=== PATIENT | male | born 1950 | race Caucasian/White ===

== ENCOUNTER → 2016-07-12 | Outpatient (CLI) | payer OTHER, MEDICARE ==
[~2016-07-12] VITALS: Ht 180.3 cm; Wt 96.9 kg
[~2016-07-12] MED LIST: AMOX875T PO; AMPH10TA2 PO; CHOLCAP5 PO; FINA5TAB PO; GLC/500 PO; LISI-729 PO; MULT-599 PO; NAPR-1169 PO; OXYC1TAB3 PO; PRAV40TA2 PO; SERT50TA PO; SILO8CAP PO; TMPOPS15 OPR; VITA400C3 PO
[2016-07-12 14:17] VITALS: BP 151/81; PULSE 94; Ht 180.3 cm; Wt 96.9 kg
== END | disposition home or self-care (01) ==
LOC: C.NEUR 13:42
PROVIDERS: ATTEND Internal Medicine Pulmonary Disease
DX: G47.33 Obstructive sleep apnea (adult) (pediatric) (principal)

== ENCOUNTER → 2016-07-25 | Outpatient (CLI) | payer OTHER, MEDICARE ==
--- NOTE | 2016-07-28 10:42 | POLYSOMNOGRAPH REPORT ---
CLINICAL DATA: A 65-year-old male with BMI of 29.7, with a longstanding history of sleep apnea corrected with CPAP. He is currently on CPAP 8 cm of water pressure. He required redocumentation of sleep apnea for Medicare to obtain appropriate equipment. On the evening of 07/25/2016, a home sleep apnea test was performed using a Neocleus type 3 monitor. RECORDING RESULTS Total recording time was 10 hours. The patient's monitoring time and estimated sleep time was 8.2 hours. RESPIRATORY DATA: Moderate sleep apnea was documented. The ANI was 17.3. There were 32 obstructive, 1 mixed, 1 central apneic episode recorded. There were 108 hypopneic episodes. The longest respiratory event was 58 seconds. OXIMETRY DATA: Nocturnal hypoxemia was seen. Oxygen fuad was 82%. Mean saturation was 92%. Time below 89% was 27 minutes. HEART RATE DATA: Heart rates ranged from 62 to 82 beats per minute. SNORING DATA: Snoring was recorded throughout the night. IMPRESSION: Moderate obstructive sleep apnea/hypopnea with an ANI of 17.3 with nocturnal hypoxemia. RECOMMENDATIONS: The patient should continue on CPAP 8 cm of water pressure with heated humidification and nasal mask through [facility]. BETHANIE
== END | disposition home or self-care (01) ==
LOC: C.NEUR 10:00
PROVIDERS: ATTEND Internal Medicine Pulmonary Disease
DX: G47.33 Obstructive sleep apnea (adult) (pediatric) (principal); G47.36 Sleep related hypoventilation in conditions classified elsewhere

== ENCOUNTER → 2016-08-30 | Outpatient (CLI) | payer OTHER, MEDICARE ==
[~2016-08-30] VITALS: Ht 180.3 cm; Wt 98.7 kg
[2016-08-30 12:29] VITALS: BP 138/75; PULSE 83; Ht 180.3 cm; Wt 98.7 kg
== END | disposition home or self-care (01) ==
LOC: C.NEUR 12:11
PROVIDERS: ATTEND Internal Medicine Pulmonary Disease
DX: G47.33 Obstructive sleep apnea (adult) (pediatric) (principal); R53.82 Chronic fatigue, unspecified

== ENCOUNTER → 2016-11-02 | Outpatient (CLI) | payer OTHER, MEDICARE ==
[~2016-11-02] MED LIST changes: +OXYC-57 PO
== END | disposition home or self-care (01) ==
LOC: C.RDSM 12:19
PROVIDERS: ATTEND Physical Medicine & Rehabilitation Sports Medicine
DX: M25.511 Pain in right shoulder (principal)

== ENCOUNTER 2016-12-13 17:04 | Emergency (ER) | payer OTHER, MEDICARE ==
[~2016-12-13] VITALS: Ht 180.3 cm; Wt 97.3 kg
[2016-12-13 17:07] VITALS: TEMP 36.5; Ht 180.3 cm; Wt 97.3 kg
[2016-12-13] MEDS ORDERED: RABIES IMMUNE GLOBULIN (HUMAN) 150 INTER.UNIT/ML 2 ML VIAL IM. ONE (17:45)
[2016-12-13] MEDS ORDERED: RABIES VACCINE (IMOVAX) HUMAN DIPL CELL 2.5 INTER.UNIT/ML SYR IM. ONE (17:45)
[2016-12-13] MEDS ORDERED: SERT50TA PO (17:52)
--- NOTE | 2016-12-13 18:04 | EMERGENCY ROOM VISIT NOTE ---
ED Visit Note First contact with patient: 17:15 CHIEF COMPLAINT: Need for rabies prophylaxis HISTORY OF PRESENT ILLNESS: This 66-year-old male patient presents to the emergency department after getting bitten by a cat. The patient states approximately 2 months ago, he rescued a cat which he found in a barn. He states the cat had appeared to be pretty messed up, and had potentially gotten bitten by another animal prior to rescue. He did take the cat to a vet, where it is currently being quarantined. The cat has been quarantined since October 19. He was also vaccinated against rabies on that same day. The patient did see his PCP today, who started him on Augmentin, and recommended that he come to the emergency department for rabies vaccination. There is concern for rabies exposure due to unknown history of exposure to cat. Patient's tetanus vaccination is up-to-date. REVIEW OF SYSTEMS: A 6 system review of systems was completed with positives and pertinent negatives listed in the HPI. ALLERGIES: Ciprofloxacin MEDICATIONS: Please see list. PMH: Diabetes, hypertension, hyperlipidemia, BPH, sleep apnea. SOCIAL HISTORY: Was locally with his family. He denies drug, tobacco use. He admits to occasional alcohol use. PHYSICAL EXAM: Vital Signs: Reviewed Nurse's notes, vital signs stable. GENERAL : 66-year-old male, in no acute distress, well-developed, well-nourished. HEAD : Atraumatic, without temporal or scalp tenderness. EYES: PERRLA, EOMI, no discharge or injection. SKIN: [place], warm, dry. No cyanosis or diaphoresis noted. Small superficial puncture wound and superficial abrasion noted on right posterior forearm. The wounds are clean. Capillary refill less than 2 seconds. NEUROLOGICAL: Alert and oriented to person place and time. Normal sensation to light and sharp touch. MUSCULOSKELETAL: Motor functions grossly intact of the extremities. Full range of motion. There is no tenderness over the right forearm. EMERGENCY DEPARTMENT COURSE: I examined the patient. The patient was given RIG 20 Units/kg. The patient was given Imovax 1ml IM. The patient was observed for 20 minutes with no reaction. The patient was discharged home in stable condition. DIFFERENTIAL DIAGNOSIS: Infection, rabies, sepsis, and others. DIAGNOSIS: Rabies prophylaxis, cat bite DISCHARGE INSTRUCTIONS: Today is day 0. Return to the ER on days 3 (12/16/16), 7 (12/20/16), 14 (12/27/16) , and 28 (01/10/17) for subsequent vaccinations. Return sooner or follow up with your family doctor for signs of infection ( increased redness, discharge, fever) or for complications with the vaccine series. Take Augmentin as was prescribed by your PCP. Keep the cat quarantined per the vet's recommendations. Current/Historical Medications Scheduled Amphetamine-Dextroamphetamine 10MG (Adderall 10MG), 10 MG PO QAM Cholecalciferol (Vitamin D3), 5,000 INTER.UNIT PO DAILY Finasteride (Proscar), 5 MG PO HS Lisinopril (Zestril), 5 MG PO HS Metformin Hcl (Glucophage), 500 MG PO DAILY Multiple Vitamins W/ Minerals (Mens 50+ Multi Vitamin &), 1 TAB PO DAILY Pravastatin Sodium (Pravastatin Sodium), 40 MG PO HS Silodosin (Rapaflo), 8 MG PO HS Timolol Maleate (Timolol 0.5% Oph Soln 15 Ml), 1 DROP OPR DAILY Vitamin E (Vitamin E 400 Iu), 400 INTER.UNIT PO DAILY Scheduled PRN Naproxen (Naprosyn), 500 MG PO BID PRN for Pain Allergies Coded Allergies: Ciprofloxacin (Verified Allergy, Unknown, TINGLING ALL OVER, 12/13/16) Vital Signs Date Time Temp Pulse Resp B/P (MAP) Pulse Ox O2 Delivery O2 Flow Rate FiO2 12/13/16 19:00 72 16 137/72 95 Room Air 12/13/16 17:07 36.5 80 18 139/76 95 Room Air Medications Administered Medications (Trade) Dose Ordered Sig/Umesh Route Start Time Stop Time Status Last Admin Dose Admin Rabies Immune Globulin (Imogam Rabies Inj) 1,940 interunit ONCE ONCE IM. 12/13/16 17:45 12/13/16 17:46 DC 12/13/16 18:32 1,940 INTERUNIT Rabies Vaccine Human Diploid Cell (Imovax Rabies) 2.5 interunit ONCE ONCE IM. 12/13/16 17:45 12/13/16 17:46 DC 12/13/16 17:45 2.5 INTERUNIT Departure Information Impression Primary Impression: Cat bite Additional Impression: Rabies, need for prophylactic vaccination against Dispostion Home / Self-Care Condition GOOD Referrals Justin Parks M.D. (PCP) Patient Instructions ED Bite Cat, [facility], Rabies Immune Globulin human RIG solution for injection, Rabies Vaccine suspension for injection Additional Instructions Today is day 0. Return to the ER on days 3 (12/16/16), 7 (12/20/16), 14 (12/27/16) , and 28 (01/10/17) for subsequent vaccinations. Return sooner or follow up with your family doctor for signs of infection ( increased redness, discharge, fever) or for complications with the vaccine series. Take Augmentin as was prescribed by your PCP. Keep the cat quarantined per the vet's recommendations. Problem Qualifiers Primary Impression: Cat bite Encounter type: initial encounter Qualified Codes: W55.01XA - Bitten by cat , initial encounter
[2016-12-13 19:00] VITALS: BP 137/72; PULSE 72; O2SAT 95
[2017-03-16] MEDS ORDERED: OXYC-57 PO (14:14)
== END 2016-12-13 19:07 | disposition home or self-care (01) ==
LOC: C.EDB 17:06 → C.EDD 19:07
DX: Z23 Encounter for immunization (principal); Z20.3 Contact with and (suspected) exposure to rabies; I10 Essential (primary) hypertension; E11.9 Type 2 diabetes mellitus without complications; E78.5 Hyperlipidemia, unspecified; G47.30 Sleep apnea, unspecified; Z88.2 Allergy status to sulfonamides; Z79.84 Long term (current) use of oral hypoglycemic drugs; Z79.899 Other long term (current) drug therapy

== ENCOUNTER 2016-12-16 16:04 | Emergency (ER) | payer OTHER, MEDICARE ==
[~2016-12-16] VITALS: Ht 180.3 cm; Wt 97.0 kg
[2016-12-16 16:06] VITALS: TEMP 36.6; Ht 180.3 cm; Wt 97.0 kg
[2016-12-16] MEDS ORDERED: RABIES VACCINE (IMOVAX) HUMAN DIPL CELL 2.5 INTER.UNIT/ML SYR IM. ONE (16:45)
[2016-12-16 17:21] VITALS: BP 146/76; PULSE 84; O2SAT 96
[2016-12-16] MEDS ORDERED: CHOLCAP5 PO (17:52)
[2016-12-16] MEDS ORDERED: LISI-729 PO (17:52)
[2016-12-16] MEDS ORDERED: GLC/500 PO (17:52)
[2016-12-16] MEDS ORDERED: PRAV40TA2 PO (17:52)
[2016-12-16] MEDS ORDERED: FINA5TAB PO (17:52)
[2016-12-16] MEDS ORDERED: SILO8CAP PO (17:52)
[2016-12-16] MEDS ORDERED: VITA400C3 PO (17:52)
[2016-12-16] MEDS ORDERED: AMPH10TA2 PO (17:52)
[2016-12-16] MEDS ORDERED: MULT-599 PO (17:52)
[2016-12-16] MEDS ORDERED: TMPOPS15 OPR (17:57)
[2016-12-16] MEDS ORDERED: NAPR-1169 PO (17:57)
--- NOTE | 2016-12-16 21:41 | EMERGENCY ROOM VISIT NOTE ---
ED Visit Note First contact with patient: 16:12 CHIEF COMPLAINT: Rabies vaccination. HISTORY OF PRESENT ILLNESS: Mr. Banegas is a 66-year-old white male who ambulates into the ED accompanied by his requesting his second rabies vaccination. Patient reports he has not had any side effect or complications from his previous rabies vaccinations. Additionally he reports she is feeling well and denies fevers, chills, sweats, joint pains, chest pain, shortness of breath, abdominal pain, nausea/vomiting, decreased appetite. REVIEW OF SYSTEMS: As noted above in History of Present Illness. PHYSICAL EXAM: Vital Signs: Date Time Temp Pulse Resp B/P (MAP) Pulse Ox O2 Delivery O2 Flow Rate FiO2 12/16/16 17:21 84 18 146/76 96 12/16/16 16:06 36.6 89 16 144/78 94 Room Air GENERAL: 66-year-old white male in no acute distress, nontoxic-appearing, afebrile and hemodynamically stable. NEUROLOGICAL: Awake, alert and oriented to person, place and time. Answering questions appropriately and following commands. Normal gait. SKIN: Warm, dry and pink. EMERGENCY DEPARTMENT COURSE: Patient is assessed as noted above. Patient was given 2.5 interunits of rabies vaccination IM. Patient was educated about today's findings and instructed on her treatment plan ; she verbalized understanding and agreement with this plan. CLINICAL IMPRESSION: Post exposure rabies prophylaxis. DISPOSITION: Patient discharged to home in stable condition; prior to discharge he was reassessed and reported that he was pain and symptom-free. PLAN: Patient was encouraged to continue his current treatment plan from his previous immunizations and keep his current immunizations schedule. Patient was encouraged return the ED sooner for any reaction to his medications , abnormal symptoms or any new/concerning symptoms.
== END 2016-12-16 17:22 | disposition home or self-care (01) ==
LOC: C.EDB 16:07 → C.EDD 17:22
DX: Z23 Encounter for immunization (principal); Z20.3 Contact with and (suspected) exposure to rabies

== ENCOUNTER 2016-12-20 17:10 | Emergency (ER) | payer OTHER, MEDICARE ==
[~2016-12-20] VITALS: Ht 180.3 cm; Wt 98.0 kg
[~2016-12-20 17:10] MED LIST changes: -AMOX875T PO; -OXYC-57 PO; -OXYC1TAB3 PO; -SERT50TA PO
[2016-12-20 17:21] VITALS: Ht 180.3 cm; Wt 98.0 kg
[2016-12-20] MEDS ORDERED: RABIES VACCINE (IMOVAX) HUMAN DIPL CELL 2.5 INTER.UNIT/ML SYR IM. ONE (17:30)
[2016-12-20 17:44] VITALS: BP 128/81; PULSE 78; TEMP 36.7; O2SAT 95
--- NOTE | 2016-12-20 19:12 | EMERGENCY ROOM VISIT NOTE ---
History First contact with patient: 17:24 Chief Complaint: RABIES VACCINE REPEAT VISIT Stated Complaint: 3RD RABIES SHOT History of Present Illness The patient is a 66 year old male who presents to the Emergency Room for his third Imovax injection. The patient was bitten by a cat on his right forearm. The patient reports complete healing of the wound. He denies any adverse reactions to his rabies immunizations. Review of Systems 6 system review was performed and was negative except for pertinent positives and negatives as indicated in history of present illness Past Medical/Surgical History Well documented on initial visit and unchanged Social History Smoking Status: Never Smoker Alcohol Use: occasionally Marital Status: Occupation Status: retired Current/Historical Medications Scheduled Amphetamine-Dextroamphetamine 10MG (Adderall 10MG), 10 MG PO QAM Cholecalciferol (Vitamin D3), 5,000 INTER.UNIT PO DAILY Finasteride (Proscar), 5 MG PO HS Lisinopril (Zestril), 5 MG PO HS Metformin Hcl (Glucophage), 500 MG PO DAILY Multiple Vitamins W/ Minerals (Mens 50+ Multi Vitamin &), 1 TAB PO DAILY Pravastatin Sodium (Pravastatin Sodium), 40 MG PO HS Silodosin (Rapaflo), 8 MG PO HS Timolol Maleate (Timolol 0.5% Oph Soln 15 Ml), 1 DROP OPR DAILY Vitamin E (Vitamin E 400 Iu), 400 INTER.UNIT PO DAILY Scheduled PRN Naproxen (Naprosyn), 500 MG PO BID PRN for Pain Allergies Coded Allergies: Ciprofloxacin (Verified Allergy, Unknown, TINGLING ALL OVER, 12/13/16) Physical Exam Vital Signs Date Time Temp Pulse Resp B/P (MAP) Pulse Ox O2 Delivery O2 Flow Rate FiO2 12/20/16 17:44 36.7 78 18 128/81 95 12/20/16 17:43 78 18 128/81 95 Room Air 12/20/16 17:21 36.7 78 18 134/84 95 Pain Rating (0-10): 0 Physical Exam CONSTITUTIONAL: Healthy and well nourished. Alert and oriented X 3 with positive affect. MUSCULOSKELETAL: Examination shows a healed wound of the dorsal forearm. No erythema, fluctuance or drainage noted. INTEGUMENTARY: No rash or other significant dermatologic conditions noted. NEUROLOGIC: Right hand and fingers are sensory intact. Medical Decision & Procedures Medications Administered Medications (Trade) Dose Ordered Sig/Umesh Route Start Time Stop Time Status Last Admin Dose Admin Rabies Vaccine Human Diploid Cell (Imovax Rabies) 2.5 interunit ONCE ONCE IM. 12/20/16 17:30 12/20/16 17:31 DC 12/20/16 17:37 2.5 INTERUNIT ED Course Patient history and physical exam were performed. Nurse's notes were reviewed. Vital signs were reviewed and normal. The patient received Imovax without adverse reaction. The patient will return in one week for his fourth Imovax injection, sooner with any adverse reaction or wound complications. The patient denied any pain at the time of discharge. Medical Decision Impression Primary Impression: Rabies, need for prophylactic vaccination against Additional Impression: Cat bite of right upper arm Departure Information Dispostion Home / Self-Care Condition GOOD Forms HOME CARE DOCUMENTATION FORM, IMPORTANT VISIT INFORMATION Patient Instructions [facility] Additional Instructions Return next Monday for your fourth Imovax injection Problem Qualifiers Additional Impression: Cat bite of right upper arm Encounter type: subsequent encounter Qualified Codes: S41.151D - Open bite of right upper arm, subsequent encounter; W55.01XD - Bitten by cat, subsequent encounter
[2017-03-16] MEDS ORDERED: OXYC-57 PO (14:14)
== END 2016-12-20 17:45 | disposition home or self-care (01) ==
LOC: C.EDB 17:11 → C.EDD 17:45
DX: Z23 Encounter for immunization (principal); Z20.3 Contact with and (suspected) exposure to rabies

== ENCOUNTER 2016-12-27 18:27 | Emergency (ER) | payer OTHER, MEDICARE ==
[~2016-12-27] VITALS: Ht 180.3 cm; Wt 98.6 kg
[2016-12-27 18:35] VITALS: BP 154/80; PULSE 81; TEMP 36.4; O2SAT 96; Ht 180.3 cm; Wt 98.6 kg
[2016-12-27] MEDS ORDERED: RABIES VACCINE (IMOVAX) HUMAN DIPL CELL 2.5 INTER.UNIT/ML SYR IM. ONE (19:00)
--- NOTE | 2016-12-28 01:20 | EMERGENCY ROOM VISIT NOTE ---
ED Visit Note First contact with patient: 18:47 Chief Complaint: Rabies vaccination. History of Present Illness: Mr. Banegas is a 66-year-old white male who ambulates into the ED accompanied by his requesting his fourth rabies vaccination injection. Patient reports he has had no adverse affects from his previous immunization shots. He also reports he is feeling well today and has not had any fevers, chills, sweats, skin eruptions, joint pains, chest pains, shortness of breath, abdominal pains, nausea/vomiting, decreased appetite. Review of Systems: As noted above in history of present illness. Past Medical History: As previously noted. Current Medications: As previously noted. Allergies to Medications: Ciprofloxacin. Social History: As previously noted. Physical Examination: Vital Signs: Date Time Temp Pulse Resp B/P (MAP) Pulse Ox O2 Delivery O2 Flow Rate FiO2 12/27/16 18:35 36.4 81 20 154/80 96 Room Air GENERAL: 66-year-old male in no acute distress, nontoxic-appearing, afebrile and hemodynamically stable. NEUROLOGICAL: Awake, alert and oriented to person, place and time. Answering questions appropriately and following commands. Normal gait. Good hand eye coordination. SKIN: Warm, dry and pink. ED Course: Patient is assessed as noted above. Patient's medication list was reviewed. Patient was given 2.5 interunits of rabies vaccination IM. Patient was observed and had no reactions. Patient was educated about today's findings and instructed on his treatment plan ; he verbalizes understanding and agreement with this plan. Clinical Impression: Fourth rabies vaccination. Disposition: Patient discharged home in stable condition accompanied by his ; prior to departure he was reassessed and was subjectively pain and symptom- free. Plan: Patient was encouraged to continue to monitor himself for any associated side effects of the medications. Patient was encouraged to follow-up with his PCP or return to the ED as needed for any symptoms.
[2017-03-16] MEDS ORDERED: OXYC-57 PO (14:14)
== END 2016-12-27 19:17 | disposition home or self-care (01) ==
LOC: C.EDB 18:28 → C.EDD 19:17
DX: Z23 Encounter for immunization (principal); Z20.3 Contact with and (suspected) exposure to rabies

== ENCOUNTER 2017-01-10 08:48 | Emergency (ER) | payer OTHER, MEDICARE ==
[~2017-01-10] VITALS: Ht 180.3 cm; Wt 98.3 kg
[2017-01-10 08:52] VITALS: TEMP 36.4; Ht 180.3 cm; Wt 98.3 kg
--- NOTE | 2017-01-10 09:21 | EMERGENCY ROOM VISIT NOTE ---
ED Visit Note First contact with patient: 09:06 CHIEF COMPLAINT: Rabies prophylaxis HISTORY OF PRESENT ILLNESS: This 66-year-old male patient presents to the emergency department, ambulatory, with his , for his fifth rabies shot. The patient's initial bite was by a cat on December 13. Please see previous dictation for further history. The patient has not had any complications from the previous injections. They deny any other complaints. REVIEW OF SYSTEMS: A 6 system review of systems was completed with positives and pertinent negatives listed in the HPI. ALLERGIES: Ciprofloxacin MEDICATIONS: Please see list. PMH: Unchanged from previous visit. PHYSICAL EXAM: Vital Signs: Reviewed Nurse's notes, vital signs stable. GENERAL : A 66-year-old male, in no acute distress, well-developed, well-nourished. HEAD: Atraumatic, without temporal or scalp tenderness. EYES: PERRLA, EOMI, no discharge or injection. SKIN: Normal. NEUROLOGICAL: Alert and cooperative. Sensory and motor functions grossly intact. EMERGENCY DEPARTMENT COURSE: I examined the patient. The patient was given Imovax 1ml IM. The patient was observed for 20 minutes with no reaction. The patient was discharged home in stable condition. DIAGNOSIS: Rabies prophylaxis DISCHARGE INSTRUCTIONS: This was your last vaccination of the series. Return for any complications. Current/Historical Medications Scheduled Amphetamine-Dextroamphetamine 10MG (Adderall 10MG), 10 MG PO QAM Cholecalciferol (Vitamin D3), 5,000 INTER.UNIT PO DAILY Finasteride (Proscar), 5 MG PO HS Lisinopril (Zestril), 5 MG PO HS Metformin Hcl (Glucophage), 500 MG PO DAILY Multiple Vitamins W/ Minerals (Mens 50+ Multi Vitamin &), 1 TAB PO DAILY Pravastatin Sodium (Pravastatin Sodium), 40 MG PO HS Silodosin (Rapaflo), 8 MG PO HS Timolol Maleate (Timolol 0.5% Oph Soln 15 Ml), 1 DROP OPR DAILY Vitamin E (Vitamin E 400 Iu), 400 INTER.UNIT PO DAILY Scheduled PRN Naproxen (Naprosyn), 500 MG PO BID PRN for Pain Allergies Coded Allergies: Ciprofloxacin (Verified Allergy, Unknown, TINGLING ALL OVER, 12/27/16) Vital Signs Date Time Temp Pulse Resp B/P (MAP) Pulse Ox O2 Delivery O2 Flow Rate FiO2 01/10/17 09:48 82 18 143/78 93 01/10/17 08:52 36.4 84 16 131/71 94 Room Air Medications Administered Medications (Trade) Dose Ordered Sig/Umesh Route Start Time Stop Time Status Last Admin Dose Admin Rabies Vaccine Human Diploid Cell (Imovax Rabies) 2.5 interunit ONCE ONCE IM. 01/10/17 09:30 01/10/17 09:31 DC 01/10/17 09:30 2.5 INTERUNIT Departure Information Impression Primary Impression: Cat bite Additional Impression: Rabies, need for prophylactic vaccination against Dispostion Home / Self-Care Condition GOOD Referrals Justin Parks M.D. (PCP) Patient Instructions [facility], Rabies Vaccine suspension for injection Additional Instructions This was your last vaccination of the series. Return for any complications. Please continue to follow up as you regularly would with your primary care provider. Problem Qualifiers Primary Impression: Cat bite Encounter type: sequela Qualified Codes: W55.01XS - Bitten by cat, sequela
[2017-01-10] MEDS ORDERED: RABIES VACCINE (IMOVAX) HUMAN DIPL CELL 2.5 INTER.UNIT/ML SYR IM. ONE (09:30)
[2017-01-10 09:48] VITALS: BP 143/78; PULSE 82; O2SAT 93
[2017-03-16] MEDS ORDERED: OXYC-57 PO (14:14)
== END 2017-01-10 09:48 | disposition home or self-care (01) ==
LOC: C.EDB 08:49 → C.EDA 09:48
DX: Z23 Encounter for immunization (principal); Z20.3 Contact with and (suspected) exposure to rabies

== ENCOUNTER 2017-02-18 14:45 | Emergency (ER) | payer OTHER, MEDICARE ==
[~2017-02-18] VITALS: Ht 180.3 cm; Wt 96.2 kg
[2017-02-18 14:46] VITALS: TEMP 36.6; Ht 180.3 cm; Wt 96.2 kg
[2017-02-18] MEDS ORDERED: SODIUM CHLORIDE 0.9% 1000ML 1,000 ML IV STA (14:58)
[2017-02-18] MEDS ORDERED: KETOROLAC TROMETHAMINE 30 MG/ML VIAL IV STA (14:58)
[2017-02-18] MEDS ORDERED: SODIUM CHLORIDE 0.9% 1000ML 1,000 ML IV ONE (14:58)
--- NOTE | 2017-02-18 15:01 | EMERGENCY ROOM VISIT NOTE ---
History Report prepared by Park: Bernabe Smith Under the Supervision of: Dr. Dionicio Mayberry M.D. First contact with patient: 14:49 Chief Complaint: KIDNEY STONE Stated Complaint: KIDNEY PAIN History of Present Illness The patient is a 66 year old male who presents to the Emergency Room with complaints of worsening right flank pain that began a couple of days ago. He rates his pain a 10/10 in severity. The patient denies a past medical history of kidney stones or aneurisms. His pain has worsened exceptionally in the past couple of hours. He notes that his pain only feels better when he sits very still. His pain worsens when he moves or takes a deep breath. His pain radiates around to his right abdomen. He denies any fevers, chills, chest pain, nausea, vomiting, numbness, weakness, recent trauma, recent injury, burning with urination, hematuria, diarrhea, melena, or hematochezia. He notes that his urine will intermittently be very yellow or clear, and then have an odor or no odor. He has a past medical history of diabetes, hypertension, a right hip replacement, and a left shoulder surgery. He denies any history of abdominal surgeries. He is not on any blood thinners. He notes that his abdomen feels distended. Source of History: patient Onset: a couple of days ago Position: other (Right flank) Symptom Intensity: 10/10 Quality: sharp Timing: worsening Modifying Factors (Worsening): breathing, movement Modifying Factors (Relieving): rest Associated Symptoms: + abdominal pain, No fevers, No chills, No chest pain, No nausea, No vomiting, No melena, No hematochezia, No diarrhea, No weakness, No numbness Note: He states that his abdomen feels distended. Review of Systems See HPI for pertinent positives & negatives. A total of 10 systems reviewed and were otherwise negative. Past Medical & Surgical Medical Problems: (1) Diabetes (2) HTN (hypertension) Old medical records were reviewed. Nurse's notes were reviewed and I agree with. Family History Omitted secondary to the patient's age. Social History Smoking Status: Never Smoker Smokeless Tobacco Use: No Alcohol Use: occasionally Drug Use: none Marital Status: Housing Status: lives with family Occupation Status: retired Current/Historical Medications Scheduled Amoxicillin & Pot Clavulanate (Augmentin 875-125 mg), 875 MG PO BID Amphetamine-Dextroamphetamine 10MG (Adderall 10MG), 10 MG PO QAM Cholecalciferol (Vitamin D3), 5,000 INTER.UNIT PO DAILY Finasteride (Proscar), 5 MG PO HS Lisinopril (Zestril), 5 MG PO HS Metformin Hcl (Glucophage), 500 MG PO HS Multiple Vitamins W/ Minerals (Mens 50+ Multi Vitamin &), 1 TAB PO DAILY Pravastatin Sodium (Pravastatin Sodium), 40 MG PO HS Silodosin (Rapaflo), 8 MG PO HS Timolol Maleate (Timolol 0.5% Oph Soln 15 Ml), 1 DROP OPR QAM Vitamin E (Vitamin E 400 Iu), 400 INTER.UNIT PO DAILY Scheduled PRN Naproxen (Naprosyn), 500 MG PO BID PRN for Pain Oxycodone Immediate Rel Tab (Roxicodone Ir), 1-2 TAB PO Q4H PRN for Severe Pain Allergies Coded Allergies: Ciprofloxacin (Verified Allergy, Unknown, TINGLING ALL OVER, 02/18/17) Physical Exam Vital Signs Date Time Temp Pulse Resp B/P (MAP) Pulse Ox O2 Delivery O2 Flow Rate FiO2 02/18/17 17:30 76 18 122/76 98 02/18/17 14:46 36.6 83 20 138/88 99 Room Air Physical Exam General: Uncomfortable appearing older male, well developed well nourished in moderate acute distress, breathing comfortably on room air. Complaining of right flank pain that worsens with movement and palpation. Normal speech HEENT: Normal cephalic atraumatic. Pupils are equal round and reactive to light. Extraocular movements are intact. Oropharynx is pink with moist mucous membranes. No swelling of the mouth lips or tongue. Neck: Supple with a midline trachea. No meningeal signs or stiffness, no JVD or bruits. No Stridor. Chest: Clear to auscultation bilaterally. No wheezes or rhonchi. No increased work of breathing. Heart: regular rate and rhythm. Abdomen: Soft nontender, nondistended without rebound guarding or rigidity. Extremities: No cyanosis clubbing or edema. No calf tenderness or assymetry Spine/Back. Right flank is reproducibly tender with movement. No masses or lesions. No CVA tenderness Skin: Good turgor without rashes. Neurologic exam: Cranial nerves two through 12 are intact. Motor and sensation are intact and symmetrical throughout. Medical Decision & Procedures ER Provider Diagnostic Interpretation: Radiology results as stated below per my review and radiologist interpretation: CT SCAN OF THE ABDOMEN AND PELVIS WITHOUT CONTRAST CLINICAL HISTORY: Right flank pain COMPARISON STUDY: 01/15/2015 TECHNIQUE: CT scan of the abdomen and pelvis was performed from the lung bases to the proximal femurs. Images are reviewed in the axial, sagittal, and coronal planes. IV contrast was not administered for this examination. A dose lowering technique was utilized adhering to the principles of ALARA. CT DOSE: 1755.08 mGy.cm FINDINGS: Lower chest: The heart is normal in size and configuration, without pericardial effusion. The lung bases and pleural spaces are clear. Liver: The unenhanced liver is normal in size, contour, and attenuation. There is no intrahepatic biliary ductal dilatation. Gallbladder: Unremarkable. Spleen: Normal in size and attenuation. Pancreas: Unremarkable. Adrenal glands: Unremarkable. Kidneys: No renal, ureteral, or bladder calculi are visualized. Bowel: There are no transition zones indicate bowel obstruction. There is colonic wall thickening at the descending sigmoid junction with infiltration the perisigmoid fat. The findings are consistent with acute diverticulitis. The wall thickening is somewhat eccentric, and follow-up is recommended to exclude an underlying neoplasm. Peritoneum: There is no intraperitoneal free air or abdominal ascites. There is very subtle infiltration of the central mesentery. Vasculature: The abdominal aorta is normal in course and caliber. Adenopathy: There are mildly prominent para-aortic and iliac lymph nodes. Pelvic viscera: The prostate is enlarged with median lobe hypertrophy. There is bladder wall thickening likely secondary to bladder outlet obstruction. Skeletal structures: There are postsurgical changes of a total right hip arthroplasty. No destructive lesions are visualized. IMPRESSION: 1. Acute diverticulitis at the sigmoid descending colonic junction 2. Underlying eccentric bowel wall thickening. Follow-up is recommended to exclude an underlying neoplasm 3. No evidence of bowel obstruction. No evidence of free air 4. Prostamegaly. Bladder wall thickening likely secondary to bladder outlet obstruction. 5. Mildly prominent para-aortic and iliac lymph nodes. Electronically signed by: Cali Plaza M.D. 02/18/2017 3:35 PM Dictated Date/Time: 02/18/2017 3:29 PM Laboratory Results 02/18/17 15:00 Red Blood Count 5.06, Mean Corpuscular Volume 89.9, Mean Corpuscular Hemoglobin 29.1, Mean Corpuscular Hemoglobin Concent 32.3, Mean Platelet Volume 9.9, Neutrophils (%) (Auto) 61.3, Lymphocytes (%) (Auto) 28.5, Monocytes (%) (Auto) 8.1, Eosinophils (%) (Auto) 1.7, Basophils (%) (Auto) 0.2, Neutrophils # (Auto) 7.22, Lymphocytes # (Auto) 3.36, Monocytes # (Auto) 0.96, Eosinophils # (Auto) 0.20, Basophils # (Auto) 0.02 02/18/17 15:00 Test 02/18/17 15:00 02/18/17 16:35 White Blood Count 11.78 K/uL (4.8-10.8) Red Blood Count 5.06 M/uL (4.7-6.1) Hemoglobin 14.7 g/dL (14.0-18.0) Hematocrit 45.5 % (42-52) Mean Corpuscular Volume 89.9 fL (80-100) Mean Corpuscular Hemoglobin 29.1 pg (25-34) Mean Corpuscular Hemoglobin Concent 32.3 g/dl (32-36) Platelet Count 364 K/uL (130-400) Mean Platelet Volume 9.9 fL (7.4-10.4) Neutrophils (%) (Auto) 61.3 % Lymphocytes (%) (Auto) 28.5 % Monocytes (%) (Auto) 8.1 % Eosinophils (%) (Auto) 1.7 % Basophils (%) (Auto) 0.2 % Neutrophils # (Auto) 7.22 K/uL (1.4-6.5) Lymphocytes # (Auto) 3.36 K/uL (1.2-3.4) Monocytes # (Auto) 0.96 K/uL (0.11-0.59) Eosinophils # (Auto) 0.20 K/uL (0-0.5) Basophils # (Auto) 0.02 K/uL (0-0.2) RDW Standard Deviation 44.2 fL (36.4-46.3) RDW Coefficient of Variation 13.5 % (11.5-14.5) Immature Granulocyte % (Auto) 0.2 % Immature Granulocyte # (Auto) 0.02 K/uL (0.00-0.02) Anion Gap 5.0 mmol/L (3-11) Est Creatinine Clear Calc Drug Dose 99.8 ml/min Estimated GFR () 104.5 Estimated GFR (Non- 90.2 BUN/Creatinine Ratio 12.1 (10-20) Calcium Level 8.9 mg/dl (8.5-10.1) Total Bilirubin 0.4 mg/dl (0.2-1) Direct Bilirubin 0.1 mg/dl (0-0.2) Aspartate Amino Transf (AST/SGOT) 14 U/L (15-37) Alanine Aminotransferase (ALT/SGPT) 23 U/L (12-78) Alkaline Phosphatase 104 U/L (45-117) Total Protein 8.0 gm/dl (6.4-8.2) Albumin 3.9 gm/dl (3.4-5.0) Lipase 151 U/L (73-393) Urine Color YELLOW Urine Appearance CLEAR (CLEAR) Urine pH 6.5 (4.5-7.5) Urine Specific [place] 1.009 (1.000-1.030) Urine Protein NEG (NEG) Urine Glucose (UA) NEG (NEG) Urine Ketones NEG (NEG) Urine Occult Blood NEG (NEG) Urine Nitrite NEG (NEG) Urine Bilirubin NEG (NEG) Urine Urobilinogen NEG (NEG) Urine Leukocyte Esterase NEG (NEG) Laboratory studies as stated above per my review. Medications Administered Medications (Trade) Dose Ordered Sig/Umesh Route Start Time Stop Time Status Last Admin Dose Admin Sodium Chloride 1,000 ml @ 999 mls/hr Q1H1M STAT IV 02/18/17 14:58 02/18/17 15:58 DC 02/18/17 15:43 999 MLS/HR Sodium Chloride 1,000 ml @ 150 mls/hr Q6H40M ONCE IV 02/18/17 14:58 02/18/17 19:04 DC 02/18/17 16:23 150 MLS/HR Ketorolac Tromethamine (Toradol Inj) 30 mg NOW STAT IV 02/18/17 14:58 02/18/17 15:00 DC 02/18/17 15:16 30 MG Morphine Sulfate (MoRPHine SULFATE INJ) 4 mg NOW STAT IV 02/18/17 15:45 9/16/17 15:46 DC 02/18/17 16:23 4 MG Ondansetron HCl (Zofran Inj) 4 mg NOW STAT IV 02/18/17 15:45 02/18/17 15:46 DC 02/18/17 16:22 4 MG Amoxicillin/ Clavulanate Potassium (Augmentin Tab) 875 mg ONE ONCE PO 02/18/17 17:15 02/18/17 17:16 DC 02/18/17 17:31 875 MG ED Course 1449: Past medical records reviewed. The patient was evaluated in room C6, and a complete history and physical examination were performed. 1458: Ordered Toradol Inj 30 mg IV, Sodium Chloride 1000 ml @ 150 mls/hr IV, Sodium Chloride 1000 ml @ 999 mls/hr IV 1520: I tried to reevaluate the patient at this time, but he was in radiology receiving his CT scan. 1545: Ordered Zofran Inj 4 mg IV, Morphine Sulfate 4 mg IV 1610: Upon reevaluation, the patient is still having pain. I ordered him more pain medications. It is worst when he is moving. He has no abdominal tenderness. 1715: Ordered Oxycodone HCl 1 homepack PO, Augmentin Tab 875 mg PO 1730: Upon reevaluation, the patient is resting. I discussed the results and treatment plan with him. He verbalized agreement of the treatment plan. The patient was discharged home. Medical Decision Differentials include, but are not limited to; musculoskeletal pain, kidney stone, hematoma, aneurysm, infection, and electrolyte or metabolic abnormality. This patient comes in as described above. He is having is significant right flank pain that is definitely worse with movement when I had him get out of the wheelchair from triage into the bed this cause significant pain. It does not radiate. No trauma. On exam, there is no rash and he is focally tender below the rib cage posteriorly. He's had no dysuria or hematuria . IV access established and he was given IV Toradol which seemed to help resolve and pains was given Zofran 4 mg IV and morphine 4mg IV. Multiple blood testing was obtained, his white count is mildly elevated. He is not significantly anemic. He has nothing to suggest acute kidney problems. CAT scan shows that there kidney stones or renal structure. No aneurysm. He has chronic bladder and prostate issues. there is what appears to acute diverticulitis every is no symptoms to explain this. His urinalysis does not suggest a UTI. CAT scan shows what appears to be diverticulitis I will put him on antibiotics with Augmentin to cover the possibility of diverticulitis. I do not think this explains his symptoms however. I will also give him OxyIR for his pain he felt Chris better after receiving the morphine. He has nothing to suggest cauda equina syndrome. I do think this most likely is musculoskeletal. He will be discharged to he is feeling better and will be discharged home. He was warned that OxyIR could make him drowsy do not take before drinking, driving, working. Return if: Increasing pain, worsening of symptoms, fever or chills, any new problems or concerns. He should follow-up with his doctor Monday for recheck. He was happy with the plan and discharged home. Medication Reconcilliation Current Medication List: was personally reviewed by me Blood Pressure Screening Patient's blood pressure: Elevated blood pressure Blood pressure disposition: Elevated BP felt to be situational Impression Primary Impression: Right flank pain Additional Impression: Diverticulitis Scribe Attestation The scribe's documentation has been prepared under my direction and personally reviewed by me in its entirety. I confirm that the note above accurately reflects all work, treatment, procedures, and medical decision making performed by me. Departure Information Dispostion Home / Self-Care Prescriptions Amoxicillin & Pot Clavulanate (Augmentin 875-125 mg) 1 Tab Tab 875 MG PO BID for 10 Days, #20 TAB Prov: Dionicio Mayberry M.D. 02/18/17 Oxycodone Immediate Rel Tab (ROXICODONE IR) 5 Mg Tab 1-2 TAB PO Q4H Y for Severe Pain, #15 TAB Prov: Dionicio Mayberry M.D. 02/18/17 Referrals Justin Parks M.D. (PCP) Forms HOME CARE DOCUMENTATION FORM, IMPORTANT VISIT INFORMATION Patient Instructions My [facility] Additional Instructions Rest. Drink plenty of fluids. Use Augmentin 875 mg twice a day for 10 days for possible diverticulitis Use [id number] Aleve and/or acetaminophen/Tylenol Do not exceed the [id number] recommended dosages Do not take more than 2 Tylenol every 6 hours and do not take with other medications that contain acetaminophen/Tylenol For more severe pain, may use OxyIR 5 mg, one or 2 pills every 4-6 hours as needed OxyIR may make you drowsy and do not take before drinking, driving, working Return if: Increasing pain, fever or chills, worsening of symptoms, numbness or weakness, any new problems or concerns Follow-up with your doctor Monday for recheck Problem Qualifiers
[2017-02-18 15:15] LABS: BASO % 0.2 %; BASO ABS # 0.02 K/uL (0-0.2); COMPLETE YES; EOS % 1.7 %; HEMATOCRIT 45.5 % (42-52); IG% 0.2 %; LYMPH % 28.5 %; LYMPH ABS # 3.36 K/uL (1.2-3.4); MEAN CELL VOLUME 89.9 fL (80-100); MEAN CORPUSCULAR HEMOGLOBIN 29.1 pg (25-34); MEAN CORPUSCULAR HGB CONC 32.3 g/dl (32-36); MEAN PLATELET VOLUME 9.9 fL (7.4-10.4); MONO % 8.1 %; NEUT % 61.3 %; PLATELET COUNT 364 K/uL (130-400); RED BLOOD COUNT 5.06 M/uL (4.7-6.1); WHITE BLOOD COUNT 11.78 K/uL (4.8-10.8)
[2017-02-18 15:32] LABS: BUN/CREATININE RATIO 12.1 (10-20); CALCIUM 8.9 mg/dl (8.5-10.1); CREATININE 0.85 mg/dl (0.60-1.40); POTASSIUM 4.1 mmol/L (3.5-5.1)
--- NOTE | 2017-02-18 15:36 | DIAGNOSTIC IMAGING REPORT ---
CT SCAN OF THE ABDOMEN AND PELVIS WITHOUT CONTRAST CLINICAL HISTORY: Right flank pain COMPARISON STUDY: 01/15/2015 TECHNIQUE: CT scan of the abdomen and pelvis was performed from the lung bases to the proximal femurs. Images are reviewed in the axial, sagittal, and coronal planes. IV contrast was not administered for this examination. A dose lowering technique was utilized adhering to the principles of ALARA. CT DOSE: 1755.08 mGy.cm FINDINGS: Lower chest: The heart is normal in size and configuration, without pericardial effusion. The lung bases and pleural spaces are clear. Liver: The unenhanced liver is normal in size, contour, and attenuation. There is no intrahepatic biliary ductal dilatation. Gallbladder: Unremarkable. Spleen: Normal in size and attenuation. Pancreas: Unremarkable. Adrenal glands: Unremarkable. Kidneys: No renal, ureteral, or bladder calculi are visualized. Bowel: There are no transition zones indicate bowel obstruction. There is colonic wall thickening at the descending sigmoid junction with infiltration the perisigmoid fat. The findings are consistent with acute diverticulitis. The wall thickening is somewhat eccentric, and follow-up is recommended to exclude an underlying neoplasm. Peritoneum: There is no intraperitoneal free air or abdominal ascites. There is very subtle infiltration of the central mesentery. Vasculature: The abdominal aorta is normal in course and caliber. Adenopathy: There are mildly prominent para-aortic and iliac lymph nodes. Pelvic viscera: The prostate is enlarged with median lobe hypertrophy. There is bladder wall thickening likely secondary to bladder outlet obstruction. Skeletal structures: There are postsurgical changes of a total right hip arthroplasty. No destructive lesions are visualized. IMPRESSION: 1. Acute diverticulitis at the sigmoid descending colonic junction 2. Underlying eccentric bowel wall thickening. Follow-up is recommended to exclude an underlying neoplasm 3. No evidence of bowel obstruction. No evidence of free air 4. Prostamegaly. Bladder wall thickening likely secondary to bladder outlet obstruction. 5. Mildly prominent para-aortic and iliac lymph nodes. Electronically signed by: Cali Plaza M.D. 02/18/2017 3:35 PM Dictated Date/Time: 02/18/2017 3:29 PM
[2017-02-18] MEDS ORDERED: ONDANSETRON INJ 2 MG/ML 2 ML VIAL IV STA (15:45)
[2017-02-18] MEDS ORDERED: MoRPHine SULFATE 4 MG/ML 1 ML CARP\\VIAL IV STA (15:45)
[2017-02-18 16:43] LABS: URINE APPEARANCE CLEAR (CLEAR); URINE BILIRUBIN NEG (NEG); URINE COLOR YELLOW; URINE NITRITE NEG (NEG); URINE PH 6.5 (4.5-7.5); URINE SPECIFIC GRAVITY 1.009 (1.000-1.030); UROBILINOGEN NEG (NEG)
[2017-02-18 16:45] LABS: MANUAL MICROSCOPIC REQUIRED? NO; REVIEW REQ? NO
[2017-02-18] MEDS ORDERED: AMOX875T PO (17:10)
[2017-02-18] MEDS ORDERED: OXYC1TAB3 PO (17:10)
[2017-02-18] MEDS ORDERED: AMOXICILLIN/CLAVULANATE TAB 875 MG TAB PO ONE (17:15)
[2017-02-18] MEDS ORDERED: OXYCODONE IR HOME PACK PO ONE (17:15)
[2017-02-18 17:30] VITALS: BP 122/76; PULSE 76; O2SAT 98
[2017-03-16] MEDS ORDERED: OXYC-57 PO (14:14)
== END 2017-02-18 17:30 | disposition home or self-care (01) ==
LOC: C.EDB 14:45 → C.EDC 17:30
DX: R10.31 Right lower quadrant pain (principal); R10.11 Right upper quadrant pain; K57.32 Diverticulitis of large intestine without perforation or abscess without bleeding; E11.9 Type 2 diabetes mellitus without complications; I10 Essential (primary) hypertension; N40.1 Benign prostatic hyperplasia with lower urinary tract symptoms; Z79.84 Long term (current) use of oral hypoglycemic drugs

== ENCOUNTER → 2017-03-16 | Day surgery (SDC) | payer OTHER, MEDICARE ==
[2017-02-17 07:44] VITALS: Ht 180.3 cm; Wt 95.9 kg
[~2017-03-16] VITALS: Ht 180.3 cm; Wt 95.9 kg
[~2017-03-16] MED LIST changes: +ATROPINE SULFATE 0.1 MG/ML 5ML SYR IV PRN; +BUPIVACAINE/EPINEPHRINE 0.25% 1:200,000 30 ML VIAL ONE; +CEFAZOLIN 2000 MG/60 ML D5W IV SCH; +CEFAZOLIN IV 2,000 MG in DEXTROSE 5% 50ML 50 ML IV SCH; +CEFAZOLIN SOD 1 GM VIAL ONE; +DEXAMETHASONE SOD INJ 4 MG/ML VIAL ONE; +EpHEDrine SULFATE 50MG/5ML SYR ONE; +EpHEDrine SULFATE INJ 50 MG/ML AMP IV PRN; +EpINEphrine INJ 1MG/ML AMP 1 MG/ML AMP ONE; +FENTANYL CITRATE INJ 50 MCG/1 ML 2 ML VIAL IV PRN; +FENTANYL CITRATE INJ 50 MCG/1 ML 2 ML VIAL ONE; +GLYCOPYRROLATE INJ 0.2 MG/ML VIAL ONE; +LACTATED RINGER'S 1000ML 1,000 ML IV SCH; +LIDOCAINE HCL 2% 2 ML VIAL (20MG/ML) ONE; +LIDOCAINE/EPINEPHRINE 1% INJ 50 ML VIAL ONE; +MIDAZOLAM HCL 1 MG/ML 2ML VIAL ONE; +MoRPHine SULFATE 2 MG/ML CARP IV PRN; +MoRPHine SULFATE 4 MG/ML 1 ML CARP\\VIAL IV PRN; +NEOSTIGMINE METHYLSULFATE 5 MG/5 ML SYR ONE; +ONDANSETRON INJ 2 MG/ML 2 ML VIAL IV PRN; +ONDANSETRON INJ 2 MG/ML 2 ML VIAL ONE; +OXYC-57 PO; +OXYC1TAB3 PO; +OXYCODONE/ACETAMINOPHEN 5-325 TAB PO PRN; +PROMETHAZINE HCL INJ 6.25 MG in SODIUM CHLORIDE 0.9% 50ML 50 ML IV PRN; +PROPOFOL IV EMULSION 10 MG/ML 20 ML VIAL IV ONE; +SODIUM CHLORIDE 0.9% 1000ML 1,000 ML IV SCH
--- NOTE | 2017-03-16 08:46 | History & Physical Bridge Note ---
H&P Re-Evaluation Bridge Note: I have examined the patient, reviewed the History & Physical and in the interval since the performance of the History & Physical I have noted the following changes of clinical significance: No changes noted
--- NOTE | 2017-03-16 14:17 | Discharge Instructions-SurgCtr ---
Discharge Instructions Date of Service Mar 16, 2017. Visit Reason for Visit: Right Shoulder Rotator Cuff Tendonitis, Ac Joint Discharge Discharge Diagnosis / Problem: right shoulder rotator cuff tendinitis and acromioclavicular joint arthropa Discharge Goals Goal(s): Decrease discomfort, Improve function, Increase independence Medications Stopped Medications Name(s): HELD METFORMAN FOR THREE DAYS. HELD LISINOPRIL FOR TWO DAYS Restart Stopped Medication(s): Resume metformin and lisinopril today Activity Recommendations Activity Limitations: per Instructions/Follow-up section Weightbearing Status: Right non-weightbearing (upper extremity) Anesthesia . Post Anesthesia Instructions: If you have had General Anesthesia or IV Sedation: * Do not drive today. * Resume driving when surgeon permits. * Do not make important decisions or sign legal documents today. * Call surgeon for: 1. Temperature elevations greater than 101 degrees F. 2. Uncontrollable pain. 3. Excessive bleeding. 4. Persistent nausea and vomiting. 5. Medication intolerance (nausea, vomiting or rash). * For nausea and vomiting use only clear liquids such as: tea, soda, bouillon until nausea subsides, then gradually increase diet as tolerated. * If you have any concerns or questions, call your surgeon's office. If physician is unavailable and it is an emergency, call 911 or go to the nearest emergency room. . Instructions / Follow-Up Instructions / Follow-Up The following are instructions to follow after "Shoulder Surgery" including, Acromioplasty, Rotator Cuff Repair and Instability Surgery ACTIVITY RECOMMENDATIONS: * Minimize activity after surgery. * No excessive walking, jogging, sports or laboring. * Return to activity is individualized depending on the patient and type of surgery. * Driving is not permitted until at least your first post operative visit. Please ask your doctor when it is safe to resume driving. * Expect increased discomfort with increased activity. Continue to ice the shoulder as needed. SCHOOL/WORK RECOMMENDATIONS: * You may return to sedentary work or school when you are feeling more comfortable. This is usually 3-7 days after surgery. MEDICATIONS: * You will have a prescription for pain medication and an anti-inflammatory medication after surgery. * Use the pain medication for severe pain and the anti-inflammatory for less severe pain. Once the pain medication has run out, try to use the anti-inflammatory medication. If this is not effective, contact the office for assistance. * The pain medication may cause nausea, constipation and drowsiness. You should see how they affect you before driving or similar activity. * The anti-inflammatory medication may cause stomach upset and bleeding. If this occurs let your doctor know immediately . * Take a stool softener like Colace or a laxative like Senokot to prevent constipation. DIET: * Resume previous diet. SPECIAL CARE: ICE: You have the option of an ice cooler, gel packs or ice bags. * If you have an ice cooler, refer to the instructions for that device. The ice cooler may be used continuously. * If you do not have an ice cooler, you will need to use ice bags or gel packs. Do not apply ice directly to the skin. Use a thin dressing or earle shirt between the skin and ice bag. Apply ice for 20-30 minutes and repeat every 2-4 hours. This is especially important for the first 7-10 days after surgery. Once the pain improves, use ice as needed. ELEVATION: * You may be more comfortable sleeping in an upright position. Use the sling to elevate your arm. DRESSING: * Your dressing will be changed at your first therapy appointment approximately 4-5 days after surgery. Band-aids, tape strips or gauze may be applied. You may then change your dressing daily. * Reapply dressing followed by the EBIce cooling pad (if chosen) and then the sling. * Always wash your hands prior to touching the incision area. * Once the stitches are removed, you may leave the wound open to air or cover with gauze. * Expect some bloody drainage for the first few days after surgery. * Leave the tape strips, if present, in place for 5-7 days. * Band-aids and gauze may be changed daily. * There may be a gauze pad in your armpit area. This can be changed daily or replaced by a dry washcloth. SLING/BRACE: * You will need to use a sling or brace after surgery. The length of time the sling is used is dependent upon the type of surgery performed. * Arthroscopic Acromioplasty requires use of the sling for 2-4 weeks for comfort. * Labral procedures and Rotator Cuff Repairs require use of the sling for a longer period of time. Please check with your doctor prior to discontinuing the sling. BATHING: * You may shower or sponge-bathe immediately after surgery. The post operative shoulder dressing is mostly water-tight. You may shower right over this dressing, but be reasonably careful not to get the gauze or incision wet. * Once the dressing has been changed on the fourth or fifth day after surgery, you may shower and get the incision wet. * Wash with regular soap and water. * Do not bathe (submerge the incision), soak, swim or use a hot tub until the incision is completely healed over with normal skin and the doctor has given the OK to proceed. * There is no need to apply any ointments, powders or salves to your incision. * Do not apply alcohol or hydrogen peroxide directly to the incision. * Diluted peroxide (50:50 mixture with sterile saline) may be used to clean dried blood from around the incision area. THERAPY: * You will begin therapy four or five days after surgery. * Organized therapy with the therapist is important for the first 2-4 months after surgery depending on the type of procedure. During that time you will attend therapy 1-3 times per week. * You will also need to do daily exercises for range of motion and strength as instructed. * Patients who have a Capsular Shift Procedure will need to abide by temporary range of motion limitations. * Patients having Rotator Cuff Surgery are not allowed to actively lift their arms until 4-6 weeks after surgery. * Please check with your doctor regarding appropriate motion restrictions. FOLLOW UP VISIT: * If not already scheduled, please call the office at to schedule a follow-up appointment for 10 days after surgery and monthly thereafter. * You will start physical therapy on 03/20/2017 at 10:30 AM. * You have a follow-up appointment with Dr. Penny on March 29, 2017 at 2: 00 PM. Diet Recommendations Home Diet: no limitations, resume previous diet Procedures Procedures Performed: Right Shoulder Arthroscopy,Rotator Cuff Repair, Subacromial Decompression, Mini Distal Clavicle Excision and Biceps Tenotomy Pending Studies Studies pending at discharge: no Medical Emergencies . Who to Call and When: Medical Emergencies: If at any time you feel your situation is an emergency, please call 911 immediately. . Non-Emergent Contact Non-Emergency issues call your: Surgeon Call Non-Emergent contact if: temperature is above 101, your pain is not controlled, wound has increased drainage, wound has increased redness, wound has increased pain, you have any medication questions . . "Provider Documentation" section prepared by La Nena Gonzalez. . [place] Drug Monitoring Program Search Results: patient reviewed within database, no issues identified
--- NOTE | 2017-03-16 14:22 | [facility] Operative Report ---
Operative Report Operative Date Mar 16, 2017. Pre-Operative Diagnosis Right shoulder pain, AC joint arthritis and high-grade parial versus small full thickness rotator cuff tear. Post-Operative Diagnosis Same as preop Procedure(s) Performed Right Shoulder Arthroscopy,Rotator Cuff Repair, Subacromial Decompression, Mini Distal Clavicle Excision and Biceps Tenotomy Surgeon Dr. Penny Field Kiln Burner Surgeon(s) Dr. Mcpherson; La Nena Gonzalez PA-C Estimated Blood Loss 50ML Findings Right shoulder rotator cuff tear, impingement syndrome, acromioclavicular joint arthropathy Specimens None Drains none Anesthesia Gen. with peripheral nerve block Complication(s) None Disposition Recovery Room / PACU (stable) Indications Patient is a 66-year-old male with complaints of right shoulder pain times many years. He is progressively worsened over the last few months. He has failed conservative treatment which has included physical therapy, and injections. X- rays of the right shoulder showed acromioclavicular joint osteophytes and degeneration. There also showed a downward sloping acromion. MRI of the right shoulder was also obtained which showed high-grade partial-thickness versus small full-thickness rotator cuff tear. Surgical options were discussed. He wished to proceed with right shoulder surgery. Risks and complications were discussed. Informed consent was obtained. Description of Procedure Patient was taken to the operating room and placed under general anesthesia. A peripheral nerve block was placed preoperatively. He was given 2 g of IV Ancef for surgical prophylaxis. Timeout was performed. He was prepped and draped in routine sterile fashion. I was present during the entire case, please see Dr. Penny's operative report for further detail. Patient was awakened and transferred to the recovery room in stable condition. I attest to the content of the Intraoperative Record and any orders documented therein. Any exceptions are noted below.
--- NOTE | 2017-03-16 14:36 | [facility] Operative Report ---
Operative Report Operative Date Mar 16, 2017. Pre-Operative Diagnosis Right shoulder pain, AC joint arthritis and high-grade parial versus small full thickness rotator cuff tear. Post-Operative Diagnosis Right shoulder before meals joint arthritis. High-grade partial bursal sided rotator cuff tear 18 mm in size. Biceps tendinosis. Partial thickness tearing upper border subscapularis. Large anterior acromial spur and lateral acromial overhang Procedure(s) Performed Right Shoulder Arthroscopy,Rotator Cuff Repair, Subacromial Decompression, Mini Distal Clavicle Excision and Biceps Tenotomy Surgeon Dr. Penny Corporate Specialist Surgeon(s) Dr. Sebastien Mcpherson, La Nena Gonzalez physician's acute care assistant Estimated Blood Loss 50ML Findings The patient had partial fraying and tenosynovitis of the biceps tendon. There was partial tearing in a partial-thickness fashion of the upper 1 12:45 third of the subscapularis tendon. The articular sided portion of the rotator cuff looked normal with partial damage which was debrided. There was intact normal appearing tendon fibers with less than 5 mm of detachment anteriorly. There was extensive degenerative fraying of the labrum. There was a high-grade bursal sided rotator cuff tear which was approximately 18 mm in length. It was full thickness towards its posterior third and partial-thickness towards its anterior 1/2-2/3. There was a significant lateral acromial overhang. There was a very large anterior acromial spur. The before meals joint was arthritic. Specimens None Drains none Anesthesia laryngeal mask with interscalene block Complication(s) None Disposition Recovery Room / PACU Implants One Arthrex composite 5.5 mm corkscrew anchor and one 5.5 mm I'll composite swivel lock anchor Indications Patient's a 66 old gentleman status post successful contralateral rotator cuff repair. He has significant right shoulder pain. His MRI shows high-grade partial tearing versus severe tendinosis. X-ray show before meals arthritis and a large anterior acromial spur. Due to failure of nonsurgical management he elected to proceed with operative intervention. We discussed preoperatively the possibility of a biceps tenotomy versus tenodesis. Rotator cuff repair and subacromial decompression Description of Procedure Informed consent was obtained. The patient identified as Vincenzo Banegas. He identified the operative site as the right shoulder. I marked with my initials. Preoperative surgical timeout was performed. A preoperative dose of IV antibiotics was given. He was taken the operating position supine on the operative table in the anesthetic was administered. Examination under anesthesia revealed grade 1 global laxity sulcus anterior and posterior. Range of motion was 30 external rotation on the right compared to about 20 on the left. His internal rotation in mid position was about 60 bilaterally. Overhead forward elevation was about 150-160. He was then positioned beachchair neck held in neutral alignment. The Tennent body positioner and ADORono all arm holders were utilized. Heels were padded bump was placed under the knees. The torso secured to the table. Padding was placed in the retroauricular area the neck was held in neutral alignment and later adjusted to slight lateral rotation to improve surgical access. The right upper extremity was then double prepped and draped in usual sterile fashion DVT prophylaxis intraoperatively with foot pumps postoperatively with early mobility 1% lidocaine with epinephrine was injected into the subacromial space and portal sites preoperatively. A posterior soft spot viewing portal was established followed by an anterior mid glenoid working portal. Patient shoulder anatomy was not typical. The coracoid was palpated. The usual portal is 1 cm anterior and superior to the clavicle which placed the anterior portal in the region of the biceps tendon. I had to remove slightly more medial and superior to get the portal in the upper portion of the rotator interval. There was synovitis involving the biceps tendon as well as partial tearing in the biceps was tenotomized at the superior labrum and the stump was debrided. There was partial tearing and a partial thickness fashion on the upper surface of the subscapularis which was debrided. The subscapularis attachment was not compromised. The anterior capsule and ligaments look normal. There was global labral deterioration and fraying which was debrided. The articular surfaces of the humeral head and glenoid were normal except for some fibrillation about the socket and some minor irregularities of the humeral head. Scope was placed anterior to visualize posterior structures there were no loose bodies. Posterior labrum was debrided. Posterior capsule was intact. Axillary pouch unremarkable bare area normal. Tear cuff showed some fraying which was debrided. At its extreme anterior aspect there was 3-4 mm of for partial damage tapering back to nothing over the ensuing 1-1/2 cm. There were some striated normal tendon fibers present. Was placed in subacromial space there is significant subacromial bursitis was noted and this was debrided thoroughly. It was also noted that there was significant fraying in the central portion of the rotator cuff which when debrided revealed anterior cruciate ligament small bursal sided the rotator cuff tear. Area accessory anterolateral posterior lateral portals were created. A she also had significant downsloping of the lateral acromion which made positioning and placement of arthroscopic portals unique. I eventually had to create an accessory lateral portal portal much inferior to what is typically done in order to gain appropriate angle and access to the subacromial space. The tuberosity was prepared with the shaver bur and curet denuding it of soft tissue. The anterior half of the tear was intact on the articular side the posterior proximally third was not and the remainder of posteriorly appeared to be intact. The rotator cuff was debrided the tuberosity was prepared as mentioned. The size of the tear at about 15.5 mm anchor would be appropriate. Spinal needle was utilized to place the anchor at about a 45 angle which required some directional assistance with a spinal needle. The ankle was then inserted percutaneously after using the awl and tapped. Suture management was performed. Using the crescent suture passer sutures were shuttled in a full- thickness fashion through the posterior delamination to the level of the articular surface using a percutaneous technique and spinal needle guidance. He sutures were placed in a horizontal mattress fashion posteriorly. I then anteriorly I went ahead and used the scorpion bryan suture passage. Her cuff was held reduced and the sutures were tied using a modified Concordia knot backed up with reversed half hitches on alternating posts.. A 5.5 mm bio composite swivel lock anchor was then placed laterally and all 4 sutures were passed through it and secured. Was placed about a centimeter off of the greater tuberosity the arms held in some internal rotation and abduction of about 45 to get the appropriate angle. This resulted in secure repair of the rotator cuff. Small dogear was tied down with the central stitch. The rotator cuff was evaluated intra-articularly and found to be approximated to the articular cartilage margin. Latrice on through the shoulder pickup loose debris. There was significant fraying on the undersurface of the acromion which was denuded using the cold cut. Care was taken to prevent excessive use of the cold cut and alternating it with the shaving and water flow. Her was lateral overhang and the lateral 2- 3 mm of the acromion were beveled flat with the remainder of the acromion. The anterior undersurface of the acromion was then noted to have a very large spur. A modified a cutting block acromioplasty was performed making this just less than parallel to the remainder the acromion. The large anterior spur was removed. A large Tristan's performed with cold cut to achieve hemostasis. A resulted in shoulder pickup loose debris. The before meals joint was localized with spinal needle arthroscopically. Then went ahead and didn't find the distal clavicle using spinal needle made a 3 cm longitudinal incision just medial to the before meals joint. Blunt dissection through subcutaneous tissues down to the fascia which was divided in line with septic clavicle. The distal clavicle was exposed and the before meals joint was identified. The distal 7-10 mm of the clavicle was excised with an oscillating saw. It was irrigated the clavicle looked arthritic. It was not sent for specimen. The deltotrapezial fascia was then closed with interrupted 2-0 Vicryl the skin was closed with 2-0 Vicryl's and a subcuticular stitch. The portals were closed with 4-0 nylon. The arms Dewey with wet and dry sponges a soft sterile dressing was applied with an ABD in the armpit and UltraSling. The patient is awake from anesthesia without difficulty and taken occurred in stable condition. There were no specimens or complications. Counts are correct at the end of the case. Blood loss was approximate 50 mL. At the conclusion operations I informed the patient 's of my findings. Detailed postoperative instructions were given. He'll be rehabilitated according the rotator cuff repair protocol. Care was taken when doing the spur excision to correlate this with radiographs. There was no deltopectoral toyed fascia attached to the large portion of the spur that was debrided. Her surface of the acromion was smoothed from posterior to anterior and medial to lateral. I attest to the content of the Intraoperative Record and any orders documented therein. Any exceptions are noted below.
--- NOTE | 2017-03-16 15:24 | Anesthesia Progress Nt - [facility] ---
Anesthesia Post Op Note Date & Time Mar 16, 2017 at 15:24 Vital Signs Pain Intensity: 0 Vital Signs Past 12 Hours Date Time Temp Pulse Resp B/P (MAP) Pulse Ox O2 Delivery O2 Flow Rate FiO2 03/16/17 14:55 129/80 03/16/17 14:53 92 17 93 03/16/17 14:53 91 17 03/16/17 14:53 36.6 90 12 131/83 93 Room Air 03/16/17 14:50 131/83 03/16/17 14:48 94 14 92 03/16/17 14:48 95 14 03/16/17 14:45 135/81 03/16/17 14:43 88 13 98 03/16/17 14:43 87 13 03/16/17 14:40 140/82 03/16/17 14:38 87 13 03/16/17 14:38 87 13 97 03/16/17 14:35 125/83 03/16/17 14:33 89 14 92 03/16/17 14:33 92 14 03/16/17 14:32 98 17 93 03/16/17 14:32 98 17 03/16/17 14:30 128/85 03/16/17 14:27 96 14 03/16/17 14:27 94 14 96 03/16/17 14:25 150/94 03/16/17 14:22 87 14 03/16/17 14:22 86 14 97 03/16/17 14:20 142/75 03/16/17 14:17 83 14 97 03/16/17 14:17 84 14 03/16/17 14:15 134/86 03/16/17 14:13 141/83 03/16/17 14:12 88 96 03/16/17 14:12 88 03/16/17 14:12 36.9 88 12 141/83 96 Diffusion Mask 10 03/16/17 10:01 0 03/16/17 09:56 65 19 98 03/16/17 09:56 65 03/16/17 09:55 135/77 03/16/17 09:51 65 03/16/17 09:51 65 10 96 03/16/17 09:50 128/77 03/16/17 09:46 65 9 96 03/16/17 09:46 66 03/16/17 09:45 130/76 03/16/17 09:41 62 9 97 03/16/17 09:41 62 03/16/17 09:40 63 03/16/17 09:40 65 10 140/78 98 03/16/17 09:35 59 03/16/17 09:35 60 9 134/79 03/16/17 09:30 61 10 129/94 03/16/17 09:25 61 03/16/17 09:25 63 7 136/82 03/16/17 09:22 135/81 03/16/17 09:20 80 03/16/17 09:15 64 130/78 03/16/17 09:10 61 03/16/17 09:05 64 03/16/17 09:00 66 138/78 03/16/17 08:55 73 03/16/17 08:50 67 03/16/17 08:45 71 138/87 03/16/17 08:35 133/86 03/16/17 08:30 132/84 03/16/17 08:10 69 03/16/17 08:10 69 97 03/16/17 08:05 67 03/16/17 08:05 67 139/78 95 03/16/17 08:02 126/76 03/16/17 07:40 36.5 72 16 126/76 (93) 95 Room Air Notes Mental Status: alert / awake / arousable, participated in evaluation Pt Amnestic to Procedure: Yes Nausea / Vomiting: adequately controlled Pain: adequately controlled Airway Patency, RR, SpO2: stable & adequate BP & HR: stable & adequate Hydration State: stable & adequate Anesthetic Complications: no major complications apparent
[2017-03-16 16:25] VITALS: BP 135/77; PULSE 94; TEMP 36.6; O2SAT 95
== END | disposition home or self-care (01) ==
LOC: X.SURG 07:17
PROVIDERS: ATTEND Physical Medicine & Rehabilitation Sports Medicine
DX: M75.101 Unspecified rotator cuff tear or rupture of right shoulder, not specified as traumatic (principal); M19.011 Primary osteoarthritis, right shoulder; M75.21 Bicipital tendinitis, right shoulder; M75.81 Other shoulder lesions, right shoulder; E78.00 Pure hypercholesterolemia, unspecified; E11.9 Type 2 diabetes mellitus without complications; G47.33 Obstructive sleep apnea (adult) (pediatric); Z88.1 Allergy status to other antibiotic agents; Z68.30 Body mass index [BMI] 30.0-30.9, adult; Z98.890 Other specified postprocedural states

== ENCOUNTER → 2017-03-29 | Outpatient (CLI) | payer OTHER, MEDICARE ==
[~2017-03-29] MED LIST changes: -ATROPINE SULFATE 0.1 MG/ML 5ML SYR IV PRN; -BUPIVACAINE/EPINEPHRINE 0.25% 1:200,000 30 ML VIAL ONE; -CEFAZOLIN 2000 MG/60 ML D5W IV SCH; -CEFAZOLIN IV 2,000 MG in DEXTROSE 5% 50ML 50 ML IV SCH; -CEFAZOLIN SOD 1 GM VIAL ONE; -DEXAMETHASONE SOD INJ 4 MG/ML VIAL ONE; -EpHEDrine SULFATE 50MG/5ML SYR ONE; -EpHEDrine SULFATE INJ 50 MG/ML AMP IV PRN; -EpINEphrine INJ 1MG/ML AMP 1 MG/ML AMP ONE; -FENTANYL CITRATE INJ 50 MCG/1 ML 2 ML VIAL IV PRN; -FENTANYL CITRATE INJ 50 MCG/1 ML 2 ML VIAL ONE; -GLYCOPYRROLATE INJ 0.2 MG/ML VIAL ONE; -LACTATED RINGER'S 1000ML 1,000 ML IV SCH; -LIDOCAINE HCL 2% 2 ML VIAL (20MG/ML) ONE; -LIDOCAINE/EPINEPHRINE 1% INJ 50 ML VIAL ONE; -MIDAZOLAM HCL 1 MG/ML 2ML VIAL ONE; -MoRPHine SULFATE 2 MG/ML CARP IV PRN; -MoRPHine SULFATE 4 MG/ML 1 ML CARP\\VIAL IV PRN; -NEOSTIGMINE METHYLSULFATE 5 MG/5 ML SYR ONE; -ONDANSETRON INJ 2 MG/ML 2 ML VIAL IV PRN; -ONDANSETRON INJ 2 MG/ML 2 ML VIAL ONE; -OXYC1TAB3 PO; -OXYCODONE/ACETAMINOPHEN 5-325 TAB PO PRN; -PROMETHAZINE HCL INJ 6.25 MG in SODIUM CHLORIDE 0.9% 50ML 50 ML IV PRN; -PROPOFOL IV EMULSION 10 MG/ML 20 ML VIAL IV ONE; -SODIUM CHLORIDE 0.9% 1000ML 1,000 ML IV SCH
--- NOTE | 2017-03-29 13:22 | DIAGNOSTIC IMAGING REPORT ---
R SHOULDER MIN 2 VIEWS CLINICAL HISTORY: RIGHT SHOULDER PAIN HISTORY OF ROTATOR CUFF REPAIR COMPARISON: November 02, 2016 DISCUSSION: Postsurgical changes involve the distal right clavicle. There is mild inferior acromial spurring. No acute fractures or dislocations are visualized. IMPRESSION: 1. No fractures or dislocations identified 2. Postsurgical changes involve the distal right clavicle Electronically signed by: Cali Plaza M.D. 03/29/2017 1:21 PM Dictated Date/Time: 03/29/2017 1:20 PM
== END | disposition home or self-care (01) ==
LOC: C.RDSM 13:08
PROVIDERS: ATTEND Physician Assistant
DX: M25.511 Pain in right shoulder (principal)

== ENCOUNTER → 2017-04-26 | Outpatient (CLI) | payer OTHER, MEDICARE | END | disposition home or self-care (01) | LOC: C.RDSM 07:54 | PROVIDERS: ATTEND Physical Medicine & Rehabilitation Sports Medicine | DX: M25.531 Pain in right wrist (principal) ==

== ENCOUNTER → 2017-08-29 | Outpatient (CLI) | payer OTHER, MEDICARE ==
[~2017-08-29] VITALS: Ht 180.3 cm; Wt 98.5 kg
[2017-08-29 10:48] VITALS: BP 148/82; PULSE 82; Ht 180.3 cm; Wt 98.5 kg
== END | disposition home or self-care (01) ==
LOC: C.NEUR 10:25
PROVIDERS: ATTEND Internal Medicine Pulmonary Disease
DX: G47.33 Obstructive sleep apnea (adult) (pediatric) (principal)

== ENCOUNTER 2018-01-17 15:34 | Emergency (ER) | payer OTHER, MEDICARE ==
[~2018-01-17] VITALS: Ht 180.3 cm; Wt 91.0 kg
[~2018-01-17 15:34] MED LIST changes: -NAPR-1169 PO; +NAPR-22 PO; -OXYC-57 PO
[2018-01-17 15:40] VITALS: Ht 180.3 cm; Wt 91.0 kg
[2018-01-17] MEDS ORDERED: ONDANSETRON 4MG OD TAB PO STA (16:02)
[2018-01-17 17:38] VITALS: BP 136/71; PULSE 87; O2SAT 95
--- NOTE | 2018-01-17 17:51 | DIAGNOSTIC IMAGING REPORT ---
CT OF THE HEAD WITHOUT CONTRAST CLINICAL HISTORY: Fall. Loss of consciousness. COMPARISON STUDY: No previous studies for comparison. CT DOSE: 1055.63 mGy.cm TECHNIQUE: Helical axial images of the head were obtained without IV contrast. Automated exposure control was utilized for the study. A dose lowering technique was utilized adhering to the principles of ALARA. FINDINGS: No acute intracranial hemorrhage, midline shift or mass effect is present. Ventricular system is normal. Basilar cisterns are patent. There are no extra axial collections. Caraballo-white differentiation is maintained. Minimal white matter hypodensity suggests small vessel disease. There is no calvarial fracture. Visualized portions of the sinuses and mastoid air cells are clear. IMPRESSION: 1. No acute intracranial findings. 2. No calvarial fracture. Electronically signed by: Celio Amezquita M.D. 01/17/2018 5:50 PM Dictated Date/Time: 01/17/2018 5:48 PM
--- NOTE | 2018-01-17 17:57 | DIAGNOSTIC IMAGING REPORT ---
CT OF THE CERVICAL SPINE WITHOUT CONTRAST CLINICAL HISTORY: Neck pain following fall. COMPARISON STUDY: No previous studies for comparison. TECHNIQUE: Helical axial images of the cervical spine were obtained without IV contrast. Sagittal and coronal reconstructions were viewed. A dose lowering technique was utilized adhering to the principles of ALARA. FINDINGS: Craniocervical junction is intact. No acute cervical spine fracture is noted. Alignment of the cervical spine is anatomic. Vertebral body heights are maintained. There is moderate anterior osteophytosis with mild multilevel disc space narrowing. Moderate multilevel facet arthrosis is present. There is no prevertebral edema. IMPRESSION: No acute cervical spine fracture or subluxation. Electronically signed by: Celio Amezquita M.D. 01/17/2018 5:55 PM Dictated Date/Time: 01/17/2018 5:50 PM
--- NOTE | 2018-01-18 00:11 | EMERGENCY ROOM VISIT NOTE ---
ED Visit Note First contact with patient: 15:37 Chief Complaint: Fall with loss of consciousness. History of Present Illness: Mr. Banegas is a 67-year-old white male who is brought into the ED via ambulance accompanied by his and son following a fall with a loss of consciousness. Historically patient reports she is status post traumatic brain injury with residual dizziness. Patient repeat reports he tripped over a cart today and fell backwards. When he fell backwards she struck his head on a metal pipe. Family members that were present reports he had a loss of consciousness for approximately 2 minutes. EMS was activated and he was transported to the hospital without incident. Currently patient is complaining of a throbbing headache to the occipital and top of the head areas. He rates his discomfort 5/10. His pain is nonradiating. His pain worsens with head movement. He has not identified any alleviating factors related to the pain. He has not had a medication for pain prior to arrival at the hospital. Associated with his pain he reports he has been having increasing dizziness, neck pain, nausea Currently he places his neck discomfort over the proximal cervical spine. He describes the pain as a throbbing sensation. He rates his discomfort 5/10. The pain is nonradiating. The pain worsens with palpation and flexion of the neck. He has not identified any alleviating factors related to the pain. Additionally he complains of right shoulder and right knee pain; please see note below. He denies visual changes, hearing changes, difficulty speaking, difficulty swallowing, extremity weakness/numbness/tingling, thoracic back pain, lumbar back pain, chest pain, shortness of breath, abdominal pain. Review of Systems: As noted above in history of present illness. All body systems were reviewed and found to be negative as noted above. Past Medical History: As previously noted, diabetes, hypertension, diverticulitis, status post appendectomy, right hip arthroplasty and right rotator cuff repair. Current Medications: Medications Dose Route/Sig Max Daily Dose Days Date Category Dose Instructions Naprosyn (Naproxen) 500 Mg Tab 500 Mg PO BID PRN 12/13/16 Reported Timolol 0.5% Oph Soln 15 Ml (Timolol Maleate) 15 Ml Soln 1 Drop OPR QAM 12/13/16 Reported Mens 50+ Multi Vitamin & (Multiple Vitamins W/ Minerals) 1 Tab Tab 1 Tab PO DAILY 12/13/16 Reported TAKES OCCASIONALLY Vitamin E 400 Iu (Vitamin E) 400 Unit Cap 400 Inter.unit PO DAILY 12/13/16 Reported Vitamin D3 (Cholecalciferol) 5,000 Unit Cap 5,000 Inter.unit PO DAILY 12/13/16 Reported Proscar (Finasteride) 5 Mg Tab 5 Mg PO HS 12/13/16 Reported Rapaflo (Silodosin) 8 Mg Cap 8 Mg PO HS 12/13/16 Reported Pravastatin Sodium 40 Mg Tab 40 Mg PO HS 12/13/16 Reported Zestril (Lisinopril) 5 Mg Tab 5 Mg PO HS 12/13/16 Reported Glucophage (Metformin Hcl) 500 Mg Tab 500 Mg PO HS 12/13/16 Reported Adderall 10MG (Amphetamine-Dextroamphetamine 10MG) 1 Tab Tab 10 Mg PO QAM 12/13/16 Reported Allergies to Medications: Ciprofloxacin. Social History: Patient is not employed; he feels safe in his home environment; he denies tobacco use; he admits to social alcohol use. Physical Examination: Vital Signs: Date Time Temp Pulse Resp B/P (MAP) Pulse Ox O2 Delivery O2 Flow Rate FiO2 01/17/18 17:38 87 16 136/71 95 01/17/18 17:31 87 16 136/71 95 Room Air 01/17/18 15:40 96 16 171/74 94 Room Air GENERAL: 67-year-old male in mild to moderate distress due to pain and symptoms , nontoxic-appearing, afebrile and hemodynamically stable. NEUROLOGICAL: Awake, alert and oriented to person, place and time. Answering questions appropriately and following commands. Good hand eye coordination. Cranial nerves II through XII grossly intact. Good short-term and long-term recall. Able to spell backwards. SKIN: Warm, dry and pink. No open soft tissue trauma noted. HEENT: Atraumatic and normocephalic. Skull: Small scalp contusion/small hematoma to the right occipital area. No bony deformity, bony crepitus. No raccoons eyes or quarles signs. No drainage from the ears of the nostril; no hemotympanum. PERRLA. EOMI without nystagmus. Sclera white and conjunctiva pink. No malocclusion. No intraoral trauma. Airway patent. Speech is normal and clear. Trachea midline. No jugular venous distention. BACK: Moderate tenderness to the mid cervical spine in the area of C3-C6. No bony deformity, bony crepitus, step-offs or ecchymosis. ED Course: Patient is assessed as noted above. Patient's medication list was reviewed. Patient was given 4 mg of Zofran ODT for nausea. Head CT: Was reviewed by myself and read by the radiologist and shows no acute intracranial findings or fractures. Cervical Spine CT: Was reviewed by myself and read by the radiologist showing no acute cervical spine fracture or subluxations. Radiologist notes moderate anterior osteophytes with mild multilevel disc narrowing, moderate multilevel facet arthrosis. NOTE: I inadvertently put discharge instructions on another patient from a fall with neck and head pain on Mr. Banegas's chart and the patient was put up for discharge. He was discharged before I was able to reassess a complaint of shoulder and knee pain. His CTs were read by the radiologist and his head and cervical spine CTs were normal. Nursing supervisor sewer maintenance attempted to contact the patient or his and have them return for additional testing. Approximately 3 hours after the nursing supervisors call the returned the call and spoke to me. She informed me that patient already had a follow-up scheduled for his primary care tomorrow for another issue. I did inform her that we could see her at any time if any of his other complaints would become worse or any new/ concerning symptoms. Clinical Impression: Fall. Closed head injury. Neck pain. Disposition: Patient discharged home in stable condition accompanied by his ; prior to departure he was reassessed and subjectively reported he was feeling the same and rated his discomfort 5/10. Plan: Patient reports she has a follow-up appointment tomorrow with his PCP. Patient was encouraged to return as needed to the ED for any signs of abnormal neurological symptoms or any new/concerning symptoms.
== END 2018-01-17 17:39 | disposition home or self-care (01) ==
LOC: EDBD 15:34 → C.EDC 15:35
DX: S06.9X1A Unspecified intracranial injury with loss of consciousness of 30 minutes or less, initial encounter (principal); W01.198A Fall on same level from slipping, tripping and stumbling with subsequent striking against other object, initial encounter; M54.2 Cervicalgia; M25.511 Pain in right shoulder; M25.561 Pain in right knee; I10 Essential (primary) hypertension; E11.9 Type 2 diabetes mellitus without complications; Z87.820 Personal history of traumatic brain injury; Z96.641 Presence of right artificial hip joint; Z79.84 Long term (current) use of oral hypoglycemic drugs; Z79.899 Other long term (current) drug therapy; Z88.1 Allergy status to other antibiotic agents

== ENCOUNTER 2021-01-11 18:20 | Inpatient (IN) ==
--- NOTE | 2021-01-11 20:10 | Emergency Department Note ---
History of Present Illness General Chief complaint: GI Assessment Stated complaint: BLOCKAGE IN COLON Time Seen by Provider: 01/11/21 20:08 Source: patient Mode of arrival: ambulatory Limitations: no limitations History of Present Illness Provider complaint: Abdominal pain, abnormal CT scan Onset (ago): day(s) Location: abdomen Radiation: non-radiation Severity: moderate Pain Consistency: + intermittent Maximum Pain Intensity: 1 Quality: + aching Relieved By: + none Exacerbated By: + none Associated symptoms: + nausea/vomiting; no chest pain, no fever/chills or no shortness of breath Treatments prior to arrival: none Home Medications Medication Instructions Recorded Confirmed Type dextroamphetamine-amphetamine 15 15 mg PO DAILY tab 01/24/19 01/11/21 History mg tablet dextroamphetamine 10 mg tablet 10 mg PO DAILY tab 03/04/19 01/11/21 History cholecalciferol (vitamin D3) 125 5,000 units PO DAILY tab 04/09/19 01/11/21 History mcg (5,000 unit) tablet lisinopril 10 mg tablet 10 mg PO DAILY #30 tab 04/09/19 01/11/21 History metformin 500 mg tablet 500 mg PO DAILY tab 04/09/19 01/11/21 History pravastatin 40 mg tablet 40 mg PO DAILY tab 04/09/19 01/11/21 History omeprazole 40 mg capsule,delayed 40 mg PO DAILY 01/11/21 01/11/21 History release Allergies Allergy/AdvReac Type Severity Reaction Status Date / Time Cipro Allergy Unknown TINGL[place] Verified 03/16/17 08:06 ALL OVER ciprofloxacin Allergy Unknown TINGL[place] Verified 03/04/19 10:47 ALL OVER Past Med/Surg History Medical History Arthritis Benign essential tremor Benign localized hyperplasia of prostate with urinary obstruction Chronic fatigue Diabetes Enlarged prostate without lower urinary tract symptoms (luts) HTN (hypertension) Hypercholesterolemia Incomplete bladder emptying Intermittent urinary stream Nocturnal hypoxemia Slowing of urinary stream Vitamin D deficiency Surgical History S/P appendectomy S/P rotator cuff repair Family History Mother Cardiac disorder Diabetes Hypertension Father Cardiac disorder COPD (chronic obstructive pulmonary disease) Prostate cancer Brother Diabetes Son Kidney stone Social History Smoking Status: Never smoker Second Hand Exposure: No; Do You Dip or Chew Tobacco: No; Hx Alcohol Use: Yes Hx Substance Use: No Preferred Language: Guamanian Communication Ability: Effective 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 and A total of 10 systems reviewed and were otherwise negative Physical Exam Vital Signs Vital Signs - 24 hr 01/11/21 18:39 01/11/21 20:20 01/11/21 21:00 Temperature 36.7 C 37 C Temperature Source Temporal Artery Scan Oral Pulse Rate 82 Pulse Rate [Apical] 77 Pulse Rhythm Regular Pulse Rhythm [Apical] Regular Pulse Strength Normal Pulse Strength [Apical] Respiratory Rate 16 18 Respiratory Effort / Characteristics Non-Labored Respiratory Depth Normal Normal Respiratory Pattern Regular Blood Pressure 155/72 H Blood Pressure [Left Arm] 159/81 H Blood Pressure Mean 99 Blood Pressure Mean [Left Arm] 107 Blood Pressure Position Sitting Pulse Oximetry 96 96 Oxygen Delivery Method Room Air Room Air Room Air Sepsis Recent Fever Within 48 Hours No Sepsis New/Unexplained Change in Mental Status N/A Sepsis Action Taken by Nursing No Action Required 01/11/21 22:00 Temperature Temperature Source Pulse Rate Pulse Rate [Apical] 78 Pulse Rhythm Pulse Rhythm [Apical] Pulse Strength Pulse Strength [Apical] Normal Respiratory Rate 17 Respiratory Effort / Characteristics Respiratory Depth Respiratory Pattern Blood Pressure Blood Pressure [Left Arm] Blood Pressure Mean Blood Pressure Mean [Left Arm] Blood Pressure Position Pulse Oximetry 96 Oxygen Delivery Method Sepsis Recent Fever Within 48 Hours Sepsis New/Unexplained Change in Mental Status Sepsis Action Taken by Nursing GENERAL: Wearing glasses and a mask. NAD, non-toxic. EYE EXAM: Normal conjunctiva. PERRL, no anisocoria and EOM's grossly intact w/o pain. NECK: Supple, no nuchal rigidity, no adenopathy, non-tender. No signs of meningismus. LUNGS: Clear to auscultation. Normal chest wall mechanics. HEART: NSR, no MRG. ABDOMEN: Abdomen soft, mild diffuse abdominal discomfort but more prominent in the left abdomen and in left lower quadrant, normo-active bowel sounds, no masses, no rebound or guarding. BACK: No CVA TTP. SKIN: No rashes and no bruising. UPPER EXTREMITIES: Upper extremities are grossly normal. LOWER EXTREMITIES: Grossly normal, no edema. NEURO EXAM: A&O x3, cranial nerves II-XII grossly intact, normal speech, moves all 4 extremities on command w/o issue. Course Course Cardiac monitoring: An order was placed for continuous cardiac monitoring. The monitor shows a rate of 77 with sinus rhythm. Administered Medications Discontinued Medications Bisacodyl (Bisacodyl 10 Mg Supp) 10 mg NH NOW STA Stop: 01/11/21 23:46 Last Admin: 01/12/21 00:18 Dose: 10 mg Documented by: [id number] Sodium Chloride (Nss) 500 mls @ 999 mls/hr IV .Q31M ABIGAIL Stop: 01/11/21 21:15 Last Infusion: 01/11/21 23:04 Dose: 0 mls/hr Documented by: [id number] Admin: 01/11/21 20:59 Dose: 999 mls/hr Documented by: [id number] Ondansetron HCl (Ondansetron Inj 2 Mg/Ml 2 Ml Vial) 4 mg IV NOW STA Stop: 01/11/21 20:41 Last Admin: 01/11/21 20:59 Dose: 4 mg Documented by: [id number] Medical Decision Making Differential Diagnosis Appendicitis, testicular torsion, infections, diverticulitis, UTI, obstruction, mesenteric ischemia, aortic pathology, inflammatory bowel disease, renal colic, PUD, pancreatitis, biliary pathology, hernia, volvulus, constipation, as well as other pathologies. Medical Records Attestation: I reviewed the patient's medical records. Home Medications Current Medication List: was personally reviewed by me Laboratory Data Attestation: I reviewed the patient's lab results. Result diagrams: 01/11/21 20:08 01/11/21 20:08 Lab Results 01/11/21 01/11/21 01/11/21 Range/Units 20:08 20:08 20:08 WBC 8.00 (4.8-10.8) K/uL RBC 4.89 (4.7-6.1) M/uL Hgb 15.4 (14.0-18.0) g/dL Hct 45.1 (42-52) % MCV 92.2 (80-100) fL MCH 31.5 (25-34) pg MCHC 34.1 (32-36) g/dL RDW Std Deviation 45.4 (36.4-46.3) fL RDW Coeff of Stacia 13.5 (11.5-14.5) % Plt Count 323 (130-400) K/uL MPV 10.4 (7.4-10.4) fL Immature Gran % (Auto) 0.1 % Neut % (Auto) 40.1 % Lymph % (Auto) 47.4 % [place] % (Auto) 9.3 % Eos % (Auto) 2.6 % Baso % (Auto) 0.5 % Neut # (Auto) 3.21 (1.4-6.5) K/uL Lymph # (Auto) 3.79 H (1.2-3.4) K/uL [place] # (Auto) 0.74 H (0.11-0.59) K/uL Eos # (Auto) 0.21 (0-0.5) K/uL Baso # (Auto) 0.04 (0-0.2) K/uL Immature Gran # (Auto) 0.01 (0.00-0.02) K/uL Sodium 135 L (136-145) mmol/L Potassium 4.3 (3.5-5.1) mmol/L Chloride 106 (98-107) mmol/L Carbon Dioxide 29 (21-32) mmol/L Anion Gap 0 L (3-11) BUN 13 (7-18) mg/dl Creatinine 0.98 (0.6-1.4) mg/dl Est Cr Clr Drug Dosing 82.8 ml/min Est GFR ( Amer) 89.5 ml/min Est GFR (Non-Af Amer) 77.3 ml/min BUN/Creatinine Ratio 13.3 (10-20) Glucose 89 (70-99) mg/dl Calcium 8.9 (8.5-10.1) mg/dl Total Bilirubin 0.5 (0.2-1) mg/dl AST 23 (15-37) U/L ALT 44 (12-78) U/L Alkaline Phosphatase 94 (45-117) U/L Total Protein 7.4 (6.4-8.2) gm/dl Albumin 3.9 (3.4-5.0) gm/dl Globulin 3.5 (2.5-4.0) gm/dl Albumin/Globulin Ratio 1.1 (0.9-2) TSH 1.490 (0.300-4.500) uIu/ml COVID-19 Eval Order Covid19 at [facility] SARS-CoV-2 (PCR) (Negative) 01/11/21 Range/Units 20:08 WBC (4.8-10.8) K/uL RBC (4.7-6.1) M/uL Hgb (14.0-18.0) g/dL Hct (42-52) % MCV (80-100) fL MCH (25-34) pg MCHC (32-36) g/dL RDW Std Deviation (36.4-46.3) fL RDW Coeff of Stacia (11.5-14.5) % Plt Count (130-400) K/uL MPV (7.4-10.4) fL Immature Gran % (Auto) % Neut % (Auto) % Lymph % (Auto) % [place] % (Auto) % Eos % (Auto) % Baso % (Auto) % Neut # (Auto) (1.4-6.5) K/uL Lymph # (Auto) (1.2-3.4) K/uL [place] # (Auto) (0.11-0.59) K/uL Eos # (Auto) (0-0.5) K/uL Baso # (Auto) (0-0.2) K/uL Immature Gran # (Auto) (0.00-0.02) K/uL Sodium (136-145) mmol/L Potassium (3.5-5.1) mmol/L Chloride (98-107) mmol/L Carbon Dioxide (21-32) mmol/L Anion Gap (3-11) BUN (7-18) mg/dl Creatinine (0.6-1.4) mg/dl Est Cr Clr Drug Dosing ml/min Est GFR ( Amer) ml/min Est GFR (Non-Af Amer) ml/min BUN/Creatinine Ratio (10-20) Glucose (70-99) mg/dl Calcium (8.5-10.1) mg/dl Total Bilirubin (0.2-1) mg/dl AST (15-37) U/L ALT (12-78) U/L Alkaline Phosphatase (45-117) U/L Total Protein (6.4-8.2) gm/dl Albumin (3.4-5.0) gm/dl Globulin (2.5-4.0) gm/dl Albumin/Globulin Ratio (0.9-2) TSH (0.300-4.500) uIu/ml COVID-19 Eval Order SARS-CoV-2 (PCR) NEGATIVE (Negative) Imaging Data Radiologist's Impression: Obtain prior to arrival earlier on January 11 CT SCAN OF THE ABDOMEN AND PELVIS WITH IV CONTRAST CLINICAL HISTORY: Generalized abdominal pain. COMPARISON STUDY: Abdominal CT dated 02/18/2017. TECHNIQUE: Following the IV administration of 94 cc of Optiray 320, CT scan of the abdomen and pelvis is performed from the lung bases to the proximal femora. Images are reviewed in the axial, sagittal, and coronal planes. IV contrast was administered without complication. A dose lowering technique was utilized adhering to the principles of ALARA. CT DOSE: 1058.96 mGycm FINDINGS: Lung bases: The heart is normal in size and without pericardial effusion. There are scattered coronary artery calcifications. The lung bases are clear. There is a tiny hiatal hernia. Liver: The contrast-enhanced liver is normal in size and contour. The liver demonstrates diffusely diminished attenuation consistent with hepatic steatosis. Fatty sparing is seen adjacent to gallbladder fossa. There is no intrahepatic biliary ductal dilatation. The hepatic veins and portal veins are patent. Gallbladder: Unremarkable. Spleen: Normal in size and attenuation. Pancreas: Unremarkable. Adrenal glands: Unremarkable. Kidneys: The contrast enhanced kidneys are normal in size and without hydronephrosis. The kidneys enhance symmetrically. Abdominal vasculature: The abdominal aorta is normal in course and caliber noting moderate to advanced atherosclerotic calcification. Bowel: The colon is mildly distended, and filled with both gas and stool. There is an apparent transition point at the level of the distal descending/proximal sigmoid colon seen on image #325. There is mild pericolonic inflammation just above the apparent transition point. The small bowel loops are normal in caliber. There is mild diverticulosis of the sigmoid colon without CT evidence of acute diverticulitis. The appendix is not identified and reported surgically absent. Peritoneum: There is no intraperitoneal free air or abdominal ascites. Lymphadenopathy: None. Pelvic viscera: Evaluation of the pelvis is compromised by streak artifact from bilateral hip arthroplasties. The bladder wall appears mildly thickened and trabeculated suggesting chronic obstruction. The prostate gland appears enlarged and heterogeneous. Skeletal structures: The skeletal structures are osteopenic. There is moderate lumbosacral spondylosis. No lytic or blastic lesions are seen. Bilateral hip arthroplasties are in place. IMPRESSION: 1. The colon is distended, and is filled with both gas and stool. There is an apparent transition point at the level distal descending/proximal sigmoid where there is focal narrowing and wall thickening. The appearance suggests a distal colonic obstruction, which may be related to diverticular stricture given diverticular disease in this region. Underlying mass lesion would be impossible to exclude. Correlation with endoscopy is recommended for further evaluation. 2. Mild pericolonic inflammation is suggested above the transition point. 3. The small bowel loops are normal in caliber. 4. Prostatomegaly with evidence of chronic bladder outlet obstruction. 5. Hepatic steatosis. 6. Additional findings as above. ACT 112: Positive. There are findings on this exam that require communication between the performing entity and the patient following Patient Test Result Information Act ([place] Act 112) guidelines. Electronically signed by: Wolf Ortega M.D. 01/11/2021 3:51 PM Dictated: 01/11/211541Transcribed: 01/11/211541 MDM Narrative Seen due to concern for abnormal outpatient CT scan which did show the patient does have a likely distal colonic obstruction. This may be secondary to diverticular disease. The patient has had symptoms with vomiting and left lower quadrant pain. No evidence suggestive of diverticulitis. Blood works obtained along with a Covid swab. The patient declined any pain or nausea medication at this time. The patient's pain has been intermittent in nature but primarily in the left abdomen and ongoing. Blood work is grossly unremarkable. Given the patient's large bowel obstruction believe the patient would benefit from inpatient treatment and follow-up. I did speak the on-call hospitalist Dr. Ocampo and the patient was admitted to the medicine service. Impression & Plan Colonic obstruction, Abdominal pain Discharge Plan Visit Data Chief Complaint: GI Assessment Stated Complaint: BLOCKAGE IN COLON ED Provider: Jovanni Orellana Discharge Problem: Colonic obstruction, Abdominal pain Patient Disposition: Admitted As Inpatient Discharge Instructions Interventions: ED Discharge Assessment Last Done: 01/12/21 00:28 Discharge Problem: Abdominal pain Qualifiers: Abdominal location: generalized Qualified Code(s): R10.84 - Generalized abdominal pain
[2021-01-11] MEDS ORDERED: ONDANSETRON INJ 2 MG/ML 2 ML VIAL IV STA (20:40)
[2021-01-11] MEDS ORDERED: SODIUM CHLORIDE 0.9% 500 ML IV SCH (20:45)
[2021-01-11 20:49] LABS: Basophils # (auto) 0.04 K/uL (0-0.2); Basophils % (auto) 0.5 %; Eosinophils # (auto) 0.21 K/uL (0-0.5); Eosinophils % (auto) 2.6 %; Hematocrit (blood only) 45.1 % (42-52); Hemoglobin 15.4 g/dL (14.0-18.0); Immature Granulocytes # (auto) 0.01 K/uL (0.00-0.02); Immature Granulocytes % (auto) 0.1 %; Lymphocytes # (auto) 3.79 K/uL (1.2-3.4); Lymphocytes % (auto) 47.4 %; Mean Corpuscular Hemoglobin 31.5 pg (25-34); Mean Corpuscular Hgb Conc 34.1 g/dL (32-36); Mean Corpuscular Volume 92.2 fL (80-100); Mean Platelet Volume 10.4 fL (7.4-10.4); Monocytes # (auto) 0.74 K/uL (0.11-0.59); Monocytes % (auto) 9.3 %; Neutrophils # (auto) 3.21 K/uL (1.4-6.5); Neutrophils % (auto) 40.1 %; Platelet Count 323 K/uL (130-400); RDW Coefficient of Variation 13.5 % (11.5-14.5); RDW Standard Deviation 45.4 fL (36.4-46.3); Red Blood Count 4.89 M/uL (4.7-6.1)
[2021-01-11 20:57] LABS: Albumin Level 3.9 gm/dl (3.4-5.0); BUN Creatinine Ratio 13.3 (10-20); Calcium 8.9 mg/dl (8.5-10.1); Creatinine Clr Calc Pharmacy 82.8 ml/min; Est GFR (African American) 89.5 ml/min; Est GFR (Non-African American) 77.3 ml/min; Potassium 4.3 mmol/L (3.5-5.1)
[2021-01-11 21:08] LABS: Albumin Globulin Ratio 1.1 (0.9-2); Bilirubin,Total 0.5 mg/dl (0.2-1); Globulin 3.5 gm/dl (2.5-4.0); Thyroid Stimulating Hormone 1.49 uIu/ml (0.300-4.500); Total Protein 7.4 gm/dl (6.4-8.2)
[2021-01-11] MEDS ORDERED: bisacodyL 10 MG SUPP PR STA (23:45)
--- NOTE | 2021-01-11 23:46 | History & Physical Report ---
Date of Service January 11, 2021 Assessment & Plan (1) Colonic obstruction: Plan: Mr. Banegas is a 70 yo gentleman who is admitted for management of a large bowel obstruction. - CT scan of abdomen showing colonic obstruction with apparent transition point - concern is for possible functional obstruction, ie a diverticular stricture or a mass - GI consulted, as patient will likely need bowel clean out and endoscopy - NPO for bowel rest - mIVF for hydration - IV tylenol for pain prn + zofran prn for nausea - enema recommend against given possibility of perforation with distended bowel wall, however will try a Dulcolax suppository (2) Hypercholesterolemia: Plan: - hold home statin while NPO (3) Hypertension: Plan: - hold home lisinopril while NPO (4) Hx of traumatic brain injury: Plan: - fall precautions DVT ppx: Lovenox Diet: NPO Dispo: Med/surg Code: Full, I discussed with patient History of Present Illness Primary Care Provider: Justin Parks MD Mr. Banegas is a 70 yo gentleman who was referred to the [facility] ED by his outpatient provider for further management of a large bowel obstruction identified on a cat scan done earlier today. Mr. Banegas was supposed to have a routine screening colonoscopy with Dr. Graf on 12/28/20. However, after consuming the bowel prep on 12/27/20, he developed abdominal pain along with nausea and vomiting. The colonoscopy was therefore postponed. In the subsequent days, Mr. Banegas experienced ongoing lower abdominal cramping, left side worse than right, along with occasional na usea/vomiting, anorexia. He also endorsed a change in his usual bowel movements - ie his is typically very regular at baseline, but his stools now firm in consistent, he has to strain, and the can only pass a small volume at a time. He saw a INDUSTRIAL X RAY OPERATOR at [facility] on 01/08/21 for evaluation of these ongoing symptoms, who ordered a CT of the abdomen and pelvis with IV contrast, which was arranged for today, 01/11/21. He was directed to the ED when his outpatient provider was notified of the report, which described a distended colon with an apparent transition point. In October 2020 he had a barium swallow (for reports of dysphagia) which showed moderate esophageal dysmotility with delayed esophageal emptying, along with a prominent esophageal B ring (Schatzki's ring). A tiny subcentimeter filling defect of the distal esophagus was also noted on one image only, and follow up endoscopy was recommend for further investigation. Mr. Banegas had an EGD in 11/2020, which showed evidence of esophageal dysmotility; biopsies taken showed evidence of esophagitis, for which he was started on omeprazole, 40mg, daily. His most recent completed colonoscopy was in 12/2014 which was normal, although 5 year follow up was recommended due to a history of previous polyps. Surgical Hx: Appendectomy 40 years ago. Social Hx: Rarely consumes a beer. Lifetime non-smoker. Lives at home with Luis who would like updates about his care/possible procedures In the ED, his vitals were WNL. His CBC, CMP, and TSH were WNL. COVID neg. EKG showing NSR without acute ST Segment changes. He was given 1 liter of NSS and a dose of zofran. Allergies Allergy/AdvReac Type Severity Reaction Status Date / Time Cipro Allergy Unknown TINGLING Verified 03/16/17 08:06 ALL OVER ciprofloxacin Allergy Unknown TINGLING Verified 03/04/19 10:47 ALL OVER Home Medications Medication Instructions Recorded Confirmed Type dextroamphetamine-amphetamine 15 15 mg PO DAILY tab 01/24/19 01/11/21 History mg tablet dextroamphetamine 10 mg tablet 10 mg PO DAILY tab 03/04/19 01/11/21 History cholecalciferol (vitamin D3) 125 5,000 units PO DAILY tab 04/09/19 01/11/21 History mcg (5,000 unit) tablet lisinopril 10 mg tablet 10 mg PO DAILY #30 tab 04/09/19 01/11/21 History metformin 500 mg tablet 500 mg PO DAILY tab 04/09/19 01/11/21 History pravastatin 40 mg tablet 40 mg PO DAILY tab 04/09/19 01/11/21 History omeprazole 40 mg capsule,delayed 40 mg PO DAILY 01/11/21 01/11/21 History release Past Med/Surg History Medical History Arthritis Benign essential tremor Benign localized hyperplasia of prostate with urinary obstruction Chronic fatigue Diabetes Enlarged prostate without lower urinary tract symptoms (luts) HTN (hypertension) Hypercholesterolemia Incomplete bladder emptying Intermittent urinary stream Nocturnal hypoxemia Slowing of urinary stream Vitamin D deficiency Surgical History S/P appendectomy S/P rotator cuff repair Family History Mother Cardiac disorder Diabetes Hypertension Father Cardiac disorder COPD (chronic obstructive pulmonary disease) Prostate cancer Brother Diabetes Son Kidney stone Social History Smoking Status: Never smoker Second Hand Exposure: No; Do You Dip or Chew Tobacco: No; Hx Alcohol Use: Yes Hx Substance Use: No Preferred Language: [place] Communication Ability: Effective Pararescue Manager Required: No Beliefs That Will Affect Care: None marital status: Current Living Situation: Spouse Current Living Situation Comment: current occupational status: retired Other Information That Helps Us Care for You: No Feels Safe at Home: Yes Safety Concerns: Feels Safe At This Time Assistive Devices: Walker Review of Systems Constitutional: + anorexia; no fever and no chills Respiratory: no cough and no dyspnea Cardiovascular: no chest pain Gastrointestinal: + abdominal pain, + nausea and + vomiting Physical Exam Constitutional: WD/WN, vitals as above cooperative and comfortable; no acute distress Eyes: + anicteric sclerae ENMT: external ear and nose normal, oropharynx normal Neck: trachea midline Respiratory: normal respiratory effort, lungs clear to auscultation no cough Cardiovascular: RRR, no murmur, no edema Heart Sounds: normal S1 and normal S2 Extremities: no pedal edema Gastrointestinal (Abdomen): Inspection/Auscultation: abdomen normal to inspection, + abdomen distended and normal bowel sounds Percussion/Palpation: + abdomen tender (LLQ) and abdomen soft; no guarding and no hepatosplenomegaly Musculoskeletal: Head/Neck/Chest: normocephalic and head atraumatic Skin: no rashes, warm and dry Neurologic: moves all extremities Psychiatric: A+Ox3, euthymic affect Results & Data Results & Data ([facility]) Vital Signs (Past 12 Hours) Vital Signs Temp Pulse Pulse Resp BP BP Pulse Ox 01/11/21 22:00 78 17 96 01/11/21 20:20 37 C 77 18 159/81 H 96 01/11/21 18:39 36.7 C 82 16 155/72 H 96 Supervising Physician Co-Signing Physician Notes Patient seen and examined, chart reviewed, case discussed with Dr. Meier and I agree with her assessment and plan as above. In brief, patient is a 70yo male with history of DM, HTN, HLP - no prior intraabdominal surgeries - presenting with concern for large bowel obstruction. Patient was preparing for a routine colonoscopy and was unable to tolerate the prep - developed abdominal pain, nausea, vomiting as well as abdominal cramping. CT was performed which revealed a distended colon with transition point concerning for large bowel obstruction On exam he is afebrile, HD stable, nontoxic in appearance Skin - warm, dry, intact, no rashes/lesions HEENT - NC/AT, PERRL, MMM, Neck supple Heart - +S1/S2, regular, no m/r/g Lungs - CTA Abd - soft, mildly distended, mildly hypoactive bowel sounds, tenderness in LLQ without rebound/guarding Ext - well perfused Labs and images reviewed Assessment/Plan - 70yo male presenting with concern for large bowel obstruction. No prior abdominal surgeries. Last colonoscopy was 12/2014 with recommended 5 year followup. Ddx to include stricture, malignancy -GI consultation appreciated -Conservative management with IVF and electrolyte repletion -Remainder of plan as above Resident Activity Tracking Resident Involvement: Resident Care Provided Care Provided: Adult Hospital Medicine
[2021-01-12] MEDS ORDERED: ACETAMINOPHEN 1000 MG/100 ML IV IV PRN (00:44)
[2021-01-12] MEDS ORDERED: ONDANSETRON INJ 2 MG/ML 2 ML VIAL IV PRN (00:44)
[2021-01-12] MEDS ORDERED: GLUCAGON FOR INJ 1 MG VIAL SQ PRN (01:04)
[2021-01-12] MEDS ORDERED: CARBOHYDRATES FOR HYPOGLYCEMIA PO PRN (01:04)
[2021-01-12] MEDS ORDERED: GLUCOSE 40% GEL 15 GM TUBE PO PRN (01:04)
[2021-01-12] MEDS ORDERED: DEXTROSE 50% 50 ML SYRINGE IV PRN (01:04)
[2021-01-12] MEDS ORDERED: GLUCOSE 10 TABS/TUBE PO PRN (01:04)
[2021-01-12] MEDS: SODIUM CHLORIDE 0.9% 1000ML 1,000 ML IV SCH ×2 (01:15→08:30)
[2021-01-12] MEDS ORDERED: Nursing to Pharmacy Communication SCH (01:15)
[2021-01-12] MEDS: INSULIN ASPART 100 UNITS/ML 3 ML PEN SC SCH ×3 (05:50→17:36)
--- NOTE | 2021-01-12 07:34 | Gastrointestinal Consultation ---
Date of Consultation January 12, 2021 Assessment & Plan (1) Colonic obstruction: Patient admitted after 2+ weeks of abdominal pain, constant nausea, and bowel movement changes with CT of the abdomen/pelvis demonstrating large bowel obstruction with apparent transition point at the level distal descending/proximal sigmoid. Continue supportive care, IV fluids, maintain NPO. Placed surgical consult - appreciate surgical input. Will await surgical input and consider colonoscopy but unsure how patient will tolerate bowel prep at present. Please refer to supervising physician addendum for further recommendations. Supervising Physician Co-Signing Physician Notes I have seen and examined the patient. I agree with note above by INGRID Jain except as noted below. HPI Some left sided abd pain and abd distension PE Abdomen pos bs, moderate distension, subjective LLQ pain but no guarding nor rebound A/P Left colon obstuction--appreciate surgery input. Pt will need some type of resection but surgery wishing to know if malignant or benign if possible. Discussed with patient and and hospitalist team in patients room. Plan fleet enema, wait 2 hours and then have patient start sipping on miralax prep. Told patient if n/v or increased abd pain on po prep to stop it. Depending on results can then plan possible flexible sigmoidoscopy. Flex sig/colonscopy is increased risk of perforation in this setting given possible retrograde gas travel but benefit to sugeon/patient outhweighs risk to find etiology for surgical staging. I do not perform colonic stents. If that is needed post colon evaluation then would need tertiary center if remaining in [facility]. History of Present Illness Attending Physician: Omar Castillo DO History of Present Illness The patient is a pleasant 70-year-old male with past medical history to include Arthritis, Benign essential tremor, Benign localized hyperplasia of prostate with urinary obstruction, Chronic fatigue, Diabetes, Enlarged prostate without lower urinary tract symptoms, hypertension, Hypercholesterolemia, Incomplete bladder emptying, Intermittent urinary stream, Nocturnal hypoxemia, Slowing of urinary stream, Vitamin D deficiency who presented to the emergency department after CT A/P demonstrating large bowel obstruction. GI was consulted as patient will likely require colonoscopy. Prior records: 01/11/2021: CT A/P with IV contrast demonstrated 1. The colon is distended, and is filled with both gas and stool. There is an apparent transition point at the level distal descending/proximal sigmoid where there is focal narrowing and wall thickening. The appearance suggests a distal colonic obstruction, which may be related to diverticular stricture given diverticular disease in this region. Underlying mass lesion would be impossible to exclude. Correlation with endoscopy is recommended for further evaluation. 2. Mild pericolonic inflammation is suggested above the transition point. 3. The small bowel loops are normal in caliber. 4. Prostatomegaly with evidence of chronic bladder outlet obstruction. 5. Hepatic steatosis. 12/28/2020: Surveillance colonoscopy cancelled as unable to tolerate prep due to nausea and vomiting 12/22/2020: FCM office visit notes are reviewed to follow-up endoscopy. It is noted that patient has improvement on PPI. 11/17/2020: EGD notes are reviewed performed due to history of dysphagia demonstrated Z-line 40 cm from incisors; LA grade C (1 or more mucosal breaks continuous between tops of 2 or more mucosal folds, less than 75% of circumference) esophagitis is identified with biopsies obtained; midesophagus was normal with biopsies obtained; abnormal motility noted in esophagus; normal stomach, examined duodenum were normal. Pathology results demonstrated GE junction biopsy with squamous and glandular mucosa with inflammatory change and reactive change; middle third esophagus biopsy with squamous mucosa with no significant pathologic alteration and no eosinophils. Consistent with esophagitis and it is recommended the patient use chronic acid suppression medication. 10/23/2020: Barium swallow was obtained due to history of dysphagia which demonstrated 1. Moderate esophageal dysmotility with delayed esophageal emptying. 2. No hiatal hernia or esophageal reflux. 3. A prominent esophageal B ring (Schatzki's ring) is noted. 4. A tiny subcentimeter filling defect of the distal esophagus is noted on one image only which may be artifactual. This f inding could be correlated with endoscopy if of further clinical concern. 12/19/2014: Colonoscopy demonstrated normal-appearing terminal ileum with a few diverticula found in the sigmoid colon. There were no specimens collected. Repeat colonoscopy is due in 5 years for surveillance Abdominal surgical history: appendectomy 40 years ago The patient presented to the outpatient clinic 01/08/2021 for evaluation of abdominal cramping, changes in bowel movements, nausea, poor oral intake, gas, unintentional weight loss since using Sutab to prep for colonoscopy that was scheduled 2 weeks ago. The patient had nausea and vomiting after taking the second dose of Sutabs and procedure was canceled. He reports that he had 3 days of the worst abdominal cramping of his life after using the Suprep tabs. He states the pain now continues to occur after eating. Used Suprep with previous colonoscopy experiencing difficulty. CT of the abdomen/pelvis was obtained and demonstrated large bowel obstruction with apparent transition point at the level distal descending/proximal sigmoid. He was referred to the ED for further evaluation and admission. On exam/interview today, the patient reports that his symptoms are unchanged. He continues to have left sided abdominal pain that is worsened with any pressure/palpation. Feels his abdomen is bloated. He is passing gas. No bowel movement even with Dulcolax suppository yesterday. Reports constant nausea, denies vomiting. Social History: The patient is a lifetime non-smoker. He reports he rarely consumes a beer. Denies use of recreational drugs including marijuana. He is with 5 adult children. 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 Allergies Allergy/AdvReac Type Severity Reaction Status Date / Time Cipro Allergy Unknown TINGLING Verified 03/16/17 08:06 ALL OVER ciprofloxacin Allergy Unknown TINGLING Verified 03/04/19 10:47 ALL OVER Home Medications Medication Instructions Recorded Confirmed Type dextroamphetamine-amphetamine 15 15 mg PO DAILY tab 01/24/19 01/11/21 History mg tablet dextroamphetamine 10 mg tablet 10 mg PO DAILY tab 03/04/19 01/11/21 History cholecalciferol (vitamin D3) 125 5,000 units PO DAILY tab 04/09/19 01/11/21 History mcg (5,000 unit) tablet lisinopril 10 mg tablet 10 mg PO DAILY #30 tab 04/09/19 01/11/21 History metformin 500 mg tablet 500 mg PO DAILY tab 04/09/19 01/11/21 History pravastatin 40 mg tablet 40 mg PO DAILY tab 04/09/19 01/11/21 History omeprazole 40 mg capsule,delayed 40 mg PO DAILY 01/11/21 01/11/21 History release Patient History Medical History Arthritis Benign essential tremor Benign localized hyperplasia of prostate with urinary obstruction Chronic fatigue Diabetes Enlarged prostate without lower urinary tract symptoms (luts) HTN (hypertension) Hypercholesterolemia Incomplete bladder emptying Intermittent urinary stream Nocturnal hypoxemia Slowing of urinary stream Vitamin D deficiency Surgical History S/P appendectomy S/P rotator cuff repair Family History Mother Cardiac disorder Diabetes Hypertension Father Cardiac disorder COPD (chronic obstructive pulmonary disease) Prostate cancer Brother Diabetes Son Kidney stone Social History Smoking Status: Never smoker Second Hand Exposure: No; Do You Dip or Chew Tobacco: No; Hx Alcohol Use: Yes Hx Substance Use: No Preferred Language: Italian Communication Ability: Effective 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 Required: No Beliefs That Will Affect Care: None marital status: Current Living Situation: Spouse Current Living Situation Comment: current occupational status: retired Other Information That Helps Us Care for You: No Feels Safe at Home: Yes Safety Concerns: Feels Safe At This Time Assistive Devices: None Review of Systems Review of Systems: All systems reviewed & are unremarkable except as noted in Subjective Physical Exam Constitutional: WD/WN, vitals as above Neck: normal visual inspection and trachea midline Respiratory: normal respiratory effort, lungs clear to auscultation Cardiovascular: RRR, no murmur, no edema Gastrointestinal (Abdomen): Inspection/Auscultation: abdomen normal to inspection, + abdomen distended and normal bowel sounds Percussion/Palpation: + abdomen tender (LLQ) and abdomen soft; no guarding and abdomen not rigid Psychiatric: A+Ox3, euthymic affect Results & Data ([facility]) Vital Signs (Past 12 Hours) Vital Signs Temp Pulse Pulse Pulse Resp BP BP 01/12/21 00:45 36.6 C 70 16 01/12/21 00:28 72 17 159/81 H 01/12/21 00:00 72 17 129/67 01/11/21 22:00 78 17 01/11/21 20:20 37 C 77 18 159/81 H BP Pulse Ox 01/12/21 00:45 145/83 H 98 01/12/21 00:28 97 01/12/21 00:00 97 01/11/21 22:00 96 01/11/21 20:20 96 Laboratory Results - last 24 hr 08/09/21 08/09/21 08/09/21 20:08 20:08 20:08 WBC 8.00 RBC 4.89 Hgb 15.4 Hct 45.1 MCV 92.2 MCH 31.5 MCHC 34.1 RDW Std Deviation 45.4 RDW Coeff of Stacia 13.5 Plt Count 323 MPV 10.4 Immature Gran % (Auto) 0.1 Neut % (Auto) 40.1 Lymph % (Auto) 47.4 Lassen % (Auto) 9.3 Eos % (Auto) 2.6 Baso % (Auto) 0.5 Neut # (Auto) 3.21 Lymph # (Auto) 3.79 H Lassen # (Auto) 0.74 H Eos # (Auto) 0.21 Baso # (Auto) 0.04 Immature Gran # (Auto) 0.01 Sodium 135 L Potassium 4.3 Chloride 106 Carbon Dioxide 29 Anion Gap 0 L BUN 13 Creatinine 0.98 Est Cr Clr Drug Dosing 82.8 Est GFR ( Amer) 89.5 Est GFR (Non-Af Amer) 77.3 BUN/Creatinine Ratio 13.3 Glucose 89 POC Glucose Calcium 8.9 Total Bilirubin 0.5 AST 23 ALT 44 Alkaline Phosphatase 94 Total Protein 7.4 Albumin 3.9 Globulin 3.5 Albumin/Globulin Ratio 1.1 TSH 1.490 COVID-19 Eval Order Covid19 at [facility] SARS-CoV-2 (PCR) 01/11/21 01/12/21 01/12/21 20:08 00:41 05:44 WBC RBC Hgb Hct MCV MCH MCHC RDW Std Deviation RDW Coeff of Stacia Plt Count MPV Immature Gran % (Auto) Neut % (Auto) Lymph % (Auto) Lassen % (Auto) Eos % (Auto) Baso % (Auto) Neut # (Auto) Lymph # (Auto) Lassen # (Auto) Eos # (Auto) Baso # (Auto) Immature Gran # (Auto) Sodium Potassium Chloride Carbon Dioxide Anion Gap BUN Creatinine Est Cr Clr Drug Dosing Est GFR ( Amer) Est GFR (Non-Af Amer) BUN/Creatinine Ratio Glucose POC Glucose 86 90 Calcium Total Bilirubin AST ALT Alkaline Phosphatase Total Protein Albumin Globulin Albumin/Globulin Ratio TSH COVID-19 Eval Order SARS-CoV-2 (PCR) NEGATIVE
[2021-01-12] MEDS: ENOXAPARIN INJ 40 MG/0.4 ML SYR SQ SCH (08:30)
[2021-01-12 08:51] LABS: Basophils # (auto) 0.02 K/uL (0-0.2); Basophils % (auto) 0.4 %; Eosinophils # (auto) 0.13 K/uL (0-0.5); Eosinophils % (auto) 2.3 %; Hematocrit (blood only) 42.9 % (42-52); Hemoglobin 14.5 g/dL (14.0-18.0); Lymphocytes % (auto) 43.9 %; Mean Corpuscular Hemoglobin 31.7 pg (25-34); Mean Corpuscular Hgb Conc 33.8 g/dL (32-36); Mean Corpuscular Volume 93.7 fL (80-100); Monocytes # (auto) 0.56 K/uL (0.11-0.59); Monocytes % (auto) 9.8 %; Neutrophils # (auto) 2.49 K/uL (1.4-6.5); Neutrophils % (auto) 43.6 %; Platelet Count 285 K/uL (130-400); RDW Coefficient of Variation 13.5 % (11.5-14.5); RDW Standard Deviation 46.5 fL (36.4-46.3); Red Blood Count 4.58 M/uL (4.7-6.1)
[2021-01-12 09:17] LABS: BUN Creatinine Ratio 13.5 (10-20); Calcium 8.4 mg/dl (8.5-10.1); Creatinine Clr Calc Pharmacy 91.2 ml/min; Est GFR (African American) 99.7 ml/min; Potassium 4.5 mmol/L (3.5-5.1)
--- NOTE | 2021-01-12 11:17 | Surgery Consultation ---
Date of Consultation January 12, 2021 Assessment & Plan (1) Colonic obstruction: This is a 70y M with a PMH of HTN, DM, h/o concussion with TBI, who presents to the [facility] ED on 01/11/21 with complaints of abdominal pain and referral for evaluation of abnormal CT scan. CT a/p revealed "that the colon is distended, and is filled with both gas and stool. There is an apparent transition point at the level distal descending/proximal sigmoid where there is focal narrowing and wall thickening. The appearance suggests a distal colonic obstruction, which may be related to diverticular stricture given diverticular disease in this region. Underlying mass lesion would be impossible to exclude." Today labs reveal WBC 5.7, Hbg 14.5. Of note patient was recently scheduled to undergo a colonoscopy last week, but was unable to tolerate the prep due to nausea/vomiting and abdominal discomfort and it was postponed. He reports abnormal BM's for a little while now, but over the past week has had 0-1 per day when he normally goes 2-3x. -Surgery was consulted as CT scan findings are concerning for large bowel obstruction. We would prefer if patient would be able to undergo a colonoscopy prior to surgical procedure for diagnosis of etiology obstruction (? colonic mass vs diverticular stricture vs other). Concern if patient unable to tolerate a prep he would likely require an ostomy and Danielle's procedure. Could see if a temporary colonic stent is a consideration as well? We are okay with patient receiving enema's/suppository if okay with GI. We will continue to follow along and have to discuss with our GI colleagues their thoughts for colonoscopy this admission. For now keep patient NPO with IVF. Patient seen and examined with Dr. Godfrey. Supervising Physician Co-Signing Physician Notes I personally saw and evaluated the patient with Deysi Khanna PA-C and agree with the assessment and plan 70 yo male with LBO of unknown etiology -CT images and results reviewed -Would recommend GI eval for possible colonoscopy of flex sig -Ok for enemas from surgical standpoint -Would ideally like to have entire colon evaluated prior to any surgical intervention -He may require sigmoidectomy at some point but at this time there are no signs of perforation or ischemia -Will follow along History of Present Illness Attending Physician: Omar Castillo DO History of Present Illness This is a 70y M with a PMH of HTN, DM, h/o concussion with TBI, who presents to the [facility] ED on 01/11/21 with complaints of abdominal pain and referral for evaluation of abnormal CT scan. The patient notes he was scheduled to undergo a colonoscopy about 1 week ago. He started taking the bowel prep and felt some abdominal discomfort and nausea. The next day when he went to complete the remainder of the prep he ended up throwing up and never felt like he got cleaned out and the colonoscopy was postponed. Since then he reports he has not had normal BM's. He regularly goes 2-3x/day and of recent it has only been none or one. Even before the colonoscopy prep he reports his BM's have not been normal for a little while now. Due to abnormal BM's and ongoing belly discomfort he was scheduled to undergo a CT a/p for further workup. CT a/p revealed "that the colon is distended, and is filled with both gas and stool. There is an apparent transition point at the level distal descending/proximal sigmoid where there is focal narrowing and wall thickening. The appearance suggests a distal colonic obstruction, which may be related to diverticular stricture given diverticular disease in this region. Underlying mass lesion would be impossible to exclude." Patient was therefore referred to come into the ER for further evaluation. Patient says he is passing some flatus. He endorses ongoing mild abdominal discomfort and bloating along with nausea. He denies any f/c, cp/sob, or trouble with voiding. He did have a colonoscopy 5 years ago and is being evaluated every 5 years due to history of polyps. He reports an episode of diverticulitis many years ago that was managed conservatively with oral abx. His past abdominal surgical history includes an open appendectomy '76. He denies a family history of colon cancer. He denies alcohol or tobacco use. He says he was given a suppository last night and did not have success with a BM. Allergies Allergy/AdvReac Type Severity Reaction Status Date / Time Cipro Allergy Unknown TINGLING Verified 03/16/17 08:06 ALL OVER ciprofloxacin Allergy Unknown TINGLING Verified 03/04/19 10:47 ALL OVER Home Medications Medication Instructions Recorded Confirmed Type dextroamphetamine-amphetamine 15 15 mg PO DAILY tab 01/24/19 01/11/21 History mg tablet dextroamphetamine 10 mg tablet 10 mg PO DAILY tab 03/04/19 01/11/21 History cholecalciferol (vitamin D3) 125 5,000 units PO DAILY tab 04/09/19 01/11/21 History mcg (5,000 unit) tablet lisinopril 10 mg tablet 10 mg PO DAILY #30 tab 04/09/19 01/11/21 History metformin 500 mg tablet 500 mg PO DAILY tab 04/09/19 01/11/21 History pravastatin 40 mg tablet 40 mg PO DAILY tab 04/09/19 01/11/21 History omeprazole 40 mg capsule,delayed 40 mg PO DAILY 01/11/21 01/11/21 History release Patient History Medical History Arthritis Benign essential tremor Benign localized hyperplasia of prostate with urinary obstruction Chronic fatigue Diabetes Enlarged prostate without lower urinary tract symptoms (luts) HTN (hypertension) Hypercholesterolemia Incomplete bladder emptying Intermittent urinary stream Nocturnal hypoxemia Slowing of urinary stream Vitamin D deficiency Surgical History S/P appendectomy S/P rotator cuff repair Family History Mother Cardiac disorder Diabetes Hypertension Father Cardiac disorder COPD (chronic obstructive pulmonary disease) Prostate cancer Brother Diabetes Son Kidney stone Social History Smoking Status: Never smoker Second Hand Exposure: No; Do You Dip or Chew Tobacco: No; Hx Alcohol Use: Yes Hx Substance Use: No Preferred Language: Tamazight Communication Ability: Effective Field Reviewer Required: No Beliefs That Will Affect Care: None marital status: Current Living Situation: Spouse Current Living Situation Comment: current occupational status: retired Other Information That Helps Us Care for You: No Feels Safe at Home: Yes Safety Concerns: Feels Safe At This Time Assistive Devices: None Review of Systems Constitutional: no fever and no chills Respiratory: no dyspnea Cardiovascular: no chest pain Gastrointestinal: + abdominal pain, + bloating, + nausea, + vomiting and + change in bowel habits; no blood in stools Genitourinary: no dysuria or no hematuria Physical Exam Physical Exam: awake/alert Constitutional: well developed and well nourished; no acute distress Respiratory: normal respiratory effort Gastrointestinal (Abdomen): Inspection/Auscultation: + abdomen distended (softly distended) and + abdominal surgical scar (from prior open appendectomy) Percussion/Palpation: + abdomen tender (generalized discomfort to palpation ) and abdomen soft; no guarding Results & Data ([facility]) Vital Signs (Past 12 Hours) Vital Signs Temp Pulse Pulse Pulse Resp BP BP 01/12/21 08:15 36.4 C L 78 16 01/12/21 00:45 36.6 C 70 16 01/12/21 00:28 72 17 159/81 H 01/12/21 00:00 72 17 129/67 BP Pulse Ox 01/12/21 08:15 135/74 95 01/12/21 00:45 145/83 H 98 01/12/21 00:28 97 01/12/21 00:[address] SCAN OF THE ABDOMEN AND PELVIS WITH IV CONTRAST CLINICAL HISTORY: Generalized abdominal pain. COMPARISON STUDY: Abdominal CT dated 02/18/2017. TECHNIQUE: Following the IV administration of 94 cc of Optiray 320, CT scan of the abdomen and pelvis is performed from the lung bases to the proximal femora. Images are reviewed in the axial, sagittal, and coronal planes. IV contrast was administered without complication. A dose lowering technique was utilized adhering to the principles of ALARA. CT DOSE: 1058.96 mGycm FINDINGS: Lung bases: The heart is normal in size and without pericardial effusion. There are scattered coronary artery calcifications. The lung bases are clear. There is a tiny hiatal hernia. Liver: The contrast-enhanced liver is normal in size and contour. The liver demonstrates diffusely diminished attenuation consistent with hepatic steatosis. Fatty sparing is seen adjacent to gallbladder fossa. There is no intrahepatic biliary ductal dilatation. The hepatic veins and portal veins are patent. Gallbladder: Unremarkable. Spleen: Normal in size and attenuation. Pancreas: Unremarkable. Adrenal glands: Unremarkable. Kidneys: The contrast enhanced kidneys are normal in size and without hydronephrosis. The kidneys enhance symmetrically. Abdominal vasculature: The abdominal aorta is normal in course and caliber noting moderate to advanced atherosclerotic calcification. Bowel: The colon is mildly distended, and filled with both gas and stool. There is an apparent transition point at the level of the distal descending/proximal sigmoid colon seen on image #325. There is mild pericolonic inflammation just above the apparent transition point. The small bowel loops are normal in caliber. There is mild diverticulosis of the sigmoid colon without CT evidence of acute diverticulitis. The appendix is not identified and reported surgically absent. Peritoneum: There is no intraperitoneal free air or abdominal ascites. Lymphadenopathy: None. Pelvic viscera: Evaluation of the pelvis is compromised by streak artifact from bilateral hip arthroplasties. The bladder wall appears mildly thickened and trabeculated suggesting chronic obstruction. The prostate gland appears enlarged and heterogeneous. Skeletal structures: The skeletal structures are osteopenic. There is moderate lumbosacral spondylosis. No lytic or blastic lesions are seen. Bilateral hip arthroplasties are in place. IMPRESSION: 1. The colon is distended, and is filled with both gas and stool. There is an apparent transition point at the level distal descending/proximal sigmoid where there is focal narrowing and wall thickening. The appearance suggests a distal colonic obstruction, which may be related to diverticular stricture given diverticular disease in this region. Underlying mass lesion would be impossible to exclude. Correlation with endoscopy is recommended for further evaluation. 2. Mild pericolonic inflammation is suggested above the transition point. 3. The small bowel loops are normal in caliber. 4. Prostatomegaly with evidence of chronic bladder outlet obstruction. 5. Hepatic steatosis. 6. Additional findings as above. ACT 112: Positive. There are findings on this exam that require communication b etween the performing entity and the patient following Patient Test Result Information Act ([place] Act 112) guidelines. Electronically signed by: Wolf Ortega M.D. 01/11/2021 3:51 PM PG Care Time/CCT Total # of Minutes Spent Total Time Spent with Patient: Total time spent is greater than 50% in coordina tion of care (as documented) at patient's floor/unit and/or counseling patient: Coding Level of Care Code 84688 Initial Inpt Care Lvl 2 Diagnoses Colonic obstruction K56.609
[2021-01-12] MEDS ORDERED: SOD PHOSPHATE/SOD BIPHOSPHATE ENEMA 132 ML BTL PR STA (14:26)
--- NOTE | 2021-01-12 15:20 | Electrocardiogram Report ---
Test Reason : Blood Pressure : / mmHG Vent. Rate : 070 BPM Atrial Rate : 070 BPM P-R Int : 196 ms QRS Dur : 086 ms QT Int : 388 ms P-R-T Axes : 044 032 014 degrees QTc Int : 419 ms Normal sinus rhythm Normal ECG When compared with ECG of 05-MAR-2014 12:20, No significant change was found Confirmed by Roman Grubbs ([id number]) on 01/12/2021 3:20:13 PM Referred By: REFERRED SELF Confirmed By:Gustavo Grubbs
--- NOTE | 2021-01-12 17:07 | Hospitalist Progress Note ---
Date of Service January 12, 2021 Assessment & Plan (1) Colonic obstruction: Plan: Mr. Banegas is a 70 yo gentleman who is admitted for management of a large bowel obstruction. - CT scan of abdomen showing colonic obstruction with apparent transition point at the distal colon/proximal sigmoid colon. - Consulted GI for colonoscopy in order to determine etiology of obstruction since blinded on CT scan --> GI wanted to consult surgery before proceeding --> surgery consulted stating etiology unknown (colonic mass vs diverticular stricture vs other) and surgical procedure was dependent on knowing etiology, preferred colonoscopy performed first --> GI agreed, pt will begin enema treatment followed by bowel prep with miralax as tolerated --> colonoscopy to be performed tomorrow - NPO for bowel rest - mIVF for hydration - IV tylenol for pain prn + IV zofran prn for nausea (2) Hypercholesterolemia: Plan: - hold home statin while NPO (3) Hypertension: Plan: - hold home lisinopril while NPO (4) Hx of traumatic brain injury: Plan: - fall precautions DVT ppx: Lovenox Diet: NPO Dispo: Med/surg Code: Full Admission and Anticipated Discharge Date Admission Date: January 11, 2021 Supervising Physician Co-Signing Physician Notes Patient seen and examined with PGY-1 Dr. Martin. Agree with history, exam find ings, assessment and plan of care as outlined. In brief, Mr. Banegas is a 70 year old male with hx of HTN, DM, prior TBI resulting in memory difficulties and increased fall risk admitted with a large bowel obstruction. Today, some lower abdominal pain and bloating. No vomiting. at the bedside. Vital signs and nursing notes reviewed. Non-toxic. Abdomen minimally distended. No rebound. Labs and imaging reviewed. 1. Large bowel obstruction. Transition point at left distal descending colon/proximal sigmoid. Unclear etiology. Plan for clean outfleet enema followed by miralax clean out as tolerated. Appreciate GI and general surgery recommendations. 2. HTN. Blood pressures have been well controlled without home Lisinopril so far. 3. HLD. Holding home statin. 4. DM. Holding home metformin. On sliding scale insulin. Dispo: pending work up. Subjective Patient is experiencing diffuse abdominal pain more so on the left but in no acute distress. was with him in the afternoon who mentioned the patient has h/o of TBI and mild dementia. Review of Systems Review of Systems: All systems reviewed & are unremarkable except as noted in HPI & below Constitutional: no fever and no chills Respiratory: no cough and no dyspnea Cardiovascular: no chest pain Gastrointestinal: + abdominal pain and + nausea Physical Exam Physical Exam: awake/alert Constitutional: WD/WN, vitals as above well developed, well nourished, cooperative and comfortable; no acute distress Eyes: + anicteric sclerae ENMT: external ear and nose normal, oropharynx normal Neck: normal visual inspection and trachea midline Respiratory: normal respiratory effort, lungs clear to auscultation normal respiratory effort; no cough Cardiovascular: RRR, no murmur, no edema Heart Sounds: normal S1 and normal S2 Extremities: no pedal edema Gastrointestinal (Abdomen): Inspection/Auscultation: abdomen normal to inspection, + abdomen distended (softly distended), normal bowel sounds and + abdominal surgical scar (from prior open appendectomy) Percussion/Palpation: + abdomen tender (generalized discomfort to palpation) and abdomen soft; no g uarding, abdomen not rigid and no hepatosplenomegaly Musculoskeletal: Head/Neck/Chest: normocephalic and head atraumatic Skin: no rashes, warm and dry Neurologic: moves all extremities Psychiatric: A+Ox3, euthymic affect Results & Data Results & Data ([facility]) Vital Signs (Past 12 Hours) Vital Signs Temp Pulse Resp BP Pulse Ox 01/12/21 15:27 36.7 C 69 17 137/76 96 01/12/21 08:15 36.4 C L 78 16 135/74 95 Resident Activity Tracking Resident Involvement: Resident Care Provided Care Provided: Adult Hospital Medicine
[2021-01-12] MEDS: POLYETHYLENE (MIRALAX) 17 GM PACK PO SCH (17:37)
[2021-01-13] MEDS: INSULIN ASPART 100 UNITS/ML 3 ML PEN SC SCH ×5 (00:12→21:36)
--- NOTE | 2021-01-13 01:18 | Billing Data ---
Date of Service January 13, 2021 Coding Level of Care Code 94315 Initial Inpt Care Lvl 3
[2021-01-13 05:56] LABS: Basophils # (auto) 0.01 K/uL (0-0.2); Basophils % (auto) 0.1 %; Eosinophils # (auto) 0.13 K/uL (0-0.5); Eosinophils % (auto) 1.8 %; Hematocrit (blood only) 43.1 % (42-52); Hemoglobin 14.6 g/dL (14.0-18.0); Immature Granulocytes # (auto) 0.01 K/uL (0.00-0.02); Immature Granulocytes % (auto) 0.1 %; Lymphocytes # (auto) 2.65 K/uL (1.2-3.4); Lymphocytes % (auto) 37.4 %; Mean Corpuscular Hemoglobin 31.4 pg (25-34); Mean Corpuscular Hgb Conc 33.9 g/dL (32-36); Mean Corpuscular Volume 92.7 fL (80-100); Mean Platelet Volume 10.2 fL (7.4-10.4); Monocytes # (auto) 0.62 K/uL (0.11-0.59); Monocytes % (auto) 8.7 %; Neutrophils # (auto) 3.67 K/uL (1.4-6.5); Neutrophils % (auto) 51.9 %; Platelet Count 275 K/uL (130-400); RDW Coefficient of Variation 13.4 % (11.5-14.5); RDW Standard Deviation 45.1 fL (36.4-46.3); Red Blood Count 4.65 M/uL (4.7-6.1); White Blood Count 7.09 K/uL (4.8-10.8)
[2021-01-13] MEDS: POLYETHYLENE (MIRALAX) 17 GM PACK PO SCH (05:56)
[2021-01-13 06:03] LABS: INR 1.1 (0.9-1.1); Partial Thromboplastin Time 26.2 Seconds (21.0-31.0); Prothrombin Time 11.4 Seconds (9.0-12.0)
[2021-01-13 06:27] LABS: Albumin Level 3.5 gm/dl (3.4-5.0); BUN Creatinine Ratio 12.7 (10-20); Calcium 8.7 mg/dl (8.5-10.1); Creatinine Clr Calc Pharmacy 96.6 ml/min; Est GFR (African American) 102.1 ml/min; Est GFR (Non-African American) 88.1 ml/min; Potassium 4.7 mmol/L (3.5-5.1)
[2021-01-13 06:30] LABS: Albumin Globulin Ratio 1.1 (0.9-2); Bilirubin,Total 0.8 mg/dl (0.2-1); Globulin 3.2 gm/dl (2.5-4.0); Total Protein 6.7 gm/dl (6.4-8.2)
[2021-01-13] MEDS: ENOXAPARIN INJ 40 MG/0.4 ML SYR SQ SCH (07:18)
--- NOTE | 2021-01-13 08:19 | Gastroenterology Progress Note ---
Date of Service January 13, 2021 Assessment & Plan (1) Colonic obstruction: Plan: Appreciate surgery input. Tolerated Miralax prep, brown liquid stools now. Plan is flexible sigmoidoscopy today. Risks were reviewed including perforation with patient and spouse yesterday by Dr. Graf. If colonic stent is required, patient will require transfer if remaining with [facility] system as Dr. Graf does not perform them. Please maintain NPO status. Fleets enema now and repeat 1 hour prior to procedure. Please refer to supervising physician addendum for further recommendations. Admission and Anticipated Discharge Date Admission Date: January 11, 2021 Supervising Physician Co-Signing Physician Notes I have seen and examined the patient. I agree with note above by INGRID Jain except as noted below. HPI Pt had some results with miralax prep--solid and then liquid stool. Some improvement in symptoms. Still has abdomen distension and some left sided abd pain, though. PE Abdomen pos bs, mild distension and tympany, no guarding nor rebound A/P colon obstruction---colonoscopy today to attempt to identify cause of obstruction. Discussed increasd risk secondary to limited ability to clean out colon and obstruction with possible trapped gas. Risks discussed include but not limited to med reaction, bleeding, perforation, aspiration and missed lesions. Subjective Patient is awake and alert lying in bed this morning. States he tolerated Miralax well. Initially one soft formed bowel movement followed by brown liquid stools. Left side abdominal pain continues but not as severe as it has been. Worsens with palpation. Some persistent nausea but improved, no vomiting. Denies blood or melena with bowel movements. No fever or chills through the night. Remains NPO. Review of Systems Review of Systems: All systems reviewed & are unremarkable except as noted in HPI & below Physical Exam Gastrointestinal (Abdomen): Inspection/Auscultation: abdomen normal to inspection and normal bowel sounds Percussion/Palpation: + abdomen tender (left mid to lower abdomen) and abdomen soft; no guarding and abdomen not rigid Results & Data ([facility]) Vital Signs (Past 12 Hours) Vital Signs Temp Pulse Resp BP Pulse Ox 01/13/21 07:36 36.5 C 73 17 150/79 H 96 01/12/21 22:45 36.6 C 69 16 134/81 95 Laboratory Results Laboratory Results - last 24 hr 01/12/21 01/12/2101/12/21 08:42 08:42 11:40 WBC 5.70 RBC 4.58 L Hgb 14.5 Hct 42.9 MCV 93.7 MCH 31.7 MCHC 33.8 RDW Std Deviation 46.5 H RDW Coeff of Stacia 13.5 Plt Count 285 MPV 10.0 Immature Gran % (Auto) 0.0 Neut % (Auto) 43.6 Lymph % (Auto) 43.9 Karnes % (Auto) 9.8 Eos % (Auto) 2.3 Baso % (Auto) 0.4 Neut # (Auto) 2.49 Lymph # (Auto) 2.50 Karnes # (Auto) 0.56 Eos # (Auto) 0.13 Baso # (Auto) 0.02 Immature Gran # (Auto) 0.00 PT INR APTT PTT Ratio Sodium 141 Potassium 4.5 Chloride 109 H Carbon Dioxide 28 Anion Gap 4.0 BUN 12 Creatinine 0.89 Est Cr Clr Drug Dosing 91.2 Est GFR ( Amer) 99.7 Est GFR (Non-Af Amer) 86.0 BUN/Creatinine Ratio 13.5 Glucose 101 H POC Glucose 81 Calcium 8.4 L Total Bilirubin AST ALT Alkaline Phosphatase Total Protein Albumin Globulin Albumin/Globulin Ratio 01/12/21 01/12/21 01/13/21 17:34 23:48 00:10 WBC RBC Hgb Hct MCV MCH MCHC RDW Std Deviation RDW Coeff of Stacia Plt Count MPV Immature Gran % (Auto) Neut % (Auto) Lymph % (Auto) Karnes % (Auto) Eos % (Auto) Baso % (Auto) Neut # (Auto) Lymph # (Auto) Karnes # (Auto) Eos # (Auto) Baso # (Auto) Immature Gran # (Auto) PT INR APTT PTT Ratio Sodium Potassium Chloride Carbon Dioxide Anion Gap BUN Creatinine Est Cr Clr Drug Dosing Est GFR ( Amer) Est GFR (Non-Af Amer) BUN/Creatinine Ratio Glucose POC Glucose 81 66 L* 133 H Calcium Total Bilirubin AST ALT Alkaline Phosphatase Total Protein Albumin Globulin Albumin/Globulin Ratio 01/13/21 01/13/21 01/13/21 05:38 05:38 05:38 WBC 7.09 RBC 4.65 L Hgb 14.6 Hct 43.1 MCV 92.7 MCH 31.4 MCHC 33.9 RDW Std Deviation 45.1 RDW Coeff of Stacia 13.4 Plt Count 275 MPV 10.2 Immature Gran % (Auto) 0.1 Neut % (Auto) 51.9 Lymph % (Auto) 37.4 Karnes % (Auto) 8.7 Eos % (Auto) 1.8 Baso % (Auto) 0.1 Neut # (Auto) 3.67 Lymph # (Auto) 2.65 Karnes # (Auto) 0.62 H Eos # (Auto) 0.13 Baso # (Auto) 0.01 Immature Gran # (Auto) 0.01 PT 11.4 INR 1.1 APTT 26.2 PTT Ratio 1.0 Sodium 139 Potassium 4.7 Chloride 108 H Carbon Dioxide 28 Anion Gap 3.0 BUN 11 Creatinine 0.84 Est Cr Clr Drug Dosing 96.6 Est GFR ( Amer) 102.1 Est GFR (Non-Af Amer) 88.1 BUN/Creatinine Ratio 12.7 Glucose 77 POC Glucose Calcium 8.7 Total Bilirubin 0.8 AST 26 ALT 44 Alkaline Phosphatase 79 Total Protein 6.7 Albumin 3.5 Globulin 3.2 Albumin/Globulin Ratio 1.1 01/13/21 05:59 WBC RBC Hgb Hct MCV MCH MCHC RDW Std Deviation RDW Coeff of Stacia Plt Count MPV Immature Gran % (Auto) Neut % (Auto) Lymph % (Auto) Karnes % (Auto) Eos % (Auto) Baso % (Auto) Neut # (Auto) Lymph # (Auto) Karnes # (Auto) Eos # (Auto) Baso # (Auto) Immature Gran # (Auto) PT INR APTT PTT Ratio Sodium Potassium Chloride Carbon Dioxide Anion Gap BUN Creatinine Est Cr Clr Drug Dosing Est GFR ( Amer) Est GFR (Non-Af Amer) BUN/Creatinine Ratio Glucose POC Glucose 77 Calcium Total Bilirubin AST ALT Alkaline Phosphatase Total Protein Albumin Globulin Albumin/Globulin Ratio
[2021-01-13] MEDS ORDERED: SOD PHOSPHATE/SOD BIPHOSPHATE ENEMA 132 ML BTL PR STA (09:03)
--- NOTE | 2021-01-13 12:24 | Surgery Progress Note ---
Date of Service January 13, 2021 Assessment & Plan (1) Colonic obstruction: Plan: seen with Dr. Godfrey will make further recs after scope Admission and Anticipated Discharge Date Admission Date: January 11, 2021 Supervising Physician Co-Signing Physician Notes I personally saw and evaluated the patient with Garcia Butler PA-C and agree with the assessment and plan 70 yo male with LBO of unknown etiology -Will await flex sig/colonoscopy results -He may require sigmoidectomy at some point but at this time there are no signs of perforation or ischemia -Will follow along Subjective having loose BMs after prep, no complaints Review of Systems Constitutional: no fever and no chills Physical Exam Gastrointestinal (Abdomen): Inspection/Auscultation: + abdomen distended Percussion/Palpation: abdomen soft; abdomen nontender Results & Data ([facility]) Vital Signs (Past 12 Hours) Vital Signs Temp Pulse Resp BP Pulse Ox 01/13/21 07:36 36.5 C 73 17 150/79 H 96 PG Care Time/CCT Total # of Minutes Spent Total Time Spent with Patient: Total time spent is greater than 50% in coordination of care (as documented) at patient's floor/unit and/or counseling patient: Coding Level of Care Code 30304 Subseq Hosp Care Lvl 1 Diagnoses Colonic obstruction K56.609
--- NOTE | 2021-01-13 12:39 | Anesthesiology Consultation ---
Date of Service January 13, 2021 Assessment & Plan ASA ASA3 Proposed Anesthesia Anesthesia Type: MAC Risk / Benefits Reviewed With: PT / POA / Parent / Guardian, Accepts Plan and Informed Consent Obtained History Surgery Operation Date: 01/13/21 16:00 Proposed Procedures p Flexible Sigmoidoscopy Dr Graf - Dionicio Graf Height/Weight Height: 5 ft 11 in Weight: 98.7 kg Allergies Allergy/AdvReac Type Severity Reaction Status Date / Time Cipro Allergy Unknown TINGLING Verified 03/16/17 08:06 ALL OVER ciprofloxacin Allergy Unknown TINGLING Verified 01/13/21 12:32 ALL OVER Medications Home Medications Medication Instructions Recorded Confirmed Last Taken dextroamphetamine-amphetamine 15 15 mg PO DAILY tab 01/24/19 01/11/21 Unknown mg tablet dextroamphetamine 10 mg tablet 10 mg PO DAILY tab 03/04/19 01/11/21 Unknown cholecalciferol (vitamin D3) 125 5,000 units PO DAILY tab 04/09/19 01/11/21 Unknown mcg (5,000 unit) tablet lisinopril 10 mg tablet 10 mg PO DAILY #30 tab 04/09/19 01/11/21 Unknown metformin 500 mg tablet 500 mg PO DAILY tab 04/09/19 01/11/21 Unknown pravastatin 40 mg tablet 40 mg PO DAILY tab 04/09/19 01/11/21 Unknown omeprazole 40 mg capsule,delayed 40 mg PO DAILY 01/11/21 01/11/21 Unknown release Active Medications Generic Name Dose Route Start Last Admin Trade Name Freq PRN Reason Stop Dose Admin Dextrose 25 - 50 ml 01/12/21 01:04 01/12/21 23:55 Dextrose 50% 50 Ml Syringe IV 02/11/21 01:03 25 ml UD PRN Administration Hypoglycemia Protocol Protocol Enoxaparin Sodium 40 mg 01/12/21 09:00 01/13/21 07:18 Enoxaparin Inj 40 Mg/0.4 Ml Syr SQ 02/11/21 08:59 Not Given QAM ABIGAIL Insulin Aspart 0 units 01/12/21 06:00 01/13/21 12:08 Insulin Aspart 100 Units/Ml 3 Ml Pen SC 02/11/21 05:59 Not Given Q6 ABIGAIL NPO Date Last Intake of Fluids: 01/13/21 Time Last Intake of Fluids: 06:00 Date Last Intake of Solids: 01/10/21 Past Medical History Medical History Arthritis Benign essential tremor Benign localized hyperplasia of prostate with urinary obstruction Chronic fatigue Diabetes Enlarged prostate without lower urinary tract symptoms (luts) HTN (hypertension) Hypercholesterolemia Incomplete bladder emptying Intermittent urinary stream Nocturnal hypoxemia Slowing of urinary stream Vitamin D deficiency Exercise / Class Metabolic Activity II 4-5 Yardwork/Stairs/Walk up hill Past Family History Family History Mother Cardiac disorder Diabetes Hypertension Father Cardiac disorder COPD (chronic obstructive pulmonary disease) Prostate cancer Brother Diabetes Son Kidney stone Past Surgical History Surgical History S/P appendectomy S/P rotator cuff repair Past Anesthesia History No Hx of Anesthesia Complications and No Family Hx of Anesthesia Complications History of PONV No Hx of PONV and No Hx of Motion Sickness Social History Smoking Status: Never smoker Do You Dip or Chew Tobacco: No Hx Alcohol Use: Yes alcohol intake frequency: holidays/special occasions only Hx Substance Use: No substance use type: does not use Review of Systems denies fever/cough/ colds/ chest pain/ SOB/ pt with ANJEL denies ANJEL Physical Exam Vital Signs Last Vital Signs Temp 36.8 C 01/13/21 12:20 Pulse 73 01/13/21 12:20 Resp 16 01/13/21 12:20 BP 159/90 H 01/13/21 12:20 Pulse Ox 98 01/13/21 12:20 ENMT Mouth: no TMJ abnormality and no dentition abnormality Thyromental Distance: > or= 3.5 Finger Breadths Mallampati Class: II Neck neck extension not limited Respiratory normal respiratory effort; no respiratory distress Auscultation: lungs clear to auscultation bilaterally Cardiovascular Rate/Rhythm: regular rate and regular rhythm Neurologic moves all extremities Psychiatric Orientation: alert and oriented x 3 Testing Laboratory Results 01/13/21 05:38 01/13/21 05:38 PT 11.4 Seconds (9.0-12.0) 01/13/21 05:38 INR 1.1 (0.9-1.1) 01/13/21 05:38 APTT 26.2 Seconds (21.0-31.0) 01/13/21 05:38 01/13/21 05:59 POC Glucose 77
[2021-01-13] MEDS ORDERED: PROPOFOL IV EMULSION 10 MG/ML 20 ML VIAL IV ONE ×4 (12:54→13:48)
[2021-01-13] MEDS ORDERED: LIDOCAINE 2% 2 ML VIAL/AMP(20MG/ML) INFIL ONE (12:54)
--- NOTE | 2021-01-13 13:51 | Hospitalist Progress Note ---
Date of Service January 13, 2021 Assessment & Plan (1) Colonic obstruction: Plan: Mr. Banegas is a 70 yo gentleman who is admitted for management of a large bowel obstruction. - CT scan of abdomen showing colonic obstruction with apparent transition point - Consulted GI for colonoscopy in order to determine etiology of obstruction since blinded on CT scan --> GI wanted to consult surgery before proceeding --> surgery consulted stating etiology unknown (colonic mass vs diverticular stricture vs other) and surgical procedure was dependent on knowing etiology, preferred colonoscopy performed first --> GI agreed, pt had enema treatment followed by bowel prep which he tolerated well --> underwent flexible sigmoidoscopy (results showed colonic stricture) --> was in more pain s/p colonoscopy, STAT CT showed sigmoid colon thickening/inflammation however no evidence of perforation or free air --> general surgery said no emergent surgery necessary, placed on liquid diet, will consult with Dr. Godfrey for definitive care. - abx started for inflamed/thickened sigmoid colon - clear liquid (carb consistent) diet to see how he tolerates it - IV tylenol for pain prn + IV zofran prn for nausea (2) Hypercholesterolemia: Plan: - hold home statin while NPO (3) Hypertension: Plan: - hold home lisinopril while NPO (4) Hx of traumatic brain injury: Plan: - Fall precautions removed today after speaking with and wanting more ambulating freedom. DVT ppx: Lovenox Diet: clear liquid + carb consistent Dispo: Med/surg Code: Full Admission and Anticipated Discharge Date Admission Date: January 11, 2021 Supervising Physician Co-Signing Physician Notes Patient seen and examined with PGY-1 Dr. Martin. Agree with history, exam findings, assessment and plan of care as outlined. In brief, Mr. Banegas is a 70 year old male with hx of HTN, DM, prior TBI resulting in memory difficulties and increased fall risk admitted with a large bowel obstruction. He was able to tolerate the prep for the flex sig later last night. Did have some liquid stool. Vital signs and nursing notes reviewed. Non-toxic. Abdomen minimally distended. Labs and imaging reviewed. 1. Large bowel obstruction. Transition point at left distal descending colon/proximal sigmoid. Had flex sig with GInarrowing associated with diverticular obstruction, diverticular spasm. No mass seen. Did have significant pain after flex sig. Stat CT showing inflammation of the colon. Appreciate GI and general surgery recommendations. 2. HTN. Blood pressures have been well controlled without home Lisinopril so far. 3. HLD. Holding home statin. 4. DM. Holding home metformin. On sliding scale insulin. Dispo: pending surgical plans. Subjective Patient tolerated miralex bowel prep well. Had some brown solid and then liquid stool this morning. Colonoscopy was performed in the afternoon and he was in more pain after procedure but now stable. Review of Systems Review of Systems: All systems reviewed & are unremarkable except as noted in HPI & below Constitutional: no fever and no chills Respiratory: no cough and no dyspnea Cardiovascular: no chest pain Gastrointestinal: + abdominal pain and + nausea Physical Exam Physical Exam: awake/alert Constitutional: WD/WN, vitals as above well developed, well nourished, cooperative and comfortable; no acute distress Eyes: + anicteric sclerae ENMT: external ear and nose normal, oropharynx normal Neck: normal visual inspection and trachea midline Respiratory: normal respiratory effort, lungs clear to auscultation normal respiratory effort; no cough Cardiovascular: RRR, no murmur, no edema Heart Sounds: normal S1 and normal S2 Gastrointestinal (Abdomen): Inspection/Auscultation: abdomen normal to inspection, + abdomen distended (softly distended), normal bowel sounds and + abdominal surgical scar (from prior open appendectomy) Percussion/Palpation: + abdomen tender (generalized discomfort to palpation) and abdomen soft; no guarding, abdomen not rigid and no hepatosplenomegaly Musculoskeletal: Head/Neck/Chest: normocephalic and head atraumatic Skin: no rashes, warm and dry Neurologic: moves all extremities Psychiatric: A+Ox3, euthymic affect Results & Data Results & Data ([facility]) Vital Signs (Past 12 Hours) Vital Signs Temp Pulse Resp BP BP Pulse Ox 01/13/21 12:20 36.8 C 73 16 159/90 H 98 01/13/21 07:36 36.5 C 73 17 150/79 H 96 Resident Activity Tracking Resident Involvement: Resident Care Provided Care Provided: Adult Hospital Medicine
--- NOTE | 2021-01-13 14:16 | GI REPORT ---
Patient Name: Vincenzo Banegas Procedure Date: 01/13/2021 1:14 PM Date of : 1950 Admit Type: Inpatient Age: 70 Gender: Male Attending MD: Dionicio Graf MD Procedure: Flexible Sigmoidoscopy Providers: Dionicio Graf MD Referring MD: Omar Castillo Indications: Abnormal CT of the GI tract---colon obstruction at level of proximal sigmoid/descending colon Medicines: Monitored Anesthesia Care Complications: No immediate complications. Estimated blood loss: None. Estimated Blood Loss: Estimated blood loss: none. Procedure: Pre-Anesthesia Assessment: - The risks and benefits of the procedure and the sedation options and risks were discussed with the patient. All questions were answered and informed consent was obtained. After obtaining informed consent, the endoscope was passed under direct vision. Throughout the procedure, the patient's blood pressure, pulse, and oxygen saturations were monitored continuously. The Colonoscope was introduced through the anus and advanced to the left transverse colon. The flexible sigmoidoscopy was technically difficult and complex due to multiple diverticula in the colon and poor bowel prep. Forward progress was aided by straightening and shortening the scope to obtain bowel loop reduction and lavage. The quality of the bowel preparation was poor. Procedure and risks explained to patient which include but not limited to med reaction, bleeding, perforation, aspiration and missed lesions. Judicious gas insufflation and gas removal done on the way out. The lumen always well visualized when advancing the scope. Washes and suctioning used as needed to improve visuzlization of mucosa. Retroflexion in the rectum not done secondary to prep. Findings: Exam terminated in left transverse colon secondary to prep, passing proximal to stricture and trying to minimize gas insufflation Multiple large-mouthed diverticula were found from sigmoid to transverse colon. There was narrowing of the colon in association with the diverticulosis. There was evidence of diverticular spasm. Extensive amounts of stool was found in the entire colon, interfering with visualization. Lavage of the area was performed using copious amounts, resulting in incomplete clearance with continued poor visualization. It appeared there was narrowing of the proximal sigmoid from diverticula then passed proximal into area of dilated colon suggesting diverticula area is obstructing. Mass not seen but prep poor. The exam was otherwise without abnormality. Impression: - Preparation of the colon was poor. - Exam terminated in left transverse colon secondary to prep, passing proximal to stricture and trying to minimize gas insufflation - Severe diverticulosis from sigmoid to transverse colon. There was narrowing of the colon in association with the diverticulosis. There was evidence of diverticular spasm. - Stool in the entire examined colon. It appeared there was narrowing of the proximal sigmoid from diverticula then passed proximal into area of dilated colon suggesting diverticula area is obstructing. Mass not seen but prep poor. - The examination was otherwise normal. - No specimens collected. Recommendation: - [facility]. - My impression is diverticular narrowing causing bowel obstruction. Further per surgery. Dionicio Graf M.D. Dionicio Graf MD 01/13/2021 2:16:30 PM This report has been signed electronically. Note Initiated On: 01/13/2021 1:14 PM Number of Addenda: 0 I attest to the content of the Intraoperative Record and orders documented therein, exceptions below {[id number]}
--- NOTE | 2021-01-13 14:18 | Anesthesiology Progress Note ---
Date of Service January 13, 2021 Anesthesia Post Procedure Vital Signs Vital Signs: Temp Pulse Resp BP BP Pulse Ox 01/13/21 12:20 36.8 C 73 16 159/90 H 98 01/13/21 07:36 36.5 C 73 17 150/79 H 96 01/12/21 22:45 36.6 C 69 16 134/81 95 01/12/21 15:27 36.7 C 69 17 137/76 96 Pain Intensity Abdomen: Pain Intensity: 0 Transfer of Care Handoff Completed per policy Notes Mental Status: alert / awake / arousable and participated in evaluation Patient Amnestic to Procedure: Yes Nausea / Vomiting: adequately controlled Pain: adequately controlled Airway Patency, RR, SpO2: stable & adequate BP & HR: stable & adequate Hydration State: stable & adequate Anesthetic Complications: no major complications apparent and Pt Satisfied with anesthetic care
--- NOTE | 2021-01-13 14:49 | Gastroenterology Progress Note ---
Date of Service January 13, 2021 Assessment & Plan (1) Abdominal pain: Plan: Discussed with patient and (who is present at bedside) will do CT a/p to rule out perforation. Admission and Anticipated Discharge Date Admission Date: January 11, 2021 Subjective Left sided abd pain worse post colonoscopy Physical Exam Gastrointestinal (Abdomen): pos bs, moderate distension, left mid abd pain with guarding, no rebound Results & Data ([facility]) Vital Signs (Past 12 Hours) Vital Signs Temp Pulse Resp BP BP Pulse Ox 01/13/21 14:40 65 18 162/84 H 98 01/13/21 14:25 67 18 138/90 97 01/13/21 14:15 78 18 142/95 H 94 01/13/21 12:20 36.8 C 73 16 159/90 H 98 01/13/21 07:36 36.5 C 73 17 150/79 H 96
--- NOTE | 2021-01-13 15:33 | CT Scan Report ---
CT SCAN OF THE ABDOMEN AND PELVIS WITHOUT CONTRAST CLINICAL HISTORY: no IV/oral contrast, r/o perf post colonoscopy COMPARISON STUDY: January 11, 2021 TECHNIQUE: CT scan of the abdomen and pelvis was performed from the lung bases to the proximal femurs . Images are reviewed in the axial, sagittal, and coronal planes. IV contrast was not administered fo r this examination. A dose lowering technique was utilized adhering to the principles of ALARA. CT DOSE: 839.32 mGy.cm FINDINGS: Lower chest: Minimal atelectasis is seen at dependent portions of bilateral lower lobes. Liver: Liver is normal in size with diffuse decrease in attenuation of its parenchyma and no evidence of focal lesions or intrahepatic biliary dilatation. Gallbladder: Unremarkable. Spleen: Normal in size and attenuation. Pancreas: Unremarkable. Adrenal glands: Unremarkable. Kidneys: The unenhanced kidneys are normal in size without hydronephrosis. There is no contour deform ing renal mass lesion. No renal calculi are identified. Bowel: The small bowel and colon are normal in course and caliber. Loops of large bowel are fluid and gas filled and within upper limits of normal for size. Wall irregularity and mild decrease in size at the distal descending-sigmoid colon with irregular thi ckening of the wall might represent colonic mass associated with partial large bowel obstruction. Diastases of abdominis rectus muscle is seen with adjacent nondilated loop of small bowel. Peritoneum: There is no intraperitoneal free air or abdominal ascites. Vasculature: The abdominal aorta is normal in course and caliber. Scattered calcifications of aortic wall are seen. Adenopathy: None. Pelvic viscera: Normal appearance of the urinary bladder and prostate however evaluation is limited d ue to beam hardening artifact from orthopedic hardware within the right and left hip joints. Skeletal structures: Mild osteopenia and multilevel degenerative changes of the spine, most prominent at the L2-L3 level and stable since prior. IMPRESSION: 1. No free intra-abdominal gas seen to suggest bowel perforation. 2. Redemonstration of the mass lesion within left lower quadrant with wall irregularity and partial bowel obstruction. 3. Hepatic steatosis. 4. The rest of findings as above. ACT 112: Negative or not required by law. The above report was generated using voice recognition software. It may contain grammatical, syntax o r spelling errors. Electronically signed by: Betsy Bacon DO 01/13/2021 3:32 PM
[2021-01-13] MEDS ORDERED: PIPERACILL/TAZOBAC CONSULT ACTIVE PRN ×2 (15:46→16:03)
[2021-01-13] MEDS ORDERED: PIPERACILLIN/TAZOBACTAM 3.375 GM in DEXTROSE 5% 100 ML IV STA (15:55)
[2021-01-13] MEDS ORDERED: MoRPHine SULFATE 2 MG/ML CARP IV PRN (16:03)
[2021-01-13] MEDS ORDERED: Nursing to Pharmacy Communication SCH (16:15)
[2021-01-13] MEDS ORDERED: PIPERACILLIN/TAZOBACTAM 3.375 GM in DEXTROSE 5% 100 ML IV SCH (16:15)
[2021-01-13] MEDS ORDERED: HYDROmorphone INJ 0.5 MG/0.5 ML SYR IV PRN (16:48)
--- NOTE | 2021-01-13 16:48 | Surgery Progress Note ---
Date of Service January 13, 2021 Assessment & Plan (1) Colonic stricture: Plan: No indication for urgent or emergent surgical intervention at this time. We will monitor him closely. Because of the inflamed/thickened sigmoid colon we will initiate antibiotics. I will discuss with Dr. Godfrey regarding definitive care in the future for the stricture. We discussed all this with his . We will also institute a clear liquid diet to see if he can tolerate this. Admission and Anticipated Discharge Date Admission Date: January 11, 2021 Subjective We were called by GI following his colonoscopy. Patient was in considerable discomfort following the procedure. A stat CT scan was performed which did show sigmoid colon thickening however no evidence of perforation or free air. Patient examined in the postoperative area outside of endoscopy. He is having moderate left sided pain. His is at bedside. Physical Exam Physical Exam: Alert. In moderate distress secondary to abdominal discomfort. Gastrointestinal (Abdomen): Soft. Mild distention. Diffuse tenderness. Guarding. Results & Data ([facility]) Vital Signs (Past 12 Hours) Vital Signs Temp Pulse Resp BP BP Pulse Ox 01/13/21 15:41 66 18 161/91 H 97 01/13/21 15:12 64 18 141/99 H 99 01/13/21 14:40 65 18 162/84 H 98 01/13/21 14:25 67 18 138/90 97 01/13/21 14:15 78 18 142/95 H 94 01/13/21 12:20 36.8 C 73 16 159/90 H 98 01/13/21 07:36 36.5 C 73 17 150/79 H 96 PG Care Time/CCT Total # of Minutes Spent Total Time Spent with Patient: Total time spent is greater than 50% in c oordination of care (as documented) at patient's floor/unit and/or counseling patient: Coding Level of Care Code None Diagnoses Colonic stricture K56.699
[2021-01-13] MEDS: PIPERACILLIN/TAZOBACTAM 3.375 GM in DEXTROSE 5% 100 ML IV SCH (22:30)
[2021-01-14] MEDS: PIPERACILLIN/TAZOBACTAM 3.375 GM in DEXTROSE 5% 100 ML IV SCH ×3 (05:39→21:09)
[2021-01-14 06:12] LABS: Basophils # (auto) 0.02 K/uL (0-0.2); Basophils % (auto) 0.3 %; Eosinophils # (auto) 0.16 K/uL (0-0.5); Eosinophils % (auto) 2.4 %; Hemoglobin 15.1 g/dL (14.0-18.0); Immature Granulocytes # (auto) 0.02 K/uL (0.00-0.02); Immature Granulocytes % (auto) 0.3 %; Lymphocytes # (auto) 2.02 K/uL (1.2-3.4); Lymphocytes % (auto) 30.8 %; Mean Corpuscular Hemoglobin 31.4 pg (25-34); Mean Corpuscular Hgb Conc 34.3 g/dL (32-36); Mean Corpuscular Volume 91.5 fL (80-100); Mean Platelet Volume 10.5 fL (7.4-10.4); Monocytes # (auto) 0.68 K/uL (0.11-0.59); Monocytes % (auto) 10.4 %; Neutrophils # (auto) 3.66 K/uL (1.4-6.5); Neutrophils % (auto) 55.8 %; Platelet Count 296 K/uL (130-400); RDW Coefficient of Variation 13.2 % (11.5-14.5); RDW Standard Deviation 44.4 fL (36.4-46.3); Red Blood Count 4.81 M/uL (4.7-6.1); White Blood Count 6.56 K/uL (4.8-10.8)
[2021-01-14 06:32] LABS: Albumin Level 3.5 gm/dl (3.4-5.0); BUN Creatinine Ratio 9.6 (10-20); Calcium 8.5 mg/dl (8.5-10.1); Creatinine Clr Calc Pharmacy 84.5 ml/min; Est GFR (African American) 91.8 ml/min; Est GFR (Non-African American) 79.2 ml/min
[2021-01-14 06:55] LABS: Bilirubin,Total 0.9 mg/dl (0.2-1); Globulin 3.4 gm/dl (2.5-4.0); Potassium 3.7 mmol/L (3.5-5.1); Total Protein 6.9 gm/dl (6.4-8.2)
--- NOTE | 2021-01-14 08:26 | Gastroenterology Progress Note ---
Date of Service January 14, 2021 Assessment & Plan (1) Colonic stricture: Plan: Diverticular stricture on flexible sigmoidoscopy yesterday. CT A/P after procedure due to severe abdominal pain demonstrating sigmoid colon thickening however no evidence of perforation or free air. Patient is feeling much better this morning. Antibiotics continue. Tolerating clear liquids. Will continue to follow along with surgery. Please refer to supervising physician addendum for further recommendations. Admission and Anticipated Discharge Date Admission Date: January 11, 2021 Supervising Physician Co-Signing Physician Notes I interviewed and examined the patient and reviewed the medical record, with the following observations: Subjective: The patient is substantially improved since admission, abdominal pain and distension have subsided but not resolved completely, he is tolerating clear liquids and passing gas and stool. Physical Examination: Moderate abdominal distension, with hyperactive abnormal bowel sounds present. Tympanitic and tender to percussion with mild localized rebound tenderness in the LLQ. No guarding Chart Review: Noncontrast CT yesterday revealed fluid filled and distended colon on the left side, with irregular bowel wall thickening at descending/sigmoid junction, presumably due to diverticulitis. No free air, no fluid collection, no abcess. This case was reviewed with the advanced practice provider I agree with the assessment as outlined in this consultation, with the following observations: Improving incomplete colon obstruction with conservative management. I agree with the plan of care as outlined in this consultation, with the following changes and/or additions: I agree completely with management and have no additional recommendations at this time. We will continue to follow and assist as requested by the surgery team. Subjective Patient reports he is feeling well this morning. Feels that abdomen is firm. LLQ pain improved. Clear liquid diet. Mild nausea. No vomiting. No fever last night but was cold at times. Passing small amounts of stool, last bowel movement was this morning. Review of Systems Review of Systems: All systems reviewed & are unremarkable except as noted in HPI & below Physical Exam Gastrointestinal (Abdomen): Inspection/Auscultation: abdomen normal to inspection and normal bowel sounds Percussion/Palpation: + abdomen tender (left mid to lower abdomen); abdomen not rigid Results & Data ([facility]) Vital Signs (Past 12 Hours) Vital Signs Temp Pulse Resp BP Pulse Ox 01/14/21 06:31 36.7 C 79 16 143/85 H 99 01/13/21 22:39 36.6 C 70 16 129/81 97 01/13/21 20:42 36.6 C 71 18 157/80 H 95 Laboratory Results Laboratory Results - last 24 hr 01/13/21 01/13/21 01/13/21 12:44 14:28 17:39 WBC RBC Hgb Hct MCV MCH MCHC RDW Std Deviation RDW Coeff of Stacia Plt Count MPV Immature Gran % (Auto) Neut % (Auto) Lymph % (Auto) Cecil % (Auto) Eos % (Auto) Baso % (Auto) Neut # (Auto) Lymph # (Auto) Cecil # (Auto) Eos # (Auto) Baso # (Auto) Immature Gran # (Auto) Sodium Potassium Chloride Carbon Dioxide Anion Gap BUN Creatinine Est Cr Clr Drug Dosing Est GFR ( Amer) Est GFR (Non-Af Amer) BUN/Creatinine Ratio Glucose POC Glucose 74 76 74 Calcium Total Bilirubin AST ALT Alkaline Phosphatase Total Protein Albumin Globulin Albumin/Globulin Ratio 01/13/21 01/14/21 01/14/21 20:40 05:36 05:36 WBC 6.56 RBC 4.81 Hgb 15.1 Hct 44.0 MCV 91.5 MCH 31.4 MCHC 34.3 RDW Std Deviation 44.4 RDW Coeff of Stacia 13.2 Plt Count 296 MPV 10.5 H Immature Gran % (Auto) 0.3 Neut % (Auto) 55.8 Lymph % (Auto) 30.8 Cecil % (Auto) 10.4 Eos % (Auto) 2.4 Baso % (Auto) 0.3 Neut # (Auto) 3.66 Lymph # (Auto) 2.02 Cecil # (Auto) 0.68 H Eos # (Auto) 0.16 Baso # (Auto) 0.02 Immature Gran # (Auto) 0.02 Sodium 138 Potassium 3.7 D Chloride 106 Carbon Dioxide 26 Anion Gap 5.0 BUN 9 Creatinine 0.96 Est Cr Clr Drug Dosing 84.5 Est GFR ( Amer) 91.8 Est GFR (Non-Af Amer) 79.2 BUN/Creatinine Ratio 9.6 L Glucose 116 H POC Glucose 71 Calcium 8.5 Total Bilirubin 0.9 AST 32 ALT 47 Alkaline Phosphatase 82 Total Protein 6.9 Albumin 3.5 Globulin 3.4 Albumin/Globulin Ratio 1.0 01/14/21 07:49 WBC RBC Hgb Hct MCV MCH MCHC RDW Std Deviation RDW Coeff of Stacia Plt Count MPV Immature Gran % (Auto) Neut % (Auto) Lymph % (Auto) Cecil % (Auto) Eos % (Auto) Baso % (Auto) Neut # (Auto) Lymph # (Auto) Cecil # (Auto) Eos # (Auto) Baso # (Auto) Immature Gran # (Auto) Sodium Potassium Chloride Carbon Dioxide Anion Gap BUN Creatinine Est Cr Clr Drug Dosing Est GFR ( Amer) Est GFR (Non-Af Amer) BUN/Creatinine Ratio Glucose POC Glucose 108 H Calcium Total Bilirubin AST ALT Alkaline Phosphatase Total Protein Albumin Globulin Albumin/Globulin Ratio
[2021-01-14] MEDS: ENOXAPARIN INJ 40 MG/0.4 ML SYR SQ SCH (08:36)
[2021-01-14] MEDS: INSULIN ASPART 100 UNITS/ML 3 ML PEN SC SCH ×4 (08:37→21:08)
--- NOTE | 2021-01-14 13:53 | Hospitalist Progress Note ---
Date of Service January 14, 2021 Assessment & Plan (1) Colonic obstruction: Plan: Mr. Banegas is a 70 yo gentleman who is admitted for management of a large bowel obstruction. - CT scan of abdomen showing colonic obstruction with apparent transition point - Consulted GI for colonoscopy in order to determine etiology of obstruction since blinded on CT scan --> GI wanted to consult surgery before proceeding --> surgery consulted stating etiology unknown (colonic mass vs diverticular stricture vs other) and surgical procedure was dependent on knowing etiology, preferred colonoscopy performed first --> GI agreed, pt had enema treatment followed by bowel prep which he tolerated well --> underwent flexible sigmoidoscopy (results showed colonic stricture) --> was in more pain s/p colonoscopy, STAT CT showed sigmoid colon thickening/inflammation however no evidence of perforation or free air --> general surgery said no emergent surgery necessary, placed on clear liquid diet, consulted with general surgery Dr. Godfrey today - continue Zosyn started for inflamed/thickened sigmoid colon - continue clear liquid (carb consistent) diet, tolerating well --> will try to advance to full liquid diet tomorrow; plan is to try to discharge him on PO ABX and full liquid diet. - He will require a colon resection at some point per general surgery, BUT if he fails a liquid diet, he will need surgery this admission. - IV tylenol for pain prn + IV zofran prn for nausea (2) Hypercholesterolemia: Plan: - hold home statin while NPO (3) Hypertension: Plan: - hold home lisinopril while NPO (4) Hx of traumatic brain injury: Plan: - Fall precautions removed yesterday after speaking with and wanting more ambulating freedom; ambulating without complaints DVT ppx: Lovenox Diet: clear liquid + carb consistent Dispo: Med/surg Code: Full Admission and Anticipated Discharge Date Admission Date: January 11, 2021 Supervising Physician Co-Signing Physician Notes Patient seen and examined with PGY-1 Dr. Martin. Agree with history, exam findings, assessment and plan of care as outlined. In brief, Mr. Banegas is a 70 year old male with hx of HTN, DM, prior TBI resulting in memory difficulties and increased fall risk admitted with a large bowel obstruction. Abdomen is feeling a bit more comfortable. Feels less tight. Still having liquid stool. Vital signs and nursing notes reviewed. Non-toxic. Abdomen minimally distended, soft. Labs and imaging reviewed. 1. Large bowel obstruction. Transition point at left distal descending colon/proximal sigmoid. Had flex sig with GInarrowing associated with diverticular obstruction, diverticular spasm. No mass seen. Appreciate GI and general surgery recommendations. Continue zosyn for inflammation seen on post- flex sig CT scan. Advance to full liquids. If he tolerates this, can potentially dc home with full liquid diet, PO abx and have surgery done as an outpatient. If not, surgery this admission. 2. HTN. Blood pressures have been well controlled without home Lisinopril so far. 3. HLD. Holding home statin. 4. DM. Holding home metformin. On sliding scale insulin. Dispo: pending surgical plans. Subjective Patient reports he is feeling well this morning. Feels that his upper abdomen is still firm but less so than yesterday. LLQ pain improving. Clear liquid diet which he is tolerating well. Denies vomiting and fever. Passing small amounts of stool. Review of Systems Respiratory: no cough and no dyspnea Cardiovascular: no chest pain Gastrointestinal: + abdominal pain and + nausea Physical Exam Physical Exam: awake/alert Constitutional: WD/WN, vitals as above well developed, well nourished, cooperative and comfortable; no acute distress Eyes: + anicteric sclerae ENMT: external ear and nose normal, oropharynx normal Neck: normal visual inspection and trachea midline Respiratory: normal respiratory effort, lungs clear to auscultation normal respiratory effort; no cough Cardiovascular: RRR, no murmur, no edema Heart Sounds: normal S1 and normal S2 Extremities: no pedal edema Gastrointestinal (Abdomen): Inspection/Auscultation: abdomen normal to in spection, + abdomen distended (softly distended), normal bowel sounds and + abdominal surgical scar (from prior open appendectomy) Percussion/Palpation: + abdomen tender (generalized discomfort to palpation) and abdomen soft; no guarding, abdomen not rigid and no hepatosplenomegaly Musculoskeletal: Head/Neck/Chest: normocephalic and head atraumatic Skin: no rashes, warm and dry Neurologic: moves all extremities Psychiatric: A+Ox3, euthymic affect Results & Data Results & Data ([facility]) Vital Signs (Past 12 Hours) Vital Signs Temp Pulse Resp BP Pulse Ox 01/14/21 06:31 36.7 C 79 16 143/85 H 99 Resident Activity Tracking Resident Involvement: Resident Care Provided Care Provided: Adult Hospital Medicine
--- NOTE | 2021-01-14 15:00 | Surgery Progress Note ---
Date of Service January 14, 2021 Assessment & Plan (1) Colonic stricture: Plan: -Keep on clear liquids today, tolerated fairly well -Continue Zosyn for inflammation seen on CT yesterday -If he is tolerating clears tomorrow, will likely advance to fulls -Plan would be to try to get him out of the hospital on PO ABX and full liquid diet -He will require a colon resection at some point and if he fails a liquid diet, he will need surgery this admission -I discussed the plan with him and his at bedside Admission and Anticipated Discharge Date Admission Date: January 11, 2021 Subjective Pt seen and examined. He has less pain today. Having liquid BM's and passing some flatus. States he had a small amount of nausea, but no emesis. Afebrile. Review of Systems Constitutional: no fever and no chills Gastrointestinal: + abdominal pain and + nausea; no vomiting Physical Exam Gastrointestinal (Abdomen): Inspection/Auscultation: + abdomen distended Percussion/Palpation: + abdomen tender (minimal left sided) and abdomen soft Results & Data ([facility]) Vital Signs (Past 12 Hours) Vital Signs Temp Pulse Resp BP Pulse Ox 01/14/21 06:31 36.7 C 79 16 143/85 H 99 PG Care Time/CCT Total # of Minutes Spent Total Time Spent with Patient: Total time spent is greater than 50% in coordination of care (as documented) at patient's floor/unit and/or counseling patient: Coding Level of Care Code 04579 Subseq Hosp Care Lvl 2 Diagnoses Colonic stricture K56.699
[2021-01-15] MEDS: PIPERACILLIN/TAZOBACTAM 3.375 GM in DEXTROSE 5% 100 ML IV SCH ×3 (05:49→21:14)
[2021-01-15 07:50] LABS: Basophils # (auto) 0.02 K/uL (0-0.2); Basophils % (auto) 0.3 %; Eosinophils # (auto) 0.18 K/uL (0-0.5); Eosinophils % (auto) 2.9 %; Hematocrit (blood only) 44.2 % (42-52); Hemoglobin 15.3 g/dL (14.0-18.0); Lymphocytes # (auto) 2.56 K/uL (1.2-3.4); Lymphocytes % (auto) 41.6 %; Mean Corpuscular Hemoglobin 31.5 pg (25-34); Mean Corpuscular Hgb Conc 34.6 g/dL (32-36); Mean Corpuscular Volume 90.9 fL (80-100); Mean Platelet Volume 10.4 fL (7.4-10.4); Monocytes # (auto) 0.68 K/uL (0.11-0.59); Monocytes % (auto) 11.1 %; Neutrophils # (auto) 2.71 K/uL (1.4-6.5); Neutrophils % (auto) 44.1 %; Platelet Count 288 K/uL (130-400); RDW Coefficient of Variation 12.9 % (11.5-14.5); RDW Standard Deviation 43.2 fL (36.4-46.3); Red Blood Count 4.86 M/uL (4.7-6.1); White Blood Count 6.15 K/uL (4.8-10.8)
[2021-01-15] MEDS: ENOXAPARIN INJ 40 MG/0.4 ML SYR SQ SCH (08:02)
[2021-01-15 08:22] LABS: Albumin Level 3.3 gm/dl (3.4-5.0); BUN Creatinine Ratio 7.5 (10-20); Calcium 8.6 mg/dl (8.5-10.1); Creatinine Clr Calc Pharmacy 84.5 ml/min; Est GFR (African American) 91.8 ml/min; Est GFR (Non-African American) 79.2 ml/min; Potassium 3.7 mmol/L (3.5-5.1)
[2021-01-15 08:24] LABS: Albumin Globulin Ratio 0.9 (0.9-2); Bilirubin,Total 0.8 mg/dl (0.2-1); Globulin 3.5 gm/dl (2.5-4.0); Total Protein 6.8 gm/dl (6.4-8.2)
--- NOTE | 2021-01-15 08:27 | Hospitalist Progress Note ---
Date of Service January 15, 2021 Assessment & Plan (1) Colonic obstruction: Plan: Mr. Banegas is a 70 yo gentleman who is admitted for management of a large bowel obstruction. - CT scan of abdomen showing colonic obstruction with apparent transition point - Consulted GI for colonoscopy in order to determine etiology of obstruction since blinded on CT scan --> GI wanted to consult surgery before proceeding --> surgery consulted stating etiology unknown (colonic mass vs diverticular stricture vs other) and surgical procedure was dependent on knowing etiology, preferred colonoscopy performed first --> GI agreed, pt had enema treatment followed by bowel prep which he tolerated well --> underwent flexible sigmoidoscopy (results showed colonic stricture) --> was in more pain s/p colonoscopy, STAT CT showed sigmoid colon thickening/inflammation however no evidence of perforation or free air --> general surgery said no emergent surgery necessary, placed on clear liquid diet, consulted with general surgery Dr. Godfrey today - continue Zosyn started for inflamed/thickened sigmoid colon - advanced to full liquid diet today; plan is to try and discharge him on PO ABX and full liquid diet. - He will require a colon resection at some point per general surgery, BUT if he fails a liquid diet, he will need surgery this admission. - IV tylenol for pain prn + IV zofran prn for nausea (2) Hypercholesterolemia: Plan: - hold home statin while NPO (3) Hypertension: Plan: - hold home lisinopril while NPO (4) Hx of traumatic brain injury: Plan: - Fall precautions removed after speaking with and wanting more ambulating freedom; ambulating without complaints DVT ppx: Lovenox Diet: full liquid + carb consistent Dispo: Med/surg Code: Full Admission and Anticipated Discharge Date Admission Date: January 11, 2021 Supervising Physician Co-Signing Physician Notes Attending attestation Pt seen and examined in concert with Dr. Martin. In agreement with the documented findings as noted in the resident documentation with any exceptions or additions as noted here. Resting in bed following 2 large BM with improved sensation of fullness/distention with mild aching abdominal pain. On examination, S1/S2 nl RRR no MCG. CTAB. Abd minimally tender, mildly distended, BS+ve Large bowel obstruction - tolerating full liquid diet following lunch with good BM. Surgery recommendations appreciated with potential for transition to PO abx and dispo over the weekend depending on sx response. Else see resident documentation as noted. Subjective Patient is no worse and remains stable. Tolerated clears. Trying full liquid diet for lunch. No bowel movement since yesterday. Review of Systems Review of Systems: All systems reviewed & are unremarkable except as noted in HPI & below Constitutional: no fever and no chills Respiratory: no cough and no dyspnea Cardiovascular: no chest pain Gastrointestinal: + abdominal pain and + nausea Physical Exam Physical Exam: awake/alert Constitutional: WD/WN, vitals as above well developed, well nourished, cooperative and comfortable; no acute distress Eyes: + anicteric sclerae ENMT: external ear and nose normal, oropharynx normal Neck: normal visual inspection and trachea midline Respiratory: normal respiratory effort, lungs clear to auscultation normal respiratory effort; no cough Cardiovascular: RRR, no murmur, no edema Heart Sounds: normal S1 and normal S2 Extremities: no pedal edema Gastrointestinal (Abdomen): Inspection/Auscultation: abdomen normal to inspection, + abdomen distended (softly distended), normal bowel sounds and + abdominal surgical scar (from prior open appendectomy) Percussion/Palpation: + abdomen tender (generalized discomfort to palpation) and abdomen soft; no guarding, abdomen not rigid and no hepatosplenomegaly Musculoskeletal: Head/Neck/Chest: normocephalic and head atraumatic Skin: no rashes, warm and dry Neurologic: moves all extremities Psychiatric: A+Ox3, euthymic affect Results & Data Results & Data ([facility]) Vital Signs (Past 12 Hours) Vital Signs Temp Pulse Resp BP Pulse Ox Pulse Ox 01/15/21 06:05 36.7 C 70 16 128/75 95 01/14/21 22:33 36.4 C L 69 16 128/79 96 01/14/21 21:10 96 Resident Activity Tracking Resident Involvement: Resident Care Provided Care Provided: Adult [facility]
--- NOTE | 2021-01-15 08:50 | Surgery Progress Note ---
Date of Service January 15, 2021 Assessment & Plan (1) Colonic stricture: Plan: -Advance to fulls for lunch -Continue Zosyn for inflammation, if continues to improve over the weekend can transition to Augmentin BID -Plan would be to try to get him out of the hospital on PO ABX and full liquid diet -He will require a colon resection at some point and if he fails a liquid diet, he will need surgery this admission -Will continue to follow Admission and Anticipated Discharge Date Admission Date: January 11, 2021 Subjective Pt seen and examined. Tolerating clears. Has some nausea, no worse. Afebrile. Still with mild left sided abdominal pain. +Flatus. No BM since yesterday. Review of Systems Constitutional: no fever and no chills Gastrointestinal: + abdominal pain and + nausea; no vomiting Physical Exam Gastrointestinal (Abdomen): Inspection/Auscultation: abdomen not distended Percussion/Palpation: + abdomen tender (minimal left sided) and abdomen soft Results & Data ([facility]) Vital Signs (Past 12 Hours) Vital Signs Temp Pulse Resp BP Pulse Ox Pulse Ox 01/15/21 06:05 36.7 C 70 16 128/75 95 01/14/21 22:33 36.4 C L 69 16 128/79 96 01/14/21 21:10 96 PG Care Time/CCT Total # of Minutes Spent Total Time Spent with Patient: Total time spent is greater than 50% in coordination of care (as documented) at patient's floor/unit and/or counseling patient: Coding Level of Care Code 34898 Subseq Hosp Care Lvl 1 Diagnoses Colonic stricture K56.699
--- NOTE | 2021-01-15 09:24 | Gastroenterology Progress Note ---
Date of Service January 15, 2021 Assessment & Plan (1) Colonic stricture: Plan: Diverticular stricture on flexible sigmoidoscopy. Patient is feeling well this morning. Antibiotics continue. Tolerating clear liquids. Will continue to follow along with surgery. Please refer to supervising physician addendum for further recommendations. Admission and Anticipated Discharge Date Admission Date: January 11, 2021 Supervising Physician Co-Signing Physician Notes I interviewed and examined the patient and reviewed the medical record, with the following observations: Subjective: Patient reevaluated in the late afterrnoon. He has been advanced to a full liquid diet which he is tolerating without increased pain, nausea, or vomiting. He continues to have some mild LLQ discomfort. He is passing flatus and stools Physical Examination: Minimal distension with slightly hyperactive abnormal bowel sounds and mild LLQ tenderness to palpation, no peritoneal signs. Chart Review: No significant new findings. Normal vital signs, CBC and chemistries. This case was reviewed with the advanced practice provider I agree with the assessment as outlined in this consultation, with the following observations: Continued gradual improvement in diverticulitis with sigmoid colon obstructive symptoms and findings. I agree with the plan of care as outlined by the general surgery team, with the following changes and/or additions: No new recommendations at this time, continue supportive care and cautious advancement of diet as per the general surgery team. GI service to follow and assist as needed. Subjective Patient reports he is feeling well this morning. Feeling pretty well rested this morning. Nausea is present but mild. No vomiting. No blood or melena stools. Small bowel movements. + flatus. Some continued LLQ abdominal pain, rates 1/10. Review of Systems Review of Systems: All systems reviewed & are unremarkable except as noted in HPI & below Physical Exam Gastrointestinal (Abdomen): Inspection/Auscultation: abdomen normal to inspection and normal bowel sounds Percussion/Palpation: + abdomen tender (left mid to lower abdomen); abdomen not rigid Results & Data ([facility]) Vital Signs (Past 12 Hours) Vital Signs Temp Pulse Resp BP Pulse Ox 01/15/21 06:05 36.7 C 70 16 128/75 95 01/14/21 22:33 36.4 C L 69 16 128/79 96 Laboratory Results Laboratory Results - last 24 hr 01/14/21 01/14/21 01/14/21 12:21 16:59 21:02 WBC RBC Hgb Hct MCV MCH MCHC RDW Std Deviation RDW Coeff of Stacia Plt Count MPV Immature Gran % (Auto) Neut % (Auto) Lymph % (Auto) Logan % (Auto) Eos % (Auto) Baso % (Auto) Neut # (Auto) Lymph # (Auto) Logan # (Auto) Eos # (Auto) Baso # (Auto) Immature Gran # (Auto) Sodium Potassium Chloride Carbon Dioxide Anion Gap BUN Creatinine Est Cr Clr Drug Dosing Est GFR ( Amer) Est GFR (Non-Af Amer) BUN/Creatinine Ratio Glucose POC Glucose 105 H 96 75 Calcium Total Bilirubin AST ALT Alkaline Phosphatase Total Protein Albumin Globulin Albumin/Globulin Ratio 01/15/21 01/15/21 01/15/21 07:24 07:24 07:59 WBC 6.15 RBC 4.86 Hgb 15.3 Hct 44.2 MCV 90.9 MCH 31.5 MCHC 34.6 RDW Std Deviation 43.2 RDW Coeff of Stacia 12.9 Plt Count 288 MPV 10.4 Immature Gran % (Auto) 0.0 Neut % (Auto) 44.1 Lymph % (Auto) 41.6 Logan % (Auto) 11.1 Eos % (Auto) 2.9 Baso % (Auto) 0.3 Neut # (Auto) 2.71 Lymph # (Auto) 2.56 Logan # (Auto) 0.68 H Eos # (Auto) 0.18 Baso # (Auto) 0.02 Immature Gran # (Auto) 0.00 Sodium 139 Potassium 3.7 Chloride 107 Carbon Dioxide 28 Anion Gap 5.0 BUN 7 Creatinine 0.96 Est Cr Clr Drug Dosing 84.5 Est GFR ( Amer) 91.8 Est GFR (Non-Af Amer) 79.2 BUN/Creatinine Ratio 7.5 L Glucose 87 POC Glucose 89 Calcium 8.6 Total Bilirubin 0.8 AST 31 ALT 53 Alkaline Phosphatase 82 Total Protein 6.8 Albumin 3.3 L Globulin 3.5 Albumin/Globulin Ratio 0.9 Addendum (Blank) Addendum January 15, 2021 17:20
[2021-01-15] MEDS: INSULIN ASPART 100 UNITS/ML 3 ML PEN SC SCH ×4 (09:42→20:39)
[2021-01-16] MEDS: PIPERACILLIN/TAZOBACTAM 3.375 GM in DEXTROSE 5% 100 ML IV SCH ×3 (05:58→21:12)
[2021-01-16 06:07] LABS: Basophils # (auto) 0.02 K/uL (0-0.2); Basophils % (auto) 0.3 %; Eosinophils # (auto) 0.24 K/uL (0-0.5); Eosinophils % (auto) 3.8 %; Immature Granulocytes # (auto) 0.01 K/uL (0.00-0.02); Immature Granulocytes % (auto) 0.2 %; Lymphocytes # (auto) 3.02 K/uL (1.2-3.4); Lymphocytes % (auto) 47.7 %; Mean Corpuscular Hemoglobin 31.5 pg (25-34); Mean Corpuscular Hgb Conc 34.9 g/dL (32-36); Mean Corpuscular Volume 90.3 fL (80-100); Mean Platelet Volume 10.8 fL (7.4-10.4); Monocytes # (auto) 0.81 K/uL (0.11-0.59); Monocytes % (auto) 12.8 %; Neutrophils # (auto) 2.23 K/uL (1.4-6.5); Neutrophils % (auto) 35.2 %; Platelet Count 266 K/uL (130-400); RDW Coefficient of Variation 12.9 % (11.5-14.5); RDW Standard Deviation 42.6 fL (36.4-46.3); Red Blood Count 4.76 M/uL (4.7-6.1); White Blood Count 6.33 K/uL (4.8-10.8)
[2021-01-16 06:47] LABS: Albumin Level 3.3 gm/dl (3.4-5.0); BUN Creatinine Ratio 5.9 (10-20); Bilirubin,Total 0.7 mg/dl (0.2-1); Calcium 8.6 mg/dl (8.5-10.1); Creatinine Clr Calc Pharmacy 89.2 ml/min; Est GFR (African American) 97.9 ml/min; Est GFR (Non-African American) 84.5 ml/min; Globulin 3.4 gm/dl (2.5-4.0); Potassium 3.8 mmol/L (3.5-5.1); Total Protein 6.7 gm/dl (6.4-8.2)
[2021-01-16] MEDS: ENOXAPARIN INJ 40 MG/0.4 ML SYR SQ SCH (09:40)
[2021-01-16] MEDS: INSULIN ASPART 100 UNITS/ML 3 ML PEN SC SCH ×4 (10:05→20:33)
--- NOTE | 2021-01-16 10:21 | Gastroenterology Progress Note ---
Date of Service January 16, 2021 Assessment & Plan (1) Colonic stricture: (2) Abdominal pain: (3) Colonic obstruction: (4) Diverticulitis large intestine w/o perforation or abscess w/o bleeding: Plan: He is improving slowly with conservative management. GI service agrees with current management by the surgery team and we have no new recommendations. We will discontinue daily coverage at this time, and we are available to consult as requested. Admission and Anticipated Discharge Date Admission Date: January 11, 2021 Subjective Mr. Banegas had no problems with full liquid dinner last night, had no sensation of distension or abdominal pain, and he moved bowels without difficulty. This morning, he feels bloated after full liquid breakfast. Denies nausea and vomiting Review of Systems Review of Systems: Additional review of systems is unremarkable Physical Exam Eyes: PERRL, conjunctivae normal, anicteric sclerae Respiratory: normal respiratory effort, lungs clear to auscultation Cardiovascular: RRR, no murmur, no edema Gastrointestinal (Abdomen): Inspection/Auscultation: + abdomen distended and + hyperactive bowel sounds Percussion/Palpation: abdomen soft and + tympanic to percussion Tenderness in LLQ, and slight rebound tenderness referred to and localized to LLQ Musculoskeletal: no cyanosis or clubbing, extremities motor strength 5/5 Neurologic: No focal neurologic signs Results & Data ([facility]) Vital Signs (Past 12 Hours) Vital Signs Temp Pulse Resp BP Pulse Ox 01/16/21 06:14 36.6 C 68 16 133/84 95 01/16/21 00:08 36.8 C 69 22 148/81 H 97 Laboratory Results No new lab findings
--- NOTE | 2021-01-16 11:49 | Surgery Progress Note ---
Date of Service January 16, 2021 Assessment & Plan (1) Colonic stricture: Plan: Patient is overall feeling better, but this AM he is feeling a little more abdominal discomfort/bloating He does continue to tolerate full liquids without n/v and have + bowel function Would recommend ongoing monitoring today. Can continue on fulls as tolerates unless develops worsening symptoms/n/v Hopefully he does well and can plan on home tomorrow vs monday on full liquids and po abx Will plan to evaluate patient as an outpatient for surgical intervention unless he does not continue to make progress Admission and Anticipated Discharge Date Admission Date: January 11, 2021 Supervising Physician Co-Signing Physician Notes pnt S&E, agree with above. colonic stricture, tolerated full liquids and had 2 large bm's, a little epigastric bloating this am. exam with mild left sided ttp. continue full liquids, abx, outpatient elective colectomy for stricture. possible d/c tomorrow. Subjective Patient says overall he feels better. He is tolerating fulls, but this AM felt like they are getting stuck in his upper abdomen and has a little more abdominal discomfort than yesterday. He does continue to pass flatus and BM's. Physical Exam Physical Exam: awake/alert Respiratory: normal respiratory effort Gastrointestinal (Abdomen): Inspection/Auscultation: + abdomen distended (mild) Percussion/Palpation: + abdomen tender (some generalized discomfort to palpation) and abdomen soft Results & Data ([facility]) Vital Signs (Past 12 Hours) Vital Signs Temp Pulse Resp BP Pulse Ox 01/16/21 06:14 36.6 C 68 16 133/84 95 01/16/21 00:08 36.8 C 69 22 148/81 H 97 PG Care Time/CCT Total # of Minutes Spent Total Time Spent with Patient: Total time spent is greater than 50% in coordination of care (as documented) at patient's floor/unit and/or counseling patient: Coding Level of Care Code 63555 Subseq Hosp Care Lvl 1 Diagnoses Colonic stricture K56.699
--- NOTE | 2021-01-16 14:19 | Hospitalist Progress Note ---
Date of Service January 16, 2021 Assessment & Plan (1) Colonic obstruction: Plan: Mr. Banegas is a 70 yo gentleman who is admitted for management of a large bowel obstruction. - CT scan of abdomen showing colonic obstruction with apparent transition point - Consulted GI for colonoscopy in order to determine etiology of obstruction since blinded on CT scan --> GI wanted to consult surgery before proceeding --> surgery consulted stating etiology unknown (colonic mass vs diverticular stricture vs other) and surgical procedure was dependent on knowing etiology, preferred colonoscopy performed first --> GI agreed, pt had enema treatment followed by bowel prep which he tolerated well --> underwent flexible sigmoidoscopy (results showed colonic stricture) --> was in more pain s/p colonoscopy, STAT CT showed sigmoid colon thickening/inflammation however no evidence of perforation or free air --> general surgery said no emergent surgery necessary, placed on clear liquid diet, continues to follow up with gen surgery--> - continue Zosyn started for inflamed/thickened sigmoid colon - tolerating full liquid diet; plan is to try and discharge him on PO ABX and full liquid diet. Will continue monitoring per surgery request with possible discharge tomorrow or monday. - He will require a colon resection at some point per general surgery, BUT if he fails a liquid diet, he will need surgery this admission. - IV tylenol for pain prn + IV zofran prn for nausea -Consulted nutrition to discuss full liquid diet with patient and -Discussed home medications with patient and ; explained need to hold Adderall and metformin until surgery. (2) Hypercholesterolemia: Plan: - Home statin restarted today. Pravastatin 40mg PO daily. (3) Hypertension: Plan: - hold home lisinopril; BP stable. - can continue once at home. (4) Hx of traumatic brain injury: Plan: - Fall precautions removed after speaking with and wanting more ambulating freedom; ambulating without complaints DVT ppx: Lovenox Diet: full liquid + carb consistent Dispo: Med/surg Code: Full Admission and Anticipated Discharge Date Admission Date: January 11, 2021 Supervising Physician Co-Signing Physician Notes Attending attestation Pt seen and examined in concert with Dr. Martin. In agreement with the documented findings as noted in the resident documentation with any exceptions or additions as noted here. Continued improvement and tolerating fulls for Dinner, Brk and Lunch today with progressively worsening fullness and discomfort without return to original presenting sx. On examination, S1/S2 nl RRR no MCG. CTAB. Abd LLQ tender, stable/increased distention, BS+ve Large bowel obstruction - general surgery consult - counseled re: portion size mitigation for upcoming meals. Transition to PO abx at time of surgery recommendation. Hyperlipidemia - restart statin therapy HTN - holding lisinopril DMII - ISS Else see resident documentation as noted. Subjective Tolerating full liquids well. Had a runny but voluminous BM last night. Followed by smaller BMs including this morning. Continues to improve. No acute complaints. Review of Systems Constitutional: no fever and no chills Respiratory: no cough and no dyspnea Cardiovascular: no chest pain Gastrointestinal: + abdominal pain and + nausea Physical Exam Physical Exam: awake/alert Constitutional: WD/WN, vitals as above well developed, well nourished, cooperative and comfortable; no acute distress Eyes: + anicteric sclerae ENMT: external ear and nose normal, oropharynx normal Neck: normal visual inspection and trachea midline Respiratory: normal respiratory effort, lungs clear to auscultation normal respiratory effort; no cough Cardiovascular: RRR, no murmur, no edema Heart Sounds: normal S1 and normal S2 Extremities: no pedal edema Gastrointestinal (Abdomen): Inspection/Auscultation: abdomen normal to inspection, + abdomen distended (softly distended), normal bowel sounds and + abdominal surgical scar (from prior open appendectomy) Percussion/Palpation: + abdomen tender (generalized discomfort to palpation) and abdomen soft; no guarding, abdomen not rigid and no hepatosplenomegaly Musculoskeletal: Head/Neck/Chest: normocephalic and head atraumatic Skin: no rashes, warm and dry Neurologic: moves all extremities Psychiatric: A+Ox3, euthymic affect Results & Data Results & Data ([facility]) Vital Signs (Past 12 Hours) Vital Signs Temp Pulse Resp BP Pulse Ox 01/16/21 06:14 36.6 C 68 16 133/84 95 Resident Activity Tracking Resident Involvement: Resident Care Provided Care Provided: Adult Hospital Medicine
[2021-01-16] MEDS: PRAVASTATIN SOD 40 MG TAB PO SCH (18:16)
[2021-01-17] MEDS: PIPERACILLIN/TAZOBACTAM 3.375 GM in DEXTROSE 5% 100 ML IV SCH (06:09)
[2021-01-17 07:26] LABS: Basophils # (auto) 0.03 K/uL (0-0.2); Basophils % (auto) 0.5 %; Eosinophils # (auto) 0.17 K/uL (0-0.5); Eosinophils % (auto) 2.6 %; Hematocrit (blood only) 44.9 % (42-52); Hemoglobin 15.3 g/dL (14.0-18.0); Immature Granulocytes # (auto) 0.01 K/uL (0.00-0.02); Immature Granulocytes % (auto) 0.2 %; Lymphocytes # (auto) 2.54 K/uL (1.2-3.4); Lymphocytes % (auto) 38.6 %; Mean Corpuscular Hemoglobin 31.3 pg (25-34); Mean Corpuscular Hgb Conc 34.1 g/dL (32-36); Mean Corpuscular Volume 91.8 fL (80-100); Mean Platelet Volume 10.6 fL (7.4-10.4); Monocytes # (auto) 0.72 K/uL (0.11-0.59); Monocytes % (auto) 10.9 %; Neutrophils # (auto) 3.11 K/uL (1.4-6.5); Neutrophils % (auto) 47.2 %; Platelet Count 327 K/uL (130-400); RDW Coefficient of Variation 13.1 % (11.5-14.5); RDW Standard Deviation 43.6 fL (36.4-46.3); Red Blood Count 4.89 M/uL (4.7-6.1); White Blood Count 6.58 K/uL (4.8-10.8)
[2021-01-17] MEDS: ENOXAPARIN INJ 40 MG/0.4 ML SYR SQ SCH (07:57)
[2021-01-17 08:03] LABS: Albumin Level 3.6 gm/dl (3.4-5.0); BUN Creatinine Ratio 4.9 (10-20); Creatinine Clr Calc Pharmacy 83.6 ml/min; Est GFR (African American) 90.7 ml/min; Est GFR (Non-African American) 78.2 ml/min; Potassium 3.7 mmol/L (3.5-5.1)
[2021-01-17 08:06] LABS: Bilirubin,Total 0.8 mg/dl (0.2-1); Globulin 3.5 gm/dl (2.5-4.0); Total Protein 7.1 gm/dl (6.4-8.2)
[2021-01-17] MEDS ORDERED: POLYETHYLENE (MIRALAX) 17 GM PACK PO PRN (08:06)
[2021-01-17] MEDS ORDERED: POLYETHYLENE (MIRALAX) 17 GM PACK PO ONE (08:07)
--- NOTE | 2021-01-17 08:10 | Surgery Progress Note ---
Date of Service January 17, 2021 Assessment & Plan (1) Colonic stricture: Plan: stable prn miralax change to Augmentin after AM Zosyn d/c in next day or so Admission and Anticipated Discharge Date Admission Date: January 11, 2021 Supervising Physician Co-Signing Physician Notes pnt S&E, agree with above. colonic stricture, tolerating full liquids. abd soft. transition to oral abx, okay for d/c today or tomorrow, f/u with Dr. Godfrey as outpatient Subjective last BM yesterday morning, tolerating full liquids Physical Exam Gastrointestinal (Abdomen): Inspection/Auscultation: + abdomen distended (minimal) Percussion/Palpation: abdomen soft; abdomen nontender Results & Data ([facility]) Vital Signs (Past 12 Hours) Vital Signs Temp Pulse Resp BP BP Pulse Ox 01/17/21 07:52 69 18 156/77 H 100 01/16/21 22:07 36.6 C 75 16 129/74 96 PG Care Time/CCT Total # of Minutes Spent Total Time Spent with Patient: Total time spent is greater than 50% in coordination of care (as documented) at patient's floor/unit and/or counseling patient: Coding Level of Care Code 04275 Subseq Hosp Care Lvl 1 Diagnoses Colonic stricture K56.699
[2021-01-17] MEDS: INSULIN ASPART 100 UNITS/ML 3 ML PEN SC SCH ×2 (09:56→12:56)
--- NOTE | 2021-01-17 13:22 | Discharge Summary ---
Date of Service January 17, 2021 Admission HPI Per Admitting Provider Mr. Banegas is a 70 yo gentleman who was referred to the [facility] ED by his outpatient provider for further management of a large bowel obstruction identified on a cat scan done earlier today. Mr. Banegas was supposed to have a routine screening colonoscopy with Dr. Graf on 12/28/20. However, after consuming the bowel prep on 12/27/20, he developed abdominal pain along with nausea and vomiting. The colonoscopy was therefore postponed. In the subsequent days, Mr. Banegas experienced ongoing lower abdominal cramping, left side worse than right, along with occasional nausea/vomiting, anorexia. He also endorsed a change in his usual bowel movements - ie his is typically very regular at baseline, but his stools now firm in consistent, he has to strain, and the can only pass a small volume at a time. He saw a [employer]MENT [employer]INEER at [facility] on 01/08/21 for evaluation of these ongoing symptoms, who ordered a CT of the abdomen and pelvis with IV contrast, which was arranged for today, 01/11/21. He was directed to the ED when his outpatient provider was notified of the report, which described a distended colon with an apparent transition point. In October 2020 he had a barium swallow (for reports of dysphagia) which showed moderate esophageal dysmotility with delayed esophageal emptying, along with a prominent esophageal B ring (Schatzki's ring). A tiny subcentimeter filling defect of the distal esophagus was also noted on one image only, and follow up endoscopy was recommend for further investigation. Mr. Banegas had an EGD in 11/2020, which showed evidence of esophageal dysmotility; biopsies taken showed evidence of esophagitis, for which he was started on omeprazole, 40mg, daily. His most recent completed colonoscopy was in 12/2014 which was normal, although 5 year follow up was recommended due to a history of previous polyps. Surgical Hx: Appendectomy 40 years ago. Social Hx: Rarely consumes a beer. Lifetime non-smoker. Lives at home with Luis who would like updates about his care/possible procedures In the ED, his vitals were WNL. His CBC, CMP, and TSH were WNL. COVID neg. EKG showing NSR without acute ST Segment changes. He was given 1 liter of NSS and a dose of zofran. Admission Exam Per Admitting Provider Constitutional: WD/WN, vitals as above cooperative and comfortable; no acute distress Eyes: + anicteric sclerae ENMT: external ear and nose normal, oropharynx normal Neck: trachea midline Respiratory: normal respiratory effort, lungs clear to auscultation no cough Cardiovascular: RRR, no murmur, no edema Heart Sounds: normal S1 and normal S2 Extremities: no pedal edema Gastrointestinal (Abdomen): Inspection/Auscultation: abdomen normal to inspection, + abdomen distended and normal bowel sounds Percussion/Palpation: + abdomen tender (LLQ) and abdomen soft; no guarding and no hepatosplenomegaly Musculoskeletal: Head/Neck/Chest: normocephalic and head atraumatic Skin: no rashes, warm and dry Neurologic: moves all extremities Psychiatric: A+Ox3, euthymic affect Principal Diagnosis Large Bowel Obstruction Discharge Exam Constitutional WD/WN, vitals as above well developed, well nourished, cooperative and comfortable; no acute distress Eyes + anicteric sclerae ENMT external ear and nose normal, oropharynx normal Neck normal visual inspection and trachea midline Respiratory normal respiratory effort, lungs clear to auscultation normal respiratory effort; no cough Cardiovascular RRR, no murmur, no edema Heart Sounds: normal S1 and normal S2 Extremities: no pedal edema Gastrointestinal (Abdomen) Inspection/Auscultation: abdomen normal to inspection, + abdomen distended (softly distended), normal bowel sounds and + abdominal surgical scar (from prior open appendectomy) Percussion/Palpation: + abdomen tender (generalized discomfort to palpation) and abdomen soft; no guarding, abdomen not rigid and no hepatosplenomegaly Musculoskeletal Head/Neck/Chest: normocephalic and head atraumatic Skin no rashes, warm and dry Neurologic moves all extremities Psychiatric A+Ox3, euthymic affect Discharge Data Allergies Allergy/AdvReac Type Severity Reaction Status Date / Time Cipro Allergy Unknown TINGLING Verified 03/16/17 08:06 ALL OVER ciprofloxacin Allergy Unknown TINGLING Verified 01/13/21 12:32 ALL OVER Consultations 01/12/21 00:44 Consult Gastroenterology Routine 01/12/21 07:36 Consult General Surgery Routine Procedures Performed Operation Date: 01/13/21 16:00 Actual Procedures p Colonoscopy - Dionicio Graf Ordered Studies 01/13/21 14:45 CT abd pelvis wo con Stat Laboratory Results WBC 6.58 K/uL (4.8-10.8) 01/17/21 06:58 RBC 4.89 M/uL (4.7-6.1) 01/17/21 06:58 Hgb 15.3 g/dL (14.0-18.0) 01/17/21 06:58 Hct 44.9 % (42-52) 01/17/21 06:58 MCV 91.8 fL (80-100) 01/17/21 06:58 MCH 31.3 pg (25-34) 01/17/21 06:58 MCHC 34.1 g/dL (32-36) 01/17/21 06:58 RDW Std Deviation 43.6 fL (36.4-46.3) 01/17/21 06:58 RDW Coeff of Stacia 13.1 % (11.5-14.5) 01/17/21 06:58 Plt Count 327 K/uL (130-400) 01/17/21 06:58 MPV 10.6 fL (7.4-10.4) H 01/17/21 06:58 Immature Gran % (Auto) 0.2 % 01/17/21 06:58 Neut % (Auto) 47.2 % 01/17/21 06:58 Lymph % (Auto) 38.6 % 01/17/21 06:58 [place] % (Auto) 10.9 % 01/17/21 06:58 Eos % (Auto) 2.6 % 01/17/21 06:58 Baso % (Auto) 0.5 % 01/17/21 06:58 Neut # (Auto) 3.11 K/uL (1.4-6.5) 01/17/21 06:58 Lymph # (Auto) 2.54 K/uL (1.2-3.4) 01/17/21 06:58 [place] # (Auto) 0.72 K/uL (0.11-0.59) H 01/17/21 06:58 Eos # (Auto) 0.17 K/uL (0-0.5) 01/17/21 06:58 Baso # (Auto) 0.03 K/uL (0-0.2) 01/17/21 06:58 Immature Gran # (Auto) 0.01 K/uL (0.00-0.02) 01/17/21 06:58 PT 11.4 Seconds (9.0-12.0) 01/13/21 05:38 INR 1.1 (0.9-1.1) 01/13/21 05:38 APTT 26.2 Seconds (21.0-31.0) 01/13/21 05:38 PTT Ratio 1.0 01/13/21 05:38 Sodium 141 mmol/L (136-145) 01/17/21 06:58 Potassium 3.7 mmol/L (3.5-5.1) 01/17/21 06:58 Chloride 107 mmol/L (98-107) 01/17/21 06:58 Carbon Dioxide 28 mmol/L (21-32) 01/17/21 06:58 Anion Gap 6.0 (3-11) 01/17/21 06:58 BUN 5 mg/dl (7-18) L 01/17/21 06:58 Creatinine 0.97 mg/dl (0.6-1.4) 01/17/21 06:58 Est Cr Clr Drug Dosing 83.6 ml/min 01/17/21 06:58 Est GFR ( Amer) 90.7 ml/min 01/17/21 06:58 Est GFR (Non-Af Amer) 78.2 ml/min 01/17/21 06:58 BUN/Creatinine Ratio 4.9 (10-20) L 01/17/21 06:58 Glucose 89 mg/dl (70-99) 01/17/21 06:58 POC Glucose 125 mg/dl (70-99) H 01/17/21 17:19 Calcium 9.0 mg/dl (8.5-10.1) 01/17/21 06:58 Total Bilirubin 0.8 mg/dl (0.2-1) 01/17/21 06:58 AST 33 U/L (15-37) 01/17/21 06:58 ALT 61 U/L (12-78) 01/17/21 06:58 Alkaline Phosphatase 89 U/L (45-117) 01/17/21 06:58 Total Protein 7.1 gm/dl (6.4-8.2) 01/17/21 06:58 Albumin 3.6 gm/dl (3.4-5.0) 01/17/21 06:58 Globulin 3.5 gm/dl (2.5-4.0) 01/17/21 06:58 Albumin/Globulin Ratio 1.0 (0.9-2) 01/17/21 06:58 TSH 1.490 uIu/ml (0.300-4.500) 01/11/21 20:08 COVID-19 Eval Order Covid19 at [facility] 01/11/21 20:08 SARS-CoV-2 (PCR) NEGATIVE (Negative) 01/11/21 20:08 Impressions Abdomen/Pelvis CT 01/13/21 14:45 CT SCAN OF THE ABDOMEN AND PELVIS WITHOUT CONTRAST CLINICAL HISTORY: no IV/oral contrast, r/o perf post colonoscopy COMPARISON STUDY: January 11, 2021 TECHNIQUE: CT scan of the abdomen and pelvis was performed from the lung bases to the proximal femurs. Images are reviewed in the axial, sagittal, and coronal planes. IV contrast was not administered for this examination. A dose lowering technique was utilized adhering to the principles of ALARA. CT DOSE: 839.32 mGy.cm FINDINGS: Lower chest: Minimal atelectasis is seen at dependent portions of bilateral lower lobes. Liver: Liver is normal in size with diffuse decrease in attenuation of its parenchyma and no evidence of focal lesions or intrahepatic biliary dilatation. Gallbladder: Unremarkable. Spleen: Normal in size and attenuation. Pancreas: Unremarkable. Adrenal glands: Unremarkable. Kidneys: The unenhanced kidneys are normal in size without hydronephrosis. There is no contour deforming renal mass lesion. No renal calculi are identified. Bowel: The small bowel and colon are normal in course and caliber. Loops of large bowel are fluid and gas filled and within upper limits of normal for size. Wall irregularity and mild decrease in size at the distal descending-sigmoid colon with irregular thickening of the wall might represent colonic mass associated with partial large bowel obstruction. Diastases of abdominis rectus muscle is seen with adjacent nondilated loop of small bowel. Peritoneum: There is no intraperitoneal free air or abdominal ascites. Vasculature: The abdominal aorta is normal in course and caliber. Scattered calcifications of aortic wall are seen. Adenopathy: None. Pelvic viscera: Normal appearance of the urinary bladder and prostate however evaluation is limited due to beam hardening artifact from orthopedic hardware within the right and left hip joints. Skeletal structures: Mild osteopenia and multilevel degenerative changes of the spine, most prominent at the L2-L3 level and stable since prior. IMPRESSION: 1. No free intra-abdominal gas seen to suggest bowel perforation. 2. Redemonstration of the mass lesion within left lower quadrant with wall irregularity and partial bowel obstruction. 3. Hepatic steatosis. 4. The rest of findings as above. ACT 112: Negative or not required by law. The above report was generated using voice recognition software. It may contain grammatical, syntax or spelling errors. Electronically signed by: Betsy Bacon DO 01/13/2021 3:32 PM Hospital Course (1) Colonic obstruction: Mr. Banegas is a 70 yo gentleman who is admitted for management of a large bowel obstruction. - CT scan of abdomen showing colonic obstruction with apparent transition point - Consulted GI for colonoscopy in order to determine etiology of obstruction since blinded on CT scan --> GI wanted to consult surgery before proceeding --> surgery consulted stating etiology unknown (colonic mass vs diverticular stricture vs other) and surgical procedure was dependent on knowing etiology, preferred colonoscopy performed first --> GI agreed, pt had enema treatment followed by bowel prep which he tolerated well --> underwent flexible sigmoidoscopy (results showed colonic stricture) --> was in more pain s/p colonoscopy, STAT CT showed sigmoid colon thickening/inflammation however no evidence of perforation or free air --> general surgery said no emergent surgery necessary, placed on clear liquid diet then advanced to full liquid which has been tolerated well. - Began IV Zosyn in hospital for inflamed/thickened sigmoid colon --> switched to Augmentin PO which will be finished at home. - He will require a colon resection at some point per general surgery (about in 2 weeks) -Discussed not taking his home Adderall and Metformin until after he is recovered from surgery as these can directly affect the gut. (2) Hypercholesterolemia: - Continue Pravastatin 40mg PO daily. (3) Hypertension: - Continue home lisinopril (4) Hx of traumatic brain injury: Total Time Total Time Spent Total Time Spent (In Minutes): 45 Discharge Plan Discharge Items Patient Disposition: Home - Self-Care Reason For Visit: BOWEL OBSTRUCTION Discharge Diagnosis: Large Bowel Obstruction Activity: Per Instructions section Non-emergency contact: Primary Care Provider and Surgeon Call non-emergency contact if: you have any medication questions, your symptoms worsen, your pain is not controlled, your pain is worsening and you have a fever Follow-up/Referrals: Evan Godfrey, [Physician] - (Please call the office to be seen in 5-7 days) Justin Parks MD [Primary Care Provider] - Diet: Full liquid Addtl Attending Provider Instructions: You were admitted to the hospital for a large bowel obstruction. After an endoscopic evaluation, it was determined that surgery will be necessary to relieve your symptoms. Thus far you have tolerated a full liquid diet and should continue this diet going forward until your surgery is performed in the near future. Follow up with your surgeon Dr. Godfrey if you have any questions about your diet, worsening symptoms, or upcoming surgery. You can take miralax as needed for symptomatic relief as it may also aid in clearing up your bowels. You can continue all of your home medications EXCEPT I recommend stopping your Adderall and Metformin until after you surgery. Speak with your PCP about metformin after surgery as you may not even need to take it at all as your glucose levels were very well controlled in the hospital without any anti- glycemic medications. Continue taking your antibiotic Augmentin as prescribed to aid in clearing the inflammation in your colon. IF AT ANY TIMES you have severe abdominal pain or high fever contact your surgeon or present to the ER immediately as this may suggest the possibility of immediate surgery. Pending Studies at Discharge: No Stand-Alone Forms: My [facility] Medications and DC Order Prescriptions: New amoxicillin-pot clavulanate [Augmentin] 875-125 mg tablet 1 tab PO BID Qty: 20 RF: 0 Continued dextroamphetamine-amphetamine 15 mg tablet 15 mg PO DAILY RF: 0 dextroamphetamine 10 mg tablet 10 mg PO DAILY RF: 0 cholecalciferol (vitamin D3) 5,000 unit tablet 5,000 units PO DAILY RF: 0 lisinopril 10 mg tablet 10 mg PO DAILY Qty: 30 RF: 0 metformin 500 mg tablet 500 mg PO DAILY RF: 0 pravastatin 40 mg tablet 40 mg PO DAILY RF: 0 omeprazole 40 mg capsule,delayed release(DR/EC) 40 mg PO DAILY RF: 0 Discharge Orders: Discharge Order (Routine); Ordered 01/17/21 Ordered By: Cyril Martin Admission Data Admit Date/Time: 01/11/21 23:41 Attending Provider: Moody Martinez Admit Provider: Cori Meier Primary Care Provider: Justin Parks Other Providers: Dionicio Graf ; Osiel Grissom ; Jak Roth ; Kevon Lowery ; Garcia Butler Jr ; Aramis Zambrano ; Collin Ryan ; Deysi Khanna ; Evan Godfrey ; Cruz Guerra Supervising Physician Co-Signing Physician Notes Attending attestation Pt seen and examined in concert with Dr. Martin. In agreement with the documented findings as noted in the resident documentation with any exceptions or additions as noted here. Tolerating POI well with gradual improvements in lower abdominal pain, bloating and with essential resolution of nausea. On examination, S1/S2 nl RRR no MCG. CTAB. Abd LLQ mildly tender, improved distention, BS+ve Large bowel obstruction - general surgery consult - counseled re: miralax use, complete course with augmentin. Follow up with surgery. Hyperlipidemia - continue statin therapy HTN - holding lisinopril with stable BP - consider restart with PCP Elevated glucose - holding metformin 500mg right now, consider restart based on abdominal response Else see resident documentation as noted. Total attending time spent on this case on the day of discharge: 35 minutes. Resident Activity Tracking Resident Involvement: Resident Care Provided Care Provided: Adult Hospital Medicine
[2021-01-17] MEDS ORDERED: AMOXICILLIN/CLAVULANATE 875 MG TAB PO SCH (17:00)
[2021-01-17] MEDS: PRAVASTATIN SOD 40 MG TAB PO SCH (17:35)
== END 2021-01-17 18:24 | disposition home or self-care (01) | DRG 390 ==
LOC: ED 18:20 → 3E 23:41 → SUATTDRO 23:41 → 3E 01-12 00:28

== ENCOUNTER 2021-02-11 05:23 | Inpatient (IN) ==
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
[2021-02-11] MEDS ORDERED: HEPARIN SOD 5,000 UNIT/0.5 ML VIAL SC SCH (06:00)
[2021-02-11] MEDS ORDERED: LR 15ML/HR IV SCH ×2 (06:00)
[2021-02-11] MEDS ORDERED: ERTAPENEM SODIUM 1,000 MG in SODIUM CHLORIDE 0.9% 50 ML IV SCH (06:00)
[2021-02-11] MEDS ORDERED: MIDAZOLAM HCL 1 MG/ML 2ML VIAL ONE (06:38)
[2021-02-11] MEDS ORDERED: fentaNYL citrate 100 MCG/2 ML VIAL ONE (06:38)
[2021-02-11] MEDS ORDERED: HYDROmorphone INJ 2 MG/ML SYR/VIAL ONE (06:38)
[2021-02-11] MEDS ORDERED: ACETAMINOPHEN 1000 MG/100 ML IV IV ONE (06:42)
[2021-02-11] MEDS ORDERED: SUGAMMADEX SODIUM 200 MG/2 ML VIAL IV ONE (06:43)
[2021-02-11] MEDS ORDERED: LIDOCAINE HCL/D5W 2000 MG/500 ML BAG IV ONE (06:44)
[2021-02-11] MEDS ORDERED: ePHEDrine sulfate 50 MG/ML AMP IV PRN (06:52)
[2021-02-11] MEDS ORDERED: fentaNYL citrate 100 MCG/2 ML VIAL IV PRN (06:52)
[2021-02-11] MEDS ORDERED: HYDROmorphone INJ 2 MG/ML SYR/VIAL IV PRN (06:52)
[2021-02-11] MEDS ORDERED: ATROPINE SULFATE 0.1 MG/ML 10ML SYR IV PRN (06:52)
[2021-02-11] MEDS ORDERED: ONDANSETRON INJ 2 MG/ML 2 ML VIAL IV PRN (06:52)
--- NOTE | 2021-02-11 07:05 | History & Physical Bridge Note ---
Date of Service February 11, 2021 History & Physical Bridge Note I have examined the patient, reviewed the History & Physical and in the interval since the performance of the History & Physical I have noted the following changes of clinical significance: no changes noted
[2021-02-11] MEDS ORDERED: BUPIVACAINE LIPOSOME 1.3% 266 MG/20 ML VIAL ONE (07:16)
[2021-02-11] MEDS ORDERED: SODIUM CHLORIDE 0.9% PF 50 ML VIAL ONE (07:17)
[2021-02-11] MEDS ORDERED: DEXAMETHASONE SOD INJ 4 MG/ML VIAL ONE (07:42)
[2021-02-11] MEDS ORDERED: ROCURONIUM BROMIDE 10 MG/ML 5 ML VIAL IV ONE ×2 (07:42→08:15)
[2021-02-11] MEDS ORDERED: ONDANSETRON INJ 2 MG/ML 2 ML VIAL ONE (07:42)
[2021-02-11] MEDS ORDERED: PROPOFOL IV EMULSION 10 MG/ML 20 ML VIAL IV ONE (07:42)
[2021-02-11] MEDS ORDERED: LIDOCAINE 2% 2 ML VIAL/AMP(20MG/ML) INFIL ONE (07:42)
[2021-02-11] MEDS ORDERED: KETAMINE 50 MG/5 ML SYRINGE ONE (08:01)
--- NOTE | 2021-02-11 10:40 | Post Operative Brief Note ---
PG Immediate Post Op with CF Date of Surgery February 11, 2021 Pre & Post Diagnosis Operation Date: 02/11/21 07:15 Pre-Op Diagnosis: Diverticular Stricture Post-Op Diagnosis: Diverticular Stricture I identified the patient and participated in the time-out.: Yes Procedure Operation Date: 02/11/21 07:15 Actual Procedures p Open Sigmoid Colectomy, with Bilateral Tap Block by Surgeon(Right) - Evan Godfrey DO Surgeon Evan Godfrey DO Exotic Dancer Steven Zambrano DO Estimated Blood Loss 50 Findings Consistent with Post-Op Diagnosis Specimens Specimen Description: A: Sigmoid Colon (Fresh) Drains Abernathy Catheter and Abram-Bettencourt Drain (10mm flat) Anesthesia Type General Complications none Disposition Disposition: Recovery Room
--- NOTE | 2021-02-11 10:52 | Operative Report ---
PG Post Operative Report Pre & Post Diagnosis Operation Date: 02/11/21 07:15 Pre-Op Diagnosis: Diverticular Stricture Post-Op Diagnosis: Diverticular Stricture I identified the patient and participated in the time-out.: Yes Procedure Operation Date: 02/11/21 07:15 Actual Procedures p Open Sigmoid Colectomy, with Bilateral TAP Block by Surgeon(Right) - Evan Godfrey DO Surgeon Evan Godfrey DO Nutrition Partner Steven Zambrano DO Estimated Blood Loss 50 Findings Consistent with Post-Op Diagnosis Specimens Sigmoid Colon to pathology Drains 10 Fr BALDO drain in pelvis Anesthesia Type General Complications none Disposition Disposition: Recovery Room Indications 70 yo male with diverticular stricture causing LBO Description of Procedure The patient was brought to the OR and placed in the supine position with both arms abducted. At this time he underwent general endotracheal anesthesia without any problems. He was given appropriate pre-operative antibiotics. His abdomen was prepped and draped in the usual sterile fashion. Timeout was called. The procedure was verified as Open Sigmoid Colectomy, possible ostomy. Surgical, anesthesia and nursing teams agreed and the procedure was begun. A standard lower midline incision was made using a #10 blade scalpel. This was carried down to the fascia using electrocautery. The midline fascia was then incised with electrocautery. The peritoneum was then entered sharply after elevating it with hemostats. The incision was then opened up through its entirety. At this point the small bowel was packed into the RUQ and Bookwalter retractor placed. The sigmoid colon was visualized and a an area of about 5cm of length was thickened and densely adhesed to the pelvic sidewall. This was carefully freed using sharp and blunt dissection. The rest of the sigmoid and left colon were then mobilized along the white line of Toldt. We then mobilized the distal colon to the level of the sacral promontory. The left ureter was visualized and protected throughout the dissection. At this time we used a 60mm purple load SHANIQUA stapler to transect the colon distally. Using the Ligasure device, the mesentery of the colon was then taken until we reached a healthy area proximally that was nice healthy appearing colon. This proximal colon was then transected using a 60mm purple load SHANIQUA stapler. The specimen was passed off as sigmoid colon. At this point the proximal colon was mobilized further so that there would be no tension on our anastomosis. We then opened the proximal colon and placed a 28mm EEA anvil which was sutured into place using a 2-0 Silk purse string suture. My architectural administrative assistant Dr. Zambrano then broke scrub and placed the 28mm EEA stapler through rectum the the distal rectal stump. Tello was opened and the anvil attached to this. The stapler was then closed and fired. EEA stapler was removed and both donuts found to be intact. There was no ischemia or tension noted at the anastomosis. At this point the small bowel was eviscerated and ran from Ligament of Treitz to the cecum and one area of minor cauterization was oversewn using 3-0 Silk in a Lembert fashion. There was no ischemic changes noted. The bowel was of normal caliber. At this point the abdomen was then irrigated until clear. Hemostasis was achieved using electrocautery. Hemostasis was complete. A 10Fr BALDO drain was placed in the pelvis adjacent to the anastomosis and brought out through the left abdomen and secured with a 2-0 Nylon. At this point a bilateral TAP block was performed using a mixture of Exparel and saline. Using the landmarks of the right costal margin and ASIS, 10ml of the mixture was injected into the plane between the internal oblique and transversus abdominus at the midpoint between those landmarks. Then 10ml's were injected superior and inferior to this. This was then repeated on the left abdomen. The fascia was then closed in a running fashion using 2 #1 looped PDS suture starting superiorly and inferiorly and meeting in the middle. Skin was closed with carola. Sterile dressing was applied. All needle and sponge counts were correct x 2. At this point the patient was awakened from anesthesia, and transported to PACU in stable condition. Dr. Zambrano was present and scrubbed for the entirety of the case and was a necessary architectural administrative assistant due to the complexity of the case. I attest to the content of the Intraoperative Record and any orders documented therein. Any exceptions are noted below.
[2021-02-11 11:53] LABS: Base Excess ABG -1.3 mEq/L (-9-1.8); HCO3 ABG 24 mmol/L (19-24); Oxygen Saturation ABG 97.9 % (90-95); PCO2 ABG 44 mmHg (35-46); PO2 ABG 111 mmHg (80-95); pH ABG 7.36 (7.35-7.45)
[2021-02-11 11:54] LABS: Allen Test Pos (Pos)
--- NOTE | 2021-02-11 12:57 | Anesthesiology Progress Note ---
Date of Service February 11, 2021 Anesthesia Post Procedure Vital Signs Vital Signs: Temp Pulse Pulse Pulse Resp BP Pulse Ox 02/11/21 12:30 83 10 L 128/86 96 02/11/21 12:20 89 16 124/92 96 02/11/21 12:10 82 10 L 133/81 96 02/11/21 12:00 84 86 11 L 133/81 95 02/11/21 11:50 85 8 L 110/78 95 02/11/21 11:40 83 8 L 114/74 93 02/11/21 11:30 80 8 L 108/75 96 02/11/21 11:20 83 12 107/78 96 02/11/21 11:10 80 11 L 116/77 97 02/11/21 11:00 81 12 111/74 96 02/11/21 10:50 79 18 107/74 97 02/11/21 10:41 36.6 C 84 14 116/79 99 02/11/21 05:35 37 C 81 18 139/76 95 Transfer of Care Handoff Completed per policy Notes Mental Status: alert / awake / arousable and participated in evaluation Patient Amnestic to Procedure: Yes Nausea / Vomiting: adequately controlled Pain: adequately controlled Airway Patency, RR, SpO2: stable & adequate BP & HR: stable & adequate Hydration State: stable & adequate Anesthetic Complications: no major complications apparent and Pt Satisfied with anesthetic care
[2021-02-11] MEDS ORDERED: HYDROmorphone INJ 0.5 MG/0.5 ML SYR IV PRN (14:04)
[2021-02-11] MEDS: HYDROmorphone INJ 0.5 MG/0.5 ML SYR IV PRN ×2 (14:27→16:04)
[2021-02-11] MEDS: LACTATED RINGER'S 1,000 ML IV SCH ×2 (14:27→21:17)
[2021-02-12] MEDS: HYDROmorphone INJ 0.5 MG/0.5 ML SYR IV PRN ×4 (02:26→19:48)
[2021-02-12] MEDS: LACTATED RINGER'S 1,000 ML IV SCH ×3 (04:06→23:51)
[2021-02-12 08:09] LABS: Basophils # (auto) 0.02 K/uL (0-0.2); Basophils % (auto) 0.1 %; Eosinophils # (auto) 0.02 K/uL (0-0.5); Eosinophils % (auto) 0.1 %; Hematocrit (blood only) 42.5 % (42-52); Hemoglobin 14.6 g/dL (14.0-18.0); Immature Granulocytes # (auto) 0.03 K/uL (0.00-0.02); Immature Granulocytes % (auto) 0.2 %; Lymphocytes # (auto) 3.01 K/uL (1.2-3.4); Lymphocytes % (auto) 20.3 %; Mean Corpuscular Hemoglobin 31.8 pg (25-34); Mean Corpuscular Hgb Conc 34.4 g/dL (32-36); Mean Corpuscular Volume 92.6 fL (80-100); Mean Platelet Volume 10.1 fL (7.4-10.4); Monocytes # (auto) 1.68 K/uL (0.11-0.59); Monocytes % (auto) 11.3 %; Neutrophils # (auto) 10.08 K/uL (1.4-6.5); Platelet Count 245 K/uL (130-400); RDW Coefficient of Variation 14.2 % (11.5-14.5); Red Blood Count 4.59 M/uL (4.7-6.1); White Blood Count 14.84 K/uL (4.8-10.8)
[2021-02-12 08:45] LABS: BUN Creatinine Ratio 8.5 (10-20); Creatinine Clr Calc Pharmacy 82.4 ml/min; Est GFR (African American) 91.8 ml/min; Est GFR (Non-African American) 79.2 ml/min; Potassium 3.8 mmol/L (3.5-5.1)
[2021-02-12] MEDS: TIMOLOL MALEATE 0.5% OP SOLN 5 ML BTL OPR SCH (08:49)
--- NOTE | 2021-02-12 08:56 | Surgery Progress Note ---
Date of Service February 12, 2021 Assessment & Plan (1) Colonic obstruction: Plan: POD 1 sigmoid resection h/o urinary retention, cont martinez for now start subQ heparin ambulate maybe clears later, he is ok with ice for now Admission and Anticipated Discharge Date Admission Date: February 11, 2021 Supervising Physician Co-Signing Physician Notes I personally saw and evaluated the patient with Garcia Butler PA-C and agree with the assessment and plan 70 yo POD#1 open sigmoidectomy, B/L TAP block -Start clears, go slow -Remove Martinez -Pain control PRN -Encourage ambulation/IS -Trend labs -Start SQ Heparin Subjective pain control adequate, bloated but no nausea, not OOB Physical Exam Gastrointestinal (Abdomen): Inspection/Auscultation: + abdomen distended (mild), + abdominal surgical incision (dressing dry) and + abdominal surgical drain present (25 cc overnight) Percussion/Palpation: abdomen soft UOP 325 cc overnight Results & Data ([facility]) Vital Signs (Past 12 Hours) Vital Signs Temp Pulse Pulse Resp BP Pulse Ox 02/12/21 07:52 37.3 C 103 H 14 138/68 92 02/12/21 02:51 99 H 14 94 02/12/21 02:19 36.9 C 102 H 18 153/85 H 94 02/11/21 23:04 99 H 13 94 02/11/21 22:05 37.1 C 99 H 16 136/81 94 PG Care Time/CCT Total # of Minutes Spent Total Time Spent with Patient: Total time spent is greater than 50% in coordination of care (as documented) at patient's floor/unit and/or counseling patient: Coding Level of Care Code None Diagnoses Colonic obstruction K56.609
[2021-02-12] MEDS: PANTOprazole 40 MG TAB PO SCH (09:51)
[2021-02-12] MEDS: HEPARIN SOD 5,000 UNIT/0.5 ML VIAL SQ SCH ×2 (10:08→21:08)
--- NOTE | 2021-02-13 05:42 | Surgery Progress Note ---
Date of Service February 13, 2021 Assessment & Plan (1) Diverticular stricture: Plan: Postoperative day #2 sigmoid colectomy Surgical pathology is pending A.m. labs are pending We will maintain patient on clear liquids until he has improved bowel function Continue IV fluids until oral intake can be advanced Continue analgesics Continue antiemetics as needed Increase ambulation as able Encourage use of incentive spirometry Subcutaneous heparin is in place for DVT prevention Admission and Anticipated Discharge Date Admission Date: February 11, 2021 Supervising Physician Co-Signing Physician Notes I personally saw and evaluated the patient with Jak Roth PA-C and agree with the assessment and plan 70 yo POD#2 open sigmoidectomy, B/L TAP block -Continue clears until meaningful flatus -Pain control PRN -Encourage ambulation/IS -Trend labs, WBC trending down -Heparin SQ for DVT prophylaxis Subjective Patient is resting comfortably in bed. He does note pain at his surgical incision with movement and with palpation of his abdomen. He says he is passing flatus since surgery but is not had a bowel movement. He is tolerating a small amount of clear liquids without any nausea vomiting or exacerbation of his abdominal pain. He denies any shortness of breath or cough. He denies any fevers, shakes, chills. He admits that he has not ambulated very much since his surgery. Physical Exam Respiratory: normal respiratory effort; no respiratory distress and no labored breathing Gastrointestinal (Abdomen): Patient's abdomen is slightly distended with absent bowel sounds. There is pain noted with palpation near her surgical incision. His incision is clean, dry, and intact. BALDO drain is in place draining serosanguineous fluid. It is drained 135 cc over the past 24 hours Musculoskeletal: No calf tenderness Results & Data ([facility]) Vital Signs (Past 12 Hours) Vital Signs Temp Pulse Resp BP Pulse Ox 02/12/21 22:57 36.8 C 106 H 18 128/75 92 PG Care Time/CCT Total # of Minutes Spent Total Time Spent with Patient: Total time spent is greater than 50% in coordination of care (as documented) at patient's floor/unit and/or counseling patient: Coding Level of Care Code None Diagnoses Diverticular stricture K56.699
[2021-02-13] MEDS: HYDROmorphone INJ 0.5 MG/0.5 ML SYR IV PRN ×3 (06:03→21:21)
[2021-02-13 08:25] LABS: Basophils # (auto) 0.02 K/uL (0-0.2); Basophils % (auto) 0.2 %; Eosinophils # (auto) 0.08 K/uL (0-0.5); Eosinophils % (auto) 0.7 %; Hematocrit (blood only) 39.1 % (42-52); Hemoglobin 13.3 g/dL (14.0-18.0); Immature Granulocytes # (auto) 0.02 K/uL (0.00-0.02); Immature Granulocytes % (auto) 0.2 %; Lymphocytes # (auto) 2.04 K/uL (1.2-3.4); Lymphocytes % (auto) 17.5 %; Mean Corpuscular Volume 94.2 fL (80-100); Mean Platelet Volume 10.4 fL (7.4-10.4); Monocytes # (auto) 1.32 K/uL (0.11-0.59); Monocytes % (auto) 11.3 %; Neutrophils # (auto) 8.18 K/uL (1.4-6.5); Neutrophils % (auto) 70.1 %; Platelet Count 231 K/uL (130-400); RDW Coefficient of Variation 14.1 % (11.5-14.5); RDW Standard Deviation 48.6 fL (36.4-46.3); Red Blood Count 4.15 M/uL (4.7-6.1); White Blood Count 11.66 K/uL (4.8-10.8)
[2021-02-13 08:53] LABS: BUN Creatinine Ratio 11.2 (10-20); Calcium 7.9 mg/dl (8.5-10.1); Creatinine Clr Calc Pharmacy 102.7 ml/min; Est GFR (African American) 105.8 ml/min; Est GFR (Non-African American) 91.3 ml/min; Potassium 3.6 mmol/L (3.5-5.1)
[2021-02-13] MEDS: HEPARIN SOD 5,000 UNIT/0.5 ML VIAL SQ SCH ×2 (10:06→20:41)
[2021-02-13] MEDS: TIMOLOL MALEATE 0.5% OP SOLN 5 ML BTL OPR SCH (10:06)
[2021-02-13] MEDS: PANTOprazole 40 MG TAB PO SCH (10:06)
[2021-02-13] MEDS: LACTATED RINGER'S 1,000 ML IV SCH (18:48)
[2021-02-14] MEDS: LACTATED RINGER'S 1,000 ML IV SCH (02:51)
--- NOTE | 2021-02-14 05:42 | Surgery Progress Note ---
Date of Service February 14, 2021 Assessment & Plan (1) Diverticular stricture: Plan: Postoperative day #3 sigmoid colectomy Surgical pathology remains pending The patient wishes to remain on a clear liquid diet for the present time due to his poor appetite Continue IV fluids until certain oral intake is adequate Continue analgesics Continue antiemetics as needed Continue ambulation as able To new use of incentive spirometry Subcutaneous heparin is in place for DVT prevention Admission and Anticipated Discharge Date Admission Date: February 11, 2021 Supervising Physician Co-Signing Physician Notes I personally saw and evaluated the patient with Jak Roth PA-C and agree with the assessment and plan 70 yo POD#3 open sigmoidectomy, B/L TAP block -Advance to fulls for lunch -Pain control PRN -Encourage ambulation/IS -Trend labs, WBC has normalized -Switch MIVF, replace K+ -Heparin SQ for DVT prophylaxis Subjective Patient is resting comfortably in bed. He continues to have abdominal pain but is slightly improved from yesterday. Patient says that he did have a small bowel movement yesterday. He tolerated clear liquids without any nausea or vomiting but notes his appetite is not very good at this time. He says he did ambulate in the hallway yesterday. He denies any shortness of breath. He denies any fevers, shakes, chills Physical Exam Gastrointestinal (Abdomen): Patient's abdomen is minimally distended and much softer than what was noted yesterday. His bowel sounds are still hypoactive to absent. He continues to have pain with palpation near his surgical incision. Patient's incision is clean dry and intact. BALDO drain is in place draining serosanguineous fluid. It drained 105 cc last 24 hours. Results & Data ([facility]) Vital Signs (Past 12 Hours) Vital Signs Temp Pulse Resp BP Pulse Ox 02/13/21 22:11 37.5 C 91 H 18 146/78 H 92 PG Care Time/CCT Total # of Minutes Spent Total Time Spent with Patient: Total time spent is greater than 50% in coordination of care (as documented) at patient's floor/unit and/or counseling patient: Coding Level of Care Code None Diagnoses Diverticular stricture K56.699
[2021-02-14 06:32] LABS: Basophils # (auto) 0.02 K/uL (0-0.2); Basophils % (auto) 0.2 %; Eosinophils % (auto) 3.1 %; Hematocrit (blood only) 37.7 % (42-52); Hemoglobin 12.5 g/dL (14.0-18.0); Immature Granulocytes # (auto) 0.02 K/uL (0.00-0.02); Immature Granulocytes % (auto) 0.2 %; Lymphocytes # (auto) 2.41 K/uL (1.2-3.4); Lymphocytes % (auto) 24.7 %; Mean Corpuscular Hemoglobin 31.2 pg (25-34); Mean Corpuscular Hgb Conc 33.2 g/dL (32-36); Mean Platelet Volume 10.5 fL (7.4-10.4); Monocytes # (auto) 0.99 K/uL (0.11-0.59); Monocytes % (auto) 10.1 %; Neutrophils # (auto) 6.03 K/uL (1.4-6.5); Neutrophils % (auto) 61.7 %; Platelet Count 232 K/uL (130-400); RDW Coefficient of Variation 13.7 % (11.5-14.5); RDW Standard Deviation 47.2 fL (36.4-46.3); Red Blood Count 4.01 M/uL (4.7-6.1); White Blood Count 9.77 K/uL (4.8-10.8)
[2021-02-14 07:04] LABS: BUN Creatinine Ratio 8.4 (10-20); Calcium 8.1 mg/dl (8.5-10.1); Creatinine Clr Calc Pharmacy 105.5 ml/min; Est GFR (Non-African American) 92.3 ml/min; Potassium 3.6 mmol/L (3.5-5.1)
[2021-02-14] MEDS: D5W AND 1/2NSS + 20MEQ KCL 20 MEQ/1,000 ML BAG IV SCH ×2 (09:22→19:38)
[2021-02-14] MEDS: PANTOprazole 40 MG TAB PO SCH (09:22)
[2021-02-14] MEDS: HEPARIN SOD 5,000 UNIT/0.5 ML VIAL SQ SCH ×2 (09:23→20:30)
[2021-02-14] MEDS: HYDROmorphone INJ 0.5 MG/0.5 ML SYR IV PRN ×2 (09:24→19:31)
[2021-02-14] MEDS: TIMOLOL MALEATE 0.5% OP SOLN 5 ML BTL OPR SCH (09:24)
[2021-02-15] MEDS: PANTOprazole 40 MG TAB PO SCH (07:31)
[2021-02-15] MEDS: TIMOLOL MALEATE 0.5% OP SOLN 5 ML BTL OPR SCH (07:31)
[2021-02-15] MEDS: HEPARIN SOD 5,000 UNIT/0.5 ML VIAL SQ SCH ×2 (07:32→19:41)
[2021-02-15 08:04] LABS: Basophils # (auto) 0.02 K/uL (0-0.2); Basophils % (auto) 0.3 %; Eosinophils # (auto) 0.26 K/uL (0-0.5); Eosinophils % (auto) 3.7 %; Hematocrit (blood only) 37.3 % (42-52); Hemoglobin 12.6 g/dL (14.0-18.0); Immature Granulocytes # (auto) 0.01 K/uL (0.00-0.02); Immature Granulocytes % (auto) 0.1 %; Lymphocytes # (auto) 2.08 K/uL (1.2-3.4); Mean Corpuscular Hemoglobin 31.5 pg (25-34); Mean Corpuscular Hgb Conc 33.8 g/dL (32-36); Mean Corpuscular Volume 93.3 fL (80-100); Mean Platelet Volume 10.3 fL (7.4-10.4); Monocytes # (auto) 0.78 K/uL (0.11-0.59); Monocytes % (auto) 11.2 %; Neutrophils # (auto) 3.79 K/uL (1.4-6.5); Neutrophils % (auto) 54.7 %; Platelet Count 269 K/uL (130-400); RDW Coefficient of Variation 13.5 % (11.5-14.5); RDW Standard Deviation 46.4 fL (36.4-46.3); White Blood Count 6.94 K/uL (4.8-10.8)
[2021-02-15 08:41] LABS: BUN Creatinine Ratio 5.9 (10-20); Calcium 8.5 mg/dl (8.5-10.1); Creatinine Clr Calc Pharmacy 108.4 ml/min; Est GFR (African American) 108.2 ml/min; Est GFR (Non-African American) 93.3 ml/min; Potassium 3.6 mmol/L (3.5-5.1)
[2021-02-15] MEDS: D5W AND 1/2NSS + 20MEQ KCL 20 MEQ/1,000 ML BAG IV SCH (09:21)
--- NOTE | 2021-02-15 10:13 | Surgery Progress Note ---
Date of Service February 15, 2021 Assessment & Plan (1) Diverticular stricture: Plan: POD#4 open sigmoidectomy, b/l TAP block -Continue fulls for now, will check on him later to see if he can be advanced for dinner -Pain control PRN -Encourage ambulation/IS -Replace K+ -WBC normalized Admission and Anticipated Discharge Date Admission Date: February 11, 2021 Subjective Pt seen and examined. Pain controlled. Tolerating full liquids. AFebrile. Passing flatus. Physical Exam Gastrointestinal (Abdomen): Soft/minimally tender to palpation, non-distended. Incision with carola without erythema or drainage BALDO drain with serosanguinous fluid present Results & Data ([facility]) Vital Signs (Past 12 Hours) Vital Signs Temp Pulse Pulse Resp BP BP Pulse Ox 02/15/21 07:52 36.8 C 78 16 158/86 H 96 02/14/21 22:35 37 C 81 18 151/79 H 94 PG Care Time/CCT Total # of Minutes Spent Total Time Spent with Patient: Total time spent is greater than 50% in coordination of care (as documented) at patient's floor/unit and/or counseling patient: Coding Level of Care Code None Diagnoses Diverticular stricture K56.699
[2021-02-15] MEDS ORDERED: POTASSIUM CHLORIDE CRTAB 20 MEQ TABCR PO ONE (10:14)
[2021-02-15] MEDS: HYDROmorphone INJ 0.5 MG/0.5 ML SYR IV PRN (20:58)
[2021-02-16] MEDS: ONDANSETRON INJ 2 MG/ML 2 ML VIAL IV PRN ×2 (04:44→19:48)
[2021-02-16] MEDS: HYDROmorphone INJ 0.5 MG/0.5 ML SYR IV PRN ×2 (07:58→19:48)
--- NOTE | 2021-02-16 09:14 | Surgery Progress Note ---
Date of Service February 16, 2021 Assessment & Plan (1) Diverticular stricture: Plan: POD#5 open sigmoidectomy diet as talita recheck later today, home when tolerating diet Admission and Anticipated Discharge Date Admission Date: February 11, 2021 Supervising Physician Co-Signing Physician Notes I personally saw and evaluated the patient with Jak Roth PA-C and agree with the assessment and plan 70 yo POD#5 open sigmoidectomy, B/L TAP block -Continue low fiber diet, he does have some dilation on his x-ray -Back down diet if he becomes nauseated -Pain control PRN -Encourage ambulation/IS -Repeat labs in AM -Heparin SQ for DVT prophylaxis Subjective some N/V last night- feels like he ate too much, better this AM Physical Exam Gastrointestinal (Abdomen): Inspection/Auscultation: abdomen not distended Percussion/Palpation: abdomen soft Results & Data ([facility]) Vital Signs (Past 12 Hours) Vital Signs Temp Pulse Pulse Resp BP Pulse Ox 02/16/21 08:34 36.9 C 83 18 143/84 H 97 02/15/21 23:56 36.8 C 88 20 159/87 H 93 PG Care Time/CCT Total # of Minutes Spent Total Time Spent with Patient: Total time spent is greater than 50% in coordination of care (as documented) at patient's floor/unit and/or counseling patient: Coding Level of Care Code None Diagnoses Diverticular stricture K56.699
--- NOTE | 2021-02-16 09:19 | XRay Report ---
XR KUB/Abdomen 1 view INDICATION: MN ^Vomiting. TECHNIQUE: 1 view of the abdomen were obtained. Comparison: None available at the time of this dictation. FINDINGS: Bilateral femoral acetabular arthroplasties noted and there are midline surgical carola. The lung ba ses are clear. The osseous structures are grossly unremarkable. Dilated bowel loops in the right uppe r quadrant, favored to represent small bowel, measuring up to 87 mm in diameter. Curved radiodensity over the left lower quadrant may be outside the patient. IMPRESSION: Dilated loops of bowel, favored to represent small bowel, concerning for obstruction versus ileus in this postsurgical patient. ACT 112: Negative or not required by law. Electronically signed by: Juancarlos Montes M.D. 02/16/2021 9:18 AM
[2021-02-16] MEDS: TIMOLOL MALEATE 0.5% OP SOLN 5 ML BTL OPR SCH (09:57)
[2021-02-16] MEDS: PANTOprazole 40 MG TAB PO SCH (09:58)
[2021-02-16] MEDS: HEPARIN SOD 5,000 UNIT/0.5 ML VIAL SQ SCH ×2 (10:00→19:51)
[2021-02-17 06:24] LABS: Basophils # (auto) 0.02 K/uL (0-0.2); Basophils % (auto) 0.2 %; Eosinophils # (auto) 0.27 K/uL (0-0.5); Eosinophils % (auto) 3.2 %; Hematocrit (blood only) 41.7 % (42-52); Hemoglobin 13.9 g/dL (14.0-18.0); Immature Granulocytes # (auto) 0.03 K/uL (0.00-0.02); Immature Granulocytes % (auto) 0.4 %; Lymphocytes # (auto) 2.02 K/uL (1.2-3.4); Mean Corpuscular Hemoglobin 31.2 pg (25-34); Mean Corpuscular Hgb Conc 33.3 g/dL (32-36); Mean Corpuscular Volume 93.7 fL (80-100); Monocytes # (auto) 1.15 K/uL (0.11-0.59); Monocytes % (auto) 13.7 %; Neutrophils # (auto) 4.92 K/uL (1.4-6.5); Neutrophils % (auto) 58.5 %; Platelet Count 346 K/uL (130-400); RDW Coefficient of Variation 13.6 % (11.5-14.5); RDW Standard Deviation 46.7 fL (36.4-46.3); Red Blood Count 4.45 M/uL (4.7-6.1); White Blood Count 8.41 K/uL (4.8-10.8)
[2021-02-17 07:03] LABS: BUN Creatinine Ratio 10.9 (10-20); Est GFR (African American) 96.6 ml/min; Est GFR (Non-African American) 83.4 ml/min; Potassium 3.6 mmol/L (3.5-5.1)
[2021-02-17] MEDS: HEPARIN SOD 5,000 UNIT/0.5 ML VIAL SQ SCH (09:39)
[2021-02-17] MEDS: PANTOprazole 40 MG TAB PO SCH (09:39)
[2021-02-17] MEDS: TIMOLOL MALEATE 0.5% OP SOLN 5 ML BTL OPR SCH (09:39)
--- NOTE | 2021-02-17 10:07 | Surgery Progress Note ---
Date of Service February 17, 2021 Assessment & Plan (1) Diverticular stricture: Plan: POD6 open sigmoidectomy, b/l TAP block -Low fiber diet -Pain control PRN -Encourage ambulation/IS -Home today with drain in place Admission and Anticipated Discharge Date Admission Date: February 11, 2021 Subjective Pt seen and examined. Feeling better. Having BM's. Abdominal pain controlled. Review of Systems Review of Systems: Additional review of systems is unremarkable Physical Exam Gastrointestinal (Abdomen): Soft/minimally tender to palpation, non-distended. Incision with carola without erythema or drainage BALDO drain with serosanguinous fluid present Results & Data ([facility]) Vital Signs (Past 12 Hours) Vital Signs Temp Pulse Pulse Resp BP Pulse Ox 02/17/21 07:47 36.6 C 98 H 16 138/79 95 02/16/21 23:00 36.6 C 91 H 20 137/83 94 PG Care Time/CCT Total # of Minutes Spent Total Time Spent with Patient: Total time spent is greater than 50% in coordination of care (as documented) at patient's floor/unit and/or counseling patient: Coding Level of Care Code None Diagnoses Diverticular stricture K56.699
--- NOTE | 2021-02-19 11:41 | Discharge Summary ---
Date of Service February 19, 2021 Principal Diagnosis Diverticular stricture Discharge Exam Constitutional WD/WN, vitals as above Gastrointestinal (Abdomen) Inspection/Auscultation: + abdominal surgical incision (clean, dry); abdomen not distended Percussion/Palpation: + abdomen not soft Discharge Data Allergies Allergy/AdvReac Type Severity Reaction Status Date / Time Cipro Allergy Unknown TINGLING Verified 03/16/17 08:06 ALL OVER ciprofloxacin Allergy Unknown TINGLING Verified 02/11/21 05:48 ALL OVER adhesive AdvReac Unknown SKIN Verified 02/11/21 05:48 SENSITIVE TO TAPE/BANDAIDS Procedures Performed Operation Date: 02/11/21 07:15 Actual Procedures p Open Left Sigmoid Colectomy, with Bilateral Tap Block by Surgeon(Right) - Evan Godfrey DO Ordered Studies 02/11/21 06:52 US - OR guided needle placemen Routine Hospital Course (1) Diverticular stricture: 70 y/o male with diverticular stricture was taken to the OR for sigmoid colectomy with primary anastomosis. He was transferred to the surgical floor. He was started on clears on POD 1. Subcutaneous heparin was initiated for DVT prophylaxis. Diet was advanced to full liquids on day 3. He did have some bloating when advanced to regular diet on 5. By day 6 he was tolerating diet and was having bowel movements. He was stable for discharge home at that time. Total Time Total Time Spent Total Time Spent (In Minutes): 15 Discharge Plan Discharge Items Patient Disposition: Home - Self-Care Reason For Visit: Diverticulitis, Colon Obstruction Discharge Diagnosis: sigmoid colon resection Activity: As commented below Lifting: No more than 10 pounds Bathing Comment: can shower with the drain, remove bandage to shower Driving/Machine Use: when pain free Non-emergency contact: Surgeon Call non-emergency contact if: you have any medication questions, your pain is not controlled, you have a fever, your temperature is above 101.5 and your wound has increased redness Follow-up/Referrals: Evan Godfrey DO [Physician] - (Office will call patient with follow up appointment) Justin Parks MD [Primary Care Provider] - Diet: Regular and Low Fiber Addtl Attending Provider Instructions: You can take Tylenol or ibuprofen as needed for pain instead of or between oxycodone Empty drain 2-3 times daily as needed, record total daily drainage Pending Studies at Discharge: No Stand-Alone Forms: My [facility] [employer], Opioid Pain Management, Smoking Cessation Medications and DC Order Prescriptions: New oxycodone 5 mg tablet 5 - 10 mg PO Q4H MDD 6 tabs Qty: 15 RF: 0 Continued cholecalciferol (vitamin D3) 5,000 unit tablet 5,000 units PO QAM RF: 0 lisinopril 10 mg tablet 10 mg PO QPM Qty: 30 RF: 0 pravastatin 40 mg tablet 40 mg PO HS RF: 0 omeprazole 40 mg capsule,delayed release(DR/EC) 40 mg PO QAM RF: 0 timolol maleate (PF) 0.5 % Dropperette 1 drp OPHTHALMIC (EYE) QAM RF: 0 Discontinued amoxicillin-pot clavulanate [Augmentin] 875-125 mg tablet 1 tab PO BID Qty: 30 RF: 0 Discharge Orders: Discharge Order (Routine); Ordered 02/17/21 Ordered By: Garcia Larson/Other Patient Handouts: DVT Post Op Prevention Admission Data Admit Date/Time: 02/11/21 10:24 Attending Provider: Evan Godfrey Admit Provider: Evan Godfrey Primary Care Provider: Justin Parks Other Interventions: Discharge Summary Assessment (RN) Last Done: 02/17/21 10:14 Coding Level of Care Code D/C DAY MANAGEMENT <30 MINS Diagnoses Diverticular stricture K56.699
== END 2021-02-17 14:53 | disposition home or self-care (01) | DRG 330 ==
LOC: ASU 05:23 → 3W 10:24

== ENCOUNTER 2021-02-25 19:46 | Inpatient (IN) ==
[2021-02-25 20:48] LABS: Basophils # (auto) 0.03 K/uL (0-0.2); Basophils % (auto) 0.2 %; Eosinophils # (auto) 0.05 K/uL (0-0.5); Eosinophils % (auto) 0.3 %; Hematocrit (blood only) 44.3 % (42-52); Hemoglobin 14.7 g/dL (14.0-18.0); Immature Granulocytes # (auto) 0.04 K/uL (0.00-0.02); Immature Granulocytes % (auto) 0.2 %; Lymphocytes # (auto) 2.58 K/uL (1.2-3.4); Lymphocytes % (auto) 14.4 %; Mean Corpuscular Hemoglobin 31.1 pg (25-34); Mean Corpuscular Hgb Conc 33.2 g/dL (32-36); Mean Corpuscular Volume 93.9 fL (80-100); Mean Platelet Volume 10.4 fL (7.4-10.4); Monocytes # (auto) 1.93 K/uL (0.11-0.59); Monocytes % (auto) 10.8 %; Neutrophils # (auto) 13.27 K/uL (1.4-6.5); Neutrophils % (auto) 74.1 %; Platelet Count 573 K/uL (130-400); RDW Coefficient of Variation 13.6 % (11.5-14.5); RDW Standard Deviation 46.7 fL (36.4-46.3); Red Blood Count 4.72 M/uL (4.7-6.1)
[2021-02-25 21:08] LABS: Alanine Aminotransferase 29 U/L (12-78); Albumin Level 3.2 gm/dl (3.4-5.0); Aspartate Aminotransferase 17 U/L (15-37); BUN Creatinine Ratio 8.2 (10-20); Blood Urea Nitrogen 7 mg/dl (7-18); Calcium 9.4 mg/dl (8.5-10.1); Carbon Dioxide 25 mmol/L (21-32); Chloride 101 mmol/L (98-107); Est GFR (African American) 100.6 ml/min; Est GFR (Non-African American) 86.8 ml/min; Glucose 131 mg/dl (70-99); INR 1.2 (0.9-1.1); Magnesium 2.5 mg/dl (1.8-2.4); Partial Thromboplastin Ratio 1.1; Partial Thromboplastin Time 27.7 Seconds (21.0-31.0); Potassium 3.9 mmol/L (3.5-5.1); Sodium 134 mmol/L (136-145)
[2021-02-25 21:13] LABS: Albumin Globulin Ratio 0.6 (0.9-2); Alkaline Phosphatase 99 U/L (45-117); Bilirubin,Total 0.5 mg/dl (0.2-1); Globulin 5.2 gm/dl (2.5-4.0); Total Protein 8.4 gm/dl (6.4-8.2); Troponin I < 0.015 ng/ml (0-0.045)
[2021-02-25] MEDS ORDERED: SODIUM CHLORIDE 0.9% 1000ML 1,000 ML IV ONE (21:13)
[2021-02-25] MEDS ORDERED: fentaNYL citrate 100 MCG/2 ML VIAL IV STA (21:13)
[2021-02-25 21:14] LABS: D Dimer 3860 ug/L FEU (0-500)
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
[2021-02-25] MEDS ORDERED: OPTIRAY 320 125ml IV ONE (21:48)
[2021-02-25] MEDS ORDERED: PIPERACILL/TAZOBAC CONSULT ACTIVE PRN (22:30)
[2021-02-25] MEDS ORDERED: PIPERACILLIN/TAZOBACTAM 4.5 GM/120 ML BAG IV ONE (22:30)
[2021-02-25] MEDS ORDERED: MoRPHine SULFATE 4 MG/ML 1 ML CARP\\VIAL IV STA (22:37)
[2021-02-25] MEDS ORDERED: ONDANSETRON INJ 2 MG/ML 2 ML VIAL IV STA (22:37)
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
[2021-02-26] MEDS ORDERED: PIPERACILL/TAZOBAC CONSULT ACTIVE PRN (02:19)
[2021-02-26] MEDS ORDERED: VANCOMYCIN CONSULT ACTIVE PRN (02:19)
[2021-02-26] MEDS ORDERED: ONDANSETRON INJ 2 MG/ML 2 ML VIAL IV PRN (02:19)
[2021-02-26] MEDS ORDERED: VANCOMYCIN HCL 2,000 MG in SODIUM CHLORIDE 0.9% 500 ML IV ONE (02:45)
[2021-02-26] MEDS: NSS + 20MEQ KCL 20 MEQ/1,000 ML BAG IV SCH ×2 (03:11→11:57)
[2021-02-26] MEDS ORDERED: oxyCODONE HCL IR 5 MG TAB (IMMEDIATE RELEASE) PO STA ×2 (05:05→12:19)
[2021-02-26] MEDS: PIPERACILLIN/TAZOBACTAM 3.375 GM in DEXTROSE 5% 100 ML IV SCH ×3 (05:33→20:20)
--- NOTE | 2021-02-26 06:57 | XRay Report ---
XR chest 1V portable CLINICAL HISTORY: Shortness of breath. COMPARISON STUDY: Chest radiograph February 01, 2021. FINDINGS: Lung volumes are diminished. There are bibasilar opacities, greater on the right. No pneumo thorax or pleural effusion is identified. No evidence for pulmonary edema. Borderline cardiomegaly. IMPRESSION: Low lung volumes with bibasilar opacities, greater on the right. ACT 112: Negative or not required by law. Electronically signed by: Celio Amezquita M.D. 02/26/2021 6:55 AM
[2021-02-26] MEDS: ALBUT/IPRATROP 3MG/0.5MG NEB 3 ML VIAL NEB SCH ×4 (07:12→19:17)
[2021-02-26 07:49] LABS: Basophils # (auto) 0.02 K/uL (0-0.2); Basophils % (auto) 0.1 %; Eosinophils # (auto) 0.07 K/uL (0-0.5); Eosinophils % (auto) 0.4 %; Hematocrit (blood only) 37.7 % (42-52); Hemoglobin 12.5 g/dL (14.0-18.0); Immature Granulocytes # (auto) 0.03 K/uL (0.00-0.02); Immature Granulocytes % (auto) 0.2 %; Lymphocytes # (auto) 1.61 K/uL (1.2-3.4); Lymphocytes % (auto) 10.3 %; Mean Corpuscular Hemoglobin 30.9 pg (25-34); Mean Corpuscular Hgb Conc 33.2 g/dL (32-36); Mean Corpuscular Volume 93.1 fL (80-100); Mean Platelet Volume 9.9 fL (7.4-10.4); Monocytes # (auto) 1.98 K/uL (0.11-0.59); Monocytes % (auto) 12.7 %; Neutrophils % (auto) 76.3 %; Platelet Count 441 K/uL (130-400); RDW Coefficient of Variation 13.7 % (11.5-14.5); Red Blood Count 4.05 M/uL (4.7-6.1); White Blood Count 15.61 K/uL (4.8-10.8)
--- NOTE | 2021-02-26 07:50 | CT Scan Report ---
CT ANGIOGRAPHY OF THE CHEST, PULMONARY EMBOLUS PROTOCOL CLINICAL HISTORY: PE, flank pain, recent surgery COMPARISON STUDY: Chest CT February 01, 2021. TECHNIQUE: Following IV administration of 119 mL of Optiray, helical axial images of the chest were o btained utilizing the pulmonary embolus protocol. Maximal intensity projections and sagittal and cor onal reformats were viewed on an independent 3D workstation. IV contrast was administered without co mplication. Automated exposure control was utilized for the study. A dose lowering technique was ut ilized adhering to the principles of ALARA. FINDINGS: Note is made of a segmental pulmonary embolus within the posterior basal segment of the ri ght lower lobe shown on axial image 98 of 241. There is associated right lower lobe groundglass opaci ty which reflects a pulmonary infarct. There is a small right pleural effusion. Adjacent right lower lobe airspace opacity is present. There are possible subsegmental left lower lobe pulmonary emboli sage boptimally assessed due to respiratory motion. No thoracic aortic dissection is noted. A few prominen t right hilar lymph nodes are noted. These are probably benign. There is no pericardial effusion. The re is no pneumothorax. Abdomen and pelvis will be reported separately. IMPRESSION: Segmental pulmonary embolus within the right lower lobe with associated pulmonary infarc t and a small right pleural effusion. Possible subsegmental left lower lobe pulmonary emboli. Finding s discussed with Dr. Pablo at time of dictation. ACT 112: Negative or not required by law. Electronically signed by: Celio Amezquita M.D. 02/26/2021 7:49 AM
[2021-02-26] MEDS: guaiFENesin 600 MG TABCR PO SCH ×2 (07:57→20:20)
[2021-02-26] MEDS: TIMOLOL MALEATE 0.5% OP SOLN 5 ML BTL OP SCH (07:57)
[2021-02-26] MEDS ORDERED: Heparin IV Adult Wt-Based Standard *NO* Bolus Protocol IV ONE (07:58)
[2021-02-26] MEDS ORDERED: ENOXAPARIN INJ 40 MG/0.4 ML SYR SQ SCH (08:00)
[2021-02-26 08:23] LABS: Albumin Level 2.5 gm/dl (3.4-5.0); BUN Creatinine Ratio 9.1 (10-20); Calcium 8.5 mg/dl (8.5-10.1); Creatinine Clr Calc Pharmacy 96.2 ml/min; Est GFR (Non-African American) 92.3 ml/min; Magnesium 2.1 mg/dl (1.8-2.4)
--- NOTE | 2021-02-26 08:26 | CT Scan Report ---
CT OF THE ABDOMEN AND PELVIS WITH CONTRAST CLINICAL HISTORY: R lower back and abd pain. Recent surgery. COMPARISON STUDY: CT of the abdomen and pelvis January 13, 2021. TECHNIQUE: Following IV administration of 119 mL of Optiray, axial images of the abdomen and pelvis w ere obtained from the lung bases to the proximal femurs. Images were reviewed in the axial, sagittal, and coronal planes. IV contrast was administered without complication. Automated exposure control w as utilized for the study. A dose lowering technique was utilized adhering to the principles of ALAR Miguel. CT DOSE: 1830.62 mGy.cm FINDINGS: A right lower lobe segmental pulmonary embolus with associated pulmonary infarct is better depicted on the chest CT which will be reported separately. There is a small right pleural effusion. There is adjacent right lower lobe airspace opacity. Hepatic steatosis is noted. No hepatic lesions a re present. Gallbladder is mildly distended. No pericholecystic or peripancreatic infiltration. The s pleen, adrenal glands, kidneys and pancreas are unremarkable. Postoperative findings consistent with recent sigmoid resection are noted. Mild stranding within the operative bed is likely postsurgical. T here is no bowel obstruction. There is no fluid collection. Trace gas within the subcutaneous tissues at the site of laparotomy is postsurgical. Bilateral hip arthroplasties are noted. There is no lymph adenopathy. Major vasculature is patent. IMPRESSION: 1. Status post sigmoid resection. Mild stranding within the operative bed is within normal limits in the early postoperative setting. No bowel obstruction. No abscess. 2. Right lower lobe segmental pulmonary embolus with an associated pulmonary infarct better depicted on the chest CT which will be reported separately. 3. Gallbladder distention. No adjacent infiltration. ACT 112: Negative or not required by law. Electronically signed by: Celio Amezquita M.D. 02/26/2021 8:25 AM
[2021-02-26 08:29] LABS: Albumin Globulin Ratio 0.6 (0.9-2); Bilirubin,Total 0.6 mg/dl (0.2-1); Globulin 4.3 gm/dl (2.5-4.0); Total Protein 6.8 gm/dl (6.4-8.2)
[2021-02-26 08:59] LABS: INR 1.2 (0.9-1.1); Partial Thromboplastin Ratio 1.1; Partial Thromboplastin Time 29.9 Seconds (21.0-31.0); Prothrombin Time 12.2 Seconds (9.0-12.0)
--- NOTE | 2021-02-26 09:02 | Electrocardiogram Report ---
Test Reason : Blood Pressure : / mmHG Vent. Rate : 114 BPM Atrial Rate : 114 BPM P-R Int : 172 ms QRS Dur : 074 ms QT Int : 318 ms P-R-T Axes : 045 028 036 degrees QTc Int : 438 ms Sinus tachycardia Otherwise normal ECG When compared with ECG of 11-JAN-2021 21:07, Vent. rate has increased BY 44 BPM Confirmed by Cleve Guerra ([id number]) on 02/26/2021 9:01:57 AM Referred By: REFERRED SELF Confirmed By:Cleve Guerra
[2021-02-26] MEDS: HEPARIN SODIUM/DEXTROSE 25,000 UNITS/500 ML BAG IV SCH (09:07)
[2021-02-26 15:26] LABS: Partial Thromboplastin Ratio 1.6
[2021-02-26] MEDS: traMADol HCL 50 MG TABLET PO PRN (20:35)
--- NOTE | 2021-02-26 20:41 | Hospitalist Progress Note ---
Date of Service February 26, 2021 Assessment & Plan (1) RLL pneumonia: Plan: Possible Hospital associated- On admission: placed on vancomycin IV and Zosyn IV per pharmacokinetic monitoring will stop vanco as MRSA swab is negative. Had phone call with radiologist: CT scan is showing elvidece of pulmonary infarction As patient remained afebrile and procal is negative. will hold zosyn and monitor for 24 hours. ordered heparin drip and oxycodone/tramadol for pain. Duonebs every 4 hours while awake and every 2 hours when necessary. (2) S/P colectomy: Plan: Status post colectomy, with normal postop imaging, no suggestion of abscess or other infection (3) Obstructive sleep apnea: Plan: CPAP at bedtime as needed (4) Hypertension: Plan: Hold lisinopril while n.p.o. (5) Hypercholesterolemia: Plan: Hold pravastatin while n.p.o. (6) Enlarged prostate without lower urinary tract symptoms (luts): Plan: On no specific treatment. Monitor for urinary retention while on IV fluids (7) Diabetes: Plan: Hold Metformin Placed on Accu-Cheks before meals and at bedtime with NovoLog coverage per scale Admission and Anticipated Discharge Date Admission Date: February 25, 2021 Subjective Patient reports that he continues to have pain on his chest Review of Systems Review of Systems: All systems reviewed & are unremarkable except as noted in HPI & below Physical Exam Physical Exam: The patient is lethargic and unresponsive, appears mildly diaphoretic, normocephalic and atraumatic, lying in bed and in no acute distress. HEENT--PERRL, EOMI, mucous membranes and oropharynx dry. Neck--supple. No JVD. No bruits. Thyroid normal, trachea midline, no adenopathy. Heart--normal S1 and S2. No murmurs, rubs or gallops. Lungs--decreased breath sounds at bases bilaterally. No respiratory distress, no accessory muscle use. Abdomen--normal bowel sounds and soft. Nontender. Nondistended, no hernias or masses, no organomegaly. Extremities--no cyanosis or clubbing. No edema. Dermatologic--normal skin turgor, normal color, no abnormal lymph nodes, no rash. Neurologic--cranial nerves II through XII grossly intact. Rheumatologic--limited exam Psychiatric--lethargic and unresponsive Results & Data Results & Data ([facility]) Vital Signs (Past 12 Hours) Vital Signs Temp Pulse Pulse Resp BP BP Pulse Ox 02/26/21 19:18 100 H 16 93 02/26/21 19:11 37.3 C 103 H 18 147/73 H 94 02/26/21 16:19 36.8 C 75 18 135/63 96 02/26/21 16:12 85 02/26/21 15:43 91 H 16 93 02/26/21 12:08 36.7 C 82 18 133/74 93 02/26/21 11:21 80 16 92 PG Care Time/CCT Total # of Minutes Spent Total Time Spent with Patient: Total time spent is greater than 50% in coordination of care (as documented) at patient's floor/unit and/or counseling patient: Coding Level of Care Code 93422 Subseq Hosp Care Lvl 2 Diagnoses RLL pneumonia J18.9 Pneumonia type: due to unspecified organism S/P colectomy Z90.49 Obstructive sleep apnea G47.33 Hypertension I10 Hypercholesterolemia E78.00 Enlarged prostate without lower urinary tract symptoms (luts) N40.0 Diabetes E11.9 Time Spent (min) 25 (1) RLL pneumonia Pneumonia type: due to unspecified organism Qualified Code(s): J18.9 - Pneumonia, unspecified organism
[2021-02-26 22:18] LABS: Partial Thromboplastin Ratio 1.5; Partial Thromboplastin Time 40.2 Seconds (21.0-31.0)
[2021-02-27] MEDS: HEPARIN SODIUM/DEXTROSE 25,000 UNITS/500 ML BAG IV SCH ×4 (01:42→17:21)
[2021-02-27 06:36] LABS: Basophils # (auto) 0.03 K/uL (0-0.2); Basophils % (auto) 0.2 %; Eosinophils # (auto) 0.25 K/uL (0-0.5); Eosinophils % (auto) 2.1 %; Hematocrit (blood only) 36.7 % (42-52); Hemoglobin 11.8 g/dL (14.0-18.0); Immature Granulocytes # (auto) 0.04 K/uL (0.00-0.02); Immature Granulocytes % (auto) 0.3 %; Lymphocytes # (auto) 2.27 K/uL (1.2-3.4); Lymphocytes % (auto) 18.8 %; Mean Corpuscular Hemoglobin 30.8 pg (25-34); Mean Corpuscular Hgb Conc 32.2 g/dL (32-36); Mean Corpuscular Volume 95.8 fL (80-100); Mean Platelet Volume 10.4 fL (7.4-10.4); Monocytes # (auto) 1.61 K/uL (0.11-0.59); Monocytes % (auto) 13.3 %; Neutrophils # (auto) 7.88 K/uL (1.4-6.5); Neutrophils % (auto) 65.3 %; Platelet Count 467 K/uL (130-400); RDW Coefficient of Variation 13.8 % (11.5-14.5); RDW Standard Deviation 47.8 fL (36.4-46.3); Red Blood Count 3.83 M/uL (4.7-6.1); White Blood Count 12.08 K/uL (4.8-10.8)
[2021-02-27] MEDS: traMADol HCL 50 MG TABLET PO PRN ×3 (06:48→19:39)
[2021-02-27 06:53] LABS: Partial Thromboplastin Ratio 1.6; Partial Thromboplastin Time 41.9 Seconds (21.0-31.0)
[2021-02-27 07:16] LABS: Albumin Level 2.3 gm/dl (3.4-5.0); BUN Creatinine Ratio 11.1 (10-20); Calcium 8.6 mg/dl (8.5-10.1); Creatinine Clr Calc Pharmacy 103.1 ml/min; Est GFR (Non-African American) 94.9 ml/min; Magnesium 2.2 mg/dl (1.8-2.4); Potassium 3.6 mmol/L (3.5-5.1)
[2021-02-27 07:18] LABS: Albumin Globulin Ratio 0.5 (0.9-2); Bilirubin,Total 0.5 mg/dl (0.2-1); Globulin 4.4 gm/dl (2.5-4.0); Total Protein 6.7 gm/dl (6.4-8.2)
[2021-02-27] MEDS: ALBUT/IPRATROP 3MG/0.5MG NEB 3 ML VIAL NEB SCH ×2 (07:21→10:51)
[2021-02-27] MEDS: TIMOLOL MALEATE 0.5% OP SOLN 5 ML BTL OP SCH (08:40)
[2021-02-27] MEDS: guaiFENesin 600 MG TABCR PO SCH ×2 (08:40→20:20)
[2021-02-27] MEDS ORDERED: ALBUT/IPRATROP 3MG/0.5MG NEB 3 ML VIAL NEB PRN (11:24)
[2021-02-27] MEDS ORDERED: DOCUSATE SODIUM/SENNA 50/8.6MG TAB PO SCH (12:00)
[2021-02-27] MEDS: POLYETHYLENE (MIRALAX) 17 GM PACK PO SCH ×2 (13:23→19:37)
[2021-02-27 15:11] LABS: Partial Thromboplastin Ratio 1.6; Partial Thromboplastin Time 43.3 Seconds (21.0-31.0)
--- NOTE | 2021-02-27 20:07 | Hospitalist Progress Note ---
Date of Service February 27, 2021 Assessment & Plan (1) Pulmonary infarct: Plan: Patient found to have an acute pulmonary infarct secondary to pulmonary emboli in the RLL. Continue heparin drip. (2) Pulmonary emboli: Plan: Heparin drip as above. (3) RLL pneumonia: Plan: This appears to have been ruled out. Initally concern over above diagnosis:Possible Hospital associated- On admission: placed on vancomycin IV and Zosyn IV per pharmacokinetic monitoring will stop vanco as MRSA swab is negative. Had phone call with radiologist: CT scan is showing elvidece of pulmonary infarction As patient remained afebrile and procal is negative. will hold zosyn and monitor for 24 hours. ordered heparin drip and oxycodone/tramadol for pain. Duonebs every 4 hours while awake and every 2 hours when necessary. (4) S/P colectomy: Plan: Status post colectomy, with normal postop imaging, no suggestion of abscess or other infection No BM yet. Will discuss with Gen surgery. Increased miralax (5) Obstructive sleep apnea: Plan: CPAP at bedtime as needed (6) Hypertension: Plan: Hold lisinopril while n.p.o. (7) Hypercholesterolemia: Plan: Hold pravastatin while n.p.o. (8) Enlarged prostate without lower urinary tract symptoms (luts): Plan: On no specific treatment. Monitor for urinary retention while on IV fluids (9) Diabetes: Plan: Hold Metformin Placed on Accu-Cheks before meals and at bedtime with NovoLog coverage per scale Admission and Anticipated Discharge Date Admission Date: February 25, 2021 Subjective Patient reports he is feeling better. His pain is better controlled, however he has not had a BM. Review of Systems Review of Systems: All systems reviewed & are unremarkable except as noted in HPI & below Physical Exam Physical Exam: The patient is awake, sitting up and in no distress, normocephalic and atraumatic, lying in bed and in no acute distress. HEENT--PERRL, EOMI Neck--supple. No JVD. No bruits. Thyroid normal, trachea midline, no adenopathy. Heart--normal S1 and S2. No murmurs, rubs or gallops. Lungs--decreased breath sounds at bases bilaterally. No respiratory distress, no accessory muscle use. Abdomen--normal bowel sounds and soft. Nontender. Nondistended, no hernias or masses, no organomegaly. Extremities--no cyanosis or clubbing. No edema. Dermatologic--normal skin turgor, normal color, no abnormal lymph nodes, no rash. Neurologic--cranial nerves II through XII grossly intact. Results & Data Results & Data ([facility]) Vital Signs (Past 12 Hours) Vital Signs Temp Pulse Pulse Resp BP Pulse Ox Pulse Ox 02/27/21 19:59 94 02/27/21 19:00 36.5 C 81 20 128/79 94 02/27/21 16:01 36.8 C 87 22 123/71 94 02/27/21 15:00 81 02/27/21 11:52 36.5 C 778 H 20 132/75 96 02/27/21 10:52 79 16 98 02/27/21 09:00 90 PG Care Time/CCT Total # of Minutes Spent Total Time Spent with Patient: Total time spent is greater than 50% in coordination of care (as documented) at patient's floor/unit and/or counseling patient: Coding Level of Care Code 13553 Subseq Hosp Care Lvl 2 Diagnoses RLL pneumonia J18.9 Pneumonia type: due to unspecified organism S/P colectomy Z90.49 Obstructive sleep apnea G47.33 Hypertension I10 Hypercholesterolemia E78.00 Enlarged prostate without lower urinary tract symptoms (luts) N40.0 Diabetes E11.9 Pulmonary infarct I26.99 Pulmonary emboli I26.99 Time Spent (min) 25 (1) RLL pneumonia Pneumonia type: due to unspecified organism Qualified Code(s): J18.9 - Pneumonia, unspecified organism
[2021-02-27 23:20] LABS: Partial Thromboplastin Ratio 1.7; Partial Thromboplastin Time 44.9 Seconds (21.0-31.0)
[2021-02-28] MEDS: traMADol HCL 50 MG TABLET PO PRN ×2 (04:02→21:18)
[2021-02-28 06:16] LABS: Basophils # (auto) 0.03 K/uL (0-0.2); Basophils % (auto) 0.3 %; Eosinophils # (auto) 0.22 K/uL (0-0.5); Eosinophils % (auto) 2.3 %; Hematocrit (blood only) 35.5 % (42-52); Hemoglobin 11.9 g/dL (14.0-18.0); Immature Granulocytes # (auto) 0.01 K/uL (0.00-0.02); Immature Granulocytes % (auto) 0.1 %; Lymphocytes # (auto) 1.87 K/uL (1.2-3.4); Lymphocytes % (auto) 19.3 %; Mean Corpuscular Hemoglobin 30.9 pg (25-34); Mean Corpuscular Hgb Conc 33.5 g/dL (32-36); Mean Corpuscular Volume 92.2 fL (80-100); Mean Platelet Volume 9.8 fL (7.4-10.4); Monocytes # (auto) 1.17 K/uL (0.11-0.59); Monocytes % (auto) 12.1 %; Neutrophils # (auto) 6.37 K/uL (1.4-6.5); Neutrophils % (auto) 65.9 %; Platelet Count 472 K/uL (130-400); RDW Coefficient of Variation 13.7 % (11.5-14.5); RDW Standard Deviation 46.5 fL (36.4-46.3); Red Blood Count 3.85 M/uL (4.7-6.1); White Blood Count 9.67 K/uL (4.8-10.8)
[2021-02-28] MEDS: HEPARIN SODIUM/DEXTROSE 25,000 UNITS/500 ML BAG IV SCH ×2 (06:29→20:54)
[2021-02-28 06:47] LABS: Albumin Level 2.4 gm/dl (3.4-5.0); BUN Creatinine Ratio 12.8 (10-20); Calcium 8.8 mg/dl (8.5-10.1); Creatinine Clr Calc Pharmacy 101.6 ml/min; Est GFR (African American) 109.4 ml/min; Est GFR (Non-African American) 94.4 ml/min; Magnesium 2.1 mg/dl (1.8-2.4); Potassium 3.7 mmol/L (3.5-5.1)
[2021-02-28 06:49] LABS: Albumin Globulin Ratio 0.5 (0.9-2); Bilirubin,Total 0.4 mg/dl (0.2-1); Globulin 4.5 gm/dl (2.5-4.0); Total Protein 6.9 gm/dl (6.4-8.2)
[2021-02-28 06:56] LABS: Partial Thromboplastin Ratio 1.8
[2021-02-28 07:04] LABS: Partial Thromboplastin Time 47.9 Seconds (21.0-31.0)
[2021-02-28] MEDS: guaiFENesin 600 MG TABCR PO SCH ×2 (08:11→20:05)
[2021-02-28] MEDS: TIMOLOL MALEATE 0.5% OP SOLN 5 ML BTL OP SCH (08:11)
[2021-02-28] MEDS: POLYETHYLENE (MIRALAX) 17 GM PACK PO SCH ×2 (08:11→20:05)
--- NOTE | 2021-02-28 14:37 | XRay Report ---
KUB CLINICAL HISTORY: History of colon resection. Lack of bowel movement. FINDINGS: 2 AP supine abdominal radiographs are compared to study dated 02/16/2021 and correlated with abdominal CT dated 02/25/2021. There is a nonobstructed abdominal bowel gas pattern. No evidence of i ntraperitoneal free air is seen on these supine views. Mild fecal retention is noted in the colon. Th ere are no abnormal abdominal calcifications. Suture material is noted in the upper pelvis. The skele gaurang structures are osteopenic and appear intact. There is lumbosacral spondylosis. Bilateral hip arth roplasties are in place. IMPRESSION: Nonobstructed bowel gas pattern. Electronically signed by: Wolf Ortega M.D. 02/28/2021 2:35 PM
--- NOTE | 2021-02-28 16:53 | Hospitalist Progress Note ---
Date of Service February 28, 2021 Assessment & Plan (1) Pulmonary infarct: Plan: Patient found to have an acute pulmonary infarct secondary to pulmonary emboli in the RLL. Continue heparin drip. Labs likely reactive to infarct. Patient has been off antibitocis for over 48 hours. will likely require DOAC. Updated . (2) Pulmonary emboli: Plan: Heparin drip as above. (3) RLL pneumonia: Plan: This appears to have been ruled out. Initally concern over above diagnosis:Possible Hospital associated- On admission: placed on vancomycin IV and Zosyn IV per pharmacokinetic monitoring will stop vanco as MRSA swab is negative. Had phone call with radiologist: CT scan is showing elvidece of pulmonary infarction As patient remained afebrile and procal is negative. held zosyn and monitor ordered heparin drip andtramadol for pain. Duonebs every 4 hours while awake and every 2 hours when necessary. (4) S/P colectomy: Plan: Status post colectomy, with normal postop imaging, no suggestion of abscess or other infection No BM yet. Passing gas, tolerating Miralax BID. KUB shows non obstructive pattern. recommend discussiing with [facility] surgery on Monday for any recommendations at discharge. . Increased miralax (5) Obstructive sleep apnea: Plan: CPAP at bedtime as needed (6) Hypertension: Plan: holding lisinopril. BP at goal. (7) Hypercholesterolemia: Plan: resumed pravastatin. (8) Enlarged prostate without lower urinary tract symptoms (luts): Plan: On no specific treatment. Monitor for urinary retention. (9) Diabetes: Plan: Hold Metformin Placed on Accu-Cheks before meals and at bedtime with NovoLog coverage per scale Dispo Needs to have BM prior to discharge. Transition to DOAC. Admission and Anticipated Discharge Date Admission Date: February 25, 2021 Subjective Patient reports that he is passing gas. He does not have significant pain at the moment. He reports that he did take a tramadol earlier this morning. He reports that he tried to have a BM but was unssuccessful. Review of Systems Review of Systems: All systems reviewed & are unremarkable except as noted in HPI & below Physical Exam Physical Exam: The patient is awake, sitting up and in no distress, normocephalic and atraumatic, lying in bed and in no acute distress. HEENT--PERRL, EOMI Neck--supple. No JVD. No bruits. Thyroid normal, trachea midline, no adenopathy. Heart--normal S1 and S2. No murmurs, rubs or gallops. Lungs--decreased breath sounds at bases bilaterally. No respiratory distress, no accessory muscle use. Abdomen--normal bowel sounds and soft. Nontender. Nondistended, no hernias or masses, no organomegaly. Extremities--no cyanosis or clubbing. No edema. Dermatologic--normal skin turgor, normal color, no abnormal lymph nodes, no rash. Neurologic--cranial nerves II through XII grossly intact. Results & Data Results & Data ([facility]) Vital Signs (Past 12 Hours) Vital Signs Temp Pulse Pulse Resp BP Pulse Ox 02/28/21 11:00 37.1 C 69 20 128/59 L 97 02/28/21 08:00 79 02/28/21 06:54 36.8 C 75 18 125/85 94 PG Care Time/CCT Total # of Minutes Spent Total Time Spent with Patient: Total time spent is greater than 50% in coordination of care (as documented) at patient's floor/unit and/or counseling patient: Coding Level of Care Code 98116 Subseq Hosp Care Lvl 3 Diagnoses Pulmonary infarct I26.99 Pulmonary emboli I26.99 RLL pneumonia J18.9 Pneumonia type: due to unspecified organism S/P colectomy Z90.49 Obstructive sleep apnea G47.33 Hypertension I10 Hypercholesterolemia E78.00 Enlarged prostate without lower urinary tract symptoms (luts) N40.0 Diabetes E11.9 Time Spent (min) 35 (1) RLL pneumonia Pneumonia type: due to unspecified organism Qualified Code(s): J18.9 - Pneumonia, unspecified organism
[2021-02-28] MEDS ORDERED: ACETAMINOPHEN 325 MG TAB PO PRN (18:12)
[2021-03-01] MEDS: traMADol HCL 50 MG TABLET PO PRN ×2 (02:46→20:29)
[2021-03-01 06:12] LABS: Partial Thromboplastin Ratio 2.1
[2021-03-01] MEDS: POLYETHYLENE (MIRALAX) 17 GM PACK PO SCH ×2 (08:10→20:25)
[2021-03-01] MEDS: guaiFENesin 600 MG TABCR PO SCH ×2 (08:10→20:25)
[2021-03-01] MEDS: TIMOLOL MALEATE 0.5% OP SOLN 5 ML BTL OP SCH (08:10)
[2021-03-01] MEDS: RIVAROXABAN 15 MG TAB PO SCH ×2 (10:06→16:58)
[2021-03-01] MEDS: HEPARIN SODIUM/DEXTROSE 25,000 UNITS/500 ML BAG IV SCH (10:35)
--- NOTE | 2021-03-01 18:20 | Hospitalist Progress Note ---
Date of Service March 01, 2021 Assessment & Plan (1) Pulmonary infarct: Plan: Vincenzo is a 70-year-old male with a past medical history of TBI/poor memory, hypertension, enlarged prostate, and essential tremor who presented with fatigue/shortness of breath and who was found to have a pulmonary embolism with infarct during admission. CTA: Segmental pulmonary embolus within the right lower lobe with associated pulmonary infarct and a small right pleural effusion. Possible subsegmental left lower lobe pulmonary emboli. Patient initially treated with heparin GTT Transition to rivaroxaban 15 mg p.o. twice daily x21 days, then decrease to 10 mg daily Case discussed with , updated via phone Patient is at increased risk for bleeding and fall risk due to his history of tremor and some balance difficulty PT/OT consulted, Suspect patient would benefit from some balance therapy at minimum given his history of balance difficulties and TBI (2) Pulmonary emboli: Plan: No hemodynamic instability Heparin GTT transition to DOAC as above (3) RLL pneumonia: Plan: Initial concern for infection and was placed on Vanco/Zosyn Cordero stopped when MRSA swab negative CT scan consistent with pulmonary infarction, not infection. Antibiotics discontinued Patient remains afebrile with negative pro-Tamir No antibiotics indicated at this time (4) S/P colectomy: Plan: -Status post colectomy, with normal postop imaging, no suggestion of abscess or other infection Patient with large bowel movement today KUB during mission showed nonobstructive pattern Continue MiraLAX daily May consider discussing recommendations for general surgery if ileus/consti pation occurs, although patient doing well at this time (5) Obstructive sleep apnea: Plan: CPAP at bedtime as needed (6) Hypertension: Plan: BP at goal Lisinopril held, creatinine normal May resume tomorrow (7) Hypercholesterolemia: Plan: resumed pravastatin. (8) Enlarged prostate without lower urinary tract symptoms (luts): Plan: On no specific treatment. Monitor for urinary retention. (9) Diabetes: Plan: -Hold Metformin -Placed on Accu-Cheks before meals and at bedtime with NovoLog coverage per scale Admission and Anticipated Discharge Date Admission Date: February 25, 2021 Subjective Area seen at the bedside this morning. He reports he feels improved from prior, has some fatigue but overall is doing well and is breathing comfortably on room air. He denies shortness of breath while sitting in bed, has not been up and ambulating much at time of morning visit. Denies any bleeding, no bloody/black bowel movements.Was previously constipated, had a large bowel movement today.No cough this morning, denies fever/chills/sweats. Discussed his case, also updated his via telephone. Patient feels slightly weaker than normal overall due to fatigue, without focal weakness. Has not yet seen PT/OT Review of Systems Review of Systems: Constitutional: Denies fever, chills, endorses fatigue Eyes: Denies vision change ENT: Denies ear pain, sore throat, sinus pain Cardiovascular: Denies Chest pain, chest pressure, palpitations, extremity swelling Respiratory: Denies shortness of breath, cough, sputum production, difficulty breathing at time of assessment Gastrointestinal: Denies abdominal pain, nausea, vomiting, constipation, diarrhea Genitourinary: Denies dysuria, urinary frequency Musculoskeletal: Denies acute focal weakness, muscle aches/pain, joint aches/pain Integumentary:Denies acute rash, lesions, bruising Neurological: Denies headache, numbness, tingling, focal weakness Physical Exam Physical Exam: General: A&Ox3. NAD. Cooperative. HEENT: Atraumatic, normocephalic.Visual acuity and hearing grossly intact Pulm: CTAB A&P. -wheezes, -rales, -rhonchi. Symmetrical chest rise. No increase work of breathing. No respiratory distress. Cardiac: RRR, -mrg. Radial pulses intact and symmetrical. Abdominal: Nontender, nondistended, soft. BS present. 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, hip flexion intact against gravity while sitting Results & Data Results & Data ([place]) Vital Signs (Past 12 Hours) Vital Signs Temp Pulse Pulse Resp BP Pulse Ox 03/01/21 17:00 87 03/01/21 15:57 37.0 C 82 18 124/74 94 03/01/21 10:28 36.5 C 86 17 116/68 95 03/01/21 08:00 77 03/01/21 07:30 36.6 C 87 18 130/80 94 PG Care Time/CCT Total # of Minutes Spent Total Time Spent with Patient: Total time spent is greater than 50% in coordination of care (as documented) at patient's floor/unit and/or counseling patient: Coding Level of Care Code 61025 Subseq Hosp Care Lvl 3 Diagnoses Pulmonary infarct I26.99 Pulmonary emboli I26.99 RLL pneumonia J18.9 Pneumonia type: due to unspecified organism S/P colectomy Z90.49 Obstructive sleep apnea G47.33 Hypertension I10 Hypercholesterolemia E78.00 Enlarged prostate without lower urinary tract symptoms (luts) N40.0 Diabetes E11.9 (1) RLL pneumonia Pneumonia type: due to unspecified organism Qualified Code(s): J18.9 - Pneumonia, unspecified organism
[2021-03-02 07:00] LABS: Basophils # (auto) 0.03 K/uL (0-0.2); Basophils % (auto) 0.4 %; Eosinophils % (auto) 3.7 %; Hematocrit (blood only) 37.1 % (42-52); Hemoglobin 12.5 g/dL (14.0-18.0); Immature Granulocytes # (auto) 0.02 K/uL (0.00-0.02); Immature Granulocytes % (auto) 0.2 %; Lymphocytes # (auto) 2.07 K/uL (1.2-3.4); Lymphocytes % (auto) 25.4 %; Mean Corpuscular Hemoglobin 30.9 pg (25-34); Mean Corpuscular Hgb Conc 33.7 g/dL (32-36); Mean Corpuscular Volume 91.6 fL (80-100); Mean Platelet Volume 9.8 fL (7.4-10.4); Monocytes # (auto) 1.25 K/uL (0.11-0.59); Monocytes % (auto) 15.4 %; Neutrophils # (auto) 4.47 K/uL (1.4-6.5); Neutrophils % (auto) 54.9 %; Platelet Count 543 K/uL (130-400); RDW Coefficient of Variation 13.4 % (11.5-14.5); RDW Standard Deviation 44.8 fL (36.4-46.3); Red Blood Count 4.05 M/uL (4.7-6.1); White Blood Count 8.14 K/uL (4.8-10.8)
[2021-03-02] MEDS: RIVAROXABAN 15 MG TAB PO SCH (08:44)
[2021-03-02] MEDS: TIMOLOL MALEATE 0.5% OP SOLN 5 ML BTL OP SCH (08:44)
[2021-03-02] MEDS: guaiFENesin 600 MG TABCR PO SCH (08:44)
[2021-03-02] MEDS: POLYETHYLENE (MIRALAX) 17 GM PACK PO SCH (08:44)
[2021-03-02 11:54] VITALS: BP 114/71; TEMP 98.4; O2SAT 99
[2021-03-02 12:05] VITALS: PULSE 85
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
== END 2021-03-02 12:25 | disposition home or self-care (01) | DRG 176 ==
LOC: ED 19:46 → SUATTDRO 23:14 → 2S 23:14
DX: G31.84 Mild cognitive impairment of uncertain or unknown etiology; N40.0 Benign prostatic hyperplasia without lower urinary tract symptoms; Z98.890 Other specified postprocedural states; J90 Pleural effusion, not elsewhere classified; Z83.3 Family history of diabetes mellitus; X58.XXXS Exposure to other specified factors, sequela; S06.9X9S Unspecified intracranial injury with loss of consciousness of unspecified duration, sequela; E11.9 Type 2 diabetes mellitus without complications; I10 Essential (primary) hypertension; I26.93 Single subsegmental thrombotic pulmonary embolism without acute cor pulmonale; G47.33 Obstructive sleep apnea (adult) (pediatric); Z79.84 Long term (current) use of oral hypoglycemic drugs; E78.00 Pure hypercholesterolemia, unspecified; Z88.1 Allergy status to other antibiotic agents

== ENCOUNTER 2023-02-09 12:22 | Observation (INO) ==
[2023-02-09] MEDS ORDERED: fentaNYL citrate PF 100 MCG/2 ML VIAL IV STA ×2 (12:55→16:20)
--- NOTE | 2023-02-09 13:00 | Emergency Department Note ---
Impression & Plan Accidental fall from ladder, Closed C7 fracture, Back pain ED Provider Note HISTORY OF PRESENT ILLNESS: Patient is a 72-year-old male presenting with diffuse back pain and abdominal pain after a fall. Patient reports he was on a ladder when he lost his footing and accidentally kicked a ladder out from under him. He fell 5 feet in the air onto the ground, landing flat on his back. He is unsure if he lost consciousness or not. He is not on any anticoagulation. He reports that he fell 2 days ago and has had progressively worsening pain in his abdomen and his diffuse back. Denies any numbness or tingling down his extremities. He reports diffuse abdominal pain and he reportedly has not had a bowel movement in the last 3 days since the fall. ROS: as above PHYSICAL EXAM: Constitutional: Patient appears in no acute distress. HENT: Head: Normocephalic and atraumatic. Eyes: EOMI, PERRL Mouth/Throat: Mucous membranes moist. Neck: Trachea midline. Neck supple. Lower cervical spine tenderness to palpation Cardiovascular: RRR, No murmurs, rubs or gallops. Intact distal pulses. Pulmonary/Chest: No respiratory distress. Breath sounds clear and equal bilaterally. No wheezes or rales. Left side of chest is tender to palpation. No obvious ecchymosis. Abdominal: Abdomen soft, no rebound or guarding. Generalized tenderness to palpation. No obvious ecchymosis to the abdomen Back: Diffuse midline tenderness to palpation. No step-offs or deformities Musculoskeletal: No edema, tenderness or deformity noted. Skin: Warm and dry. No rash, erythema, pallor or cyanosis Psychiatric: Appropriate mood and affect for situation. Neurological: Alert and keenly responsive. CN II-XII grossly intact, moving all extremities equally and fully. MDM: - Vitals signs stable. - History obtained via patient. Patient presents with diffuse back pain and abdominal pain after fall. Patient reports he was on a ladder about 5 feet off the ground 2 days ago when the ladder went out from under him and he fell landing on his back. He is unsure if he lost consciousness. He is not on any anticoagulation. Reports that he has had progressively worsening pain in his abdomen and diffusely throughout his spine. Denies any numbness or tingling in his extremities. Denies any chest pain or shortness of breath. Reports he has not had a bowel movement since his injury. - Chronic conditions affecting care: HTN; HLD; DM-2 - Differential diagnoses include, but are not limited to: Spinal fracture; intracranial hemorrhage; liver laceration; splenic laceration; small bowel obstruction - Order placed for continuous cardiac monitoring. At this time, monitor showed rate of 83 bpm with normal sinus rhythm, per my interpretation. - External medical records reviewed. - EKG reviewed by myself showed normal sinus rhythm. Rate 87 bpm. QTc 447. No acute ischemic changes - Laboratory workup interpreted by myself showed normal WBC; stable hemoglobin; normal lactate; normal troponin; normal CK - CT head wo contrast negative for acute intracranial pathology. CT cervical spine showed a subtle fracture to the anterior and superior endplate of C7. - CT chest/abdomen/pelvis with IV contrast negative for acute traumatic injury - CT thoracic/lumbar spines showed anterior and superior endplate fracture of C7. Noted to have age-indeterminate fractures of the T10/T11 intervertebral disc space with trace adjacent paravertebral edema - Patient initially given 50 mcg of IV fentanyl. On reassessment, he still complaining of significant pain. He was given 4 mg of IV Zofran - Discussed case with spinal surgeon, Dr. Diaz. He recommended patient not lift anything heavier than a coffee cup. Recommended admission if pain cannot be well controlled. Injuries are nonsurgical. -On reassessment, the patient is still complaining of significant pain and muscle spasms diffusely across his back. He would like to be admitted for pain control. Family also expresses concern about his lack of a bowel movement at this time. Was suggested by spinal surgery for patient to have a bowel regimen ordered - Discussion was had with director of social work about patient's case and need for admission - Hospitalist consulted for admission - Patient admitted to [facility] for further evaluation and management. 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 Chronic fatigue Colonic obstruction Diabetes Dysphagia Enlarged prostate without lower urinary tract symptoms (luts) HTN (hypertension) Hypercholesterolemia Incomplete bladder emptying Intermittent urinary stream Mild cognitive impairment Nocturnal hypoxemia RLL pneumonia Sleep apnea Slowing of urinary stream TBI (traumatic brain injury) Vertigo Vitamin D deficiency Surgical History History of colonoscopy History of esophagogastroduodenoscopy (EGD) History of hip surgery History of prostate surgery S/P appendectomy S/P rotator cuff repair Family History Mother Cardiac disorder Diabetes Hypertension Father Cardiac disorder COPD (chronic obstructive pulmonary disease) Prostate cancer Brother Diabetes Son Kidney stone Social History Smoking Status: Never smoker Second Hand Exposure: Yes (PARENTS SIBLINGS SMOKED); Do You Dip or Chew Tobacco: No; Hx Alcohol Use: Yes Alcohol type: beer Hx Substance Use: No Preferred Language: Maltese Communication Ability: Effective 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: No Beliefs That Will Affect Care: None marital status: Current Living Situation: Spouse Current Living Situation Comment: current occupational status: retired How many Children do You have: 3 Feels Safe at Home: Yes Assistive Devices: Cane and Glasses Allergies Allergies Allergy/AdvReac Type Severity Reaction Status Date / Time Cipro Allergy Unknown TINGLING Verified 03/16/17 08:06 ALL OVER ciprofloxacin Allergy Unknown TINGLING Verified 02/09/23 14:58 ALL OVER Home Meds Home Medications Medication Instructions Recorded Confirmed cholecalciferol (vitamin D3) 125 5,000 units PO QAM 04/09/19 02/09/23 mcg (5,000 unit) tablet lisinopril 10 mg tablet 10 mg PO QPM #30 tabs 04/09/19 02/09/23 omeprazole 40 mg capsule,delayed 40 mg PO QAM 01/11/21 02/09/23 release dextroamphetamine-amphetamine 10 10 mg PO 1300 02/25/21 02/09/23 mg tablet dextroamphetamine-amphetamine ER 15 mg PO QAM 02/25/21 02/09/23 15 mg 24hr capsule,extend release rosuvastatin 10 mg tablet (Crestor) 10 mg PO HS 07/11/22 02/09/23 timolol maleate (PF) 0.5 % eye 1 drp ophthalmic (eye) BID 07/11/22 02/09/23 drops in a dropperette acetic acid 2 % ear solution 4 drp otic (ear) BID PRN Itching 02/09/23 02/09/23 betamethasone, augmented 0.05 % 1 applic topical DAILY PRN flare 02/09/23 02/09/23 lotion calcium carbonate 300 mg (750 mg) 300 mg PO HS 02/09/23 02/09/23 chewable tablet (Tums) desonide 0.05 % lotion 1 applic topical DAILY PRN flare 02/09/23 02/09/23 ketoconazole 2 % topical cream 1 applic topical DAILY 02/09/23 02/09/23 Results & Data (ED) Vital Signs Vital Signs - 24 hr 02/09/23 12:24 02/09/23 12:48 02/09/23 13:11 Temperature 36.5 C Temperature Source Temporal Artery Scan Pulse Rate 99 H 87 81 Pulse Rate [Apical] Pulse Rhythm Regular Respiratory Rate 18 16 Respiratory Depth Normal Blood Pressure 125/78 Blood Pressure [Right Arm] Blood Pressure Mean 93 Blood Pressure Mean [Right Arm] Blood Pressure Position Sitting Pulse Oximetry 96 96 Oxygen Delivery Method Room Air Room Air Sepsis Recent Fever Within 48 Hours No Sepsis New/Unexplained Change in Mental Status No Sepsis Action Taken by Nursing No Action Required 02/09/23 13:20 02/09/23 15:00 02/09/23 16:49 Temperature Temperature Source Pulse Rate 72 Pulse Rate [Apical] 83 Pulse Rhythm Respiratory Rate 16 16 Respiratory Depth Blood Pressure Blood Pressure [Right Arm] 130/88 150/92 H Blood Pressure Mean Blood Pressure Mean [Right Arm] 102 111 Blood Pressure Position Pulse Oximetry 92 96 Oxygen Delivery Method Room Air Sepsis Recent Fever Within 48 Hours Sepsis New/Unexplained Change in Mental Status Sepsis Action Taken by Nursing Laboratory Data 02/09/23 12:47 02/09/23 12:47 Lab Results 02/09/23 02/09/23 02/09/23 Range/Units 12:47 12:47 12:47 WBC 10.05 (4.8-10.8) K/ul RBC 4.99 (4.70-6.10) M/uL Hgb 14.8 (14.0-18.0) g/dl Hct 44.2 (42.0-52.0) % MCV 88.6 (80.0-100.0) fL MCH 29.7 (25.0-34.0) pg MCHC 33.5 (32.0-36.0) g/dL RDW Std Deviation 44.0 (36.4-46.3) fL RDW Coeff of Stacia 13.6 (11.5-14.5) % Plt Count 266 (130-400) K/uL MPV 10.7 (9.4-12.4) fL Immature Gran % (Auto) 0.2 % Neut % (Auto) 58.7 % Lymph % (Auto) 29.5 % Hampton % (Auto) 10.3 % Eos % (Auto) 1.0 % Baso % (Auto) 0.3 % Neut # (Auto) 5.90 (1.40-6.50) K/uL Lymph # (Auto) 2.96 (1.20-3.40) K/uL Hampton # (Auto) 1.04 H (0.11-0.59) K/uL Eos # (Auto) 0.10 (0.00-0.50) K/uL Baso # (Auto) 0.03 (0.00-0.20) K/uL Immature Gran # (Auto) 0.02 (0.01-0.20) K/uL PT 11.8 (9.0-12.0) Seconds INR 1.1 (0.9-1.1) Sodium 139 (136-145) mmol/L Potassium 4.3 (3.5-5.1) mmol/L Chloride 104 (98-107) mmol/L Carbon Dioxide 28 (21-32) mmol/L Anion Gap 7 (3-11) BUN 11 (6-23) mg/dl Creatinine 1.01 (0.6-1.4) mg/dl Est Cr Clr Drug Dosing 77.4 ml/min Est GFR ( Amer) 85.1 ml/min Est GFR (Non-Af Amer) 73.4 ml/min BUN/Creatinine Ratio 10.9 (10-20) Glucose 114 H (70-99(Fasting)) mg/dl Lactate (0.4-2.0) mmol/L Calcium 9.1 (8.6-10.3) mg/dl Total Bilirubin 1.0 (0.2-1.0) mg/dl AST 26 (13-39) U/L ALT 35 (7-52) U/L Alkaline Phosphatase 84 (34-104) U/L Total Creatine Kinase 182 (30-223) U/L Troponin I High Sens 5.6 (0-20) pg/ml Total Protein 7.3 (6.0-8.3) gm/dl Albumin 4.3 (3.4-5.0) gm/dl Globulin 3.0 (2.5-4.0) gm/dl Albumin/Globulin Ratio 1.4 (0.9-2) 02/09/23 Range/Units 13:09 WBC (4.8-10.8) K/ul RBC (4.70-6.10) M/uL Hgb (14.0-18.0) g/dl Hct (42.0-52.0) % MCV (80.0-100.0) fL MCH (25.0-34.0) pg MCHC (32.0-36.0) g/dL RDW Std Deviation (36.4-46.3) fL RDW Coeff of Stacia (11.5-14.5) % Plt Count (130-400) K/uL MPV (9.4-12.4) fL Immature Gran % (Auto) % Neut % (Auto) % Lymph % (Auto) % [place] % (Auto) % Eos % (Auto) % Baso % (Auto) % Neut # (Auto) (1.40-6.50) K/uL Lymph # (Auto) (1.20-3.40) K/uL [place] # (Auto) (0.11-0.59) K/uL Eos # (Auto) (0.00-0.50) K/uL Baso # (Auto) (0.00-0.20) K/uL Immature Gran # (Auto) (0.01-0.20) K/uL PT (9.0-12.0) Seconds INR (0.9-1.1) Sodium (136-145) mmol/L Potassium (3.5-5.1) mmol/L Chloride (98-107) mmol/L Carbon Dioxide (21-32) mmol/L Anion Gap (3-11) BUN (6-23) mg/dl Creatinine (0.6-1.4) mg/dl Est Cr Clr Drug Dosing ml/min Est GFR ( Amer) ml/min Est GFR (Non-Af Amer) ml/min BUN/Creatinine Ratio (10-20) Glucose (70-99(Fasting)) mg/dl Lactate 0.9 (0.4-2.0) mmol/L Calcium (8.6-10.3) mg/dl Total Bilirubin (0.2-1.0) mg/dl AST (13-39) U/L ALT (7-52) U/L Alkaline Phosphatase (34-104) U/L Total Creatine Kinase (30-223) U/L Troponin I High Sens (0-20) pg/ml Total Protein (6.0-8.3) gm/dl Albumin (3.4-5.0) gm/dl Globulin (2.5-4.0) gm/dl Albumin/Globulin Ratio (0.9-2) Administered Medications Discontinued Medications Fentanyl Citrate (Fentanyl Citrate Pf 100 Mcg/2 Ml Vial) 50 mcg IV NOW STA Stop: 02/09/23 12:56 Last Admin: 02/09/23 13:00 Dose: 50 mcg Documented By: EMILY Fentanyl Citrate (Fentanyl Citrate Pf 100 Mcg/2 Ml Vial) 50 mcg IV NOW STA Stop: 02/09/23 16:21 Last Admin: 02/09/23 16:39 Dose: 50 mcg Documented By: ACC Ioversol (Optiray 320 100ml) 94 ml IV ONCE ONE Stop: 02/09/23 13:57 Last Admin: 02/09/23 13:56 Dose: 94 ml Documented By: KATHIA Methocarbamol (Methocarbamol 750 Mg Tablet) 750 mg PO NOW STA Stop: 02/09/23 16:21 Last Admin: 02/09/23 16:39 Dose: 750 mg Documented By: ACC Morphine Sulfate (Morphine Sulfate 4 Mg/Ml 1 Ml Carp\Vial) 4 mg IV NOW STA Stop: 02/09/23 14:08 Last Admin: 02/09/23 14:12 Dose: 4 mg Documented By: ACC Imaging Data Radiologist's Impression: Abdomen/Pelvis CT 02/09/23 12:56 CT abd pelvis IV con only, CT lumbar spine wo con CLINICAL HISTORY: Trauma TECHNIQUE: Helical axial images of the abdomen and pelvis were obtained and displayed. Automated dose lowering techniques and/or adjustment according to patient size were utilized for this exam. Dedicated images of the lumbar spine were obtained. This exam was performed with intravenous contrast. CT DOSE: 4023.25 mGy.cm COMPARISON: Comparison is made to CT abdomen pelvis 02/25/2021 FINDINGS: Lower chest: Bibasilar atelectasis versus scarring is seen. Liver: Hepatic steatosis is noted. Gallbladder and biliary tree: No calcified gallstones. Normal caliber wall. No intra- or extrahepatic biliary ductal dilation. Pancreas: Unremarkable, no focal lesions. Spleen: Unremarkable. Adrenals: Unremarkable. Kidneys and ureters: Unremarkable. Bladder: Unremarkable. Reproductive organs: Unremarkable. Bowel: Diverticulosis is seen without evidence of diverticulitis. Postsurgical changes of right colonic resection are seen. Lymph nodes Retroperitoneal: Unremarkable. Pelvic: Unremarkable. Mesenteric: Unremarkable. Peritoneum: Normal. Vessels: Atherosclerotic calcifications are seen. Abdominal wall: Eventration of the abdominal musculature is seen. Bones: Bilateral total hip arthroplasties are seen. IMPRESSION: 1. No acute abnormalities and in particular no evidence of acute fracture. 2. Hepatic steatosis is seen. ACT 112: Negative or not required by law. Electronically signed by: Juancarlos Montes M.D. 02/09/2023 2:[address] 02/09/23 12:[address] DOSE: HISTORY: Trauma TECHNIQUE: Multiaxial CT images of the cervical spine were performed and reformatted in the sagittal and coronal plane without the use of contrast. A dose lowering technique was utilized adhering to the principles of ALARA. COMPARISON: Cervical spine CT 01/17/2018. FINDINGS: No fractures. No subluxation. Prevertebral soft tissues and the C1-C2 interval are intact. No pneumothorax. IMPRESSION: No fractures within the cervical spine. ACT 112: Negative or not required by law. Electronically signed by: Cristo Casey M.D. 02/09/2023 2:[address] 02/09/23 12:[address] WITH CONTRAST; CT THORACIC SPINE WITH IV CONTRAST HISTORY: Acute chest and back trauma status post fall Trauma TECHNIQUE: Multiaxial CT images of the chest and thoracic spine were performed following the IV administration of 94 cc of Optiray. A dose lowering technique was utilized adhering to the principles of ALARA. COMPARISON: Chest CT of same day FINDINGS: CT CHEST: Unremarkable thyroid. No lymphadenopathy. Mild cardiomegaly with moderate coronary artery calcifications. No thoracic aortic aneurysm. Unremarkable pulmonary artery. No pneumothorax, pleural effusion, airspace consolidation, overt pulmonary edema or suspicious pulmonary nodule. Central airways are patent. Hepatomegaly with hepatic steatosis. Distended gallbladder. Moderate fecal retention. Diastases recti. CT THORACIC SPINE: Bridging osteophytic spurring. There is an acute fracture extending through the anterior and superior endplates at C7. No significant vertebral body height loss. Air within the disc space at T10-T11 is noted with lucencies extending through the bridging osteophytes. Minimal paravertebral edema. No acute compression deformity or retropulsion. IMPRESSION: 1. No acute posttraumatic intrathoracic abnormality. 2. Subtle acute fracture of the anterior and superior endplates of C7. 3. Equivocal age-indeterminate fracture through the T10-T11 intervertebral disc space with trace adjacent paravertebral edema. 4. No thoracic compression deformities or retropulsion. ACT 112: Negative or not required by law. Electronically signed by: Titi Bull M.D. 02/09/2023 2:[address] 02/09/23 12:56 CT head/brain wo con CLINICAL HISTORY: Trauma Technique: Contiguous axial CT images of the head were acquired from the base of the skull to the vertex without intravenous contrast administration. Images were viewed in brain, subdural and bone windows. Automated dose lowering techniques and/or adjustment according to patient size were utilized for this exam. Comparison: Comparison is made to CT head 01/17/2018 Findings: The ventricles, basal cisterns, and cerebral sulci are normal. There is no acute intracranial hemorrhage or evidence of acute territorial infarction. Neither mass effect, shift of the midline structures, nor abnormal extra-axial fluid collections are shown. Imaged portions of the paranasal sinuses and mastoid air cells are clear. The orbits appear normal. There are no acute fractures of the calvaria or scalp swelling. Impression: No acute intracranial hemorrhage, no evidence of acute territorial infarction or other acute intracranial disease process. ACT 112: Negative or not required by law. Electronically signed by: Juancarlos Montes M.D. 02/09/2023 2:[address] 02/09/23 12:56 CT abd pelvis IV con only, CT lumbar spine wo con CLINICAL HISTORY: Trauma TECHNIQUE: Helical axial images of the abdomen and pelvis were obtained and displayed. Automated dose lowering techniques and/or adjustment according to patient size were utilized for this exam. Dedicated images of the lumbar spine were obtained. This exam was performed with intravenous contrast. CT DOSE: 4023.25 mGy.cm COMPARISON: Comparison is made to CT abdomen pelvis 02/25/2021 FINDINGS: Lower chest: Bibasilar atelectasis versus scarring is seen. Liver: Hepatic steatosis is noted. Gallbladder and biliary tree: No calcified gallstones. Normal caliber wall. No intra- or extrahepatic biliary ductal dilation. Pancreas: Unremarkable, no focal lesions. Spleen: Unremarkable. Adrenals: Unremarkable. Kidneys and ureters: Unremarkable. Bladder: Unremarkable. Reproductive organs: Unremarkable. Bowel: Diverticulosis is seen without evidence of diverticulitis. Postsurgical changes of right colonic resection are seen. Lymph nodes Retroperitoneal: Unremarkable. Pelvic: Unremarkable. Mesenteric: Unremarkable. Peritoneum: Normal. Vessels: Atherosclerotic calcifications are seen. Abdominal wall: Eventration of the abdominal musculature is seen. Bones: Bilateral total hip arthroplasties are seen. IMPRESSION: 1. No acute abnormalities and in particular no evidence of acute fracture. 2. Hepatic steatosis is seen. ACT 112: Negative or not required by law. Electronically signed by: Juancarlos Montes M.D. 02/09/2023 2:[address] 02/09/23 12:[address] WITH CONTRAST; CT THORACIC SPINE WITH IV CONTRAST HISTORY: Acute chest and back trauma status post fall Trauma TECHNIQUE: Multiaxial CT images of the chest and thoracic spine were performed following the IV administration of 94 cc of Optiray. A dose lowering technique was utilized adhering to the principles of ALARA. COMPARISON: Chest CT of same day FINDINGS: CT CHEST: Unremarkable thyroid. No lymphadenopathy. Mild cardiomegaly with moderate nat nary artery calcifications. No thoracic aortic aneurysm. Unremarkable pulmonary artery. No pneumothorax, pleural effusion, airspace consolidation, overt pulmonary edema or suspicious pulmonary nodule. Central airways are patent. Hepatomegaly with hepatic steatosis. Distended gallbladder. Moderate fecal retention. Diastases recti. CT THORACIC SPINE: Bridging osteophytic spurring. There is an acute fracture extending through the anterior and superior endplates at C7. No significant vertebral body height loss. Air within the disc space at T10-T11 is noted with lucencies extending through the bridging osteophytes. Minimal paravertebral edema. No acute compression deformity or retropulsion. IMPRESSION: 1. No acute posttraumatic intrathoracic abnormality. 2. Subtle acute fracture of the anterior and superior endplates of C7. 3. Equivocal age-indeterminate fracture through the T10-T11 intervertebral disc space with trace adjacent paravertebral edema. 4. No thoracic compression deformities or retropulsion. ACT 112: Negative or not required by law. Electronically signed by: Titi Bull M.D. 02/09/2023 2:54 PM Discharge Plan Visit Data Chief Complaint: Fall Stated Complaint: FELL ED Provider: Shoshana Daniels Discharge Problem: Accidental fall from ladder, Closed C7 fracture, Back pain Forms Stand Alone Forms: [facility] [employer] Prescriptions Prescriptions: No Action cholecalciferol (vitamin D3) 5,000 unit tablet 5,000 units PO QAM lisinopril 10 mg tablet 10 mg PO QPM Qty: 30 rosuvastatin [Crestor] 10 mg tablet 10 mg PO HS omeprazole 40 mg capsule,delayed release(DR/EC) 40 mg PO QAM timolol maleate (PF) 0.5 % dropperette 1 drp OPHTHALMIC (EYE) BID Rx Instructions: Right Eye Only dextroamphetamine-amphetamine 10 mg tablet 10 mg PO 1300 Rx Instructions: take 1300 dextroamphetamine-amphetamine 15 mg capsule,extended release 24hr 15 mg PO QAM calcium carbonate [Tums] 300 mg (750 mg) Tablet,Chewable 300 mg PO HS betamethasone, augmented 0.05 % lotion 1 applic TOPICAL DAILY PRN (Reason: flare) Rx Instructions: Scalp desonide 0.05 % lotion 1 applic TOPICAL DAILY PRN (Reason: flare) ketoconazole 2 % cream 1 applic TOPICAL DAILY Rx Instructions: Apply to face acetic acid 2 % solution 4 drp otic (ear) BID PRN (Reason: Itching) Rx Instructions: Apply 4 drops to left ear twice daily for 7 days, then as needed for itching Referrals Referrals: Justin Parks MD [Primary Care Provider] -
[2023-02-09 13:14] LABS: Basophils # (auto) 0.03 K/uL (0.00-0.20); Basophils % (auto) 0.3 %; Hematocrit (blood only) 44.2 % (42.0-52.0); Hemoglobin 14.8 g/dl (14.0-18.0); Immature Granulocytes # (auto) 0.02 K/uL (0.01-0.20); Immature Granulocytes % (auto) 0.2 %; Lymphocytes # (auto) 2.96 K/uL (1.20-3.40); Lymphocytes % (auto) 29.5 %; Mean Corpuscular Hemoglobin 29.7 pg (25.0-34.0); Mean Corpuscular Hgb Conc 33.5 g/dL (32.0-36.0); Mean Corpuscular Volume 88.6 fL (80.0-100.0); Mean Platelet Volume 10.7 fL (9.4-12.4); Monocytes # (auto) 1.04 K/uL (0.11-0.59); Monocytes % (auto) 10.3 %; Neutrophils % (auto) 58.7 %; Platelet Count 266 K/uL (130-400); RDW Coefficient of Variation 13.6 % (11.5-14.5); Red Blood Count 4.99 M/uL (4.70-6.10); White Blood Count 10.05 K/ul (4.8-10.8)
[2023-02-09 13:35] LABS: Albumin Globulin Ratio 1.4 (0.9-2); Albumin Level 4.3 gm/dl (3.4-5.0); BUN Creatinine Ratio 10.9 (10-20); Calcium 9.1 mg/dl (8.6-10.3); Creatinine Clr Calc Pharmacy 77.4 ml/min; Est GFR (African American) 85.1 ml/min; Est GFR (Non-African American) 73.4 ml/min; Potassium 4.3 mmol/L (3.5-5.1); Total Protein 7.3 gm/dl (6.0-8.3)
[2023-02-09 13:38] LABS: Troponin I High Sensitivity 5.6 pg/ml (0-20)
[2023-02-09 13:41] LABS: INR 1.1 (0.9-1.1); Prothrombin Time 11.8 Seconds (9.0-12.0)
[2023-02-09] MEDS ORDERED: OPTIRAY 320 100ml IV ONE (13:56)
[2023-02-09] MEDS ORDERED: MoRPHine SULFATE 4 MG/ML 1 ML CARP\\VIAL IV STA (14:07)
--- NOTE | 2023-02-09 14:21 | CT Scan Report ---
CT head/brain wo con CLINICAL HISTORY: Trauma Technique: Contiguous axial CT images of the head were acquired from the base of the skull to the denny william without intravenous contrast administration. Images were viewed in brain, subdural and bone [facility]. Automated dose lowering techniques and/or adjustment according to patient size were utilized for this exam. Comparison: Comparison is made to CT head 01/17/2018 Findings: The ventricles, basal cisterns, and cerebral sulci are normal. There is no acute intracranial hemorrh age or evidence of acute territorial infarction. Neither mass effect, shift of the midline structures , nor abnormal extra-axial fluid collections are shown. Imaged portions of the paranasal sinuses and mastoid air cells are clear. The orbits appear normal. There are no acute fractures of the calvaria or scalp swelling. Impression: No acute intracranial hemorrhage, no evidence of acute territorial infarction or other acute intracra nial disease process. ACT 112: Negative or not required by law. Electronically signed by: Juancarlos Montes M.D. 02/09/2023 2:20 PM
--- NOTE | 2023-02-09 14:31 | CT Scan Report ---
CERVICAL SPINE CT CT DOSE: HISTORY: Trauma TECHNIQUE: Multiaxial CT images of the cervical spine were performed and reformatted in the sagittal and coronal plane without the use of contrast. A dose lowering technique was utilized adhering to th e principles of ALARA. COMPARISON: Cervical spine CT 01/17/2018. FINDINGS: No fractures. No subluxation. Prevertebral soft tissues and the C1-C2 interval are intact. No pneumothorax. IMPRESSION: No fractures within the cervical spine. ACT 112: Negative or not required by law. Electronically signed by: Cristo Casey M.D. 02/09/2023 2:30 PM
--- NOTE | 2023-02-09 14:32 | CT Scan Report ---
CT abd pelvis IV con only, CT lumbar spine wo con CLINICAL HISTORY: Trauma TECHNIQUE: Helical axial images of the abdomen and pelvis were obtained and displayed. Automated dose lowering techniques and/or adjustment according to patient size were utilized for this exam. Dedicat ed images of the lumbar spine were obtained. This exam was performed with intravenous contrast. CT DOSE: 4023.25 mGy.cm COMPARISON: Comparison is made to CT abdomen pelvis 02/25/2021 FINDINGS: Lower chest: Bibasilar atelectasis versus scarring is seen. Liver: Hepatic steatosis is noted. Gallbladder and biliary tree: No calcified gallstones. Normal caliber wall. No intra- or extrahepatic biliary ductal dilation. Pancreas: Unremarkable, no focal lesions. Spleen: Unremarkable. Adrenals: Unremarkable. Kidneys and ureters: Unremarkable. Bladder: Unremarkable. Reproductive organs: Unremarkable. Bowel: Diverticulosis is seen without evidence of diverticulitis. Postsurgical changes of right colon ic resection are seen. Lymph nodes Retroperitoneal: Unremarkable. Pelvic: Unremarkable. Mesenteric: Unremarkable. Peritoneum: Normal. Vessels: Atherosclerotic calcifications are seen. Abdominal wall: Eventration of the abdominal musculature is seen. Bones: Bilateral total hip arthroplasties are seen. IMPRESSION: 1. No acute abnormalities and in particular no evidence of acute fracture. 2. Hepatic steatosis is seen. ACT 112: Negative or not required by law. Electronically signed by: Juancarlos Montes M.D. 02/09/2023 2:31 PM
--- NOTE | 2023-02-09 14:55 | CT Scan Report ---
CHEST CT WITH CONTRAST; CT THORACIC SPINE WITH IV CONTRAST HISTORY: Acute chest and back trauma status post fall Trauma TECHNIQUE: Multiaxial CT images of the chest and thoracic spine were performed following the IV admin istration of 94 cc of Optiray. A dose lowering technique was utilized adhering to the principles of ALARA. COMPARISON: Chest CT of same day FINDINGS: CT CHEST: Unremarkable thyroid. No lymphadenopathy. Mild cardiomegaly with moderate coronary artery calcificat ions. No thoracic aortic aneurysm. Unremarkable pulmonary artery. No pneumothorax, pleural effusion, airspace consolidation, overt pulmonary edema or suspicious pulmonary nodule. Central airways are pat ent. Hepatomegaly with hepatic steatosis. Distended gallbladder. Moderate fecal retention. Diastases recti . CT THORACIC SPINE: Bridging osteophytic spurring. There is an acute fracture extending through the anterior and superior endplates at C7. No significant vertebral body height loss. Air within the disc space at T10-T11 is noted with lucencies extending through the bridging osteophytes. Minimal paravertebral edema. No acut e compression deformity or retropulsion. IMPRESSION: 1. No acute posttraumatic intrathoracic abnormality. 2. Subtle acute fracture of the anterior and superior endplates of C7. 3. Equivocal age-indeterminate fracture through the T10-T11 intervertebral disc space with trace ani cent paravertebral edema. 4. No thoracic compression deformities or retropulsion. ACT 112: Negative or not required by law. Electronically signed by: Titi Bull M.D. 02/09/2023 2:54 PM
[2023-02-09] MEDS ORDERED: METHOCARBAMOL 750 MG TABLET PO STA (16:20)
--- NOTE | 2023-02-09 17:33 | History & Physical Report ---
Date of Service February 09, 2023 Assessment & Plan (1) Closed C7 fracture: Plan: -Admit to med/surge -Currently stable -Fell approximately 5 feet off a ladder after trying to turn around, does believe he lost consciousness -Extensive trauma evaluation in the ED shows nondisplaced fracture through the anterior superior endplate of C7 which extends to the adjacent osteophyte." -Ortho-spine was consulted, continue C-collar, recommended patient not lift anything heavier than a coffee cup at this time, comment placed in activity order -Patient has been uncontrolled, continue with the following regimen >1gm IV tylenol now then 650 mg PO q6h scheduled >Flexeril, 5 mg PO TID scheduled >3 mg IV morphine, q3h prn for pain 5+ -Could consider PT/OT consults if activity is still severely limited tomorrow -[facility] for DVT PPX -DMII diet -AM CBC, BMP (2) Diabetes: Plan: -Diet controlled -Monitor BSG ACHS, goal is 110-140 -CF of 50 ACHS -DMII -Adjust regimen as needed (3) Accidental fall from ladder: Plan: -Confirmed he slipped while trying to turn on the ladder -Patient is unsure how long he was down for, will hold off on CK level as his labs are stable and he is 2 plus days out from fall (4) Mild cognitive disorder: Plan: -Continue Adderall; patient confirms he was prescribed for cognitive decline (5) Hypertension: Plan: -Stable -Continue Lisinopril (6) Hypercholesterolemia: Plan: -Continue statin Plan The patient was discussed with Dr. Colunga at the time of the admission History of Present Illness Chief Complaint: Fall from ladder, back pain Primary Care Provider: Justin Parks MD Vincenzo is a 72 year old male with a PMH significant for vertigo, HTN, hyperlipi demia, GERD, bowel obstruction S/P partial colectomy, and previous PE S/P completion of anticoagulation who presented to the [facility] ED on 02/09 after sustaining an approximately 5 foot fall off a ladder on 02/07. In the ED, vitals were stable. Labs including CBC and CMP were unremarkable. CT head wo con, CT of the chest with con and thoracic spine showed an age-indeterminate fracture through T10-T11, CT of the lumbar spine was negative, CT of the abd/pelvis with IV con was negative. CT of the cervical spine has an addendum showing "nondisplaced fracture through the anterior superior endplate of C7 without loss of height of the vertebral body. Ortho-Spine was consulted and recommended pain control and that the patient not lift anything heavier than a coffee cup. Recommended admission if pain cannot be well controlled. Injuries are nonsurgical. We were asked to admit the patient for pain control. Prior to admission the patient was given 4mg IV morphine, 750 mg PO methocarbamol, and 2 doses of 50 mcg IV fentanyl. At the time of the exam the patient patient was lying in bed in no acute distress. He states that he had been in his normal state of health, doing work on his barn. He was standing on a 5th ladder when he tried to turn, accidentally kicking the ladder out from under him. He fell to the ground, landing on his back/right side. He does believe that he lost consciousness but is unsure how long he was on the ground for as the fall was unwitnessed. Since the fall he has had ongoing neck, back, and abdominal pain. He denies recent changes in vision, hearing, taste, and smell, chest pain, SOB, cough, nausea, vomiting, diarrhea, dysuria, hematuria, melena, LE swelling, new paresthesias/numbness, saddle anesthesia, or loss of bowel/bladder function. His pain is currently a 5/10 after receiving his latest doses of fentanyl and methocarbamol but feels as though they are starting to dorsey off. His is a full code and wishes for his to make medical decisions for him if he cannot make them himself. Please refer to Dr. Colunga's attestation for any changes to the treatment plan Allergies Allergy/AdvReac Type Severity Reaction Status Date / Time Cipro Allergy Unknown TINGLING Verified 03/16/17 08:06 ALL OVER ciprofloxacin Allergy Unknown TINGLING Verified 02/09/23 14:58 ALL OVER Home Medications Medication Instructions Recorded Confirmed Type cholecalciferol (vitamin D3) 125 5,000 units PO QAM 04/09/19 02/09/23 History mcg (5,000 unit) tablet lisinopril 10 mg tablet 10 mg PO QPM #30 tabs 04/09/19 02/09/23 History omeprazole 40 mg capsule,delayed 40 mg PO QAM 01/11/21 02/09/23 History release dextroamphetamine-amphetamine 10 10 mg PO 1300 02/25/21 02/09/23 History mg tablet dextroamphetamine-amphetamine ER 15 mg PO QAM 02/25/21 02/09/23 History 15 mg 24hr capsule,extend release rosuvastatin 10 mg tablet (Crestor) 10 mg PO HS 07/11/22 02/09/23 History timolol maleate (PF) 0.5 % eye 1 drp ophthalmic (eye) BID 07/11/22 02/09/23 History drops in a dropperette acetic acid 2 % ear solution 4 drp otic (ear) BID PRN Itching 02/09/23 02/09/23 History betamethasone, augmented 0.05 % 1 applic topical DAILY PRN flare 02/09/23 02/09/23 History lotion calcium carbonate 300 mg (750 mg) 300 mg PO HS 02/09/23 02/09/23 History chewable tablet (Tums) desonide 0.05 % lotion 1 applic topical DAILY PRN flare 02/09/23 02/09/23 History ketoconazole 2 % topical cream 1 applic topical DAILY 02/09/23 02/09/23 History Past Med/Surg History Medical History Acute right flank pain Arthritis Benign essential tremor Benign localized hyperplasia of prostate with urinary obstruction Chronic fatigue Colonic obstruction Diabetes Dysphagia Enlarged prostate without lower urinary tract symptoms (luts) HTN (hypertension) Hypercholesterolemia Incomplete bladder emptying Intermittent urinary stream Mild cognitive impairment Nocturnal hypoxemia RLL pneumonia Sleep apnea Slowing of urinary stream TBI (traumatic brain injury) Vertigo Vitamin D deficiency Surgical History History of colonoscopy History of esophagogastroduodenoscopy (EGD) History of hip surgery History of prostate surgery S/P appendectomy S/P rotator cuff repair Family History Mother Cardiac disorder Diabetes Hypertension Father Cardiac disorder COPD (chronic obstructive pulmonary disease) Prostate cancer Brother Diabetes Son Kidney stone Social History Smoking Status: Never smoker Second Hand Exposure: Yes (PARENTS SIBLINGS SMOKED); Do You Dip or Chew Tobacco: No; Hx Alcohol Use: Yes Alcohol type: beer Hx Substance Use: No Preferred Language: Greek Communication Ability: Effective Business Center Attendant Required: No Beliefs That Will Affect Care: None marital status: Current Living Situation: Spouse Current Living Situation Comment: current occupational status: retired How many Children do You have: 3 Other Information That Helps Us Care for You: No Feels Safe at Home: Yes Safety Concerns: Feels Safe At This Time Assistive Devices: CPAP, Glasses and Hearing Aid - Bilateral Physical Exam Physical Exam: Physical Exam: General: In no acute distress, stated age, well-nourished, good hygiene HEENT: Normocephalic, currently with Stebbins-J collar in place, no scleral icterus, pupils around round, symmetrical, and reactive to light, moist mucus membranes, trachea midline, no thyromegaly Chest/Pulm: No respiratory distress, symmetrical chest expansion, clear breath sounds throughout Cardiac: RRR, no murmurs noted Abdomen: Negative for ascites and bruising, normoactive bowel sounds, soft, non-tender to palpation throughout Musculoskeletal: Patient without acute trauma during inspection and palpation of the chest, BL upper/lower extremities, head/face, abdomen/pelvis Extremities: Radial, dorsalis pedis, and posterior tibial pulses are intact and symmetrical, no edema noted in the BL LE's Skin: Warm, dry, no rashes , lesions, or scars noted Neuro: Alert and oriented to person, place, month, year, and president, no focal defects, no tremors noted Psych: No acute distress, calm and cooperative during the exam Results & Data Results & Data Vital Signs (Past 12 Hours) Vital Signs Temp Pulse Pulse Resp BP BP Pulse Ox 02/09/23 16:49 72 02/09/23 15:00 83 16 150/92 H 96 02/09/23 13:20 16 130/88 92 02/09/23 13:11 81 16 96 02/09/23 12:48 87 02/09/23 12:24 36.5 C 99 H 18 125/78 96 O2 Del Method 02/09/23 16:49 02/09/23 15:00 Room Air 02/09/23 13:20 02/09/23 13:11 Room Air 02/09/23 12:48 02/09/23 12:24 Room Air Laboratory Results Abnormal lab results 02/09/23 02/09/23 Range/Units 12:47 12:47 [place] # (Auto) 1.04 H (0.11-0.59) K/uL Glucose 114 H (70-99(Fasting)) mg/dl Diagnostic Findings Abdomen/Pelvis CT 02/09/23 12:56 CT abd pelvis IV con only, CT lumbar spine wo con CLINICAL HISTORY: Trauma TECHNIQUE: Helical axial images of the abdomen and pelvis were obtained and displayed. Automated dose lowering techniques and/or adjustment according to patient size were utilized for this exam. Dedicated images of the lumbar spine were obtained. This exam was performed with intravenous contrast. CT DOSE: 4023.25 mGy.cm COMPARISON: Comparison is made to CT abdomen pelvis 02/25/2021 FINDINGS: Lower chest: Bibasilar atelectasis versus scarring is seen. Liver: Hepatic steatosis is noted. Gallbladder and biliary tree: No calcified gallstones. Normal caliber wall. No intra- or extrahepatic biliary ductal dilation. Pancreas: Unremarkable, no focal lesions. Spleen: Unremarkable. Adrenals: Unremarkable. Kidneys and ureters: Unremarkable. Bladder: Unremarkable. Reproductive organs: Unremarkable. Bowel: Diverticulosis is seen without evidence of diverticulitis. Postsurgical changes of right colonic resection are seen. Lymph nodes Retroperitoneal: Unremarkable. Pelvic: Unremarkable. Mesenteric: Unremarkable. Peritoneum: Normal. Vessels: Atherosclerotic calcifications are seen. Abdominal wall: Eventration of the abdominal musculature is seen. Bones: Bilateral total hip arthroplasties are seen. IMPRESSION: 1. No acute abnormalities and in particular no evidence of acute fracture. 2. Hepatic steatosis is seen. ACT 112: Negative or not required by law. Electronically signed by: Juancarlos Montes M.D. 02/09/2023 2:[address] 02/09/23 12:[address] DOSE: HISTORY: Trauma TECHNIQUE: Multiaxial CT images of the cervical spine were performed and reformatted in the sagittal and coronal plane without the use of contrast. A dose lowering technique was utilized adhering to the principles of ALARA. COMPARISON: Cervical spine CT 01/17/2018. FINDINGS: No fractures. No subluxation. Prevertebral soft tissues and the C1-C2 interval are intact. No pneumothorax. IMPRESSION: No fractures within the cervical spine. ACT 112: Negative or not required by law. Electronically signed by: Cristo Casey M.D. 02/09/2023 2:[address] 02/09/23 12:[address] WITH CONTRAST; CT THORACIC SPINE WITH IV CONTRAST HISTORY: Acute chest and back trauma status post fall Trauma TECHNIQUE: Multiaxial CT images of the chest and thoracic spine were performed following the IV administration of 94 cc of Optiray. A dose lowering technique was utilized adhering to the principles of ALARA. COMPARISON: Chest CT of same day FINDINGS: CT CHEST: Unremarkable thyroid. No lymphadenopathy. Mild cardiomegaly with moderate coronary artery calcifications. No thoracic aortic aneurysm. Unremarkable pulmonary artery. No pneumothorax, pleural effusion, airspace consolidation, overt pulmonary edema or suspicious pulmonary nodule. Central airways are patent. Hepatomegaly with hepatic steatosis. Distended gallbladder. Moderate fecal retention. Diastases recti. CT THORACIC SPINE: Bridging osteophytic spurring. There is an acute fracture extending through the anterior and superior endplates at C7. No significant vertebral body height loss. Air within the disc space at T10-T11 is noted with lucencies extending through the bridging osteophytes. Minimal paravertebral edema. No acute compression deformity or retropulsion. IMPRESSION: 1. No acute posttraumatic intrathoracic abnormality. 2. Subtle acute fracture of the anterior and superior endplates of C7. 3. Equivocal age-indeterminate fracture through the T10-T11 intervertebral disc space with trace adjacent paravertebral edema. 4. No thoracic compression deformities or retropulsion. ACT 112: Negative or not required by law. Electronically signed by: Titi Bull M.D. 02/09/2023 2:[address] 02/09/23 12:56 CT head/brain wo con CLINICAL HISTORY: Trauma Technique: Contiguous axial CT images of the head were acquired from the base of the skull to the vertex without intravenous contrast administration. Images were viewed in brain, subdural and bone windows. Automated dose lowering techniques and/or adjustment according to patient size were utilized for this exam. Comparison: Comparison is made to CT head 01/17/2018 Findings: The ventricles, basal cisterns, and cerebral sulci are normal. There is no acute intracranial hemorrhage or evidence of acute territorial infarction. Neither mass effect, shift of the midline structures, nor abnormal extra-axial fluid collections are shown. Imaged portions of the paranasal sinuses and mastoid air cells are clear. The orbits appear normal. There are no acute fractures of the calvaria or scalp swelling. Impression: No acute intracranial hemorrhage, no evidence of acute territorial infarction or other acute intracranial disease process. ACT 112: Negative or not required by law. Electronically signed by: Juancarlos Montes M.D. 02/09/2023 2:[address] 02/09/23 12:56 CT abd pelvis IV con only, CT lumbar spine wo con CLINICAL HISTORY: Trauma TECHNIQUE: Helical axial images of the abdomen and pelvis were obtained and displayed. Automated dose lowering techniques and/or adjustment according to patient size were utilized for this exam. Dedicated images of the lumbar spine were obtained. This exam was performed with intravenous contrast. CT DOSE: 4023.25 mGy.cm COMPARISON: Comparison is made to CT abdomen pelvis 02/25/2021 FINDINGS: Lower chest: Bibasilar atelectasis versus scarring is seen. Liver: Hepatic steatosis is noted. Gallbladder and biliary tree: No calcified gallstones. Normal caliber wall. No intra- or extrahepatic biliary ductal dilation. Pancreas: Unremarkable, no focal lesions. Spleen: Unremarkable. Adrenals: Unremarkable. Kidneys and ureters: Unremarkable. Bladder: Unremarkable. Reproductive organs: Unremarkable. Bowel: Diverticulosis is seen without evidence of diverticulitis. Postsurgical changes of right colonic resection are seen. Lymph nodes Retroperitoneal: Unremarkable. Pelvic: Unremarkable. Mesenteric: Unremarkable. Peritoneum: Normal. Vessels: Atherosclerotic calcifications are seen. Abdominal wall: Eventration of the abdominal musculature is seen. Bones: Bilateral total hip arthroplasties are seen. IMPRESSION: 1. No acute abnormalities and in particular no evidence of acute fracture. 2. Hepatic steatosis is seen. ACT 112: Negative or not required by law. Electronically signed by: Juancarlos Montes M.D. 02/09/2023 2:[address] 02/09/23 12:[address] WITH CONTRAST; CT THORACIC SPINE WITH IV CONTRAST HISTORY: Acute chest and back trauma status post fall Trauma TECHNIQUE: Multiaxial CT images of the chest and thoracic spine were performed following the IV administration of 94 cc of Optiray. A dose lowering technique was utilized adhering to the principles of ALARA. COMPARISON: Chest CT of same day FINDINGS: CT CHEST: Unremarkable thyroid. No lymphadenopathy. Mild cardiomegaly with moderate coronary artery calcifications. No thoracic aortic aneurysm. Unremarkable pulmonary artery. No pneumothorax, pleural effusion, airspace consolidation, overt pulmonary edema or suspicious pulmonary nodule. Central airways are patent. Hepatomegaly with hepatic steatosis. Distended gallbladder. Moderate fecal retention. Diastases recti. CT THORACIC SPINE: Bridging osteophytic spurring. There is an acute fracture extending through the anterior and superior endplates at C7. No significant vertebral body height loss. Air within the disc space at T10-T11 is noted with lucencies extending through the bridging osteophytes. Minimal paravertebral edema. No acute compression deformity or retropulsion. IMPRESSION: 1. No acute posttraumatic intrathoracic abnormality. 2. Subtle acute fracture of the anterior and superior endplates of C7. 3. Equivocal age-indeterminate fracture through the T10-T11 intervertebral disc space with trace adjacent paravertebral edema. 4. No thoracic compression deformities or retropulsion. ACT 112: Negative or not required by law. Electronically signed by: Titi Bull M.D. 02/09/2023 2:54 PM ECG Additional Comments: Normal sinus rhythm Normal ECG When compared with ECG of 25-FEB-2021 20:32, No significant change was found Code Status & VTE Plan Code Status Full code VTE Prophylaxis Plan VTE Prophylaxis will be ordered: Yes Supervising Physician Co-Signing Physician Notes I personally saw and examined the patient. I verified all talley points and agree with Amado Borges PA-C with the following exceptions and/or additions: 72 year old male presents to the ER following a fall 2 days ago with worsening pain in neck and back. No radicular symptoms and extremity strength and sensation intact O/E HS RRR, no murmurs, Chest CTAB, Abdo SNT, b/l UE/LE strength 5/5 limited by pain in neck with muscle spasms during testing, extremity/face sensation intact, no facial droop A/P C7 fracture - pain management as above. Stebbins J collar, consult ortho spine T10-11 fracture - suspect his is also acute given pain here. Pain management as above Otherwise chronic medical condition amangement as above PG Care Time/CCT Total # of Minutes Spent Total Time Spent with Patient: Total time spent is greater than 50% in coordination of care (as documented) at patient's floor/unit and/or counseling patient: [place] [address] INT INP/OBS CARE 2/55MIN Patient Type New Medical Decision Making Moderate Complexity Diagnoses Closed C7 fracture S12.600A Diabetes E11.9 Accidental fall from ladder W11.XXXA Mild cognitive disorder F09 Hypertension I10 Hypercholesterolemia E78.00
[2023-02-09] MEDS ORDERED: ACETAMINOPHEN 1,000 MG/100 ML VIAL IV STA (17:53)
[2023-02-09] MEDS ORDERED: CYCLOBENZAPRINE HCL 5 MG TAB PO STA (17:54)
[2023-02-09] MEDS ORDERED: DEXTROSE 50% 50 ML SYRINGE IV PRN (18:01)
[2023-02-09] MEDS ORDERED: GLUCOSE 40% GEL 15 GM TUBE PO PRN (18:01)
[2023-02-09] MEDS ORDERED: GLUCOSE 10 TAB/TUBE PO PRN (18:01)
[2023-02-09] MEDS ORDERED: GLUCAGON FOR INJ 1 MG VIAL SQ PRN (18:01)
[2023-02-09] MEDS ORDERED: CARBOHYDRATES FOR HYPOGLYCEMIA PO PRN (18:01)
[2023-02-09] MEDS ORDERED: NALOXONE HCL 0.4 MG/1 ML VIAL/CARP IV PRN (18:24)
[2023-02-09] MEDS: lisinopril 10 MG TAB PO SCH (21:50)
[2023-02-09] MEDS: POLYETHYLENE (MIRALAX) 17 GM PACK PO SCH (21:50)
[2023-02-09] MEDS: TIMOLOL MALEATE 0.5% OP SOLN 5 ML BTL OPR SCH (21:51)
[2023-02-09] MEDS: ROSUVASTATIN CALCIUM 10 MG TAB PO SCH (21:51)
[2023-02-09] MEDS: MoRPHine SULFATE 4 MG/ML 1 ML CARP\\VIAL IV PRN (21:54)
[2023-02-09] MEDS ORDERED: DOCUSATE SODIUM/SENNA 50/8.6MG TAB PO SCH (22:00)
[2023-02-09] MEDS: INSULIN ASPART PER UNIT CHARGE SC SCH (22:08)
[2023-02-09] MEDS: ACETAMINOPHEN 325 MG TAB PO SCH (23:52)
[2023-02-10] MEDS: ACETAMINOPHEN 325 MG TAB PO SCH ×3 (06:30→17:24)
[2023-02-10] MEDS: MoRPHine SULFATE 4 MG/ML 1 ML CARP\\VIAL IV PRN ×3 (07:43→20:58)
[2023-02-10] MEDS: INSULIN ASPART PER UNIT CHARGE SC SCH ×4 (08:43→20:32)
[2023-02-10] MEDS: TIMOLOL MALEATE 0.5% OP SOLN 5 ML BTL OPR SCH ×2 (08:47→20:52)
[2023-02-10] MEDS: PANTOprazole 40 MG TAB PO SCH (08:47)
[2023-02-10] MEDS: POLYETHYLENE (MIRALAX) 17 GM PACK PO SCH ×3 (08:48→20:52)
[2023-02-10] MEDS: DEXTROAMPHETAMINE/AMPHETAMINE ER 5 MG CAP PO SCH (09:29)
[2023-02-10 09:40] LABS: Appearance Urine Clear (Clear); Bilirubin Urine Negative (Negative); Blood Urine Negative (Negative); Color Urine Yellow; Glucose Urine UA Negative (Negative); Ketones Urine Negative (Negative); Leukocyte Esterase Urine Negative (Negative); Nitrite Urine Negative (Negative); Protein Urine Negative (Negative); Specific Gravity Urine 1.021 (1.000-1.030); Urobilinogen Urine Negative (Negative); pH Urine 7.5 (4.5-7.5)
--- NOTE | 2023-02-10 09:53 | Hospitalist Progress Note ---
Date of Service February 10, 2023 Assessment & Plan (1) Thoracic compression fracture: (2) Closed C7 fracture: (3) Back pain: (4) Acute constipation: (5) Accidental fall from ladder: Plan Patient is a 72 yo M, PMHx of HTN, T2DM, chronic vertigo, S/P colectomy, mild cognitive d/o who presented yesterday 2 days after a fall with back pain and acute constipation. CT of thoracolumbar spine revealed non-displaced C7 facture, and age-indeterminate T10-11 fracture. Patient normally has 3 BM's a day and has not had one in 3 days since the fall. Thoracic compression fracture/closed C7 fracture/back pain - the patient's TLSO brace has arrived and he is currently using cervical collar and TLSO brace for ambulation - patient's pain is being managed with 3 mg morphine sulfate, IV, Q4h, PRN acute constipation - patient has been prescribed a bowel regimen of BID Colace/Senna combo, TID Miralax - patient has been encouraged to ambulate, as able, to increase bowel motility Admission and Anticipated Discharge Date Admission Date: February 09, 2023 Supervising Physician Co-Signing Physician Notes Attending attestation Pt seen and examined in concert with Dr. Trevino. In agreement with the documented findings as noted in the resident documentation with any exceptions or additions as noted here. Intermittent significant grabbing pain of the upper back/lower neck with deep inspriation and minor movements which is overall improved w/ the hard collar but not fully controlled. Current regimen is helpful but inadequate. Abdomen is mildly distended and full/bloated feeling, patient has passed gas today but no BM in the last 3 days, normally TID. On examination, S1/S2 nl RRR no MCG. CTAB. Abd ND, mildly TTP diffusely BS+ve Cervical and thoracic spine injury s/p fall from ladder - orthospine consult - ongoing pain control as noted with activity modification reinforced. Concern for atelectasis w/ splinting discussed and patient will endeavor to mitigate and use pain medication to avoid that. Pending brace and PT/OT as noted Constipation, acute - miralax and colace/senna with some improvement w/ flatus but without BM in AM. Recheck in PM and consider BID senna/colace and TID + miralax escalation Else see resident documentation as noted. Subjective Patient is a 72 yo M seen today after admission following a fall that showed an acute, non-displaced fracture at C7 of the spine and age-indeterminate T10-T11 fracture. Patient is wearing a cervical ([place] type) collar, endorses intermittent muscle spasms of the back, paraspinal and spinal tenderness of the thoracolumbar region. Patient does not endorse any radiculopathic pain in the cervical, thoracic, or lumbar regions. No urinary symptoms--changes in frequency, urgency, blood in urine, incontinence--but patient does endorse bowel symptoms--constipation--since fall 3 days ago. At baseline, patient has 3 BM's a day. Patient's abdomen moderately firm with palpable r. and l. lateral tightness of the abdominal muscles. Review of Systems Constitutional: + body aches and + anorexia (secondary to increased fullness, bloating from constipation) Gastrointestinal: + abdominal pain, + bloating and + constipation Genitourinary: no difficulty urinating, no urinary frequency, no urinary hesitancy, no urinary incontinence or no hematuria Musculoskeletal: + back pain and + neck pain; no radicular pain Neurologic: no loss of sensation, no tingling, no numbness, no radiating pain, no confusion and no memory loss Physical Exam Constitutional: WD/WN, vitals as above cooperative and + in distress Neck: + limited neck extension (patient in cervical collar) Gastrointestinal (Abdomen): Percussion/Palpation: + abdomen tender and + abdomen firm Musculoskeletal: Spine: + limited thoraco-lumbar ROM, + cervical spinal tenderness, + cervical collar present, + pain with thoraco-lumbar ROM, + thoracic spinal tenderness and + lumbar spinal tenderness Extremities: + limited ROM of lower extremity Neurologic: awake; not confused and not obtunded Psychiatric: Orientation: alert and oriented x 3 Eye Contact: good eye contact Speech: normal rate/rhythm/volume of speech Results & Data Results & Data Vital Signs (Past 12 Hours) Vital Signs Temp Pulse Resp BP Pulse Ox O2 Del Method 02/10/23 07:19 36.7 C 81 18 136/84 94 Room Air
--- NOTE | 2023-02-10 10:20 | Orthopedic Consultation ---
Date of Consultation February 10, 2023 Assessment & Plan (1) Closed C7 fracture: Dr. Diaz and I have reviewed the CT scans and findings. Her to maintain his hard collar at this point as he is more comfortable. He may ambulate with physical therapy once his TLSO brace arrives. Continue with GI DVT prophylaxis as well as pain control measures. We will see him in the office approximately 2 weeks out from discharge. Please contact us if there are any other neurologic changes. (2) Thoracic compression fracture: History of Present Illness Attending Physician: Moody Martinez MD History of Present Illness Patient is a pleasant 72-year-old male who taken a fall from a ladder on Monday of this week. He states the ladder just kicked out from him causing him to fall backwards. He had immediate pain in his neck and mid back. He was brought to the emergency room he had CT scans of his head, neck, thoracic spine, abdomen pelvis. He is not having any radicular complaints no pain or numbness going down his arms or legs. He has pain specifically in the neck and in the mid back radiating into his ribs. He denies any other numbness, tingling, or paresthesias. Allergies Allergy/AdvReac Type Severity Reaction Status Date / Time Cipro Allergy Unknown TINGLING Verified 03/16/17 08:06 ALL OVER ciprofloxacin Allergy Unknown TINGL[place] Verified 02/09/23 14:58 ALL OVER Home Medications Medication Instructions Recorded Confirmed Type cholecalciferol (vitamin D3) 125 5,000 units PO QAM 04/09/19 02/09/23 History mcg (5,000 unit) tablet lisinopril 10 mg tablet 10 mg PO QPM #30 tabs 04/09/19 02/09/23 History omeprazole 40 mg capsule,delayed 40 mg PO QAM 01/11/21 02/09/23 History release dextroamphetamine-amphetamine 10 10 mg PO 1300 02/25/21 02/09/23 History mg tablet dextroamphetamine-amphetamine ER 15 mg PO QAM 02/25/21 02/09/23 History 15 mg 24hr capsule,extend release rosuvastatin 10 mg tablet (Crestor) 10 mg PO HS 07/11/22 02/09/23 History timolol maleate (PF) 0.5 % eye 1 drp ophthalmic (eye) BID 07/11/22 02/09/23 History drops in a dropperette acetic acid 2 % ear solution 4 drp otic (ear) BID PRN Itching 02/09/23 02/09/23 History betamethasone, augmented 0.05 % 1 applic topical DAILY PRN flare 02/09/23 02/09/23 History lotion calcium carbonate 300 mg (750 mg) 300 mg PO HS 02/09/23 02/09/23 History chewable tablet (Tums) desonide 0.05 % lotion 1 applic topical DAILY PRN flare 02/09/23 02/09/23 History ketoconazole 2 % topical cream 1 applic topical DAILY 02/09/23 02/09/23 History Patient History Medical History Acute right flank pain Arthritis Benign essential tremor Benign localized hyperplasia of prostate with urinary obstruction Chronic fatigue Colonic obstruction Diabetes Dysphagia Enlarged prostate without lower urinary tract symptoms (luts) HTN (hypertension) Hypercholesterolemia Incomplete bladder emptying Intermittent urinary stream Mild cognitive impairment Nocturnal hypoxemia RLL pneumonia Sleep apnea Slowing of urinary stream TBI (traumatic brain injury) Vertigo Vitamin D deficiency Surgical History History of colonoscopy History of esophagogastroduodenoscopy (EGD) History of hip surgery History of prostate surgery S/P appendectomy S/P rotator cuff repair Family History Mother Cardiac disorder Diabetes Hypertension Father Cardiac disorder COPD (chronic obstructive pulmonary disease) Prostate cancer Brother Diabetes Son Kidney stone Social History Smoking Status: Never smoker Second Hand Exposure: Yes (PARENTS SIBLINGS SMOKED); Do You Dip or Chew Tobacco: No; Hx Alcohol Use: Yes Alcohol type: beer Hx Substance Use: No Preferred Language: Japanese Communication Ability: Effective 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 There is hard collar in place. His upper and lower motor exams reveal no focal atrophy his strength 5 out of 5 to detailed muscle testing. Sensations intact to light touch proprioception is also intact his visual roberts are grossly intact his abdomen soft nontender his calves are supple nontender. Cardiovascular exam reveals no gross abnormalities. Results & Data Vital Signs (Past 12 Hours) Vital Signs Temp Pulse Resp BP Pulse Ox O2 Del Method 02/10/23 07:19 36.7 C 81 18 136/84 94 Room Air Diagnostic Findings CT scan of the cervical thoracic lumbar abdomen pelvis were reviewed. She has a vacuum disc phenomenon at the T10-11 region. Appears to be mild endplate deformity at this level. There is multilevel ankylosing and there appears to be a small disruption to the anterior osteophyte of C7. No extension into the middle or posterior columns.
[2023-02-10] MEDS: AMPHETAMINE ASP/SULF/DEXTRAMPH 10 MG TAB PO SCH ×2 (13:15→13:19)
--- NOTE | 2023-02-10 17:45 | Electrocardiogram Report ---
Test Reason : Blood Pressure : / mmHG Vent. Rate : 087 BPM Atrial Rate : 087 BPM P-R Int : 194 ms QRS Dur : 078 ms QT Int : 372 ms P-R-T Axes : 052 035 034 degrees QTc Int : 447 ms Normal sinus rhythm Normal ECG When compared with ECG of 25-FEB-2021 20:32, No significant change was found Confirmed by Roman Grubbs ([id number]) on 02/10/2023 5:44:59 PM Referred By: REFERRED SELF Confirmed By:Gustavo Grubbs
[2023-02-10] MEDS: ROSUVASTATIN CALCIUM 10 MG TAB PO SCH (20:52)
[2023-02-10] MEDS: lisinopril 10 MG TAB PO SCH (20:52)
[2023-02-10] MEDS: DOCUSATE SODIUM/SENNA 50/8.6MG TAB PO SCH (20:52)
[2023-02-11] MEDS: ACETAMINOPHEN 325 MG TAB PO SCH ×5 (00:01→23:29)
--- NOTE | 2023-02-11 07:30 | Hospitalist Progress Note ---
Date of Service February 11, 2023 Assessment & Plan (1) Thoracic compression fracture: (2) Closed C7 fracture: (3) Back pain: (4) Acute constipation: (5) Accidental fall from ladder: Plan Patient is a 72 yo M, PMHx of HTN, T2DM, chronic vertigo, S/P colectomy, mild cognitive d/o, post-concussive syndrome, BPH who presented yesterday 2 days after a fall with back pain and acute constipation. CT of thoracolumbar spine revealed non-displaced C7 facture, and age-indeterminate T10-11 fracture. Patient normally has 3 BM's a day; had not had one since the fall, until this morning Thoracic compression fracture/closed C7 fracture/back pain - the patient's TLSO brace has arrived and he is currently using cervical collar and TLSO brace for ambulation - patient's pain is being managed with 3 mg morphine sulfate, IV, Q4h, PRN acute constipation - patient has been prescribed a bowel regimen of nightly Colace/Senna combo, BID Miralax; bowel regimen escalated to bisacodyl, RI, one-time suppository --> patient had BM this morning - patient has been encouraged to ambulate, as able, to increase bowel motility PT/OT has been consulted Admission and Anticipated Discharge Date Admission Date: February 09, 2023 Supervising Physician Co-Signing Physician Notes Attending attestation Pt seen and examined in concert with Dr. Trevino. In agreement with the documented findings as noted in the resident documentation with any exceptions or additions as noted here. Significant improvement in neck and upper back pain while in collar and brace. Feeling of bloating ongoing but improved w/ BM today. On examination, S1/S2 nl RRR no MCG. CTAB. Abd ND, mildly TTP diffusely BS+ve Cervical and thoracic spine injury s/p fall from ladder - orthospine consult - ongoing pain control as noted with activity modification reinforced. Concern for atelectasis w/ splinting discussed and patient will endeavor to mitigate and use pain medication to avoid that. Pending PT/OT as noted Constipation, acute - added dulcolax suppository w/ improvement. Continue m iralax and colace/senna. Can repeat suppository if needed. Else see resident documentation as noted. Subjective Patient is a 72 yo M seen again today after admission late 02/09/23 following a fall that showed an acute, non-displaced fracture at C7 of the spine and age- indeterminate T10-T11 fracture. Patient is wearing a cervical collar, endorses paraspinal and spinal tenderness of the thoracolumbar region. Intermittent muscle spasms are much less frequent. Patient does not endorse any radiculopathic pain in the cervical, thoracic, or lumbar regions. No urinary symptoms--changes in frequency, urgency, blood in urine, incontinence. Patient diagnosed with acute constipation yesterday after 3 days without BM (patient has 3 BM's a day at baseline). With aid of suppository patient had BM today. Review of Systems Constitutional: + body aches and + anorexia (secondary to increased fullness, bloating from constipation) Gastrointestinal: + abdominal pain, + bloating and + constipation Genitourinary: no difficulty urinating, no urinary frequency, no urinary hesitancy, no urinary incontinence or no hematuria Musculoskeletal: + back pain and + neck pain; no radicular pain Neurologic: no loss of sensation, no tingling, no numbness, no radiating pain, no confusion and no memory loss Physical Exam Constitutional: WD/WN, vitals as above cooperative and + in distress Neck: + limited neck extension (patient in cervical collar) Gastrointestinal (Abdomen): Percussion/Palpation: + abdomen tender and + abdomen firm Musculoskeletal: Spine: + limited thoraco-lumbar ROM, + cervical spinal tenderness, + cervical collar present, + pain with thoraco-lumbar ROM, + thoracic spinal tenderness and + lumbar spinal tenderness Extremities: + limited ROM of lower extremity Neurologic: awake; not confused and not obtunded Psychiatric: Orientation: alert and oriented x 3 Eye Contact: good eye contact Speech: normal rate/rhythm/volume of speech Results & Data Results & Data Vital Signs (Past 12 Hours) Vital Signs Temp Pulse Resp BP Pulse Ox O2 Del Method 02/10/23 20:50 36.5 C 81 18 129/78 97 Room Air
[2023-02-11] MEDS ORDERED: bisacodyL 10 MG SUPP PR STA (08:08)
[2023-02-11] MEDS: POLYETHYLENE (MIRALAX) 17 GM PACK PO SCH ×3 (08:37→20:59)
[2023-02-11] MEDS: PANTOprazole 40 MG TAB PO SCH (08:38)
[2023-02-11] MEDS: TIMOLOL MALEATE 0.5% OP SOLN 5 ML BTL OPR SCH ×2 (08:38→21:01)
[2023-02-11] MEDS: DOCUSATE SODIUM/SENNA 50/8.6MG TAB PO SCH ×2 (08:38→21:00)
[2023-02-11] MEDS: INSULIN ASPART PER UNIT CHARGE SC SCH ×4 (08:56→21:00)
[2023-02-11] MEDS: DEXTROAMPHETAMINE/AMPHETAMINE ER 5 MG CAP PO SCH (09:05)
[2023-02-11] MEDS: AMPHETAMINE ASP/SULF/DEXTRAMPH 10 MG TAB PO SCH (12:31)
[2023-02-11] MEDS: MoRPHine SULFATE 4 MG/ML 1 ML CARP\\VIAL IV PRN (17:58)
[2023-02-11] MEDS: ROSUVASTATIN CALCIUM 10 MG TAB PO SCH (21:00)
[2023-02-11] MEDS: lisinopril 10 MG TAB PO SCH (21:00)
[2023-02-12] MEDS: MoRPHine SULFATE 4 MG/ML 1 ML CARP\\VIAL IV PRN ×4 (03:51→22:42)
[2023-02-12] MEDS: ACETAMINOPHEN 325 MG TAB PO SCH ×4 (05:31→23:52)
[2023-02-12] MEDS: POLYETHYLENE (MIRALAX) 17 GM PACK PO SCH ×3 (08:29→20:32)
[2023-02-12] MEDS: PANTOprazole 40 MG TAB PO SCH (08:29)
[2023-02-12] MEDS: DOCUSATE SODIUM/SENNA 50/8.6MG TAB PO SCH ×2 (08:30→20:31)
[2023-02-12] MEDS: TIMOLOL MALEATE 0.5% OP SOLN 5 ML BTL OPR SCH ×2 (08:30→20:32)
[2023-02-12] MEDS: DEXTROAMPHETAMINE/AMPHETAMINE ER 5 MG CAP PO SCH (09:28)
[2023-02-12] MEDS: INSULIN ASPART PER UNIT CHARGE SC SCH ×4 (09:56→20:31)
--- NOTE | 2023-02-12 10:31 | Discharge Summary ---
Date of Service February 12, 2023 Admission HPI Per Admitting Provider Vincenzo is a 72 year old male with a PMH significant for vertigo, HTN, hyperlipidemia, GERD, bowel obstruction S/P partial colectomy, and previous PE S/P completion of anticoagulation who presented to the [facility] ED on 02/09 after sustaining an approximately 5 foot fall off a ladder on 02/07. In the ED, vitals were stable. Labs including CBC and CMP were unremarkable. CT head wo con, CT of the chest with con and thoracic spine showed an age-indeterminate fracture through T10-T11, CT of the lumbar spine was negative, CT of the abd/pelvis with IV con was negative. CT of the cervical spine has an addendum showing "nondisplaced fracture through the anterior superior endplate of C7 without loss of height of the vertebral body. Ortho-Spine was consulted and recommended pain control and that the patient not lift anything heavier than a coffee cup. Recommended admission if pain cannot be well controlled. Injuries are nonsurgical. We were asked to admit the patient for pain control. Prior to admission the patient was given 4mg IV morphine, 750 mg PO methocarbamol, and 2 doses of 50 mcg IV fentanyl. At the time of the exam the patient patient was lying in bed in no acute distress. He states that he had been in his normal state of health, doing work on his barn. He was standing on a 5th ladder when he tried to turn, accidentally kicking the ladder out from under him. He fell to the ground, landing on his back/right side. He does believe that he lost consciousness but is unsure how long he was on the ground for as the fall was unwitnessed. Since the fall he has had ongoing neck, back, and abdominal pain. He denies recent changes in vision, hearing, taste, and smell, chest pain, SOB, cough, nausea, vomiting, diarrhea, dysuria, hematuria, melena, LE swelling, new paresthesias/numbness, saddle anesthesia, or loss of bowel/bladder function. His pain is currently a 5/10 after receiving his latest doses of fentanyl and methocarbamol but feels as though they are starting to dorsey off. His is a full code and wishes for his to make medical decisions for him if he cannot make them himself. Please refer to Dr. Colunga's attestation for any changes to the treatment plan Admission Exam Per Admitting Provider Physical Exam Constitutional: Patient appears in no acute distress. HENT: Head: Normocephalic and atraumatic. Eyes: EOMI, PERRL Mouth/Throat: Mucous membranes moist. Neck: Trachea midline. Neck supple. Lower cervical spine tenderness to palpation Cardiovascular: RRR, No murmurs, rubs or gallops. Intact distal pulses. Pulmonary/Chest: No respiratory distress. Breath sounds clear and equal bilaterally. No wheezes or rales.Left side of chest is tender to palpation. No obvious ecchymosis. Abdominal: Abdomen soft, no rebound or guarding.Generalized tenderness to palpation. No obvious ecchymosis to the abdomen Back:Diffuse midline tenderness to palpation. No step-offs or deformities Musculoskeletal: No edema, tenderness or deformity noted. Skin: Warm and dry. No rash, erythema, pallor or cyanosis Psychiatric: Appropriate mood and affect for situation. Neurological: Alert and keenly responsive. CN II-XII grossly intact, moving all extremities equally and fully. Principal Diagnosis Non-displaced C7 fracture Age indeterminant fracture at T10-11 Discharge Exam Constitutional WD/WN, vitals as above cooperative and comfortable (pain well controlled) Neck + limited neck extension (patient in cervical collar) Gastrointestinal (Abdomen) Inspection/Auscultation: normal bowel sounds Percussion/Palpation: + abdomen tender (mildly tender, much improved) Musculoskeletal Spine: + limited thoraco-lumbar ROM, + cervical spinal tenderness, + cervical collar present, + pain with thoraco-lumbar ROM, + thoracic spinal tenderness and + lumbar spinal tenderness Neurologic awake; not confused and not obtunded Psychiatric Orientation: alert and oriented x 3 Eye Contact: good eye contact Speech: normal rate/rhythm/volume of speech Discharge Data Allergies Allergy/AdvReac Type Severity Reaction Status Date / Time ciprofloxacin Allergy Unknown TINGLING Verified 02/09/23 14:58 ALL OVER Consultations 02/09/23 16:31 Consult Orthopedic Spine Surgery Stat 02/09/23 16:52 ED Decision to Admit Stat Ordered Studies 02/09/23 12:56 CT abd pelvis IV con only Stat CT cervical spine wo con Stat CT chest diagnostic w con Stat CT head/brain wo con Stat CT lumbar spine wo con Stat CT thoracic spine w con Stat Hospital Course (1) Thoracic compression fracture: (2) Closed C7 fracture: (3) Back pain: (4) Acute constipation: (5) Accidental fall from ladder: Plan Patient is a 72 yo M, PMHx of HTN, T2DM, chronic vertigo, S/P colectomy, mild cognitive d/o who presented on 02/10/23, 2 days after a fall, with back pain and acute constipation. CT of thoracolumbar spine revealed non-displaced C7 facture, and age-indeterminate T10-11 fracture. Patient normally has 3 BM's a day and had not had one in 3 days since the fall. Yesterday, 02/11/23, patient finally had several bowel movements following escalation of his bowel regimen to include Senna/Docusate BID, Miralax, 17, TID. Today patient feels much better, less bloated/full. His back pain is improving with increased ROM for his legs and better able to ambulate, especially when wearing his cervical collar and back brace. Thoracic compression fracture/closed C7 fracture/back pain - the patient's TLSO brace has arrived and he is currently using cervical collar and TLSO brace for ambulation - patient's pain once discharged can be managed with 5mg oxycodone, PO, TID, PRN/ Tylenol 1000 mg, PO, Q6h, heating pad therapy as needed --> prescription provided for [address] Diaz's PA will provide specific instructions regarding cervial collar removal for shaving, bathing, etc. -F/U appt scheduled with Dr. Diaz in 10 days acute constipation - patient has been prescribed a bowel regimen of BID Colace/Senna (50/8.6 mg) combo, Miralax, 17 g, PO, TID - patient has been encouraged to ambulate, as able, to increase bowel motility - Total Time Total Time Spent Total Time Spent (In Minutes): See attending attestation Discharge Plan Discharge Items Patient Disposition: Home - Self-Care Reason For Visit: FALL, C7 FRACTURE, UNCONTROLLED PAIN Discharge Diagnosis: Cervical fracture, non-displaced, C7 T10-T11 fracture, age-indeterminant Activity: Per Instructions section Non-emergency contact: Primary Care Provider and Specialist Call non-emergency contact if: your pain is not controlled and your pain is worsening Follow-up/Referrals: Justin Parks MD [Primary Care Provider] - Diet: Regular Addtl Attending Provider Instructions: You were admitted to the hospital for back pain. You were treated with morphine, provided with cervical collar and a back brace A discharge summary will be sent to your primary care physician to ensure continuity of care. Please bring this discharge summary with you to your next office appointment so that your provider can review it at that time. Follow-up appointments: Keep all your follow-up appointments as already scheduled with Dr. Diaz. If you cannot make an appointment, notify your provider. Medications: Your medication list has been reviewed and reconciled upon discharge to ensure accuracy and continuity of care. An updated list of all your medications is included with your hospital discharge paperwork. Please review this list closely, and make note of any changes. We sent a new medication called oxycodone to your pharmacy. Take Oxycodone 5 mg-1 tablet up to three times a day for 10 days. Take your medications as instructed; do not skip a dose of your medicines. Make sure all of your doctors know every medicine you are taking (including ysur-vfg-ilqdwio medicines, vitamins, and supplements). Call your primary care provider before taking any new medicines (including aolw-zim-spsmifh medicines, vitamins, and supplements), because some of these may interact with your current medications, or may make your symptoms worse. Tell your primary care provider if you cannot afford your medications. CONTACT YOUR PRIMARY CARE PROVIDER if you experience any of the following: [worsening back pain, prolonged constipation Difficulty following your treatment plan, or difficulty taking medications CALL 911 OR GO TO THE EMERGENCY DEPARTMENT if you experience any of the following: Sudden, severe abdominal pain or nausea/vomiting Severe chest pain, or chest pain that radiates (moves) to your jaw or arm Sudden, severe shortness of breath or difficulty breathing Thank you for allowing us to participate in your care Pending Studies at Discharge: No Stand-Alone Forms: My [employer], Smoking Cessation Medications and DC Order Prescriptions: New oxycodone 5 mg tablet 5 mg PO TID PRN (Reason: pain) 14 Days Qty: 42 0RF Continued cholecalciferol (vitamin D3) 5,000 unit tablet 5,000 units PO QAM lisinopril 10 mg tablet 10 mg PO QPM Qty: 30 rosuvastatin [Crestor] 10 mg tablet 10 mg PO HS omeprazole 40 mg capsule,delayed release(DR/EC) 40 mg PO QAM timolol maleate (PF) 0.5 % dropperette 1 drp OPHTHALMIC (EYE) BID Rx Instructions: Right Eye Only dextroamphetamine-amphetamine 10 mg tablet 10 mg PO 1300 Rx Instructions: take 1300 dextroamphetamine-amphetamine 15 mg capsule,extended release 24hr 15 mg PO QAM calcium carbonate [Tums] 300 mg (750 mg) Tablet,Chewable 300 mg PO HS betamethasone, augmented 0.05 % lotion 1 applic TOPICAL DAILY PRN (Reason: flare) Rx Instructions: Scalp desonide 0.05 % lotion 1 applic TOPICAL DAILY PRN (Reason: flare) ketoconazole 2 % cream 1 applic TOPICAL DAILY Rx Instructions: Apply to face acetic acid 2 % solution 4 drp otic (ear) BID PRN (Reason: Itching) Rx Instructions: Apply 4 drops to left ear twice daily for 7 days, then as needed for itching Admission Data Admit Date/Time: 02/09/23 17:37 Attending Provider: Roman Martinez Admit Provider: Thierry Colunga Primary Care Provider: Justin Parks Other Providers: Nathan Diaz ; Thierry Colunga. Other Interventions: Discharge Summary Assessment (RN) Last Done: 02/12/23 15:03 Supervising Physician Co-Signing Physician Notes Attending attestation Pt seen and examined in concert with Dr. Trevino. In agreement with the documented findings as noted in the resident documentation with any exceptions or additions as noted here. Significant improvement in neck and upper back pain while in collar and brace. Feeling of bloating ongoing but improved w/ BM today. On examination, S1/S2 nl RRR no MCG. CTAB. Abd ND, mildly TTP diffusely BS+ve Cervical and thoracic spine injury s/p fall from ladder - orthospine consult - ongoing pain control as noted with activity modification reinforced. Concern for atelectasis w/ splinting discussed and patient will endeavor to mitigate and use pain medication to avoid that. Pending PT/OT as noted Constipation, acute - added dulcolax suppository w/ improvement. Continue miralax and colace/senna. Can repeat suppository if needed. Else see resident documentation as noted. Resident Activity Tracking Resident Involvement: Resident Care Provided Care Provided: Adult [facility]
[2023-02-12] MEDS: AMPHETAMINE ASP/SULF/DEXTRAMPH 10 MG TAB PO SCH (12:55)
--- NOTE | 2023-02-12 16:15 | Hospitalist Progress Note ---
Date of Service February 12, 2023 Assessment & Plan (1) Thoracic compression fracture: (2) Closed C7 fracture: (3) Back pain: (4) Acute constipation: (5) Accidental fall from ladder: Plan Plan Patient is a 72 yo M, PMHx of HTN, T2DM, chronic vertigo, S/P colectomy, mild cognitive d/o, post-concussive syndrome, BPH who presented yesterday 2 days after a fall with back pain and acute constipation. CT of thoracolumbar spine revealed non-displaced C7 facture, and age-indeterminate T10-11 fracture. Patient normally has 3 BM's a day; had not had one since the fall, but had several bowel movements yesterday. Thoracic compression fracture/closed C7 fracture/back pain - the patient's TLSO brace has arrived and he is currently using cervical collar and TLSO brace for ambulation - patient's pain is being managed with 3 mg morphine sulfate, IV, Q4h, PRN -patient planned to be discharged on oxycodone, 5 mg, PO, TID/ Tylenol, 1000 mg, PO, QID acute constipation - patient has been prescribed a bowel regimen of nightly Colace/Senna combo, BID Miralax; bowel regimen escalated to bisacodyl, [place], - one-time suppository --> 02/11/23 --> patient had several bowel movements --> feels less bloated/full - patient has been encouraged to ambulate, as able, to increase bowel motility PT/OT has been consulted and recommended discharge Admission and Anticipated Discharge Date Admission Date: February 09, 2023 Subjective Patient is a 72 yo M seen today after admission following a fall that showed an acute, non-displaced fracture at C7 of the spine and age-indeterminate T10-T11 fracture. Patient is wearing a cervical ([place] type) collar, endorses intermittent muscle spasms of the back, paraspinal and spinal tenderness of the thoracolumbar region. Patient does not endorse any radiculopathic pain in the cervical, thoracic, or lumbar regions. No urinary symptoms--changes in frequency, urgency, blood in urine, incontinence--but patient does endorse bowel symptoms--constipation--since fall 3 days ago. At baseline, patient has 3 BM's a day. Patient's abdomen moderately firm with palpable r. and l. lateral tightness of the abdominal muscles. Review of Systems Constitutional: + body aches and + anorexia (secondary to increased fullness, bloating from constipation) Gastrointestinal: + abdominal pain (mild AP) Genitourinary: no difficulty urinating, no urinary frequency, no urinary hesitancy, no urinary incontinence or no hematuria Musculoskeletal: + back pain and + neck pain; no radicular pain Neurologic: no loss of sensation, no tingling, no numbness, no radiating pain, no confusion and no memory loss Physical Exam Constitutional: WD/WN, vitals as above well nourished, cooperative and comfortable (pain is comfortably managed) Respiratory: normal respiratory effort, lungs clear to auscultation Cardiovascular: RRR, no murmur, no edema Gastrointestinal (Abdomen): Inspection/Auscultation: abdomen normal to inspection and normal bowel sounds Percussion/Palpation: + abdomen tender (mildly tender, improved over yesterday) Musculoskeletal: Spine: + limited cervical ROM, + limited thoraco-lumbar ROM, + cervical spinal tenderness, + thoracic spinal tenderness and + lumbar spinal tenderness Results & Data Results & Data Vital Signs (Past 12 Hours) Vital Signs Temp Pulse Pulse Resp BP Pulse Ox O2 Del Method 02/12/23 15:03 36.4 C L 83 75 18 133/81 96 02/12/23 07:53 36.4 C L 75 18 133/81 96 Room Air
[2023-02-12] MEDS: lisinopril 10 MG TAB PO SCH (20:31)
[2023-02-12] MEDS: ROSUVASTATIN CALCIUM 10 MG TAB PO SCH (20:31)
[2023-02-13] MEDS: ACETAMINOPHEN 325 MG TAB PO SCH (05:43)
--- NOTE | 2023-02-13 07:21 | Discharge Summary ---
Date of Service February 13, 2023 Admission HPI Per Admitting Provider HISTORY OF PRESENT ILLNESS: Patient is a 72-year-old male presenting with diffuse back pain and abdominal pain after a fall. Patient reports he was on a ladder when he lost his footing and accidentally kicked a ladder out from under him. He fell 5 feet in the air onto the ground, landing flat on his back. He is unsure if he lost consciousness or not. He is not on any anticoagulation. He reports that he fell 2 days ago and has had progressively worsening pain in his abdomen and his diffuse back. Denies any numbness or tingling down his extremities. He reports diffuse abdominal pain and he reportedly has not had a bowel movement in the last 3 days since the fall. Admission Exam Per Admitting Provider PHYSICAL EXAM: Constitutional: Patient appears in no acute distress. HENT: Head: Normocephalic and atraumatic. Eyes: EOMI, PERRL Mouth/Throat: Mucous membranes moist. Neck: Trachea midline. Neck supple. Lower cervical spine tenderness to palpation Cardiovascular: RRR, No murmurs, rubs or gallops. Intact distal pulses. Pulmonary/Chest: No respiratory distress. Breath sounds clear and equal bilaterally. No wheezes or rales.Left side of chest is tender to palpation. No obvious ecchymosis. Abdominal: Abdomen soft, no rebound or guarding.Generalized tenderness to palpation. No obvious ecchymosis to the abdomen Back:Diffuse midline tenderness to palpation. No step-offs or deformities Musculoskeletal: No edema, tenderness or deformity noted. Skin: Warm and dry. No rash, erythema, pallor or cyanosis Psychiatric: Appropriate mood and affect for situation. Neurological: Alert and keenly responsive. CN II-XII grossly intact, moving all extremities equally and fully. Principal Diagnosis Non-displaced stress fracture, C7 Age-indeterminant stress fracture, T10-T11 Discharge Exam Constitutional WD/WN, vitals as above well nourished, cooperative and comfortable (pain is comfortably managed) Respiratory normal respiratory effort, lungs clear to auscultation Cardiovascular RRR, no murmur, no edema Gastrointestinal (Abdomen) Inspection/Auscultation: abdomen normal to inspection and normal bowel sounds Percussion/Palpation: + abdomen tender (mildly tender, improved over yesterday) Musculoskeletal Spine: + limited cervical ROM, + limited thoraco-lumbar ROM, + cervical spinal tenderness, + thoracic spinal tenderness and + lumbar spinal tenderness Discharge Data Allergies Allergy/AdvReac Type Severity Reaction Status Date / Time ciprofloxacin Allergy Unknown TINGLING Verified 02/09/23 14:58 ALL OVER Consultations 02/09/23 16:31 Consult Orthopedic Spine Surgery Stat 02/09/23 16:52 ED Decision to Admit Stat Ordered Studies 02/09/23 12:56 CT abd pelvis IV con only Stat CT cervical spine wo con Stat CT chest diagnostic w con Stat CT head/brain wo con Stat CT lumbar spine wo con Stat CT thoracic spine w con Stat Hospital Course (1) Thoracic compression fracture: (2) Closed C7 fracture: (3) Back pain: (4) Acute constipation: (5) Accidental fall from ladder: Plan Plan Patient is a 72 yo M, PMHx of HTN, T2DM, chronic vertigo, S/P colectomy, mild cognitive d/o, post-concussive syndrome, BPH who presented yesterday 2 days after a fall with back pain and acute constipation. CT of thoracolumbar spine revealed non-displaced C7 facture, and age-indeterminate T10-11 fracture. Patient normally has 3 BM's a day; had not had one since the fall, but had several bowel movements yesterday and becoming more regular on 02/11 - 02/13/23. Thoracic compression fracture/closed C7 fracture/back pain - the patient's TLSO brace has arrived and he is currently using cervical collar and TLSO brace for ambulation - patient's pain managed with 3 mg morphine sulfate, IV, Q4h, PRN in hospital -patient discharged on oxycodone, 5 mg, PO, TID/ Tylenol, 1000 mg, PO, QID acute constipation - patient has been prescribed a bowel regimen of nightly Colace/Senna combo, BID Miralax; bowel regimen escalated to bisacodyl, [place], - one-time suppository --> 02/11/23 --> patient had several bowel movements and again on 02/12/23 --> feels less bloated/full - patient has been encouraged to ambulate, as able, to increase bowel motility PT/OT has been consulted and recommended discharge Total Time Total Time Spent Total Time Spent (In Minutes): <30 Discharge Plan Discharge Items Patient Disposition: Home - Self-Care Reason For Visit: FALL, C7 FRACTURE, UNCONTROLLED PAIN Discharge Diagnosis: Cervical fracture, non-displaced, C7 T10-T11 fracture, age-indeterminant Activity: Per Instructions section Non-emergency contact: Primary Care Provider and Specialist Call non-emergency contact if: your pain is not controlled and your pain is worsening Follow-up/Referrals: Justin Parks MD [Primary Care Provider] - 02/21/23 2:25 pm Diet: Regular Addtl Attending Provider Instructions: You were admitted to the hospital for back pain. You were treated with morphine, provided with cervical collar and a back brace A discharge summary will be sent to your primary care physician to ensure continuity of care. Please bring this discharge summary with you to your next office appointment so that your provider can review it at that time. Follow-up appointments: Keep all your follow-up appointments as already scheduled with Dr. Diaz. If you cannot make an appointment, notify your provider. Medications: Your medication list has been reviewed and reconciled upon discharge to ensure accuracy and continuity of care. An updated list of all your medications is included with your hospital discharge paperwork. Please review this list closely, and make note of any changes. We sent a new medication called oxycodone to your pharmacy. Take Oxycodone 5 mg-1 tablet up to three times a day for 10 days. Take your medications as instructed; do not skip a dose of your medicines. Make sure all of your doctors know every medicine you are taking (including ov le-hty-kbegyay medicines, vitamins, and supplements). Call your primary care provider before taking any new medicines (including gkth-aui-hpnllgi medicines, vitamins, and supplements), because some of these may interact with your current medications, or may make your symptoms worse. Tell your primary care provider if you cannot afford your medications. CONTACT YOUR PRIMARY CARE PROVIDER if you experience any of the following: [worsening back pain, prolonged constipation Difficulty following your treatment plan, or difficulty taking medications CALL 911 OR GO TO THE EMERGENCY DEPARTMENT if you experience any of the following: Sudden, severe abdominal pain or nausea/vomiting Severe chest pain, or chest pain that radiates (moves) to your jaw or arm Sudden, severe shortness of breath or difficulty breathing Thank you for allowing us to participate in your care Pending Studies at Discharge: No Stand-Alone Forms: My [facility] Team My Mobile, Smoking Cessation Medications and DC Order Prescriptions: New oxycodone 5 mg tablet 5 mg PO TID PRN (Reason: pain) 14 Days Qty: 42 0RF Continued cholecalciferol (vitamin D3) 5,000 unit tablet 5,000 units PO QAM lisinopril 10 mg tablet 10 mg PO QPM Qty: 30 rosuvastatin [Crestor] 10 mg tablet 10 mg PO HS omeprazole 40 mg capsule,delayed release(DR/EC) 40 mg PO QAM timolol maleate (PF) 0.5 % dropperette 1 drp OPHTHALMIC (EYE) BID Rx Instructions: Right Eye Only dextroamphetamine-amphetamine 10 mg tablet 10 mg PO 1300 Rx Instructions: take 1300 dextroamphetamine-amphetamine 15 mg capsule,extended release 24hr 15 mg PO QAM calcium carbonate [Tums] 300 mg (750 mg) Tablet,Chewable 300 mg PO HS betamethasone, augmented 0.05 % lotion 1 applic TOPICAL DAILY PRN (Reason: flare) Rx Instructions: Scalp desonide 0.05 % lotion 1 applic TOPICAL DAILY PRN (Reason: flare) ketoconazole 2 % cream 1 applic TOPICAL DAILY Rx Instructions: Apply to face acetic acid 2 % solution 4 drp otic (ear) BID PRN (Reason: Itching) Rx Instructions: Apply 4 drops to left ear twice daily for 7 days, then as needed for itching Discharge Orders: Discharge Order (Routine); Ordered 02/13/23 Ordered By: Roman Trevino Admission Data Admit Date/Time: 02/09/23 17:37 Attending Provider: Gen Mckay Admit Provider: Thierry Colunga Primary Care Provider: Justin Parks Other Providers: Nathan Diaz ; Thierry Colunga ; Roman Martinez Other Interventions: Discharge Summary Assessment (RN) Last Done: 02/13/23 08:56 Supervising Physician Co-Signing Physician Notes Chart reviewed, case discussed with Dr Trevino, as well as Dr. Martinez Who was his attending physician yesterday. Patient was stable for home, I was informed that the had to take him home and she had to leave and 45 minutes or he was not able to leave today. I was up in his room about 20 minutes after that, and they had already left. Was not able to directly see the patient today because of that, although fortunately appears he was stable for discharge in all respects. Otherwise as above.
[2023-02-13] MEDS: INSULIN ASPART PER UNIT CHARGE SC SCH (07:54)
[2023-02-13] MEDS: TIMOLOL MALEATE 0.5% OP SOLN 5 ML BTL OPR SCH (07:59)
[2023-02-13] MEDS: DOCUSATE SODIUM/SENNA 50/8.6MG TAB PO SCH (07:59)
[2023-02-13] MEDS: POLYETHYLENE (MIRALAX) 17 GM PACK PO SCH (07:59)
[2023-02-13] MEDS: DEXTROAMPHETAMINE/AMPHETAMINE ER 5 MG CAP PO SCH (07:59)
[2023-02-13] MEDS: PANTOprazole 40 MG TAB PO SCH (07:59)
== END 2023-02-13 10:01 | disposition home or self-care (01) ==
LOC: ED 12:22 → 3W 12:22 → SUATTDRO 17:37 → 3W 20:34

== ENCOUNTER 2025-04-20 11:57 | Inpatient (IN) ==
[2025-04-20] MEDS: KETOROLAC TROMETHAMINE 15 MG/ML VIAL IM PRN (12:38)
[2025-04-20 12:47] LABS: Hematocrit (blood only) 41.7 % (42.0-52.0); Hemoglobin 14.1 g/dL (14.0-18.0); Immature Granulocytes # (auto) 0.02 K/uL (0.01-0.20); Immature Granulocytes % (auto) 0.2 %; Mean Corpuscular Hemoglobin 27.4 pg (25.0-34.0); Mean Corpuscular Volume 81.0 fL (80.0-100.0); Platelet Count 353 K/uL (130-400); RDW Standard Deviation 43.1 fL (36.4-46.3); Red Blood Count 5.15 M/uL (4.70-6.10); White Blood Count 8.69 K/ul (4.8-10.8)
[2025-04-20 13:03] LABS: Alanine Aminotransferase 27 U/L (7-52); Albumin Globulin Ratio 1.2 (0.9-2); Albumin Level 4.2 gm/dl (3.4-5.0); Alkaline Phosphatase 85 U/L (34-104); Anion Gap 8 (3-11); Bilirubin,Total 0.6 mg/dl (0.2-1.0); Blood Urea Nitrogen 15 mg/dl (6-23); Calcium 9.1 mg/dl (8.6-10.3); Carbon Dioxide 25 mmol/L (21-32); Chloride 105 mmol/L (98-107); Globulin 3.4 gm/dl (2.5-4.0); Glucose 127 mg/dl (70-99(Fasting)); Potassium 4.2 mmol/L (3.5-5.1); Sodium 138 mmol/L (136-145); Total Protein 7.6 gm/dl (6.0-8.3)
--- NOTE | 2025-04-20 13:34 | XRay Report ---
SINGLE VIEW PELVIS; 2 VIEWS LEFT HIP CLINICAL HISTORY: Left hip pain. FINDINGS: An AP view of the pelvis is obtained with AP and frog leg views of the left hip. Comparison is made to study dated 11/07/2023. The skeletal structures are osteopenic. There is no radiographic ev idence of fracture involving the hips or bony pelvis. Bilateral hip arthroplasties are in near anatom ic alignment. No periprosthetic lucency is seen. Mild degenerative sclerosis is noted in the sacroili ac joints. There is a calcified osteophyte at the origin of the right hamstrings tendon. Lumbosacral spondylosis is partially imaged. The overlying soft tissues are within normal limits. IMPRESSION: 1. No acute bony abnormality is identified. 2. Bilateral hip arthroplasties are in near anatomic alignment. Electronically signed by: Wolf Ortega M.D. 04/20/2025 1:33 PM
--- NOTE | 2025-04-20 14:12 | XRay Report ---
LUMBAR SPINE 3 VIEWS CLINICAL HISTORY: Low back pain. FINDINGS: 3 views of the lumbar spine are correlated with lumbar spine CT dated 02/09/2023. The skelet al structures are osteopenic. There is no radiographic evidence of fracture or malalignment. Vertebra l body height and alignment are maintained. The transverse and spinous processes are intact. Large an terior and lateral marginal osteophytes are seen throughout. There is severe disc space narrowing at L2-L3 with endplate sclerosis. Mild disc space narrowing seen at the remaining lumbar levels. Posteri or discussion the complexes are seen at several levels, greatest at L2-L3 and L4-L5. Facet arthropath y is noted in the lower lumbar region. The visualized bony pelvis appears intact. Bilateral arthropla sties are partially imaged. Degenerative sclerosis is seen in the sacroiliac joints. There is a nonob structed abdominal bowel gas pattern. There is moderate constipation. Atherosclerotic calcification i s seen in the abdominal aorta. IMPRESSION: 1. No acute bony abnormality is seen involving the lumbar spine. 2. Osteopenia and spondylotic change as above. ACT 112: Negative or not required by law. Electronically signed by: Wolf Ortega M.D. 04/20/2025 2:11 PM
[2025-04-20] MEDS: LIDOCAINE 5% 1 PATCH TD STA (15:31)
[2025-04-20] MEDS: MoRPHine SULFATE 10 MG/ML CARP/VIAL IV STA ×2 (15:31→17:41)
--- NOTE | 2025-04-20 16:54 | Magnetic Resonance Report ---
Exam: MR lumbar spine without contrast. History: Low back and left hip pain. Left leg numbness. Comparison: None. Technique: Routine multiplanar multisequence MR images of the lumbar spine without intravenous contrast were obtained and reviewed. Findings: There is made that the lowest fully formed intervertebral disc will be labeled L5-S1 for purposes of this dictation. Male signal demonstrates increased T1 and T2 and decreased STIR signal changes along the anterior opposed vertebral body endplates of L1 and L2 consistent with type II Modic endplate changes. Similar findings to lesser extent involving the superior and plates of L3 and L4. No discrete fracture or marrow edema. Lumbar spine alignment demonstrates mild stepwise retrolisthesis upper lumbar spine. Intervertebral disc demonstrate multilevel disc desiccation height loss. This is most marked L2-L3. Conus demonstrates normal signal and caliber and terminates at the T12 level. Axial series demonstrates [id number]: L1-L2 level demonstrates circumferential disc osteophyte complex. No significant spinal canal or foraminal narrowing. L2-L3 level demonstrates ligamentum flavum thickening and facet arthropathy changes. Circumferential disc osteophyte complex with moderate spinal canal narrowing. Impressions upon the extraforaminal nerve roots bilaterally right greater than left noted. Mild bilateral foraminal stenoses. L3-L4 level demonstrates ligamentum flavum thickening and facet arthropathy changes. Circumferential disc bulge yielding moderate to marked spinal canal narrowing. Mild to moderate bilateral foraminal stenoses. L4-L5 level demonstrates mild ligamentum flavum thickening. Mild circumferential disc bulge. Slight asymmetric central and right subarticular disc protrusions are noted. Mild spinal canal narrowing. Mild foraminal stenoses. L5-S1 level demonstrates small central disc protrusion with increased fluid-sensitive signal consistent with fissuring. No significant spinal canal or foraminal narrowing. Included retroperitoneal structures are within normal limits. Paraspinous musculature demonstrates mild fatty infiltration lumbosacral region. Impression: Multilevel degenerative changes with moderate to marked spinal canal and mild to moderate foraminal stenoses as described above. Type II Modic endplate changes are noted. No discrete acute process. Please see above for details. Electronically signed by Chang Morrell 04-20-2025 4:54 PM
--- NOTE | 2025-04-20 17:29 | Emergency Department Note ---
Impression & Plan Intractable low back pain, Acute lumbar radiculopathy, Ambulatory dysfunction ED Provider Note NAME: FRANCES FERNANDO AGE: 74 SEX: M : 1950 ARRIVES VIA: Walk-In INFORMANT: Patient, ED PROVIDER(S): Miguel Angel Nicole DO CHIEF COMPLAINT: back pain HPI: This is a 74-year-old male with the PMHx of essential tremor, hyperlipidemia, BPH, ANJEL, TBI and multiple spinal fractures in the past presenting to [facility] for further evaluation of back pain. Patient is accompanied by his who provide additional history. Patient is reporting severe lower back and left hip pain. Patient states that he has bilateral total hip replacements. He states that he had been working physical therapy a few days ago when he believes he may have stretched wrong. He states he developed some pain that has progressively worsened. His pain has become severe today. Describes significant left hip pain that radiated down the posterior left lower extremity. He denies any bowel or bladder incontinence. No IV drug use. He denies any saddle anesthesia. No recent falls or trauma. They deny fever or chills. No cough or congestion. Denies chest pain or palpitations. No shortness of breath. They deny abdominal pain, nausea and vomiting. No urinary complaints. No recent changes in bowel movements. Patient denies recent changes in medications or OTC supplements. Patient offers no other complaints, today. ADDITIONAL HISTORY OBTAINED: Per HPI Chronic Medical/Social Conditions Affecting Care: Per HPI PAST MEDICAL HISTORY: See Below PAST SURGICAL HISTORY: See Below FAMILY HISTORY: See Below SOCIAL HISTORY: See Below HOME MEDICATIONS: See Below ALLERGIES: See Below VITALS: See Below PHYSICAL EXAMINATION: GENERAL: Sitting up in bed, alert, some distress 2/2 severe pain, well appearing, well nourished, non-toxic EYE EXAM: normal conjunctiva. OROPHARYNX: no exudate, no erythema, lips, buccal mucosa, and tongue normal and mucous membranes are moist NECK: supple, no nuchal rigidity, no adenopathy, non-tender LUNGS: Clear to auscultation. Normal chest wall mechanics HEART: no murmurs, regular rate, regular rhythm ABDOMEN: abdomen soft, non-tender, no masses, no rebound or guarding. BACK: Back is symmetrical on inspection and there is no deformity, no midline tenderness, no CVA tenderness. SKIN: no rashes and no bruising UPPER EXTREMITIES: upper extremities are grossly normal. LOWER EXTREMITIES: No pitting edema. NEURO EXAM: Normal sensorium, GCS 15, normal speech, no gross weakness of arms, no gross weakness of legs. MEDICAL DECISION MAKING: Differential diagnoses includes but not limited to LBP, DDD, sciatica, UTI, AAA, pyelonephritis, nephrolithiasis, pancreatitis, musculoskeletal strain, muscle spasm, cord compression, spinal stenosis In summary, this is a 74 year old male who presented with back pain. Differential as above. Nursing notes and pertinent past medical records reviewed. Vital signs reviewed and the patient is afebrile and HDS. History and presentation revealed patient is having acute on chronic back pain without traumatic injury. He is neurovascularly intact. All the patient relates that his pain is more hip, I do believe this is more likely to be the back and consistent with lumbar radiculopathy rather than the patient's hip. Difficult to exclude nondisplaced pelvic fracture. He could also have a nondisplaced periprosthetic fracture. Given his hip replacement, will be difficult to visualize the pelvis and femur. Will proceed with MRI of the pelvis/hip as well as MRI L-spine. Multimodal pain control was ordered for the patient and an IV was established. Diagnostics interpreted by me include cardiac monitoring as listed below: -Cardiac Monitoring: An order was placed for continuous cardiac monitoring. The monitor shows a rate of 70-90s with regular rhythm. Patient completed laboratory studies and imaging. Results independently interpreted by me are no leukocytosis or anemia. There is no significant electrolyte derangements or significant kidney dysfunction from baseline. No changes in LFTs. The patient was managed with IV opiates as well as other analgesia medications with failure of improvement. There is significant concern for the patient's safety and ambulatory status. His pain is also been intractable. While the patient does have a reassuring exam, the patient can barely walk. He has known spinal disease including degenerative disc disease as well as multiple compression fractures. Does seem that this was sudden after working with physical therapy. Do believe he likely has a significant musculoskeletal strain with muscle spasm. Do believe the sciatic nerve is involved given the patient's description of the pain and physical examination. Will order MRI as he has bilateral hip replacements and unclear if he could have a possible pelvic fracture or spinal pathology. Patient's plain films were largely unremarkable for acute pathology. Patient has received multiple doses of pain medications. We utilized multimodal pain control without improvement in his symptoms. The patient can barely walk and he has a high fall risk. The patient's MRI shows multiple areas of degenerative changes but no significant cord compression. Patient's lab work is largely unremarkable. The patient at this point has intractable back pain and I am concerned for his safety at home given ambulatory dysfunction. Patient and his are agreeable to admission with consultations with spine surgery tomorrow. They prefer to see a different spine surgery team that is covering today. Ultimately, the decision was made to admit the patient for intractable back pain. I discussed the case with the hospitalist service via telephone/TigerText and they are agreeable to admit the patient to their services. Based on the above, including the patient's age, coexisting illnesses, labs, imaging, and exam findings the decision to treat as an inpatient. I discussed the patient with the hospitalist team who recommended admission to their services. They received the medications, treatments, interventions indicated above and their condition remained guarded. I discussed my findings with the patient and their family and they understand and agree with the treatment plan. All patient / family questions were answered to their satisfaction. Consults/Care Managements Discussions: Per MDM ER treatment provided: See above Procedures: None Critical Care: None The chart was completed utilizing [employer] Speech voice recognition software. Grammatical errors, random word insertions, pronoun errors, and incomplete sentences are an occasional consequence of this system due to software limitations, ambient noise, and hardware issues. Any formal questions or concerns about the content, text, or information contained within the body of this dictation should be directly addressed to the physician for clarification. Past Med/Surg History Problem List (Updated 04/23/25 @ 20:27 by Miguel Angel Nicole DO) Ambulatory dysfunction (Acute) Acute lumbar radiculopathy (Acute) Intractable low back pain (Acute) Myofascial low back pain Lumbar spondylosis Lumbar stenosis without neurogenic claudication Lumbar radiculopathy Carpal tunnel syndrome Thoracic compression fracture Back pain (Acute) Closed C7 fracture (Acute) Otitis externa of left ear Imbalance Sensorineural hearing loss (SNHL) of both ears Poorer in right ear Pulmonary emboli Pulmonary infarct S/P colectomy Diverticular stricture Diverticulitis large intestine w/o perforation or abscess w/o bleeding Colonic stricture Abdominal pain Hx of traumatic brain injury Hypertension Enlarged prostate without lower urinary tract symptoms (luts) resolved Benign localized hyperplasia of prostate with urinary obstruction resolved Convergence insufficiency Post concussion syndrome Obstructive sleep apnea Mild cognitive disorder (Acute) Diabetic sensory polyneuropathy (Acute) Chronic vertigo (Acute) Diabetes under control w/diet Vitamin D deficiency Slowing of urinary stream HX Intermittent urinary stream HX Incomplete bladder emptying HX Hypercholesterolemia Chronic fatigue Benign essential tremor f/u dr. maguire Arthritis Medical History Hx pulmonary embolism History of prostate cancer Glaucoma Accidental fall from ladder RLL pneumonia Dysphagia Mild cognitive impairment Vertigo TBI (traumatic brain injury) Sleep apnea HTN (hypertension) Surgical History Bearden teeth extracted History of total right hip arthroplasty History of total left hip arthroplasty History of partial colectomy History of prostate surgery History of esophagogastroduodenoscopy (EGD) History of colonoscopy S/P appendectomy S/P rotator cuff repair Family History Mother Cardiac disorder Diabetes Hypertension Father Cardiac disorder COPD (chronic obstructive pulmonary disease) Prostate cancer Brother Diabetes Son Kidney stone Social History Smoking Status: Never smoker Second Hand Exposure: No; Do You Dip or Chew Tobacco: No; Tobacco Cessation Education Requested by Patient: No Hx Alcohol Use: Yes Alcohol type: beer Hx Substance Use: No Preferred Language: Telugu Communication Ability: Effective 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 Beliefs That Will Affect Care: None marital status: Current Living Situation: Spouse Current Living Situation Comment: current occupational status: retired How many Children do You have: 3 Other Information That Helps Us Care for You: No Feels Safe at Home: Yes Safety Concerns: Feels Safe At This Time Assistive Devices: Cane and Stair Lift Allergies Allergies Allergy/AdvReac Type Severity Reaction Status Date / Time ciprofloxacin Allergy Intermediate TINGLING Verified 04/20/25 17:51 ALL OVER Home Meds Home Medications Medication Instructions Recorded Confirmed cholecalciferol (vitamin D3) 125 5,000 units PO QAM 04/09/19 04/20/25 mcg (5,000 unit) tablet lisinopril 10 mg tablet 10 mg PO QPM #30 tabs 04/09/19 04/20/25 omeprazole 40 mg capsule,delayed 40 mg PO QAM 01/11/21 04/20/25 release dextroamphetamine-amphetamine 10 10 mg PO DAILY@1300 02/25/21 04/20/25 mg tablet dextroamphetamine-amphetamine ER 15 mg PO QAM 02/25/21 04/20/25 15 mg 24hr capsule,extend release rosuvastatin 10 mg tablet (Crestor) 10 mg PO HS 07/11/22 04/20/25 desonide 0.05 % lotion 1 applic topical DAILY PRN flare 02/09/23 04/20/25 ketoconazole 2 % topical cream 1 applic topical DAILY 02/09/23 04/20/25 brimonidine 0.2 %-timolol 0.5 % 1 drp ophthalmic (eye) BID 04/20/25 04/20/25 eye drops (Combigan) calcium carbonate 500 mg PO DAILY 04/20/25 04/20/25 celecoxib 200 mg capsule 200 mg PO QAM 04/20/25 04/20/25 metformin 500 mg tablet 500 mg PO QPM 04/20/25 04/20/25 [id number] 3.5 1 drp otic (ear) DAILY PRN 04/20/25 04/20/25 mg-10,000 unit/mL-1 % ear NEEDED drops,susp Results & Data (ED) Vital Signs Vital Signs - 24 hr 04/20/25 11:58 04/20/25 14:10 04/20/25 17:00 Temperature 36.6 C Temperature Source Temporal Artery Scan Pulse Rate 94 H Pulse Rate [Left Finger] 94 H 83 Respiratory Rate 18 20 20 Respiratory Effort / Characteristics Non-Labored Spontaneous Respiratory Depth Normal Respiratory Pattern Regular Blood Pressure 136/99 Blood Pressure [Left Arm] 157/86 H 142/80 H Blood Pressure Mean 111 Blood Pressure Mean [Left Arm] 109 100 Pulse Oximetry 97 99 94 Oxygen Delivery Method Room Air Room Air Sepsis Recent Fever Within 48 Hours No Sepsis New/Unexplained Change in Mental Status N/A Sepsis Action Taken by Nursing No Action Required Laboratory Data 04/23/25 06:16 04/23/25 06:16 Lab Results 04/20/25 Range/Units 12:32 WBC 8.69 (4.8-10.8) K/ul RBC 5.15 (4.70-6.10) M/uL Hgb 14.1 (14.0-18.0) g/dL Hct 41.7 L (42.0-52.0) % MCV 81.0 (80.0-100.0) fL MCH 27.4 (25.0-34.0) pg MCHC 33.8 (32.0-36.0) g/dL RDW Std Deviation 43.1 (36.4-46.3) fL RDW Coeff of Stacia 14.6 H (11.5-14.5) % Plt Count 353 (130-400) K/uL MPV 9.9 (9.4-12.4) fL Immature Gran % (Auto) 0.2 % Neut % (Auto) 55.9 % Lymph % (Auto) 32.3 % Ventura % (Auto) 9.8 % Eos % (Auto) 1.2 % Baso % (Auto) 0.6 % Neut # (Auto) 4.86 (1.40-6.50) K/uL Lymph # (Auto) 2.81 (1.20-3.40) K/uL Ventura # (Auto) 0.85 H (0.11-0.59) K/uL Eos # (Auto) 0.10 (0.00-0.50) K/uL Baso # (Auto) 0.05 (0.00-0.20) K/uL Immature Gran # (Auto) 0.02 (0.01-0.20) K/uL Sodium 138 (136-145) mmol/L Potassium 4.2 (3.5-5.1) mmol/L Chloride 105 (98-107) mmol/L Carbon Dioxide 25 (21-32) mmol/L Anion Gap 8 (3-11) BUN 15 (6-23) mg/dl Creatinine 0.83 (0.6-1.4) mg/dl Est Cr Clr Drug Dosing Not Reportable eGFR 91.27 BUN/Creatinine Ratio 18.1 (10-20) Glucose 127 H (70-99(Fasting)) mg/dl Calcium 9.1 (8.6-10.3) mg/dl Total Bilirubin 0.6 (0.2-1.0) mg/dl AST 22 (13-39) U/L ALT 27 (7-52) U/L Alkaline Phosphatase 85 (34-104) U/L Total Protein 7.6 (6.0-8.3) gm/dl Albumin 4.2 (3.4-5.0) gm/dl Globulin 3.4 (2.5-4.0) gm/dl Albumin/Globulin Ratio 1.2 (0.9-2) Administered Medications Acetaminophen (Acetaminophen 500 Mg Tab) 500 mg PO Q8H [facility] Stop: 05/23/25 13:59 Last Admin: 04/23/25 14:12 Dose: 500 mg Documented By: CHE Amphetamine/Dextroamphetamine (Dextroamphetamine/Amphetamine Ir 10 Mg Tab) 10 mg PO DAILY@1300 [facility] Stop: 05/05/25 12:59 Last Admin: 04/23/25 14:12 Dose: 10 mg Documented By: Admin: 04/22/25 12:50 Dose: 10 mg Documented By: Admin: 04/21/25 12:58 Dose: Not Given Documented By: CHE Amphetamine/Dextroamphetamine (Dextroamphetamine/Amphetamine Er 5 Mg Cap) 15 mg PO QAM [facility] Stop: 05/21/25 08:59 Last Admin: 04/23/25 08:59 Dose: 15 mg Documented By: Admin: 04/22/25 07:27 Dose: 15 mg Documented By: Admin: 04/21/25 08:21 Dose: 15 mg Documented By: CHE Baclofen (Baclofen 10 Mg Tab) 5 mg PO TID [facility] Stop: 05/23/25 13:59 Last Admin: 04/23/25 14:12 Dose: 5 mg Documented By: CHE Brimonidine Tartrate (Brimonidine Tartrate 0.2% 5ml) 1 drops OP BID [facility] Stop: 05/20/25 20:59 Last Admin: 04/23/25 08:48 Dose: 1 drops Documented By: Admin: 04/22/25 21:27 Dose: 1 drops Documented By: daniel Admin: 04/22/25 07:27 Dose: 1 drops Documented By: Admin: 04/21/25 20:17 Dose: 1 drops Documented By: Admin: 04/21/25 08:05 Dose: 1 drops Documented By: Admin: 04/20/25 21:28 Dose: 1 drops Documented By: WONG Diclofenac Sodium (Diclofenac Sod 1% Gel 100 Gm Tube) 4 gm EXT QID [facility]; Protocol Stop: 05/23/25 16:59 Last Admin: 04/23/25 17:18 Dose: 4 gm Documented By: CHE Docusate Sodium (Docusate Sodium 100 Mg Cap) 100 mg PO BID [facility] Stop: 05/20/25 20:59 Last Admin: 04/23/25 08:47 Dose: 100 mg Documented By: Admin: 04/22/25 21:26 Dose: 100 mg Documented By: daniel Admin: 04/22/25 07:36 Dose: 100 mg Documented By: Admin: 04/21/25 20:16 Dose: 100 mg Documented By: Admin: 04/21/25 08:21 Dose: 100 mg Documented By: Admin: 04/20/25 21:36 Dose: 100 mg Documented By: WONG Enoxaparin Sodium (Enoxaparin Inj 40 Mg/0.4 Ml Syr) 40 mg SQ HS [facility] Stop: 05/20/25 20:59 Last Admin: 04/22/25 21:26 Dose: 40 mg Documented By: daniel Admin: 04/21/25 20:18 Dose: 40 mg Documented By: Admin: 04/20/25 21:37 Dose: 40 mg Documented By: WONG Insulin Aspart (Insulin Aspart Per Unit Charge) 0 units SC ACHS [facility] Stop: 05/20/25 20:59 Last Admin: 04/23/25 17:06 Dose: Not Given Documented By: Admin: 04/23/25 12:18 Dose: 1 units Documented By: CHE Co-signed By: ERICA Admin: 04/23/25 08:34 Dose: Not Given Documented By: Admin: 04/22/25 21:58 Dose: Not Given Documented By: daniel Co-signed By: SHAJI Admin: 04/22/25 17:09 Dose: Not Given Documented By: CHE Co-signed By: RAIN Admin: 04/22/25 12:06 Dose: Not Given Documented By: CHE Co-signed By: LANNY Admin: 04/22/25 08:53 Dose: Not Given Documented By: Admin: 04/21/25 21:28 Dose: Not Given Documented By: WONG Co-signed By: KATHERINE Admin: 04/21/25 16:54 Dose: Not Given Documented By: CHE Co-signed By: TROY Admin: 04/21/25 12:28 Dose: Not Given Documented By: CHE Co-signed By: ERICA Admin: 04/21/25 08:23 Dose: Not Given Documented By: Admin: 04/20/25 21:30 Dose: Not Given Documented By: WONG Co-signed By: ALLYN Ketoconazole (Ketoconazole 2% Cr 15 Gm Tube) 1 appln EXT DAILY [facility] Stop: 05/01/25 08:59 Last Admin: 04/23/25 07:36 Dose: Not Given Documented By: Admin: 04/22/25 08:53 Dose: Not Given Documented By: Admin: 04/21/25 08:06 Dose: Not Given Documented By: CHE Lisinopril (Lisinopril 10 Mg Tab) 10 mg PO QPM [facility] Stop: 05/20/25 20:59 Last Admin: 04/22/25 21:26 Dose: 10 mg Documented By: daniel Admin: 04/21/25 20:17 Dose: 10 mg Documented By: Admin: 04/20/25 21:38 Dose: 10 mg Documented By: WONG Miscellaneous (Remove Lidoderm Patch) 1 each N/A DAILY@2100 [facility] Stop: 05/20/25 20:59 Last Admin: 04/22/25 21:31 Dose: 1 each Documented By: daniel Admin: 04/21/25 20:23 Dose: 1 each Documented By: Admin: 04/20/25 21:39 Dose: 1 each Documented By: WONG Pantoprazole Sodium (Pantoprazole 40 Mg Tab) 40 mg PO QAM [facility] Stop: 05/21/25 08:59 Last Admin: 04/23/25 08:47 Dose: 40 mg Documented By: Admin: 04/22/25 07:26 Dose: 40 mg Documented By: Admin: 04/21/25 08:21 Dose: 40 mg Documented By: CHE Rosuvastatin Calcium (Rosuvastatin Calcium 10 Mg Tab) 10 mg PO HS [facility] Stop: 05/20/25 20:59 Last Admin: 04/22/25 21:26 Dose: 10 mg Documented By: daniel Admin: 04/21/25 20:19 Dose: 10 mg Documented By: Admin: 04/20/25 21:38 Dose: 10 mg Documented By: WONG Sennosides (Senna 8.6 Mg Tab) 17.2 mg PO QAM [facility] Stop: 05/23/25 13:14 Last Admin: 04/23/25 14:12 Dose: 17.2 mg Documented By: CHE Timolol Maleate (Timolol Maleate 0.5% Op Soln 5 Ml Btl) 1 drops OP BID [facility] Stop: 05/20/25 20:59 Last Admin: 04/23/25 08:48 Dose: 1 drops Documented By: Admin: 04/22/25 21:26 Dose: 1 drops Documented By: daniel Admin: 04/22/25 07:27 Dose: 1 drops Documented By: Admin: 04/21/25 20:17 Dose: 1 drops Documented By: Admin: 04/21/25 08:05 Dose: 1 drops Documented By: Admin: 04/20/25 21:38 Dose: 1 drops Documented By: WONG Discontinued Medications Acetaminophen (Acetaminophen 500 Mg Tab) 1,000 mg PO Q8H [facility] Stop: 05/20/25 18:14 Last Admin: 04/23/25 10:29 Dose: 1,000 mg Documented By: Admin: 04/23/25 02:54 Dose: 1,000 mg Documented By: daniel Admin: 04/22/25 18:07 Dose: 1,000 mg Documented By: Admin: 04/22/25 09:50 Dose: 1,000 mg Documented By: Admin: 04/22/25 02:29 Dose: 1,000 mg Documented By: Admin: 04/21/25 17:52 Dose: 1,000 mg Documented By: Admin: 04/21/25 10:45 Dose: 1,000 mg Documented By: Admin: 04/21/25 01:59 Dose: 1,000 mg Documented By: Admin: 04/20/25 18:31 Dose: 1,000 mg Documented By: MAYRA Dexamethasone (Dexamethasone Sod Inj 4 Mg/Ml Vial) 10 mg IV NOW STA Stop: 04/20/25 17:24 Last Admin: 04/20/25 17:40 Dose: 10 mg Documented By: HARJEET Diazepam (Diazepam Inj 5 Mg/Ml 2 Ml Carp) 5 mg IV NOW ONE Stop: 04/20/25 14:11 Last Admin: 04/20/25 14:28 Dose: 5 mg Documented By: OLIVIER Fentanyl Citrate (Fentanyl Citrate Pf 100 Mcg/2 Ml Vial) 50 mcg IV NOW ONE Stop: 04/20/25 12:33 Last Admin: 04/20/25 12:37 Dose: 50 mcg Documented By: DIANE Hydromorphone HCl (Hydromorphone Inj 0.5 Mg/0.5 Ml Syr) 0.5 mg IV Q3H PRN PRN Reason: Pain 6,7 Stop: 05/04/25 18:04 Last Admin: 04/20/25 21:41 Dose: 0.5 mg Documented By: WONG Hydromorphone HCl (Hydromorphone Inj 0.5 Mg/0.5 Ml Syr) 1 mg IV Q3H PRN PRN Reason: Pain (8,9,10) Stop: 05/04/25 18:04 Last Admin: 04/23/25 07:39 Dose: 1 mg Documented By: Admin: 04/22/25 20:51 Dose: 1 mg Documented By: daniel Admin: 04/22/25 10:55 Dose: 1 mg Documented By: Admin: 04/21/25 23:56 Dose: 1 mg Documented By: Admin: 04/21/25 16:25 Dose: 1 mg Documented By: Admin: 04/21/25 11:00 Dose: 1 mg Documented By: Admin: 04/21/25 08:00 Dose: 1 mg Documented By: CHE Acetaminophen (Ofirmev) 1,000 mg in 100 mls @ 400 mls/hr IV NOW STA Stop: 04/20/25 14:25 Last Admin: 04/20/25 17:43 Dose: Not Given Documented By: HARJEET Methylprednisolone 40 mg/ (Syringe) 0.64 mls @ 1.5 mls/min IV BID [facility] Stop: 05/21/25 08:59 Last Admin: 04/23/25 07:40 Dose: 1.5 mls/min Documented By: Admin: 04/22/25 21:26 Dose: 1.5 mls/min Documented By: daniel Admin: 04/22/25 07:26 Dose: 1.5 mls/min Documented By: Admin: 04/21/25 20:18 Dose: 1.5 mls/min Documented By: Admin: 04/21/25 08:05 Dose: 1.5 mls/min Documented By: CHE Ketorolac Tromethamine (Ketorolac Tromethamine 15 Mg/Ml Vial) 15 mg IM Q6H PRN PRN Reason: Pain Stop: 04/25/25 12:09 Last Admin: 04/20/25 12:38 Dose: 15 mg Documented By: DIANE Ketorolac Tromethamine (Ketorolac Tromethamine 15 Mg/Ml Vial) 15 mg IV Q6H PRN PRN Reason: Pain Stop: 04/25/25 12:09 Last Admin: 04/22/25 17:31 Dose: 15 mg Documented By: Admin: 04/22/25 09:50 Dose: 15 mg Documented By: Admin: 04/21/25 23:16 Dose: 15 mg Documented By: WONG Lidocaine (Lidocaine 5% 1 Patch) 1 patch TD NOW STA Stop: 04/20/25 15:23 Last Admin: 04/20/25 15:31 Dose: 1 patch Documented By: MAYRA Miscellaneous (Patient's Height &/Or Weight Needed) 1 each N/A Q2H STA Stop: 04/20/25 20:01 Last Admin: 04/20/25 22:23 Dose: 1 each Documented By: WONG Morphine Sulfate (Morphine Sulfate 10 Mg/Ml Carp/Vial) 6 mg IV NOW STA Stop: 04/20/25 15:23 Last Admin: 04/20/25 15:31 Dose: 6 mg Documented By: MAYRA Morphine Sulfate (Morphine Sulfate 10 Mg/Ml Carp/Vial) 6 mg IV NOW STA Stop: 04/20/25 17:27 Last Admin: 04/20/25 17:41 Dose: 6 mg Documented By: HARJEET Oxycodone HCl (Oxycodone Ir Home Pack) 1 each PO UD ONE Stop: 04/20/25 12:11 Last Admin: 04/20/25 13:13 Dose: Not Given Documented By: JORGE LUIS Polyethylene Glycol (Polyethylene (Miralax) 17 Gm Pack) 17 gm PO DAILY PRN PRN Reason: Constipation Stop: 05/20/25 18:18 Last Admin: 04/23/25 12:08 Dose: 17 gm Documented By: CHE Imaging Data Radiologist's Impression: Hip/Pelvis X-Ray 04/20/25 12:10 SINGLE VIEW PELVIS; 2 VIEWS LEFT HIP CLINICAL HISTORY: Left hip pain. FINDINGS: An AP view of the pelvis is obtained with AP and frog leg views of the left hip. Comparison is made to study dated 11/07/2023. The skeletal structures are osteopenic. There is no radiographic evidence of fracture involving the hips or bony pelvis. Bilateral hip arthroplasties are in near anatomic alignment. No periprosthetic lucency is seen. Mild degenerative sclerosis is noted in the sacroiliac joints. There is a calcified osteophyte at the origin of the right hamstrings tendon. Lumbosacral spondylosis is partially imaged. The overlying soft tissues are within normal limits. IMPRESSION: 1. No acute bony abnormality is identified. 2. Bilateral hip arthroplasties are in near anatomic alignment. Electronically signed by: Wolf Ortega M.D. 04/20/2025 1:33 PM Lumbar Spine X-Ray 04/20/25 12:10 LUMBAR SPINE 3 VIEWS CLINICAL HISTORY: Low back pain. FINDINGS: 3 views of the lumbar spine are correlated with lumbar spine CT dated 02/09/2023. The skeletal structures are osteopenic. There is no radiographic evidence of fracture or malalignment. Vertebral body height and alignment are maintained. The transverse and spinous processes are intact. Large anterior and lateral marginal osteophytes are seen throughout. There is severe disc space narrowing at L2-L3 with endplate sclerosis. Mild disc space narrowing seen at the remaining lumbar levels. Posterior discussion the complexes are seen at several levels, greatest at L2-L3 and L4-L5. Facet arthropathy is noted in the lower lumbar region. The visualized bony pelvis appears intact. Bilateral arthroplasties are partially imaged. Degenerative sclerosis is seen in the sacroiliac joints. There is a nonobstructed abdominal bowel gas pattern. There is moderate constipation. Atherosclerotic calcification is seen in the abdominal aorta. IMPRESSION: 1. No acute bony abnormality is seen involving the lumbar spine. 2. Osteopenia and spondylotic change as above. ACT 112: Negative or not required by law. Electronically signed by: Wolf Ortega M.D. 04/20/2025 2:11 PM Lumbar Spine MRI 04/20/25 14:10 Exam: MR lumbar spine without contrast. History: Low back and left hip pain. Left leg numbness. Comparison: None. Technique: Routine multiplanar multisequence MR images of the lumbar spine without intravenous contrast were obtained and reviewed. Findings: There is made that the lowest fully formed intervertebral disc will be labeled L5-S1 for purposes of this dictation. Male signal demonstrates increased T1 and T2 and decreased STIR signal changes along the anterior opposed vertebral body endplates of L1 and L2 consistent with type II Modic endplate changes. Similar findings to lesser extent involving the superior and plates of L3 and L4. No discrete fracture or marrow edema. Lumbar spine alignment demonstrates mild stepwise retrolisthesis upper lumbar spine. Intervertebral disc demonstrate multilevel disc desiccation height loss. This is most marked L2-L3. Conus demonstrates normal signal and caliber and terminates at the T12 level. Axial series demonstrates [id number]: L1-L2 level demonstrates circumferential disc osteophyte complex. No significant spinal canal or foraminal narrowing. L2-L3 level demonstrates ligamentum flavum thickening and facet arthropathy changes. Circumferential disc osteophyte complex with moderate spinal canal narrowing. Impressions upon the extraforaminal nerve roots bilaterally right greater than left noted. Mild bilateral foraminal stenoses. L3-L4 level demonstrates ligamentum flavum thickening and facet arthropathy changes. Circumferential disc bulge yielding moderate to marked spinal canal narrowing. Mild to moderate bilateral foraminal stenoses. L4-L5 level demonstrates mild ligamentum flavum thickening. Mild circumferential disc bulge. Slight asymmetric central and right subarticular disc protrusions are noted. Mild spinal canal narrowing. Mild foraminal stenoses. L5-S1 level demonstrates small central disc protrusion with increased fluid-sensitive signal consistent with fissuring. No significant spinal canal or foraminal narrowing. Included retroperitoneal structures are within normal limits. Paraspinous musculature demonstrates mild fatty infiltration lumbosacral region. Impression: Multilevel degenerative changes with moderate to marked spinal canal and mild to moderate foraminal stenoses as described above. Type II Modic endplate changes are noted. No discrete acute process. Please see above for details. Electronically signed by Chang Morrell 04-20-2025 4:54 PM Discharge Plan Visit Data Chief Complaint: Back Injury/Pain Stated Complaint: BACK / L HIP / L LEG PAIN ED Provider: Miguel Angel Nicole Discharge Problem: Intractable low back pain, Acute lumbar radiculopathy, Ambulatory dysfunction Patient Disposition: Admitted As Inpatient Condition: Good Discharge Instructions Interventions: ED Discharge Assessment Last Done: 04/20/25 19:14
[2025-04-20] MEDS: DEXAMETHASONE SOD INJ 4 MG/ML VIAL IV STA (17:40)
[2025-04-20] MEDS: ACETAMINOPHEN 1,000 MG/100 ML VIAL IV STA (17:43)
--- NOTE | 2025-04-20 17:49 | Magnetic Resonance Report ---
Exam: MRI left hip without contrast. History: Lower back and left hip pain. Left leg numbness. Comparison: Plain film correlate November 07, 2023. Technique: Routine multiplanar multisequence images of the pelvis and left hip without intravenous contrast were obtained and reviewed. Findings: Marrow signal demonstrates susceptibility artifact bilateral hips corresponding to hip arthroplasty hardware. Nonaffected marrow signal demonstrates slight heterogeneity without occult fracture or marrow edema. Included lumbar spine demonstrates disc degeneration with endplate osteophytes. Included left psoas and iliacus muscle demonstrate decreased volume relative to the right. There is subtle increased fluid-sensitive signal involving the musculature. No discrete fluid collection is noted. This may represent denervation changes. No discrete mass. Prominent distended urinary bladder. Question TURP changes. Included pelvic soft tissues are otherwise within normal limits. Bilateral periarticular musculature demonstrates symmetrical volume and signal intensity. No appreciable joint effusions. Impression: 1. Bilateral hip arthroplasty changes with susceptibility artifact limiting portions of the exam. No discrete complication at these levels. CT may be of benefit. 2. Degenerative changes lumbar spine with included diminished volume of the left psoas and iliacus musculature. Increased fluid-sensitive signal involving these muscles noted. No discrete mass or fluid collection. Question denervation atrophy and edema. This less likely represents an inflammatory or infectious process. If old studies exist recommend making them available for comparison purposes. Correlate with clinical data. 3. Symmetric signal intensity and volume of the remaining bilateral para-articular hip musculature and soft tissues without findings to indicate muscular strain or acute process. Consider contrast-enhanced exams if clinical suspicion or symptoms persist. Recommend current plain film correlation. Electronically signed by Chang Morrell 04-20-2025 5:49 PM
--- NOTE | 2025-04-20 18:23 | History & Physical Report ---
Date of Service April 20, 2025 Assessment & Plan (1) Lumbar radiculopathy: (2) Diabetes: (3) Hypertension: Plan This is a 74 year old gentleman with past medical history of diabetes, HTN, HLD who presented to the ED on 04/20 for back pain. While in the ED, the patient underwent a lumbar & left hip MRI. Left hip MRI reveals degenerative changes of lumbar spine w/ included diminished volume of left psoas & iliacus musculature, increased fluid sensitive signal involving these muscles noted. Lumbar spine MRI revealing multi-level degenerative changes w/ moderate to marked spinal canal & mild to moderate foraminal stenoses. Lumbar XR & L hip XR both negative for fracture. CBC was w/o leukocytosis or anemia. BMP w/ stable renal function & electrolytes. He was given Fentanyl, Valium, Tylenol, Lidocaine patch, Morphine x2, Dexamethasone in the ED without relief. Patient appeared uncomfortable at time of examination. #Lumbar radiculopathy Occurred at outpatient PT where he felt a "stretching" sensation of his back. Now severe left lumbar back pain w/ radiation down his LLE. Lumbar spine + L hip XR neg for fx. L hip MRI: degenerative changes of lumbar spine w/ included diminished volume of left psoas & iliacus musculature, increased fluid sensitive signal involving these muscles noted Lumbar spine MRI: Lumbar spine MRI revealing multi-level degenerative changes w/ moderate to marked spinal canal & mild to moderate foraminal stenoses s/p 10mg IV dexamethasone while in ED --> switch to 40mg IV Solu-medrol BID while inpatient, adjust as necessary pain regimen: scheduled Tylenol, prn Toradol & prn Dilaudid 0.5-1mg for severe pain. PT/OT consulted, appreciate recommendations; fall precautions. Consider orthospine vs pain management consult in AM dependent upon clinical course. #Constipation w/ change in bowel habits since pain began Add colace BID Miralax prn #Diabetes Home regimen: metformin No a1c in system, update in AM Novlog SSI while inpatient, monitor BG while on IV steroids #GERD - PPI #HLD - statin DVT prophylaxis: SCD's, Lovenox Code: full Case was discussed with Dr. Pablo at time of admission. History of Present Illness Primary Care Provider: Justin Parks MD This is a 74 year old gentleman with past medical history of diabetes, HTN, HLD who presented to the ED on 04/20 for back pain. the patient was seen and examined this evening with his . 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 Since then, he has been experiencing severe back pain where he cannot walk well at home. He reports the pain is in his left lower back/buttock region with radiation down his leg. Reports ambulating makes the pain worse. Denies any changes in urination. he states since this started he has also developed constipation and reports abdominal pain/cramping in his lower abdominal area. He denies any N/V, chest pain, SOB, dysuria/hematuria, or LE edema. Reports occasional numbness of his left leg but this occurs intermittently. While in the ED, the patient underwent a lumbar & left hip MRI. Left hip MRI reveals degenerative changes of lumbar spine w/ included diminished volume of left psoas & iliacus musculature, increased fluid sensitive signal involving these muscles noted. Lumbar spine MRI revealing multi-level degenerative changes w/ moderate to marked spinal canal & mild to moderate foraminal stenoses. Lumbar XR & L hip XR both negative for fracture. CBC was w/o leukocytosis or anemia. BMP w/ stable renal function & electrolytes. He was given Fentanyl, Valium, Tylenol, Lidocaine patch, Morphine x2, Dexamethasone in the ED without relief. Patient appeared uncomfortable at time of examination. Code discussion did take place and the patient does confirm that he is a full code. Allergies Allergy/AdvReac Type Severity Reaction Status Date / Time ciprofloxacin Allergy Intermediate TINGLING Verified 04/20/25 17:51 ALL OVER Home Medications Medication Instructions Recorded Confirmed Type cholecalciferol (vitamin D3) 125 5,000 units PO QAM 04/09/19 04/20/25 History mcg (5,000 unit) tablet lisinopril 10 mg tablet 10 mg PO QPM #30 tabs 04/09/19 04/20/25 History omeprazole 40 mg capsule,delayed 40 mg PO QAM 01/11/21 04/20/25 History release dextroamphetamine-amphetamine 10 10 mg PO DAILY@1300 02/25/21 04/20/25 History mg tablet dextroamphetamine-amphetamine ER 15 mg PO QAM 02/25/21 04/20/25 History 15 mg 24hr capsule,extend release rosuvastatin 10 mg tablet (Crestor) 10 mg PO HS 07/11/22 04/20/25 History desonide 0.05 % lotion 1 applic topical DAILY PRN flare 02/09/23 04/20/25 History ketoconazole 2 % topical cream 1 applic topical DAILY 02/09/23 04/20/25 History brimonidine 0.2 %-timolol 0.5 % 1 drp ophthalmic (eye) BID 04/20/25 04/20/25 History eye drops (Combigan) calcium carbonate 500 mg PO DAILY 04/20/25 04/20/25 History celecoxib 200 mg capsule 200 mg PO QAM 04/20/25 04/20/25 History metformin 500 mg tablet 500 mg PO QPM 04/20/25 04/20/25 History [id number] 3.5 1 drp otic (ear) DAILY PRN 04/20/25 04/20/25 History mg-10,000 unit/mL-1 % ear NEEDED drops,susp Past Med/Surg History Problem List (Updated 04/20/25 @ 18:23 by Ana María Goins PA-C) Lumbar radiculopathy Carpal tunnel syndrome Thoracic compression fracture Back pain (Acute) Closed C7 fracture (Acute) Otitis externa of left ear Imbalance Sensorineural hearing loss (SNHL) of both ears Poorer in right ear Pulmonary emboli Pulmonary infarct S/P colectomy Diverticular stricture Diverticulitis large intestine w/o perforation or abscess w/o bleeding Colonic stricture Abdominal pain Hx of traumatic brain injury Hypertension Enlarged prostate without lower urinary tract symptoms (luts) resolved Benign localized hyperplasia of prostate with urinary obstruction resolved Convergence insufficiency Post concussion syndrome Obstructive sleep apnea Mild cognitive disorder (Acute) Diabetic sensory polyneuropathy (Acute) Chronic vertigo (Acute) Diabetes under control w/diet Vitamin D deficiency Slowing of urinary stream HX Intermittent urinary stream HX Incomplete bladder emptying HX Hypercholesterolemia Chronic fatigue Benign essential tremor f/u dr. maguire Arthritis Medical History Hx pulmonary embolism History of prostate cancer Glaucoma Accidental fall from ladder RLL pneumonia Dysphagia Mild cognitive impairment Vertigo TBI (traumatic brain injury) Sleep apnea HTN (hypertension) Surgical History [place] teeth extracted History of total right hip arthroplasty History of total left hip arthroplasty History of partial colectomy History of prostate surgery History of esophagogastroduodenoscopy (EGD) History of colonoscopy S/P appendectomy S/P rotator cuff repair Family History Mother Cardiac disorder Diabetes Hypertension Father Cardiac disorder COPD (chronic obstructive pulmonary disease) Prostate cancer Brother Diabetes Son Kidney stone Social History Smoking Status: Never smoker Second Hand Exposure: Yes (hx growing up); Do You Dip or Chew Tobacco: No; Hx Alcohol Use: Yes Alcohol type: beer Hx Substance Use: No Preferred Language: Polish Communication Ability: Effective 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 Tenderness to palpation over left SI joint area & left lumbar spine region. Neuro: A&O x3 Skin: intact, no lesions noted Results & Data Results & Data Vital Signs (Past 12 Hours) Vital Signs Temp Pulse Pulse Resp BP BP Pulse Ox 04/20/25 17:30 82 19 153/81 H 93 04/20/25 17:00 83 20 142/80 H 94 04/20/25 14:10 94 H 20 157/86 H 99 04/20/25 11:58 36.6 C 94 H 18 136/99 97 O2 Del Method 04/20/25 17:30 Room Air 04/20/25 17:00 04/20/25 14:10 Room Air 04/20/25 11:58 Room Air PG Care Time/CCT Total # of Minutes Spent Total Time Spent with Patient: Total time spent is greater than 50% in coordination of care (as documented) at patient's floor/unit and/or counseling patient: Coding Level of Care Code 47404 INT INP/OBS CARE MIN Diagnoses Lumbar radiculopathy M54.16 Diabetes E11.9 Hypertension I10
[2025-04-20] MEDS: ACETAMINOPHEN 500 MG TAB PO SCH (18:31)
[2025-04-20] MEDS ORDERED: CYCLOBENZAPRINE HCL 10 MG TAB PO PRN (19:54)
[2025-04-20] MEDS ORDERED: CARBOHYDRATES FOR HYPOGLYCEMIA PO PRN (20:15)
[2025-04-20] MEDS ORDERED: DEXTROSE 50% 50 ML SYRINGE IV PRN (20:15)
[2025-04-20] MEDS ORDERED: GLUCOSE 10 TAB/TUBE PO PRN (20:15)
[2025-04-20] MEDS ORDERED: GLUCAGON FOR INJ 1 MG VIAL SQ PRN (20:15)
[2025-04-20] MEDS ORDERED: GLUCOSE 40% GEL 15 GM TUBE PO PRN (20:15)
[2025-04-20] MEDS ORDERED: NON-FORMULARY MEDICATION (Brimonidine-Timolol [Combigan] 0.2-0.5 % Drops) OP SCH (21:00)
[2025-04-20] MEDS: BRIMONIDINE TARTRATE 0.2% 5ML OP SCH (21:28)
[2025-04-20] MEDS: INSULIN ASPART PER UNIT CHARGE SC SCH (21:30)
[2025-04-20] MEDS: DOCUSATE SODIUM 100 MG CAP PO SCH (21:36)
[2025-04-20] MEDS: ENOXAPARIN INJ 40 MG/0.4 ML SYR SQ SCH (21:37)
[2025-04-20] MEDS: ROSUVASTATIN CALCIUM 10 MG TAB PO SCH (21:38)
[2025-04-20] MEDS: TIMOLOL MALEATE 0.5% OP SOLN 5 ML BTL OP SCH (21:38)
[2025-04-20] MEDS: REMOVE LIDODERM PATCH SCH (21:39)
[2025-04-20] MEDS: HYDROmorphone INJ 0.5 MG/0.5 ML SYR IV PRN (21:41)
[2025-04-20] MEDS: Patient's HEIGHT &/or WEIGHT Needed STA (22:23)
[2025-04-21 07:04] LABS: Hematocrit (blood only) 42.3 % (42.0-52.0); Hemoglobin 13.7 g/dL (14.0-18.0); Mean Corpuscular Hemoglobin 26.9 pg (25.0-34.0); Mean Corpuscular Volume 83.1 fL (80.0-100.0); Platelet Count 360 K/uL (130-400); RDW Standard Deviation 45.1 fL (36.4-46.3); Red Blood Count 5.09 M/uL (4.70-6.10); White Blood Count 8.97 K/ul (4.8-10.8)
[2025-04-21 07:19] LABS: Anion Gap 7.0 (3-11); Blood Urea Nitrogen 18.0 mg/dl (6-23); Calcium 9.3 mg/dl (8.6-10.3); Carbon Dioxide 28.0 mmol/L (21-32); Chloride 103.0 mmol/L (98-107); Creatinine Clr Calc Pharmacy 83.8 ml/min; Glucose 145.0 mg/dl (70-99(Fasting)); Potassium 4.4 mmol/L (3.5-5.1); Sodium 138.0 mmol/L (136-145)
[2025-04-21] MEDS: HYDROmorphone INJ 0.5 MG/0.5 ML SYR IV PRN (08:00)
[2025-04-21] MEDS: KETOCONAZOLE 2% CR 15 GM TUBE EXT SCH (08:06)
[2025-04-21] MEDS: DEXTROAMPHETAMINE/AMPHETAMINE ER 5 MG CAP PO SCH (08:21)
[2025-04-21 08:47] LABS: Hemoglobin A1C 7.9 % (4.5-5.6)
[2025-04-21 09:05] LABS: Appearance Urine Clear (Clear); Glucose Urine UA Negative (Negative)
--- NOTE | 2025-04-21 11:16 | Orthopedic Consultation ---
Date of Service April 21, 2025 Assessment & Plan (1) Lumbar radiculopathy: * Case/imaging reviewed and discussed with Dr Guerrero * MRI reviewed, no acute fracture, multilevel degenerative changes and mild stenosis * Recommend conservative management of lumbar pain/radiculopathy at this time * Consider NSAID, steroid taper, mobilization with PT/OT * Would also recommend evaluation by pain management team for possible ARACELI as an outpatient * Weight bearing status: Activity as tolerated, limit bending and lifting * Daily treatment: Physical Therapy/ Occupational Therapy per protocol * Pain control * Disposition: TBD * Remainder care per primary team * Will follow peripherally, can follow-up with spine team as needed (2) Lumbar stenosis without neurogenic claudication: (3) Lumbar spondylosis: History of Present Illness Reason for Consultation: low back pain Requesting Physician: . Attending Physician: Ang Pablo . Patient is a 74y/o male with low back pain. PMH including diabetes, HTN, HLD. Presents to hospital with acute on chronic low back pain. Patient reports suffering several cervical and thoracic spinal compression fractures over the past 1-2 years which have healed with conservative treatment. However reports that over the past few days while working with PT he felt a stretching sensation in his back and his experiencing low back and left gluteal/hip pain with occasional radiation down his left leg. Activity and ambulation tend make the pain worse. Denies changes to bowel/bladder function. Current workup including MRI lumbar spine demonstrating multilevel degenerative changes with mild to moderate foraminal stenosis. Orthopedics consulted for management recommendations. At time of exam patient lying comfortably bed, no acute distress. Endorses pain of the low back and left gluteal/hip region, pain down the lateral medial thigh with certain movements. Denies tingling or numbness of the left lower extremity. Denies outright weakness, however does have difficulty ambulating secondary to pain, occasionally the leg "gives out on him". Patient has seen providers at [facility] [place] for his past spine related injuries but does not treat locally. Allergies Allergy/AdvReac Type Severity Reaction Status Date / Time ciprofloxacin Allergy Intermediate TINGLING Verified 04/20/25 17:51 ALL OVER Home Medications Medication Instructions Recorded Confirmed Type cholecalciferol (vitamin D3) 125 5,000 units PO QAM 04/09/19 04/20/25 History mcg (5,000 unit) tablet lisinopril 10 mg tablet 10 mg PO QPM #30 tabs 04/09/19 04/20/25 History omeprazole 40 mg capsule,delayed 40 mg PO QAM 01/11/21 04/20/25 History release dextroamphetamine-amphetamine 10 10 mg PO DAILY@1300 02/25/21 04/20/25 History mg tablet dextroamphetamine-amphetamine ER 15 mg PO QAM 02/25/21 04/20/25 History 15 mg 24hr capsule,extend release rosuvastatin 10 mg tablet (Crestor) 10 mg PO HS 07/11/22 04/20/25 History desonide 0.05 % lotion 1 applic topical DAILY PRN flare 02/09/23 04/20/25 History ketoconazole 2 % topical cream 1 applic topical DAILY 02/09/23 04/20/25 History brimonidine 0.2 %-timolol 0.5 % 1 drp ophthalmic (eye) BID 04/20/25 04/20/25 History eye drops (Combigan) calcium carbonate 500 mg PO DAILY 04/20/25 04/20/25 History celecoxib 200 mg capsule 200 mg PO QAM 04/20/25 04/20/25 History metformin 500 mg tablet 500 mg PO QPM 04/20/25 04/20/25 History [id number]-[id number] 3.5 1 drp otic (ear) DAILY PRN 04/20/25 04/20/25 History mg-10,000 unit/mL-1 % ear NEEDED drops,susp Past Med/Surg History Problem List (Updated 04/21/25 @ 11:42 by Wolf Guerrero MD) Lumbar spondylosis Lumbar stenosis without neurogenic claudication Lumbar radiculopathy Carpal tunnel syndrome Thoracic compression fracture Back pain (Acute) Closed C7 fracture (Acute) Otitis externa of left ear Imbalance Sensorineural hearing loss (SNHL) of both ears Poorer in right ear Pulmonary emboli Pulmonary infarct S/P colectomy Diverticular stricture Diverticulitis large intestine w/o perforation or abscess w/o bleeding Colonic stricture Abdominal pain Hx of traumatic brain injury Hypertension Enlarged prostate without lower urinary tract symptoms (luts) resolved Benign localized hyperplasia of prostate with urinary obstruction resolved Convergence insufficiency Post concussion syndrome Obstructive sleep apnea Mild cognitive disorder (Acute) Diabetic sensory polyneuropathy (Acute) Chronic vertigo (Acute) Diabetes under control w/diet Vitamin D deficiency Slowing of urinary stream HX Intermittent urinary stream HX Incomplete bladder emptying HX Hypercholesterolemia Chronic fatigue Benign essential tremor f/u dr. maguire Arthritis Medical History Hx pulmonary embolism History of prostate cancer Glaucoma Accidental fall from ladder RLL pneumonia Dysphagia Mild cognitive impairment Vertigo TBI (traumatic brain injury) Sleep apnea HTN (hypertension) Surgical History [place] teeth extracted History of total right hip arthroplasty History of total left hip arthroplasty History of partial colectomy History of prostate surgery History of esophagogastroduodenoscopy (EGD) History of colonoscopy S/P appendectomy S/P rotator cuff repair Family History Mother Cardiac disorder Diabetes Hypertension Father Cardiac disorder COPD (chronic obstructive pulmonary disease) Prostate cancer Brother Diabetes Son Kidney stone Social History Smoking Status: Never smoker Second Hand Exposure: No; Do You Dip or Chew Tobacco: No; Tobacco Cessation Education Requested by Patient: No Hx Alcohol Use: Yes Alcohol type: beer Hx Substance Use: No Preferred Language: Citizen Of [place] Communication Ability: Effective Mine Wirer Required: No Beliefs That Will Affect Care: None marital status: Current Living Situation: Spouse Current Living Situation Comment: current occupational status: retired How many Children do You have: 3 Other Information That Helps Us Care for You: No Feels Safe at Home: Yes Safety Concerns: Feels Safe At This Time Assistive Devices: Glasses and Hearing Aid - Bilateral Review of Systems All systems reviewed & are unremarkable except as noted in HPI & below. Physical Exam . * General: Alert and oriented, no acute distress * Constitutional: well-developed, well-nourished. * Respiratory: Normal respiratory effort, no distress * Gastrointestinal: No tenderness to palpation, no rigidity or guarding. * Skin: No rash or lesion. * Neurologic: Grossly normal * Musculoskeletal: Lumbar region with no obvious deformity or other overlying skin changes. No visual abnormalities of the left lower extremity. Diffuse mildmoderate tenderness and spasm of the midline lumbar region, lumbar paraspinals, left gluteal region, left lateral hip. Does have point tenderness of the left GT bursa, however this entire area does have diffuse tenderness as well. Otherwise no tenderness of the distal thigh, knee, lower leg, foot/ankle. AROM hip flexion, knee extension, ankle dorsi/plantarflexion intact, strength 5/5 bilaterally. Sensation intact plantar/dorsal foot. Brisk capillary refill. Results & Data Results & Data Laboratory Results . Abnormal Lab Results 04/20/25 04/20/25 04/21/25 12:32 21:28 06:29 WBC 8.69 8.97 RBC 5.15 5.09 Hgb 14.1 13.7 L Hct 41.7 L 42.3 MCV 81.0 83.1 MCH 27.4 26.9 MCHC 33.8 32.4 RDW Std Deviation 43.1 45.1 RDW Coeff of Stacia 14.6 H 14.8 H Plt Count 353 360 MPV 9.9 10.2 Immature Gran % (Auto) 0.2 Neut % (Auto) 55.9 Lymph % (Auto) 32.3 [place] % (Auto) 9.8 Eos % (Auto) 1.2 Baso % (Auto) 0.6 Neut # (Auto) 4.86 Lymph # (Auto) 2.81 [place] # (Auto) 0.85 H Eos # (Auto) 0.10 Baso # (Auto) 0.05 Immature Gran # (Auto) 0.02 Sodium 138 138 Potassium 4.2 4.4 Chloride 105 103 Carbon Dioxide 25 28 Anion Gap 8 7 BUN 15 18 Creatinine 0.83 0.90 Est Cr Clr Drug Dosing Not Reportable 83.8 eGFR 91.27 89.07 BUN/Creatinine Ratio 18.1 20.0 Glucose 127 H 145 H POC Glucose 130 H Estimat Average Glucose 180 Hemoglobin A1c 7.9 H Calcium 9.1 9.3 Total Bilirubin 0.6 AST 22 ALT 27 Alkaline Phosphatase 85 Total Protein 7.6 Albumin 4.2 Globulin 3.4 Albumin/Globulin Ratio 1.2 Urine Color Urine Appearance Urine pH Ur Specific [place] Urine Protein Urine Glucose (UA) Urine Ketones Urine Blood Urine Nitrite Urine Bilirubin Urine Urobilinogen Ur Leukocyte Esterase Urine Comment 04/21/25 04/21/25 07:14 07:45 WBC RBC Hgb Hct MCV MCH MCHC RDW Std Deviation RDW Coeff of [place]acia Plt Count MPV Immature Gran % (Auto) Neut % (Auto) Lymph % (Auto) [place] % (Auto) Eos % (Auto) Baso % (Auto) Neut # (Auto) Lymph # (Auto) [place] # (Auto) Eos # (Auto) Baso # (Auto) Immature Gran # (Auto) Sodium Potassium Chloride Carbon Dioxide Anion Gap BUN Creatinine Est Cr Clr Drug Dosing eGFR BUN/Creatinine Ratio Glucose POC Glucose 127 H Estimat Average Glucose Hemoglobin A1c Calcium Total Bilirubin AST ALT Alkaline Phosphatase Total Protein Albumin Globulin Albumin/Globulin Ratio Urine Color Yellow Urine Appearance Clear Urine pH 5.5 Ur Specific [place] 1.021 Urine Protein Negative Urine Glucose (UA) Negative Urine Ketones 1+ H Urine Blood Negative Urine Nitrite Negative Urine Bilirubin Negative Urine Urobilinogen Negative Ur Leukocyte Esterase Negative Urine Comment Diagnostic Findings . Hip/Pelvis X-Ray 04/20/25 12:10 SINGLE VIEW PELVIS; 2 VIEWS LEFT HIP CLINICAL HISTORY: Left hip pain. FINDINGS: An AP view of the pelvis is obtained with AP and frog leg views of the left hip. Comparison is made to study dated 11/07/2023. The skeletal structures are osteopenic. There is no radiographic evidence of fracture involving the hips or bony pelvis. Bilateral hip arthroplasties are in near anatomic alignment. No periprosthetic lucency is seen. Mild degenerative sclerosis is noted in the sacroiliac joints. There is a calcified osteophyte at the origin of the right hamstrings tendon. Lumbosacral spondylosis is partially imaged. The overlying soft tissues are within normal limits. IMPRESSION: 1. No acute bony abnormality is identified. 2. Bilateral hip arthroplasties are in near anatomic alignment. Electronically signed by: Wolf Ortega M.D. 04/20/2025 1:33 PM Lumbar Spine X-Ray 04/20/25 12:10 LUMBAR SPINE 3 VIEWS CLINICAL HISTORY: Low back pain. FINDINGS: 3 views of the lumbar spine are correlated with lumbar spine CT dated 02/09/2023. The skeletal structures are osteopenic. There is no radiographic evidence of fracture or malalignment. Vertebral body height and alignment are maintained. The transverse and spinous processes are intact. Large anterior and lateral marginal osteophytes are seen throughout. There is severe disc space narrowing at L2-L3 with endplate sclerosis. Mild disc space narrowing seen at the remaining lumbar levels. Posterior discussion the complexes are seen at several levels, greatest at L2-L3 and L4-L5. Facet arthropathy is noted in the lower lumbar region. The visualized bony pelvis appears intact. Bilateral arthroplasties are partially imaged. Degenerative sclerosis is seen in the sacroiliac joints. There is a nonobstructed abdominal bowel gas pattern. There is moderate constipation. Atherosclerotic calcification is seen in the abdominal aorta. IMPRESSION: 1. No acute bony abnormality is seen involving the lumbar spine. 2. Osteopenia and spondylotic change as above. ACT 112: Negative or not required by law. Electronically signed by: Wolf Ortega M.D. 04/20/2025 2:11 PM Hip MRI 04/20/25 14:10 Exam: MRI left hip without contrast. History: Lower back and left hip pain. Left leg numbness. Comparison: Plain film correlate November 07, 2023. Technique: Routine multiplanar multisequence images of the pelvis and left hip without intravenous contrast were obtained and reviewed. Findings: Marrow signal demonstrates susceptibility artifact bilateral hips corresponding to hip arthroplasty hardware. Nonaffected marrow signal demonstrates slight heterogeneity without occult fracture or marrow edema. Included lumbar spine demonstrates disc degeneration with endplate osteophytes. Included left psoas and iliacus muscle demonstrate decreased volume relative to the right. There is subtle increased fluid-sensitive signal involving the musculature. No discrete fluid collection is noted. This may represent denervation changes. No discrete mass. Prominent distended urinary bladder. Question TURP changes. Included pelvic soft tissues are otherwise within normal limits. Bilateral periarticular musculature demonstrates symmetrical volume and signal intensity. No appreciable joint effusions. Impression: 1. Bilateral hip arthroplasty changes with susceptibility artifact limiting portions of the exam. No discrete complication at these levels. CT may be of benefit. 2. Degenerative changes lumbar spine with included diminished volume of the left psoas and iliacus musculature. Increased fluid-sensitive signal involving these muscles noted. No discrete mass or fluid collection. Question denervation atrophy and edema. This less likely represents an inflammatory or infectious process. If old studies exist recommend making them available for comparison purposes. Correlate with clinical data. 3. Symmetric signal intensity and volume of the remaining bilateral para-articular hip musculature and soft tissues without findings to indicate muscular strain or acute process. Consider contrast-enhanced exams if clinical suspicion or symptoms persist. Recommend current plain film correlation. Electronically signed by Chang Morrell 04-20-2025 5:49 PM Lumbar Spine MRI 04/20/25 14:10 Exam: MR lumbar spine without contrast. History: Low back and left hip pain. Left leg numbness. Comparison: None. Technique: Routine multiplanar multisequence MR images of the lumbar spine without intravenous contrast were obtained and reviewed. Findings: There is made that the lowest fully formed intervertebral disc will be labeled L5-S1 for purposes of this dictation. Male signal demonstrates increased T1 and T2 and decreased STIR signal changes along the anterior opposed vertebral body endplates of L1 and L2 consistent with type II Modic endplate changes. Similar findings to lesser extent involving the superior and plates of L3 and L4. No discrete fracture or marrow edema. Lumbar spine alignment demonstrates mild stepwise retrolisthesis upper lumbar spine. Intervertebral disc demonstrate multilevel disc desiccation height loss. This is most marked L2-L3. Conus demonstrates normal signal and caliber and terminates at the T12 level. Axial series demonstrates [id number]: L1-L2 level demonstrates circumferential disc osteophyte complex. No significant spinal canal or foraminal narrowing. L2-L3 level demonstrates ligamentum flavum thickening and facet arthropathy changes. Circumferential disc osteophyte complex with moderate spinal canal narrowing. Impressions upon the extraforaminal nerve roots bilaterally right greater than left noted. Mild bilateral foraminal stenoses. L3-L4 level demonstrates ligamentum flavum thickening and facet arthropathy changes. Circumferential disc bulge yielding moderate to marked spinal canal narrowing. Mild to moderate bilateral foraminal stenoses. L4-L5 level demonstrates mild ligamentum flavum thickening. Mild circumferential disc bulge. Slight asymmetric central and right subarticular disc protrusions are noted. Mild spinal canal narrowing. Mild foraminal stenoses. L5-S1 level demonstrates small central disc protrusion with increased fluid-sensitive signal consistent with fissuring. No significant spinal canal or foraminal narrowing. Included retroperitoneal structures are within normal limits. Paraspinous musculature demonstrates mild fatty infiltration lumbosacral region. Impression: Multilevel degenerative changes with moderate to marked spinal canal and mild to moderate foraminal stenoses as described above. Type II Modic endplate changes are noted. No discrete acute process. Please see above for details. Electronically signed by Chang Morrell 04-20-2025 4:54 PM PG Care Time/CCT Total # of Minutes Spent Total Time Spent with Patient: Total time spent is greater than 50% in coordination of care (as documented) at patient's floor/unit and/or counseling patient: Coding Level of Care Code 11643 IN/OBS CONSULT LVL 4,60M Diagnoses Lumbar radiculopathy M54.16 Lumbar stenosis without neurogenic claudication M48.061 Lumbar spondylosis M47.816
[2025-04-21] MEDS: DEXTROAMPHETAMINE/AMPHETAMINE IR 10 MG TAB PO SCH (12:58)
[2025-04-21] MEDS: KETOROLAC TROMETHAMINE 15 MG/ML VIAL IV PRN (23:16)
--- NOTE | 2025-04-21 23:29 | Hospitalist Progress Note ---
Date of Service April 21, 2025 Assessment & Plan (1) Lumbar radiculopathy: (2) Diabetes: (3) Hypertension: Plan This is a 74 year old gentleman with past medical history of diabetes, HTN, HLD who presented to the ED on 04/20 for back pain. While in the ED, the patient underwent a lumbar & left hip MRI. Left hip MRI reveals degenerative changes of lumbar spine w/ included diminished volume of left psoas & iliacus musculature, increased fluid sensitive signal involving these muscles noted. Lumbar spine MRI revealing multi-level degenerative changes w/ moderate to marked spinal canal & mild to moderate foraminal stenoses. Lumbar XR & L hip XR both negative for fracture. CBC was w/o leukocytosis or anemia. BMP w/ stable renal function & electrolytes. He was given Fentanyl, Valium, Tylenol, Lidocaine patch, Morphine x2, Dexamethasone in the ED without relief. Patient appeared uncomfortable at time of examination. #Lumbar radiculopathy Occurred at outpatient PT where he felt a "stretching" sensation of his back. Now severe left lumbar back pain w/ radiation down his LLE. Lumbar spine + L hip XR neg for fx. L hip MRI: degenerative changes of lumbar spine w/ included diminished volume of left psoas & iliacus musculature, increased fluid sensitive signal involving these muscles noted Lumbar spine MRI: Lumbar spine MRI revealing multi-level degenerative changes w/ moderate to marked spinal canal & mild to moderate foraminal stenoses s/p 10mg IV dexamethasone while in ED --> switch to 40mg IV Solu-medrol BID while inpatient, adjust as necessary pain regimen: scheduled Tylenol, prn Toradol & prn Dilaudid 0.5-1mg for severe pain. PT/OT consulted, appreciate recommendations; fall precautions. Consulted ortho spine. #Constipation w/ change in bowel habits since pain began Add colace BID Miralax prn #Diabetes Home regimen: metformin No a1c in system, update in AM Novlog SSI while inpatient, monitor BG while on IV steroids #GERD - PPI #HLD - statin DVT prophylaxis: SCD's, Lovenox Code: full Admission and Anticipated Discharge Date Admission Date: April 20, 2025 Subjective Patient reports no new symptoms. Review of Systems Review of Systems: All systems reviewed & are unremarkable except as noted in HPI & below Physical Exam Constitutional: WD/WN, vitals as above Neck: trachea midline, no thyromegaly Respiratory: normal respiratory effort, lungs clear to auscultation Cardiovascular: RRR, no murmur, no edema Gastrointestinal (Abdomen): normal bowel sounds, soft, nontender, no hepatosplenomegaly Psychiatric: A+Ox3, euthymic affect Results & Data Results & Data Vital Signs (Past 12 Hours) Vital Signs Temp Pulse Resp BP Pulse Ox O2 Del Method 04/21/25 20:13 80 16 146/76 H 95 Room Air 04/21/25 16:07 36.8 C 86 16 148/72 H 93 Room Air PG Care Time/CCT Total # of Minutes Spent Total Time Spent with Patient: Total time spent is greater than 50% in coordination of care (as documented) at patient's floor/unit and/or counseling patient: Coding Level of Care Code 12934 SUB INP/OBS CARE 2/35MIN Diagnoses Lumbar radiculopathy M54.16 Diabetes E11.9 Hypertension I10
[2025-04-22 07:29] LABS: Hematocrit (blood only) 42.4 % (42.0-52.0); Hemoglobin 13.4 g/dL (14.0-18.0); Mean Corpuscular Hemoglobin 26.3 pg (25.0-34.0); Mean Corpuscular Volume 83.3 fL (80.0-100.0); Platelet Count 385 K/uL (130-400); RDW Standard Deviation 45.5 fL (36.4-46.3); Red Blood Count 5.09 M/uL (4.70-6.10); White Blood Count 12.79 K/ul (4.8-10.8)
[2025-04-22 07:49] LABS: Anion Gap 8 (3-11); Blood Urea Nitrogen 30 mg/dl (6-23); Calcium 9.7 mg/dl (8.6-10.3); Carbon Dioxide 28 mmol/L (21-32); Chloride 102 mmol/L (98-107); Creatinine Clr Calc Pharmacy 72.5 ml/min; Glucose 141 mg/dl (70-99(Fasting)); Potassium 4.9 mmol/L (3.5-5.1); Sodium 138 mmol/L (136-145)
--- NOTE | 2025-04-22 21:13 | Hospitalist Progress Note ---
Date of Service April 22, 2025 Assessment & Plan (1) Lumbar radiculopathy: (2) Diabetes: (3) Hypertension: Plan This is a 74 year old gentleman with past medical history of diabetes, HTN, HLD who presented to the ED on 04/20 for back pain. While in the ED, the patient underwent a lumbar & left hip MRI. Left hip MRI reveals degenerative changes of lumbar spine w/ included diminished volume of left psoas & iliacus musculature, increased fluid sensitive signal involving these muscles noted. Lumbar spine MRI revealing multi-level degenerative changes w/ moderate to marked spinal canal & mild to moderate foraminal stenoses. Lumbar XR & L hip XR both negative for fracture. CBC was w/o leukocytosis or anemia. BMP w/ stable renal function & electrolytes. He was given Fentanyl, Valium, Tylenol, Lidocaine patch, Morphine x2, Dexamethasone in the ED without relief. Patient appeared uncomfortable at time of examination. #Lumbar radiculopathy Occurred at outpatient PT where he felt a "stretching" sensation of his back. Now severe left lumbar back pain w/ radiation down his LLE. Lumbar spine + L hip XR neg for fx. L hip MRI: degenerative changes of lumbar spine w/ included diminished volume of left psoas & iliacus musculature, increased fluid sensitive signal involving these muscles noted Lumbar spine MRI: Lumbar spine MRI revealing multi-level degenerative changes w/ moderate to marked spinal canal & mild to moderate foraminal stenoses s/p 10mg IV dexamethasone while in ED --> switch to 40mg IV Solu-medrol BID while inpatient, adjust as necessary pain regimen: scheduled Tylenol, prn Toradol & prn Dilaudid 0.5-1mg for severe pain. PT/OT consulted, appreciate recommendations; fall precautions. Consulted ortho spine: conservative management -will consult pain management as patient is not responding to corticosteroids, pain regimen #Constipation w/ change in bowel habits since pain began Add colace BID Miralax prn #Diabetes Home regimen: metformin No a1c in system, update in AM Novlog SSI while inpatient, monitor BG while on IV steroids #GERD - PPI #HLD - statin DVT prophylaxis: SCD's, Lovenox Code: full Admission and Anticipated Discharge Date Admission Date: April 20, 2025 Subjective 78 yo male reports still having 7/10 pain despite pain medicine. Physical Exam Constitutional: WD/WN, vitals as above Neck: trachea midline, no thyromegaly Respiratory: normal respiratory effort, lungs clear to auscultation Cardiovascular: RRR, no murmur, no edema Gastrointestinal (Abdomen): normal bowel sounds, soft, nontender, no hepatosplenomegaly Psychiatric: A+Ox3, euthymic affect Results & Data Results & Data Vital Signs (Past 12 Hours) Vital Signs Temp Pulse Resp BP Pulse Ox O2 Del Method 04/22/25 19:04 36.7 C 86 16 154/68 H 94 Room Air 04/22/25 15:00 36.6 C 84 16 135/72 92 Room Air PG Care Time/CCT Total # of Minutes Spent Total Time Spent with Patient: Total time spent is greater than 50% in coordination of care (as documented) at patient's floor/unit and/or counseling patient: Coding Level of Care Code 84989 SUB INP/OBS CARE 3/50MIN Diagnoses Lumbar radiculopathy M54.16 Diabetes E11.9 Hypertension I10
[2025-04-23 06:56] LABS: Hematocrit (blood only) 37.8 % (42.0-52.0); Hemoglobin 12.8 g/dL (14.0-18.0); Mean Corpuscular Hemoglobin 27.5 pg (25.0-34.0); Mean Corpuscular Volume 81.3 fL (80.0-100.0); Platelet Count 346 K/uL (130-400); RDW Standard Deviation 44.0 fL (36.4-46.3); Red Blood Count 4.65 M/uL (4.70-6.10); White Blood Count 12.82 K/ul (4.8-10.8)
[2025-04-23 07:20] LABS: Anion Gap 9.0 (3-11); Blood Urea Nitrogen 28.0 mg/dl (6-23); Calcium 9.0 mg/dl (8.6-10.3); Carbon Dioxide 25.0 mmol/L (21-32); Chloride 102.0 mmol/L (98-107); Creatinine Clr Calc Pharmacy 77.7 ml/min; Glucose 151.0 mg/dl (70-99(Fasting)); Potassium 4.2 mmol/L (3.5-5.1); Sodium 136.0 mmol/L (136-145)
--- NOTE | 2025-04-23 11:57 | Pain Management Consultation ---
Date of Consultation April 23, 2025 Assessment & Plan (1) Lumbar radiculopathy: (2) Lumbar stenosis without neurogenic claudication: (3) Lumbar spondylosis: (4) Myofascial low back pain: Plan 1. Patient with significant myofascial pain with noted trigger points from muscle spasm in the lumbosacral region. Discussed treatment options including muscle relaxants, massage, therapy. Recommend trigger point injections at bedside utilizing triamcinolone and ropivacaine. Will avoid ketorolac as patient is receiving IV ketorolac as part of his current inpatient regimen. Risk versus benefit versus alternatives discussed with patient. He would like to proceed. Trigger point injections were performed at bedside without complication. Please see procedure note below 2. Patient does have evidence of multilevel degenerative changes with spinal canal and foraminal stenosis as well as facet arthropathy with mild to moderate bilateral foraminal stenosis at levels L2-L5. Pain seems to be in an L4 or L5 distribution level with predominance on the left. Patient would most likely benefit from epidural steroid injection. Will schedule patient for outpatient visit in the office as a new patient and reevaluate after conservative treatment. Patient is agreeable to this plan. 3. I suspect that a significant amount of the patient's pain is secondary to myofascial pain and hopefully will be relieved with trigger point injections. Would work on de-escalating analgesia from IV to oral medications. The goal would be to discharge patient home on oral medication and have him follow-up in the pain management clinic for further development treatment plan. 4. Steroid taper on discharge would be appropriate using either prednisone or dexamethasone 5. Recommend continuation of physical therapy for low back as tolerated 6. Would recommend consideration of discharging patient on a muscle relaxant such as tizanidine, cyclobenzaprine, baclofen as needed for muscle spasms. 7. Continue with Celebrex (celecoxib) on discharge Thank you for including us in the care of this patient. Will follow peripherally during the course of his hospital stay. Please feel free to call with further questions. Case discussed with Dr. Thomas History of Present Illness Reason for Consultation: Acute low back pain with radicular symptoms Attending Physician: Thierry Rose MD History of Present Illness Attending: Dr. Thomas Mr. Banegas is a 74-year-old male who was admitted the hospital 04/20/2025 for acute low back pain. Patient reports that he had been following with Dr. Schultz at [place] for cervical radicular pain. He then began having lumbar pain and return to Dr. Schultz who suggested conservative treatment including physical therapy. As patient was undergoing physical therapy he had strain of his lumbar section with acute radiculitis into his left lower extremity to the ankle. He denies any significant pain into his foot. He reports that pain is 70% axial and 30% radicular. He does report history of thoracic compression fractures and reports that the pain is much lower than that and that those have healed and he does not have pain up in that region. He denies any weakness of the lower extremity and denies foot drop. He reports his difficulty with ambulation secondary to pain. Patient has not had injections or treatment of the low back in the past. Pain is aggravated by prolonged walking, prolonged standing, changing position. His sleep is interrupted with his pain. Patient does take Celebrex 200 mg daily at home which helps to relieve pain. Other alleviating factors include repositioning, Dilaudid, Toradol, repositioning. Patient reports pain at worst 7-8/10 and at best 5/10 Patient was evaluated by orthospine who recommended conservative treatment at this time. Lumbar spine MRI 04/20/2025 Lumbar spine x-ray 04/20/2025 Thoracic spine x-ray 08/25/[address] 02/09/2023 Previous intervention: Physical therapy, Celebrex, Dilaudid, Toradol, steroids, repositioning, rest Patient denies any bowel or bladder incontinence. No saddle anesthesia. No unusual bleeding or bruising. No history of malignancy. Patient is not on anticoagulants or antiplatelet agents. No other constitutional complaints Allergies Allergy/AdvReac Type Severity Reaction Status Date / Time ciprofloxacin Allergy Intermediate TINGLING Verified 04/20/25 17:51 ALL OVER Home Medications Medication Instructions Recorded Confirmed Type cholecalciferol (vitamin D3) 125 5,000 units PO QAM 04/09/19 04/20/25 History mcg (5,000 unit) tablet lisinopril 10 mg tablet 10 mg PO QPM #30 tabs 04/09/19 04/20/25 History omeprazole 40 mg capsule,delayed 40 mg PO QAM 01/11/21 04/20/25 History release dextroamphetamine-amphetamine 10 10 mg PO DAILY@1300 02/25/21 04/20/25 History mg tablet dextroamphetamine-amphetamine ER 15 mg PO QAM 02/25/21 04/20/25 History 15 mg 24hr capsule,extend release rosuvastatin 10 mg tablet (Crestor) 10 mg PO HS 07/11/22 04/20/25 History desonide 0.05 % lotion 1 applic topical DAILY PRN flare 02/09/23 04/20/25 History ketoconazole 2 % topical cream 1 applic topical DAILY 02/09/23 04/20/25 History brimonidine 0.2 %-timolol 0.5 % 1 drp ophthalmic (eye) BID 04/20/25 04/20/25 History eye drops (Combigan) calcium carbonate 500 mg PO DAILY 04/20/25 04/20/25 History celecoxib 200 mg capsule 200 mg PO QAM 04/20/25 04/20/25 History metformin 500 mg tablet 500 mg PO QPM 04/20/25 04/20/25 History [id number] 3.5 1 drp otic (ear) DAILY PRN 04/20/25 04/20/25 History mg-10,000 unit/mL-1 % ear NEEDED drops,susp Patient History Medical History Hx pulmonary embolism History of prostate cancer Glaucoma Accidental fall from ladder RLL pneumonia Dysphagia Mild cognitive impairment Vertigo TBI (traumatic brain injury) Sleep apnea HTN (hypertension) Surgical History [place] teeth extracted History of total right hip arthroplasty History of total left hip arthroplasty History of partial colectomy History of prostate surgery History of esophagogastroduodenoscopy (EGD) History of colonoscopy S/P appendectomy S/P rotator cuff repair Family History Mother Cardiac disorder Diabetes Hypertension Father Cardiac disorder COPD (chronic obstructive pulmonary disease) Prostate cancer Brother Diabetes Son Kidney stone Social History Smoking Status: Never smoker Second Hand Exposure: No; Do You Dip or Chew Tobacco: No; Tobacco Cessation Education Requested by Patient: No Hx Alcohol Use: Yes Alcohol type: beer Hx Substance Use: No Preferred Language: Syrian Communication Ability: Effective [employer] Work[employer] Required: No Beliefs That Will Affect Care: None marital status: Current Living Situation: Spouse Current Living Situation Comment: current occupational status: retired How many Children do You have: 3 Other Information That Helps Us Care for You: No Feels Safe at Home: Yes Safety Concerns: Feels Safe At This Time Assistive Devices: Cane and Stair Lift Physical Exam Physical Exam: Physical Exam: Constitutional: Well-developed, well-nourished, healthy-appearing, normal weight Psych: Awake, alert, and oriented 3 with normal affect and mood. Memory appears grossly intact, resting comfortably on examination Skin: No evidence of edema, erythema or skin breakdown. No rashes, lesions, ulcers, or induration noted. Musculoskeletal: Head is normocephalic and atraumatic, gait guarded. Lumbar: Lordotic curve: Loss of lumbar Lordosis Range of motion is decreased in all planes secondary to pain Tenderness: Nontender over the axial midline Facet provocation: Positive bilaterally Straight leg raise: Positive on the left and negative on the right Strength: Strength is equal bilaterally with 5 out of 5 strength in all planes Sensation of lower extremities: Intact bilaterally Deep tendon reflexes: Rated at 2/4 in bilateral patellar tendons Myofascial spasm: Significant muscle spasm in the bilateral paraspinal musculature in the lumbosacral region. Trigger points are noted. Significant tenderness with palpation. Greater trochanters: Nontender bilaterally Sacroiliac joints: Nontender bilaterally. Negative Gaenslen's test bilaterally. Negative FADIR. Negative IDA. Negative compression test. No appreciable leg length discrepancy Pathologic reflexes noted: None Neuro: No focal neurological deficits appreciated. Results (Pain Clinic) Diagnostic Review MRI Findings: Hip/Pelvis X-Ray 04/20/25 12:10 SINGLE VIEW PELVIS; 2 VIEWS LEFT HIP CLINICAL HISTORY: Left hip pain. FINDINGS: An AP view of the pelvis is obtained with AP and frog leg views of the left hip. Comparison is made to study dated 11/07/2023. The skeletal structures are osteopenic. There is no radiographic evidence of fracture involving the hips or bony pelvis. Bilateral hip arthroplasties are in near anatomic alignment. No periprosthetic lucency is seen. Mild degenerative sclerosis is noted in the sacroiliac joints. There is a calcified osteophyte at the origin of the right hamstrings tendon. Lumbosacral spondylosis is partially imaged. The overlying soft tissues are within normal limits. IMPRESSION: 1. No acute bony abnormality is identified. 2. Bilateral hip arthroplasties are in near anatomic alignment. Electronically signed by: Wolf Ortega M.D. 04/20/2025 1:33 PM Lumbar Spine X-Ray 04/20/25 12:10 LUMBAR SPINE 3 VIEWS CLINICAL HISTORY: Low back pain. FINDINGS: 3 views of the lumbar spine are correlated with lumbar spine CT dated 02/09/2023. The skeletal structures are osteopenic. There is no radiographic evidence of fracture or malalignment. Vertebral body height and alignment are maintained. The transverse and spinous processes are intact. Large anterior and lateral marginal osteophytes are seen throughout. There is severe disc space narrowing at L2-L3 with endplate sclerosis. Mild disc space narrowing seen at the remaining lumbar levels. Posterior discussion the complexes are seen at several levels, greatest at L2-L3 and L4-L5. Facet arthropathy is noted in the lower lumbar region. The visualized bony pelvis appears intact. Bilateral arthroplasties are partially imaged. Degenerative sclerosis is seen in the sacroiliac joints. There is a nonobstructed abdominal bowel gas pattern. There is moderate constipation. Atherosclerotic calcification is seen in the abdominal aorta. IMPRESSION: 1. No acute bony abnormality is seen involving the lumbar spine. 2. Osteopenia and spondylotic change as above. ACT 112: Negative or not required by law. Electronically signed by: Wolf Ortega M.D. 04/20/2025 2:11 PM Hip MRI 04/20/25 14:10 Exam: MRI left hip without contrast. History: Lower back and left hip pain. Left leg numbness. Comparison: Plain film correlate November 07, 2023. Technique: Routine multiplanar multisequence images of the pelvis and left hip without intravenous contrast were obtained and reviewed. Findings: Marrow signal demonstrates susceptibility artifact bilateral hips corresponding to hip arthroplasty hardware. Nonaffected marrow signal demonstrates slight heterogeneity without occult fracture or marrow edema. Included lumbar spine demonstrates disc degeneration with endplate osteophytes. Included left psoas and iliacus muscle demonstrate decreased volume relative to the right. There is subtle increased fluid-sensitive signal involving the musculature. No discrete fluid collection is noted. This may represent denervation changes. No discrete mass. Prominent distended urinary bladder. Question TURP changes. Included pelvic soft tissues are otherwise within normal limits. Bilateral periarticular musculature demonstrates symmetrical volume and signal intensity. No appreciable joint effusions. Impression: 1. Bilateral hip arthroplasty changes with susceptibility artifact limiting portions of the exam. No discrete complication at these levels. CT may be of benefit. 2. Degenerative changes lumbar spine with included diminished volume of the left psoas and iliacus musculature. Increased fluid-sensitive signal involving these muscles noted. No discrete mass or fluid collection. Question denervation atrophy and edema. This less likely represents an inflammatory or infectious process. If old studies exist recommend making them available for comparison purposes. Correlate with clinical data. 3. Symmetric signal intensity and volume of the remaining bilateral para-articular hip musculature and soft tissues without findings to indicate muscular strain or acute process. Consider contrast-enhanced exams if clinical suspicion or symptoms persist. Recommend current plain film correlation. Electronically signed by Chang Morrell 04-20-2025 5:49 PM Lumbar Spine MRI 04/20/25 14:10 Exam: MR lumbar spine without contrast. History: Low back and left hip pain. Left leg numbness. Comparison: None. Technique: Routine multiplanar multisequence MR images of the lumbar spine without intravenous contrast were obtained and reviewed. Findings: There is made that the lowest fully formed intervertebral disc will be labeled L5-S1 for purposes of this dictation. Male signal demonstrates increased T1 and T2 and decreased STIR signal changes along the anterior opposed vertebral body endplates of L1 and L2 consistent with type II Modic endplate changes. Similar findings to lesser extent involving the superior and plates of L3 and L4. No discrete fracture or marrow edema. Lumbar spine alignment demonstrates mild stepwise retrolisthesis upper lumbar spine. Intervertebral disc demonstrate multilevel disc desiccation height loss. This is most marked L2-L3. Conus demonstrates normal signal and caliber and terminates at the T12 level. Axial series demonstrates [id number]: L1-L2 level demonstrates circumferential disc osteophyte complex. No significant spinal canal or foraminal narrowing. L2-L3 level demonstrates ligamentum flavum thickening and facet arthropathy changes. Circumferential disc osteophyte complex with moderate spinal canal narrowing. Impressions upon the extraforaminal nerve roots bilaterally right greater than left noted. Mild bilateral foraminal stenoses. L3-L4 level demonstrates ligamentum flavum thickening and facet arthropathy changes. Circumferential disc bulge yielding moderate to marked spinal canal narrowing. Mild to moderate bilateral foraminal stenoses. L4-L5 level demonstrates mild ligamentum flavum thickening. Mild circumferential disc bulge. Slight asymmetric central and right subarticular disc protrusions are noted. Mild spinal canal narrowing. Mild foraminal stenoses. L5-S1 level demonstrates small central disc protrusion with increased fluid-sensitive signal consistent with fissuring. No significant spinal canal or foraminal narrowing. Included retroperitoneal structures are within normal limits. Paraspinous musculature demonstrates mild fatty infiltration lumbosacral region. Impression: Multilevel degenerative changes with moderate to marked spinal canal and mild to moderate foraminal stenoses as described above. Type II Modic endplate changes are noted. No discrete acute process. Please see above for details. Electronically signed by Chang Morrell 04-20-2025 4:54 PM
[2025-04-23] MEDS: POLYETHYLENE (MIRALAX) 17 GM PACK PO PRN (12:08)
--- NOTE | 2025-04-23 13:06 | Hospitalist Progress Note ---
Date of Service April 23, 2025 Assessment & Plan (1) Intractable low back pain: (2) Lumbar radiculopathy: (3) Diabetes: (4) Hypertension: (5) Hx pulmonary embolism: (6) History of prostate cancer: (7) Sleep apnea: (8) Mild cognitive impairment: (9) Hx of traumatic brain injury: Plan 74yo male with type 2 diabetes, HTN, Hyperlipidemia, h/o prostate ca, h/o PE, h/o TBI with resulting cognitive impairment. Presented with lumbar back pain with left anterior thigh pain and left lateral hip pain. #Lumbar radiculopathy - -Lumbar spine MRI: -multi-level degenerative changes w/ moderate to marked spinal canal & mild to moderate foraminal stenoses - worst L2/L3 and L3/L4 levels -suspect that the higher level lumbar spine DDD are responsible for his left thigh radicular symptoms -Left SI joint dysfunction can also give left groin & thigh symptoms, however - could he have element of such? -s/p 10mg IV dexamethasone while in ED then changed to 40mg IV Solu-medrol BID -change solumedrol back to dexamethasone 4mg BID -add muscle relaxer - baclofen 5mg TID -stop flexeril prn -add voltaren gel 4gm QID to left lateral hip and left paraspinal muscles of lumbar region -lower tylenol to 500mg TID scheduled -add norco prn for mild-mod pain -make dilaudid IV prn for severe pain -K pad heating pad OR thermawraps -gentle PT/OT #left lateral hip pain - -could be radicular from the l-spine -could be left hip bursitis -he also has very tight IT bands b/l -voltaren gel QID to this region -heat -steroids for l-spine radiculopathy should help as well #Constipation - -add miralax BID -add senna daily -cont colace BID #Diabetes - -Hba1c 7.9% -metformin on hold -novolog SSI -BSGs ac/hs -DM diet -consider adding basal in light of steroid use #GERD - -cont PPI #hyperlipidemia - -cont statin #DVT prophylaxis - -cont Lovenox #h/o TBI with resulting cognitive impairment - -follows with [facility] [place] [facility] -cont stimulant meds #HTN - -cont lisinopril #glaucoma - -cont eye drops #ANJEL - -cont CPAP 8cm H20 -using such at home regularly ? last sleep visit with Dr Billings 2022 per the EMR cont PT/OT as tolerated appreciate pain management consult & the trigger point injections offered updated at beds Admission and Anticipated Discharge Date Admission Date: April 20, 2025 Subjective patient had multiple trigger point injections this am by pain management he reports his pain is improved following such pain is worst in the left paraspinal region / SI joint region on left pain radiates to lateral left hip region then to the anterior left thigh and left groin pain does not travel below the left knee shooting pain when he feels it in the left anterior thigh some pins/needles and electric shock type pain in the left thigh no right thigh or right leg pain has been told in the past that he has tight muscles in his legs denies upper back pain Review of Systems Review of Systems: gen - no fevers cv - no chest pain pulm - no dyspnea GI - no abd pain but having constipation Physical Exam Physical Exam: gen - when he tries to stand he has significant pain in left low back and spasm, kyphotic neck - no JVD, no cervical spine pain to palpation mouth - MMM heart - RRR, s1 s2, no murmur lungs - CTA b/l abd - soft NT ND BS+ ext - no edema, pulses 2+ b/l feet back / spine - no t-spine pain to palpation; no l-spine pain to palpation; paraspinal tenderness left low lumbar region; L SI joint tenderness to palpation; muscle spasm in paraspinal region on left as well musculo - left hip - tender to palpation over the trochanteric bursa; b/l IT bands VERY TIGHT neuro - left hip flexion 4/5 strength, right hip flexion 5/5; ankle dorsiflexion/plantarflexion 5/5 b/l; generalized muscle wasting of various muscles b/l thighs no fasciculations DTRs 2+ b/l patellar and achilles Results & Data Results & Data Vital Signs (Past 12 Hours) Vital Signs Temp Pulse Resp BP Pulse Ox O2 Del Method 04/23/25 07:07 36.5 C 73 16 143/72 H 94 Room Air Laboratory Results Laboratory Results - last 24 hr 04/23/25 04/23/25 04/23/25 06:16 07:32 11:56 WBC 12.82 H RBC 4.65 L Hgb 12.8 L Hct 37.8 L MCV 81.3 MCH 27.5 MCHC 33.9 RDW Std Deviation 44.0 RDW Coeff of Stacia 14.9 H Plt Count 346 MPV 10.5 Sodium 136 Potassium 4.2 Chloride 102 Carbon Dioxide 25 Anion Gap 9 BUN 28 H Creatinine 0.97 Est Cr Clr Drug Dosing 77.7 eGFR 81.41 BUN/Creatinine Ratio 28.9 H Glucose 151 H POC Glucose 129 H 186 H Calcium 9.0 Diagnostic Findings Hip/Pelvis X-Ray 04/20/25 12:10 SINGLE VIEW PELVIS; 2 VIEWS LEFT HIP CLINICAL HISTORY: Left hip pain. FINDINGS: An AP view of the pelvis is obtained with AP and frog leg views of the left hip. Comparison is made to study dated 11/07/2023. The skeletal structures are osteopenic. There is no radiographic evidence of fracture involving the hips or bony pelvis. Bilateral hip arthroplasties are in near anatomic alignment. No periprosthetic lucency is seen. Mild degenerative sclerosis is noted in the sacroiliac joints. There is a calcified osteophyte at the origin of the right hamstrings tendon. Lumbosacral spondylosis is partially imaged. The overlying soft tissues are within normal limits. IMPRESSION: 1. No acute bony abnormality is identified. 2. Bilateral hip arthroplasties are in near anatomic alignment. Electronically signed by: Wolf Ortega M.D. 04/20/2025 1:33 PM Lumbar Spine X-Ray 04/20/25 12:10 LUMBAR SPINE 3 VIEWS CLINICAL HISTORY: Low back pain. FINDINGS: 3 views of the lumbar spine are correlated with lumbar spine CT dated 02/09/2023. The skeletal structures are osteopenic. There is no radiographic evidence of fracture or malalignment. Vertebral body height and alignment are maintained. The transverse and spinous processes are intact. Large anterior and lateral marginal osteophytes are seen throughout. There is severe disc space narrowing at L2-L3 with endplate sclerosis. Mild disc space narrowing seen at the remaining lumbar levels. Posterior discussion the complexes are seen at several levels, greatest at L2-L3 and L4-L5. Facet arthropathy is noted in the lower lumbar region. The visualized bony pelvis appears intact. Bilateral arthroplasties are partially imaged. Degenerative sclerosis is seen in the sacro iliac joints. There is a nonobstructed abdominal bowel gas pattern. There is moderate constipation. Atherosclerotic calcification is seen in the abdominal aorta. IMPRESSION: 1. No acute bony abnormality is seen involving the lumbar spine. 2. Osteopenia and spondylotic change as above. ACT 112: Negative or not required by law. Electronically signed by: Wolf Ortega M.D. 04/20/2025 2:11 PM Hip MRI 04/20/25 14:10 Exam: MRI left hip without contrast. History: Lower back and left hip pain. Left leg numbness. Comparison: Plain film correlate November 07, 2023. Technique: Routine multiplanar multisequence images of the pelvis and left hip without intravenous contrast were obtained and reviewed. Findings: Marrow signal demonstrates susceptibility artifact bilateral hips corresponding to hip arthroplasty hardware. Nonaffected marrow signal demonstrates slight heterogeneity without occult fracture or marrow edema. Included lumbar spine demonstrates disc degeneration with endplate osteophytes. Included left psoas and iliacus muscle demonstrate decreased volume relative to the right. There is subtle increased fluid-sensitive signal involving the musculature. No discrete fluid collection is noted. This may represent denervation changes. No discrete mass. Prominent distended urinary bladder. Question TURP changes. Included pelvic soft tissues are otherwise within normal limits. Bilateral periarticular musculature demonstrates symmetrical volume and signal intensity. No appreciable joint effusions. Impression: 1. Bilateral hip arthroplasty changes with susceptibility artifact limiting portions of the exam. No discrete complication at these levels. CT may be of benefit. 2. Degenerative changes lumbar spine with included diminished volume of the left psoas and iliacus musculature. Increased fluid-sensitive signal involving these muscles noted. No discrete mass or fluid collection. Question denervation atrophy and edema. This less likely represents an inflammatory or infectious process. If old studies exist recommend making them available for comparison purposes. Correlate with clinical data. 3. Symmetric signal intensity and volume of the remaining bilateral para-articular hip musculature and soft tissues without findings to indicate muscular strain or acute process. Consider contrast-enhanced exams if clinical suspicion or symptoms persist. Recommend current plain film correlation. Electronically signed by Chang Morrell 04-20-2025 5:49 PM Lumbar Spine MRI 04/20/25 14:10 Exam: MR lumbar spine without contrast. History: Low back and left hip pain. Left leg numbness. Comparison: None. Technique: Routine multiplanar multisequence MR images of the lumbar spine without intravenous contrast were obtained and reviewed. Findings: There is made that the lowest fully formed intervertebral disc will be labeled L5-S1 for purposes of this dictation. Male signal demonstrates increased T1 and T2 and decreased STIR signal changes along the anterior opposed vertebral body endplates of L1 and L2 consistent with type II Modic endplate changes. Similar findings to lesser extent involving the superior and plates of L3 and L4. No discrete fracture or marrow edema. Lumbar spine alignment demonstrates mild stepwise retrolisthesis upper lumbar spine. Intervertebral disc demonstrate multilevel disc desiccation height loss. This is most marked L2-L3. Conus demonstrates normal signal and caliber and terminates at the T12 level. Axial series demonstrates [id number]: L1-L2 level demonstrates circumferential disc osteophyte complex. No significant spinal canal or foraminal narrowing. L2-L3 level demonstrates ligamentum flavum thickening and facet arthropathy changes. Circumferential disc osteophyte complex with moderate spinal canal narrowing. Impressions upon the extraforaminal nerve roots bilaterally right greater than left noted. Mild bilateral foraminal stenoses. L3-L4 level demonstrates ligamentum flavum thickening and facet arthropathy changes. Circumferential disc bulge yielding moderate to marked spinal canal narrowing. Mild to moderate bilateral foraminal stenoses. L4-L5 level demonstrates mild ligamentum flavum thickening. Mild circumferential disc bulge. Slight asymmetric central and right subarticular disc protrusions are noted. Mild spinal canal narrowing. Mild foraminal stenoses. L5-S1 level demonstrates small central disc protrusion with increased fluid-sensitive signal consistent with fissuring. No significant spinal canal or foraminal narrowing. Included retroperitoneal structures are within normal limits. Paraspinous musculature demonstrates mild fatty infiltration lumbosacral region. Impression: Multilevel degenerative changes with moderate to marked spinal canal and mild to moderate foraminal stenoses as described above. Type II Modic endplate changes are noted. No discrete acute process. Please see above for details. Electronically signed by Chang Morrell 04-20-2025 4:54 PM PG Care Time/CCT Total # of Minutes Spent Total Time Spent with Patient: Total time spent is greater than 50% in coordination of care (as documented) at patient's floor/unit and/or counseling patient: Coding Level of Care Code 29177 SUB INP/OBS CARE 3/50MIN Diagnoses Intractable low back pain M54.59 Lumbar radiculopathy M54.16 Diabetes E11.9 Hypertension I10 Hx pulmonary embolism Z86.711 History of prostate cancer Z85.46 Sleep apnea G47.30 Mild cognitive impairment G31.84 Hx of traumatic brain injury Z87.820
[2025-04-23] MEDS: ACETAMINOPHEN 500 MG TAB PO SCH (14:12)
[2025-04-23] MEDS: BACLOFEN 10 MG TAB PO SCH (14:12)
[2025-04-23] MEDS: SENNA 8.6 MG TAB PO SCH (14:12)
[2025-04-23] MEDS: DICLOFENAC SOD 1% GEL 100 GM TUBE EXT SCH (17:18)
[2025-04-23] MEDS: dexAMETHasone 4 MG in SYRINGE 0 ML IV SCH (21:35)
[2025-04-23] MEDS: POLYETHYLENE (MIRALAX) 17 GM PACK PO SCH (21:36)
[2025-04-23] MEDS: HYDROmorphone INJ 0.5 MG/0.5 ML SYR IV PRN (21:38)
--- NOTE | 2025-04-24 08:51 | Pain Management Progress Note ---
Date of Service April 24, 2025 Assessment & Plan (1) Lumbar radiculopathy: (2) Lumbar stenosis without neurogenic claudication: (3) Lumbar spondylosis: (4) Myofascial low back pain: Plan 1. Significant improvement in notable muscle spasm in the paraspinal lumbar region today. Less tender to palpation. Patient ambulating better. 2. Patient does have evidence of multilevel degenerative changes with spinal canal and foraminal stenosis as well as facet arthropathy with mild to moderate bilateral foraminal stenosis at levels L2-L5. Pain seems to be in an L4 or L5 distribution level with predominance on the left. Patient would most likely benefit from epidural steroid injection. Patient was called yesterday to schedule outpatient visit in the office as a new patient and reevaluate after conservative treatment. Patient is aware that he needs to call the office to s chedule his appointment. 3. Discussed converting all IV medications to oral today with hospitalist team in the hopes that patient can be discharged. Patient is in agreement 4. Would begin oral steroid taper today and continue on discharge with a 5 or 6-day taper 5. Recommend continuation of physical therapy for low back as tolerated 6. Recommend starting gabapentin today. Would do 300 mg p.o. at bedtime for 7 days. If patient tolerates without excessive drowsiness, could increase to 300 mg p.o. twice daily for 7 days. If he tolerates that and continues to have radicular pain, would increase to 300 mg p.o. 3 times daily. I did discuss this with the patient and discussed common side effect of excessive drowsiness. Patient is aware that if this occurs he should not operate motor vehicles, equipment, machinery. 7. Continue with Celebrex (celecoxib) on discharge and diclofenac gel. Heating pad can be used judiciously for muscle spasm Thank you for including us in the care of this patient. Will follow sign off at this time. Please feel free to call with further questions. Case discussed with Dr. Thomas Admission and Anticipated Discharge Date Admission Date: April 20, 2025 Subjective Attending: Dr. Thomas Mr. Banegas was seen this morning at bedside. He reports doing much better. He was able to ambulate in the hallways for 2 laps. He does continue to have some muscle pain in the paraspinal muscles in the lumbosacral region. He reports radicular pain down the left leg similar to yesterday. Muscle spasm is significantly improved. He continues on Celebrex daily, baclofen 5 mg 3 times daily, diclofenac sodium topical gel 4 times daily, Dilaudid IV, oral hydrocodone/acetaminophen, methylprednisolone 40 mg IV twice daily. Discussed converting his meds to all oral to see how he tolerates that as well as decreasing steroids as he is diabetic and we are seeing a rise in BSG from steroids as well as his triamcinolone injections yesterday. Patient is in agreement. Patient is able to sit at edge of bed today as well as rise to a standing position with less discomfort as yesterday. Overall, he feels significant improved. Physical Exam Physical Exam: Physical Exam: Constitutional: Well-developed, well-nourished, healthy-appearing, normal weight Psych: Awake, alert, and oriented 3 with normal affect and mood. Memory appears grossly intact, resting comfortably on examination Skin: No evidence of edema, erythema or skin breakdown at site of trigger point injections. No rashes, lesions, ulcers, or induration noted. Musculoskeletal: Head is normocephalic and atraumatic, gait guarded. Lumbar: Lordotic curve: Loss of lumbar Lordosis Range of motion is decreased in all planes secondary to pain Tenderness: Nontender over the axial midline Facet provocation: Positive bilaterally Straight leg raise: Positive on the left and negative on the right Strength: Strength is equal bilaterally with 5 out of 5 strength in all planes Sensation of lower extremities: Intact bilaterally Deep tendon reflexes: Rated at 2/4 in bilateral patellar tendons Myofascial spasm: Significant improvement in muscle spasm in the bilateral paraspinal musculature in the lumbosacral region. No notable trigger points today. Minimal tenderness with palpation. Greater trochanters: Nontender bilaterally Sacroiliac joints: Nontender bilaterally. Pathologic reflexes noted: None Neuro: No focal neurological deficits appreciated. Results (Pain Clinic) Previous Records Review Previous Records: personally reviewed by me
[2025-04-24] MEDS: HYDROCODONE/ACETAMINOPHEN 7.5/325MG TAB PO PRN (14:02)
--- NOTE | 2025-04-24 20:45 | Hospitalist Progress Note ---
Date of Service April 24, 2025 Assessment & Plan (1) Intractable low back pain: (2) Lumbar radiculopathy: (3) Diabetes: (4) Hypertension: (5) Hx pulmonary embolism: (6) History of prostate cancer: (7) Sleep apnea: (8) Mild cognitive impairment: (9) Hx of traumatic brain injury: Plan 74yo male with type 2 diabetes, HTN, Hyperlipidemia, h/o prostate ca, h/o PE, h/o TBI with resulting cognitive impairment. Presented with lumbar back pain with left anterior thigh pain and left lateral hip pain. #Lumbar radiculopathy - -Lumbar spine MRI: -multi-level degenerative changes w/ moderate to marked spinal canal & mild to moderate foraminal stenoses - worst L2/L3 and L3/L4 levels -suspect that the higher level lumbar spine DDD are responsible for his left thigh radicular symptoms -Left SI joint dysfunction can also give left groin & thigh symptoms, however - could he have element of such? -remains on dexamethasone 4mg BID -will wean to 2mg BID starting tonight, then send home with taper at d/c -cont baclofen 5mg TID -cont voltaren gel 4gm QID to left lateral hip and left paraspinal muscles of lumbar region -cont tylenol 500mg TID scheduled -cont norco prn for mild-mod pain -cont dilaudid IV prn for severe pain -heating pad -gentle PT/OT -for L thigh radicular pain add gabapentin 100mg HS #left lateral hip pain - -could be radicular from the l-spine -could be left hip bursitis -he also has very tight IT bands b/l -voltaren gel QID to this region -heat -steroids for l-spine radiculopathy should help as well -improved today #Constipation - improved - -cont miralax BID -cont senna daily -cont colace BID #Diabetes - -Hba1c 7.9% -metformin on hold -novolog SSI -BSGs ac/hs -DM diet -add lantus 8 units HS #GERD - -cont PPI #hyperlipidemia - -cont statin #DVT prophylaxis - -cont Lovenox #h/o TBI with resulting cognitive impairment - -follows with [facility] [place] [facility] -cont stimulant meds #HTN - -cont lisinopril #glaucoma - -cont eye drops #ANJEL - -cont CPAP 8cm H20 -using such at home regularly ? last sleep visit with Dr Billings 2022 per the EMR cont PT/OT - mobility IS Improved and he should be able to d/c home rather than need rehab updated at bedside again today Admission and Anticipated Discharge Date Admission Date: April 20, 2025 Subjective overall feeling better had a decent night pain-marinelli but sleep was still not optimal/disrupted still with L low back pain/L SI joint region pain still with radiating pain into the left thigh and occasionally goes below the L knee walking was improved with PT today - walked >100 feet no right leg symptoms does feel that the baclofen is helping his spasms +BMs today Review of Systems Review of Systems: CV - no chest pain pulm - no dyspnea GI - no N/V gen - eating well Physical Exam Physical Exam: gen - looks much more comfortable today, NAD neck - no JVD mouth - MMM heart - RRR, s1 s2, no murmur lungs - CTA b/l abd - soft NT ND BS+ ext - no edema, pulses 2+ b/l feet musculo/neuro - IT bands b/l less tight today, especially on right; less tenderness over the L trochanteric bursal region; muscles with less spasm in low back region on left; strength with left sided hip flexion near 5/5 today - improved; distal strength of legs 5/5 bl; right hip flexion 5/5 Results & Data Results & Data Vital Signs (Past 12 Hours) Vital Signs Temp Pulse Resp BP Pulse Ox O2 Del Method 04/24/25 14:55 36.5 C 74 16 146/80 H 96 Room Air Laboratory Results Laboratory Results - last 48 hr 04/23/25 04/23/25 04/23/25 11:56 11:59 16:33 POC Glucose 186 H 171 H 145 H 04/23/25 04/24/25 04/24/25 20:36 07:31 12:01 POC Glucose 182 H 112 H 102 H PG Care Time/CCT Total # of Minutes Spent Total Time Spent with Patient: Total time spent is greater than 50% in coordination of care (as documented) at patient's floor/unit and/or counseling patient: Coding Level of Care Code 82862 SUB INP/OBS CARE 3/50MIN Diagnoses Intractable low back pain M54.59 Lumbar radiculopathy M54.16 Diabetes E11.9 Hypertension I10 Hx pulmonary embolism Z86.711 History of prostate cancer Z85.46 Sleep apnea G47.30 Mild cognitive impairment G31.84 Hx of traumatic brain injury Z87.820
[2025-04-24] MEDS: GABAPENTIN 100 MG CAP PO SCH (21:20)
[2025-04-24] MEDS: LANTUS PER UNIT CHARGE SQ SCH (21:21)
[2025-04-25 07:48] VITALS: BP 135/76; PULSE 70; RESP 16; TEMP 98.1; O2SAT 98
[2025-04-25] MEDS ORDERED: HYDROCODONE/ACETAMINOPHEN 7.5/325MG TAB PO PRN (09:24)
--- NOTE | 2025-04-25 11:47 | Discharge Summary ---
Discharge Summary Date of Service April 25, 2025 Principal Dx & Hospital Course #1 = Principal Diagnosis (1) Intractable low back pain: (2) Lumbar radiculopathy: (3) Diabetes: (4) Hypertension: (5) Hx pulmonary embolism: (6) History of prostate cancer: (7) Sleep apnea: (8) Mild cognitive impairment: (9) Hx of traumatic brain injury: Plan 74yo male with type 2 diabetes, HTN, Hyperlipidemia, h/o prostate ca, h/o PE, h/ o TBI with resulting cognitive impairment. Presented with lumbar back pain with left anterior thigh pain and left lateral hip pain. #Lumbar radiculopathy - -Lumbar spine MRI: -multi-level degenerative changes w/ moderate to marked spinal canal & mild to moderate foraminal stenoses - worst L2/L3 and L3/L4 levels -suspect that the higher level lumbar spine DDD are responsible for his left thigh radicular symptoms -Left SI joint dysfunction can also give left groin & thigh symptoms, however - could he have element of such? -remains on dexamethasone 4mg BID -will wean to 2mg BID starting tonight, then send home with taper at d/c -cont baclofen 5mg TID -cont voltaren gel 4gm QID to left lateral hip and left paraspinal muscles of lumbar region -cont tylenol 500mg TID scheduled -cont norco prn for mild-mod pain -cont dilaudid IV prn for severe pain -heating pad -gentle PT/OT -for L thigh radicular pain add gabapentin 100mg HS #left lateral hip pain - -could be radicular from the l-spine -could be left hip bursitis -he also has very tight IT bands b/l -voltaren gel QID to this region -heat -steroids for l-spine radiculopathy should help as well -improved today #Constipation - improved - -cont miralax BID -cont senna daily -cont colace BID #Diabetes - -Hba1c 7.9% -metformin on hold -novolog SSI -BSGs ac/hs -DM diet -add lantus 8 units HS #GERD - -cont PPI #hyperlipidemia - -cont statin #DVT prophylaxis - -cont Lovenox #h/o TBI with resulting cognitive impairment - -follows with [facility] -cont stimulant meds #HTN - -cont lisinopril #glaucoma - -cont eye drops #ANJEL - -cont CPAP 8cm H20 -using such at home regularly ? last sleep visit with Dr Billings 2022 per the EMR cont PT/OT - mobility IS Improved and he should be able to d/c home rather than need rehab updated at bedside again today Admission HPI Per Admitting Provider This is a 74 year old gentleman with past medical history of diabetes, HTN, HLD who presented to the ED on 04/20 for back pain. the patient was seen and examined this evening with his . 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 Since then, he has been experiencing severe back pain where he cannot walk well at home. He reports the pain is in his left lower back/buttock region with radiation down his leg. Reports ambulating makes the pain worse. Denies any changes in urination. he states since this started he has also developed constipation and reports abdominal pain/cramping in his lower abdominal area. He denies any N/V, chest pain, SOB, dysuria/hematuria, or LE edema. Reports occasional numbness of his left leg but this occurs intermittently. While in the ED, the patient underwent a lumbar & left hip MRI. Left hip MRI reveals degenerative changes of lumbar spine w/ included diminished volume of left psoas & iliacus musculature, increased fluid sensitive signal involving these muscles noted. Lumbar spine MRI revealing multi-level degenerative changes w/ moderate to marked spinal canal & mild to moderate foraminal stenoses. Lumbar XR & L hip XR both negative for fracture. CBC was w/o leukocytosis or anemia. BMP w/ stable renal function & electrolytes. He was given Fentanyl, Valium, Tylenol, Lidocaine patch, Morphine x2, Dexamethasone in the ED without relief. Patient appeared uncomfortable at time of examination. Code discussion did take place and the patient does confirm that he is a full code. Discharge Exam gen - looks much more comfortable today, NAD neck - no JVD mouth - MMM heart - RRR, s1 s2, no murmur lungs - CTA b/l abd - soft NT ND BS+ ext - no edema, pulses 2+ b/l feet musculo/neuro - IT bands b/l less tight today, especially on right; less tenderness over the L trochanteric bursal region; muscles with less spasm in low back region on left; strength with left sided hip flexion near 5/5 today - improved; distal strength of legs 5/5 bl; right hip flexion 5/5 Discharge Plan Discharge Items Patient Disposition: Home - Self-Care Reason For Visit: BACK PAIN Discharge Diagnosis: 1. acute low back pain with left leg pain - due to lumbar spine degeneration with suspected nerve impingement 2. lumbar spinal stenosis 3. diabetes 4. high blood pressure Activity: As commented below Activity Comment: light walks at this time only; avoid heavy exertional activities Lifting: No more than 10 pounds Sexual Activity: Wait until after follow-up appointment Exercise/Sports: Wait until after follow-up appointment Driving/Machine Use: May drive starting next week IF you are no longer taking pain killer meds Non-emergency contact: Primary Care Provider and Specialist Call non-emergency contact if: you have any medication questions, your symptoms worsen, your pain is not controlled, your pain is worsening and your pain is concerning for you Follow-up/Referrals: Wolf Alicea PA-C [Physician] - 06/27/25 8:15 am Justin Parks MD [Primary Care Provider] - 04/28/25 9:25 am Diet: Carb Consistent or DM2 Addtl Attending Provider Instructions: Mr Banegas, You were hospitalized for acute lumbar (low) back pain on the left side. You also had pain that radiated into your left thigh. You underwent imaging of your left hip and your lumbar spine. The lumbar spine MRI showed considerable degeneration of the spine in this region especially at L2-L3 and L3-L4. Degeneration of the spine occurs with aging and can lead to nerve impingement. It is believed that the left leg symptoms are from a nerve being impinged ("pinched"). I cannot rule out pain coming from the left SI Joint (this is where your spine meets the pelvis) but we are less suspicious about this issue. You gradually improved with "trigger point" injections given by pain management, IV steroids, pain medicine, muscle relaxers, topical treatments, tylenol, and a nerve medicine called gabapentin. You were seen by PT/OT and they felt you could return home with your . Recommendations - 1. While recovering from your back injury please hold off on going to PT at this time. Once things calm down and you start to feel better your family doctor or pain management can refer you back to physical therapy. 2. In the meantime please plan to take 2-3 short walks (5-10 minutes each time) daily. Walking keeps the muscles more fit/strong, helps overall mobility, etc. 3. 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 4. May use heat to the low back and left leg as needed/as desired. 5. Steroids - start these TONIGHT. The steroid is called "dexamethasone." The steroid WILL raise your blood sugars while you are on them. Watch your blood sugars carefully; watch your diet carefully over the next week. Follow the instructions on the bottle - it is a tapering course. 6. For muscle spasm - -baclofen 5mg every 8 hours as needed; if desired you can take the medicine scheduled three times daily (rather than just as needed) 7. For pain - -narcotic pain killer - hydrocodone/acetaminophen, 1 tablet every 6 hours as needed -please note that this pain medicine contains tylenol in it -thus, do not take extra ehpu-dmv-kucipxd tylenol if you are taking this narcotic pain killer medicine -do NOT drive a car if you are taking hydrocodone -this medicine can make you sleepy -this medicine will cause constipation 8. For nerve pain - -gabapentin 100mg at bedtime -Dr Parks or pain management can gradually increase the dose of this medicine over time 9. May use voltaren (diclofenac) gel up to 4 times/day to the low back or left leg. Once you resume your Celebrex down the line please discontinue this gel. 10. Once the dexamethasone steroid course has completed you can resume your Celebrex medicine. 11. For constipation you can take 1 or both of the following oqcf-rvi-hestrql medicines - -senna -miralax Follow-up - see separate section Return to [facility] if - -you have uncontrolled back pain or leg pain -you have significant difficulty walking because of the pain -you have difficulty walking because of leg weakness -you develop bowel or bladder incontinence -any other concerns It was our pleasure to care for you! -Thierry Rose Pending Studies at Discharge: No Stand-Alone Forms: [facility], Smoking Cessation Medications and DC Order Prescriptions: New diclofenac sodium [Voltaren Arthritis Pain] 1 % Gel 4 g EXT QID PRN (Reason: left low back pain/left hip pain) Qty: 50 0RF Rx Instructions: sample provided by Uvaldo Merrill. hydrocodone-acetaminophen 7.5-325 mg Tablet 1 tab PO Q6H PRN (Reason: pain) Qty: 20 0RF gabapentin 100 mg Capsule 100 mg PO HS Qty: 30 0RF baclofen 5 mg tablet 5 mg PO TID PRN (Reason: muscle spasm) Qty: 30 0RF dexamethasone 2 mg tablet 2 mg PO DIRECTED Qty: 7 0RF Rx Instructions: start PM of 04/25; take with food. 2mg PO BID x 2 days; then 2mg PO daily x 2 days; then 1/2 tablet PO daily x 2 days. Continued cholecalciferol (vitamin D3) 5,000 unit tablet 5,000 units PO QAM lisinopril 10 mg tablet 10 mg PO QPM Qty: 30 rosuvastatin [Crestor] 10 mg tablet 10 mg PO HS omeprazole 40 mg capsule,delayed release(DR/EC) 40 mg PO QAM dextroamphetamine-amphetamine 10 mg tablet 10 mg PO DAILY@1300 dextroamphetamine-amphetamine 15 mg capsule,extended release 24hr 15 mg PO QAM desonide 0.05 % lotion 1 applic TOPICAL DAILY PRN (Reason: flare) ketoconazole 2 % cream 1 applic TOPICAL DAILY Rx Instructions: Apply to face metformin 500 mg tablet 500 mg PO QPM calcium carbonate [Tums 500] 500 mg calcium (1,250 mg) Tablet,Chewable 500 mg PO DAILY zthkypkd-wbqnrzzji-RF 3.5-10,000-1 mg/mL-unit/mL-% Drops,Suspension 1 drp OTIC (EAR) DAILY PRN (Reason: NEEDED) brimonidine-timolol [Combigan] 0.2-0.5 % Drops 1 drp OPHTHALMIC (EYE) BID Held celecoxib 200 mg capsule 200 mg PO QAM Hold Instructions: HOLD until you have completed your steroid course. Discharge Orders: Discharge Order (Routine); Ordered 04/25/25 Ordered By: Thierry Larson/Other Patient Handouts: Managing Type 2 Diabetes, Understanding Lumbar Radiculopathy Admission Data Admit Date/Time: 04/20/25 18:05 Attending Provider: Thierry Rose Admit Provider: Ang Pablo Primary Care Provider: Justin Parks Other Providers: Wolf Guerrero; Bill Dsouza; La Nena Thomas; Santos Cortés; Wolf Alicea; Sol Mcallister; IRB Approved Study,[facility] Hospital Stay Data Consultations 04/21/25 10:26 Consult Orthopedic Spine Surgery Routine 04/22/25 16:16 Consult Pain Management Routine Diagnostic Imagining Performed 04/20/25 14:10 MRI Hip [MR hip LT wo con] Stat MRI Lumbar Spine [MR lumbar spine wo con] Stat Pending Results Patient Have Any Pending Studies at Discharge: No Discharge Instructions Given to Patient (Per Discharging Provider) Jaiden Hope were hospitalized for acute lumbar (low) back pain on the left side. You also had pain that radiated into your left thigh. You underwent imaging of your left hip and your lumbar spine. The lumbar spine MRI showed considerable degeneration of the spine in this region especially at L2-L3 and L3-L4. Degeneration of the spine occurs with aging and can lead to nerve impingement. It is believed that the left leg symptoms are from a nerve being impinged (" pinched"). I cannot rule out pain coming from the left SI Joint (this is where your spine meets the pelvis) but we are less suspicious about this issue. You gradually improved with "trigger point" injections given by pain management, IV steroids, pain medicine, muscle relaxers, topical treatments, tylenol, and a nerve medicine called gabapentin. You were seen by PT/OT and they felt you could return home with your . Recommendations - 1. While recovering from your back injury please hold off on going to PT at this time. Once things calm down and you start to feel better your family doctor or pain management can refer you back to physical therapy. 2. In the meantime please plan to take 2-3 short walks (5-10 minutes each time) daily. Walking keeps the muscles more fit/strong, helps overall mobility, etc. 3. 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 4. May use heat to the low back and left leg as needed/as desired. 5. Steroids - start these TONIGHT. The steroid is called "dexamethasone." The steroid WILL raise your blood sugars while you are on them. Watch your blood sugars carefully; watch your diet carefully over the next week. Follow the instructions on the bottle - it is a tapering course. 6. For muscle spasm - -baclofen 5mg every 8 hours as needed; if desired you can take the medicine scheduled three times daily (rather than just as needed) 7. For pain - -narcotic pain killer - hydrocodone/acetaminophen, 1 tablet every 6 hours as needed -please note that this pain medicine contains tylenol in it -thus, do not take extra svkn-bjb-pyuygkb tylenol if you are taking this narcotic pain killer medicine -do NOT drive a car if you are taking hydrocodone -this medicine can make you sleepy -this medicine will cause constipation 8. For nerve pain - -gabapentin 100mg at bedtime -Dr Parks or pain management can gradually increase the dose of this medicine over time 9. May use voltaren (diclofenac) gel up to 4 times/day to the low back or left leg. Once you resume your Celebrex down the line please discontinue this gel. 10. Once the dexamethasone steroid course has completed you can resume your Celebrex medicine. 11. For constipation you can take 1 or both of the following mttc-gnf-wdfaaya medicines - -senna -miralax Follow-up - see separate section Return to [facility] if - -you have uncontrolled back pain or leg pain -you have significant difficulty walking because of the pain -you have difficulty walking because of leg weakness -you develop bowel or bladder incontinence -any other concerns It was our pleasure to care for you! -Thierry Rose Coding Diagnoses Intractable low back pain M54.59 Lumbar radiculopathy M54.16 Diabetes E11.9 Hypertension I10 Hx pulmonary embolism Z86.711 History of prostate cancer Z85.46 Sleep apnea G47.30 Mild cognitive impairment G31.84 Hx of traumatic brain injury Z87.820
== END 2025-04-25 13:02 | disposition home or self-care (01) | DRG 552 ==
LOC: ED 11:57 → 3W 18:05 → SUATTDRO 18:05 → 3W 19:14